=== PATIENT | male | born 1965 | race Caucasian/White ===

== ENCOUNTER 2016-07-18 05:21 | Emergency (ER) | payer SELFPAY ==
[~2016-07-18] VITALS: Ht 182.9 cm; Wt 137.9 kg
[~2016-07-18 05:21] MED LIST: ACET-789 PO; ACET1TAB12 PO; ALLP300T; ALLP300T PO; ALPR0.254 PO; AMOX500C2 PO; AMOX500T2 PO; CODE-54 PO; COLC0.6C3 PO; COLC0.6T53; COLC0.6T53 PO; COLC0.6T7 PO; CYCL10TA9 PO; ESCI10TA PO; FURO20TA4; FURO20TA4 PO; GFCD10B GT; IBP800T PO; IBUP800T26 PO; INDO50CA; INDO50CA PO; LIDO20SO20 PO; LISI10TA PO; METH4TAB PO; NAPR-243 PO; NEXIUM; OMEP20CA12 PO; PENI500T PO; PRD20T PO; SIMV20TA3 PO; SKELAXIN; SMV20T PO; TRM50T PO; TYLENOL #3 PO
[2016-07-18] MEDS ORDERED: PRD20T PO (05:43)
[2016-07-18] MEDS ORDERED: COLC0.6T53 PO (05:43)
[2016-07-18] MEDS ORDERED: HYDR-3729 PO (05:43)
--- NOTE | 2016-07-18 05:43 | ED General ---
General Chief Complaint: General Problems/Pain Stated Complaint: GOUT Source of Information: Patient Exam Limitations: No Limitations History of Present Illness Time Seen by Provider: 05:38 Initial Comments Patient woke up around an hour ago with severe right-sided ankle pain. He denies trauma. He has had gout many times in his ankle and he feels like this is it. He normally takes colchicine. He had none at home. Allergies and Home Medications Allergies Coded Allergies: No Known Drug Allergies (Unverified , 05/26/15) Home Medications Alprazolam 0.25 Mg Tablet, 0.25 MG PO QID, #60 (Reported) Escitalopram Oxalate 10 Mg Tablet, 10 MG PO DAILY, (Reported) Lisinopril 10 Mg Tablet, 10 MG PO DAILY, Ref 0 (Reported) Omeprazole 20 Mg Capsule.dr, 1 CAP PO DAILY, #30 (Reported) Simvastatin 20 Mg Tablet, 20 MG PO DAILY, (Reported) Constitutional: no symptoms reported Respiratory: no symptoms reported Cardiovascular: no symptoms reported Musculoskeletal: joint pain Past Tjngbtj-Fcrops-Bkjsjs Hx Patient Social History Alcohol Use: Denies Use Recreational Drug Use: No Smoking Status: Former Smoker Type Used: Cigarettes Former Smoker/When Quit: Feb 20, 1987 Recent Foreign Travel: No Contact w/Someone Who Travel: No Recent Hopitalizations: No Immunizations Up To Date Tetanus Booster (TDap): Less than 5yrs Seasonal Allergies Seasonal Allergies: No Surgeries HX Surgeries: No Respiratory Hx Respiratory Disorders: No Cardiovascular Hx Cardiac Disorders: Yes ("cardiac event") Cardiac Disorders: High Cholesterol, Hypertension Neurological Hx Neurological Disorders: No Reproductive System Hx Reproductive Disorders: No Sexually Transmitted Disease: No HIV/AIDS: No Genitourinary Hx Genitourinary Disorders: No Gastrointestinal Hx Gastrointestinal Disorders: Yes Gastrointestinal Disorders: Gastroesophageal Reflux Musculoskeletal Hx Musculoskeletal Disorders: Yes Musculoskeletal Disorders: Chronic Back Pain, Fractures, Gout Endocrine Hx Endocrine Disorders: No HEENT HX ENT Disorders: Yes HEENT Disorders: Cataract Cancer Hx Cancer: No Psychosocial Hx Psychiatric Problems: Yes Behavioral Health Disorders: Anxiety Integumentary HX Skin/Integumentary Disorder: No Blood Transfusions Hx Blood Disorders: No Adverse Reaction to a Blood Tr: No Reviewed Nursing Assessment Reviewed/Agree w Nursing PMH: Yes Family Medical History Significant Family History: Hypertension Family Medial History: Patient reports no known family medical history. Physical Exam Vital Signs Capillary Refill : General Appearance: WD/WN, Moderate Distress Neck: Supple Respiratory: Lungs Clear Cardiovascular: Regular Rate, Rhythm Extremity: Other (tender red swollen right ankle) Neurologic/Psychiatric: Alert, No Motor/Sensory Deficits Skin: Normal Color, Warm/Dry Departure Impression Impression: Primary Impression: acute gouty arthritis right ankle Disposition: 01 HOME, SELF-CARE Condition: Stable Departure-Patient Inst. Decision time for Depature: 05:40 Referrals: [facility] (PCP/Family) Primary Care Physician Patient Instructions: Gout Scripts Hydrocodone/Acetaminophen (Lortab 5-325 mg Tablet) 1 Each Tablet 1-2 EACH PO Q4H Y for PAIN-MODERATE, #10 TAB Prov: MICHEL CANO MD 07/18/16 Prednisone (Prednisone) 20 Mg Tab 20 MG PO BID, #8 TAB Prov: MICHEL CANO MD 07/18/16 Colchicine (Colcrys) 0.6 Mg Tablet 0.6 MG PO Q3HR Y for PAIN-SEVERE, #10 TAB Prov: MICHEL CANO MD 07/18/16 MICHEL CANO MD July 18, 2016 05:43
[2016-07-18] MEDS ORDERED: COLCHICINE 0.6 MG (COLCRYS) TABLET PO PRN (05:45)
[2016-07-18 05:58] VITALS: BP 0/0
[2016-07-18] MEDS ORDERED: ACET-789 PO (05:59)
[2016-07-18] MEDS ORDERED: COLCHICINE 0.6 MG (COLCRYS) TABLET PO ONE (06:00)
== END 2016-07-18 05:58 | disposition home or self-care (01) ==
LOC: EDUNIT# 05:21 → ER 05:24
DX: M10.071 Idiopathic gout, right ankle and foot (principal); I10 Essential (primary) hypertension; Z79.899 Other long term (current) drug therapy; Z87.891 Personal history of nicotine dependence
CPT/HCPCS: 99281

== ENCOUNTER 2017-03-11 17:47 | Emergency (ER) | payer SELFPAY ==
[~2017-03-11] VITALS: Ht 210.8 cm; Wt 137.9 kg
[~2017-03-11 17:47] MED LIST changes: +HYDR-3729 PO
--- OUTSIDE RECORDS SUMMARY | 2017-03-11 17:54 | XMS REPORT ---
Author Author GOLDY DUGGAN Organization [facility] Address [address] [place] [address] Care Team Providers Care Bellows Charger Assembler Name Role Phone GOLDY DUGGAN Unavailable PROBLEMS Type Condition ICD9-CM Code [id number] Code Onset Dates Condition Status SNOMED Code Problem Mixed hyperlipidemia E78.2 Active 919669055 Problem Anxiety state, unspecified F41.1 Active 029708392 Problem Essential hypertension I10 Active 75682933 Problem Gastroesophageal reflux disease without esophagitis K21.9 Active 883215019 Problem Bladder spasms N32.89 Active 860256776 Problem PTSD (post-traumatic stress disorder) F43.10 Active 79889584 Problem 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 Active 19854659 Problem Generalized anxiety disorder F41.1 Active 86644014 Problem Agoraphobia F40.00 Active 43653518 Problem Social anxiety disorder F40.10 Active 10685007 ALLERGIES No Known Allergies SOCIAL HISTORY Never Assessed PLAN OF CARE Activity Details Follow Up prn Reason: VITAL SIGNS Height 72 in 2016-07-09 Weight 303.2 lbs 2016-07-09 Temperature 98.1 degrees Fahrenheit 2016-07-09 Heart Rate 88 bpm 2016-07-09 Respiratory Rate 22 2016-07-09 BMI 41.12 kg/m2 2016-07-09 Blood pressure systolic 130 mmHg 2016-07-09 Blood pressure diastolic 80 mmHg 2016-07-09 MEDICATIONS Medication Instructions Dosage Frequency Start Date End Date Duration Status Alprazolam 0.25 MG TAKE ONE TABLET BY MOUTH TWICE DAILY 30 Active Pyridium 200 MG Orally Three times a day 1 tablet after meals 8h June, June, 2 day(s) Active Lisinopril 10 mg Orally Once a day 1 tablet 24h 30 Active Xanax 0.25 MG Orally four times a day 1 tablet 6h Dec, 30 days Active Simvastatin 10 MG Orally Once a day 1 24h Jul, 30 days Active Lexapro 10 MG Orally Once a day 1 tablet 24h 16 Dec, 2015 30 day(s) Active Flonase Allergy Relief 50 MCG/ACT Nasally twice a day 1 spray in each nostril 12h 14 Dec, 2015 30 day(s) Active RESULTS Name Result Date Reference Range UA LONG DIP (IN HOUSE) 2016-07-09 Lot # [id number] Exp date 2017-06-19 Clarity clear Color yellow Odor none GLU negative ULICES negative KET negative SG >=1.030 BLO negative pH 6.0 Protein negative URO 1.0 NIT negative ZENAIDA negative Lot # [id number] Exp date 2017-03 PROCEDURES Procedure Date Ordered Result Body Site URINALYSIS, AUTO, W/O SCOPE July 09, 2016 IMMUNIZATIONS No Known Immunizations MEDICAL (GENERAL) HISTORY Type Description Date Medical History chronic pain to back and right shoulder from work related injury 2009 Medical History coronary artery disease Medical History sleep apnea Medical History anxiety Medical History myocardial infarction 12/22/2011 (nuclear stress test done) Medical History hypertension Medical History gout Hospitalization History [place] 12/2011
--- OUTSIDE RECORDS SUMMARY | 2017-03-11 17:54 | XMS REPORT ---
Author Author ADIN CHANG [facility] Address [address] [place] [address] Care Team Providers Care Harness Repairer Name Role Phone ADIN CHANG Unavailable PROBLEMS Type Condition ICD9-CM Code [id number] Code Onset Dates Condition Status SNOMED Code Problem Mixed hyperlipidemia E78.2 Active 791807510 Problem Anxiety state, unspecified F41.1 Active 020432368 Problem Essential hypertension I10 Active 21643498 Problem Gastroesophageal reflux disease without esophagitis K21.9 Active 723134111 Problem Bladder spasms N32.89 Active 443783007 Problem PTSD (post-traumatic stress disorder) F43.10 Active 13991126 Problem 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 Active 78803948 Problem Generalized anxiety disorder F41.1 Active 23234266 Problem Agoraphobia F40.00 Active 12382584 Problem Social anxiety disorder F40.10 Active 55986160 ALLERGIES No Known Allergies SOCIAL HISTORY Never Assessed PLAN OF CARE Activity Details Follow Up 6 Months Reason: VITAL SIGNS Height 72 in 2016-04-22 Weight 293.0 lbs 2016-04-22 Temperature 98.0 degrees Fahrenheit 2016-04-22 Heart Rate 80 bpm 2016-04-22 Respiratory Rate 22 2016-04-22 BMI 39.73 kg/m2 2016-04-22 Blood pressure systolic 146 mmHg 2016-04-22 Blood pressure diastolic 82 mmHg 2016-04-22 MEDICATIONS Medication Instructions Dosage Frequency Start Date End Date Duration Status Simvastatin 10 MG Orally Once a day 1 24h 11 Jul, 2012 30 days Active Lexapro 10 MG Orally Once a day 1 tablet 24h 16 Dec, 2015 30 day(s) Active Lisinopril 10 mg Orally Once a day 1 tablet 24h 30 days Active Alprazolam 0.25 MG TAKE ONE TABLET BY MOUTH TWICE DAILY 30 Active Flonase Allergy Relief 50 MCG/ACT Nasally twice a day 1 spray in each nostril 12h 14 Dec, 2015 30 day(s) Active Xanax 0.25 MG Orally four times a day 1 tablet 6h Dec, 30 days Active RESULTS No Results PROCEDURES No Known procedures IMMUNIZATIONS No Known Immunizations MEDICAL (GENERAL) HISTORY Type Description Date Medical History chronic pain to back and right shoulder from work related injury 2009 Medical History coronary artery disease Medical History sleep apnea Medical History anxiety Medical History myocardial infarction 12/22/2011 (nuclear stress test done) Medical History hypertension Medical History gout Hospitalization History [place] 12/2011
--- OUTSIDE RECORDS SUMMARY | 2017-03-11 17:55 | XMS REPORT ---
Author Author ADIN CHANG [facility] Address [address] [place] [address] Care Team Providers Care Cattle Driver Name Role Phone ADIN CHANG Unavailable PROBLEMS Type Condition ICD9-CM Code WPF65-CD Code Onset Dates Condition Status SNOMED Code Problem Mixed hyperlipidemia E78.2 Active 750758064 Problem Anxiety state, unspecified F41.1 Active 663274778 Problem Essential hypertension I10 Active 57014997 Problem Gastroesophageal reflux disease without esophagitis K21.9 Active 870075741 Problem Bladder spasms N32.89 Active 468029279 Problem PTSD (post-traumatic stress disorder) F43.10 Active 23123800 Problem 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 Active 17353533 Problem Generalized anxiety disorder F41.1 Active 59098835 Problem Agoraphobia F40.00 Active 58554929 Problem Social anxiety disorder F40.10 Active 66851766 ALLERGIES No Information SOCIAL HISTORY Never Assessed PLAN OF CARE VITAL SIGNS MEDICATIONS Medication Instructions Dosage Frequency Start Date End Date Duration Status Lisinopril 10 mg Orally Once a day 1 tablet 24h 30 days Active RESULTS No Results PROCEDURES No Known procedures IMMUNIZATIONS No Known Immunizations MEDICAL (GENERAL) HISTORY Type Description Date Medical History chronic pain to back and right shoulder from work related injury 2009 Medical History coronary artery disease Medical History sleep apnea Medical History anxiety Medical History myocardial infarction 12/22/2011 (nuclear stress test done) Medical History hypertension Medical History gout Hospitalization History [place] 12/2011
--- OUTSIDE RECORDS SUMMARY | 2017-03-11 17:55 | XMS REPORT ---
Author Author ADIN CHANG [facility] Address [address] [place] [address] Care Team Providers Care Intraoperative Neuro Tech Name Role Phone ADIN CHANG Unavailable PROBLEMS Type Condition ICD9-CM Code WYP52-TL Code Onset Dates Condition Status SNOMED Code Problem Mixed hyperlipidemia E78.2 Active 498705806 Problem Anxiety state, unspecified F41.1 Active 720370675 Problem Essential hypertension I10 Active 36908498 Problem Gastroesophageal reflux disease without esophagitis K21.9 Active 538852384 Problem Bladder spasms N32.89 Active 225553961 Problem PTSD (post-traumatic stress disorder) F43.10 Active 96245646 Problem 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 Active 98895780 Problem Generalized anxiety disorder F41.1 Active 28612345 Problem Agoraphobia F40.00 Active 45053370 Problem Social anxiety disorder F40.10 Active 41458809 ALLERGIES No Information SOCIAL HISTORY Never Assessed PLAN OF CARE VITAL SIGNS MEDICATIONS Unknown Medications RESULTS Name Result Date Reference Range TSH 2016-04-21 TSH 1.520 0.450-4.500 LIPID PANEL 2016-04-21 Cholesterol, Total 185 100-199 Triglycerides 152 0-149 HDL Cholesterol 49 >39 VLDL Cholesterol Neri 30 5-40 LDL Cholesterol Calc 106 0-99 CMP 2016-04-21 Glucose, Serum 86 65-99 BUN 10 6-24 Creatinine, Serum 0.90 0.76-1.27 eGFR If NonAfricn Am 101 >59 eGFR If Africn Am 116 >59 BUN/Creatinine Ratio 11 9-20 Sodium, Serum 137 134-144 Potassium, Serum 4.9 3.5-5.2 Chloride, Serum 97 96-106 Carbon Dioxide, Total 26 18-29 Calcium, Serum 9.2 8.7-10.2 Protein, Total, Serum 7.0 6.0-8.5 Albumin, Serum 4.1 3.5-5.5 Globulin, Total 2.9 1.5-4.5 A/G Ratio 1.4 1.1-2.5 Bilirubin, Total 0.6 0.0-1.2 Alkaline Phosphatase, S 104 39-117 AST (SGOT) 14 0-40 ALT (SGPT) 15 0-44 PROCEDURES Procedure Date Ordered Result Body Site COMPREHEN METABOLIC PANEL April 21, 2016 LIPID PANEL April 21, 2016 VENIPUNCT, ROUTINE* April 21, 2016 ASSAY THYROID STIM HORMONE April 21, 2016 IMMUNIZATIONS No Known Immunizations MEDICAL (GENERAL) HISTORY Type Description Date Medical History chronic pain to back and right shoulder from work related injury 2009 Medical History coronary artery disease Medical History sleep apnea Medical History anxiety Medical History myocardial infarction 12/22/2011 (nuclear stress test done) Medical History hypertension Medical History gout Hospitalization History [place] 12/2011
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
[2017-03-11] MEDS ORDERED: AZIT250T12 PO (17:58)
[2017-03-11] MEDS ORDERED: ACET-789 PO (17:58)
--- NOTE | 2017-03-11 17:58 | ED Cough/URI ---
General Stated Complaint: COUGH,LIGHT HEADED WHEN COUGHING,FEVER Source: patient Exam Limitations: no limitations History of Present Illness Date Seen by Provider: Mar 11, 2017 Time Seen by Provider: 17:56 Initial Comments To ER with 4-5 days of nasal congestion and cough. No fevers. Cough was initially productive but is no longer productive and his chest feels tighter when he coughs now. Timing/Duration: just prior to arrival Severity/Quality: dry cough Associated Symptoms: cough Allergies and Home Medications Allergies Coded Allergies: No Known Drug Allergies (Unverified , 05/26/15) Home Medications Acetaminophen with Codeine 1 Each Tablet, 1 EACH PO Q4H PRN for PAIN-MILD TO MODERATE for 14 Days Prescribed by: MICHEL CANO on 07/18/16 0559 Alprazolam 0.25 Mg Tablet, 0.25 MG PO QID, #60 (Reported) Colchicine 0.6 Mg Tablet, 0.6 MG PO Q3HR PRN for PAIN-SEVERE, #10 Prescribed by: MICHEL CANO on 07/18/16 0543 Escitalopram Oxalate 10 Mg Tablet, 10 MG PO DAILY, (Reported) Lisinopril 10 Mg Tablet, 10 MG PO DAILY, Ref 0 (Reported) Omeprazole 20 Mg Capsule.dr, 1 CAP PO DAILY, #30 (Reported) Prednisone 20 Mg Tab, 20 MG PO BID, #8 Prescribed by: MICHEL CANO on 07/18/16 0543 Simvastatin 20 Mg Tablet, 20 MG PO DAILY, (Reported) Constitutional: see HPI, No chills EENTM: nose congestion Respiratory: see HPI, cough Cardiovascular: see HPI, chest pain Genitourinary: no symptoms reported Skin: no symptoms reported Past Dfoednt-Pmmhqh-Hvnldr Hx Patient Social History Type Used: Cigarettes Former Smoker, Quit: Feb 20, 1986 Recent Foreign Travel: No Contact w/Someone Who Travel: No Recent Hopitalizations: No Immunizations Up To Date Tetanus Booster (TDap): Less than 5yrs Seasonal Allergies Seasonal Allergies: No Surgeries History of Surgeries: No Respiratory History of Respiratory Disorde: No Cardiovascular History of Cardiac Disorders: Yes ("cardiac event") Cardiac Disorders: High Cholesterol, Hypertension Neurological History of Neurological Disord: No Reproductive System Hx Reproductive Disorders: No Sexually Transmitted Disease: No HIV/AIDS: No Gastrointestinal History of Gastrointestinal Di: Yes Gastrointestinal Disorders: Gastroesophageal Reflux Musculoskeletal History of Musculoskeletal Dis: Yes Musculoskeletal Disorders: Chronic Back Pain, Fractures, Gout Endocrine History of Endocrine Disorders: No HEENT HEENT Disorders: Cataract Cancer History of Cancer: No Psychosocial History of Psychiatric Problem: Yes Behavioral Health Disorders: Anxiety Integumentary History of Skin or Integumenta: No Blood Transfusions History of Blood Disorders: No Adverse Reaction to a Blood Tr: No Family Medical History Significant Family History: Hypertension Family Medial History: Patient reports no known family medical history. Physical Exam Vital Signs Capillary Refill : General Appearance: WD/WN, no apparent distress Eyes: Bilateral Eye Normal Inspection, Bilateral Eye PERRL, Bilateral Eye EOMI HEENT: PERRL/EOMI, normal ENT inspection Respiratory: normal breath sounds, no respiratory distress, no accessory muscle use Cardiovascular: regular rate, rhythm, no murmur Gastrointestinal: normal bowel sounds, non tender, soft Neurologic/Psychiatric: alert, normal mood/affect, oriented x 3 Skin: normal color, warm/dry Progress/Results/Core Measures Suspected Sepsis SIRS Temperature: Pulse: Respiratory Rate: Blood Pressure / Mean: Results/Orders My Orders Orders - DACIA CAMPOS APRN Chest Pa/Lat (2 View) (03/11/17 17:51) Influenza A And B Antigens (03/11/17 17:51) Vital Signs/I&O Capillary Refill : Departure Impression Impression: Primary Impression: Bronchitis Disposition: 01 HOME, SELF-CARE Condition: Stable Departure-Patient Inst. Decision time for Depature: 17:57 Referrals: [facility] (PCP/Family) Primary Care Physician Patient Instructions: Acute Bronchitis in Adults Add. Discharge Instructions: 1. Inhaler 2 puffs every 4 hours as needed for shortness of breath and chest tightness 2. Tylenol with codeine to help control the cough every 4 hours as needed for excessive coughing 3. Antibiotics as directed Scripts Acetaminophen with Codeine (Tylenol with Codeine #3 Tablet) 1 Each Tablet 1 EACH PO Q4H Y for COUGH, #10 TAB Prov: DACIA CAMPOS APRN 03/11/17 Azithromycin (Azithromycin) 250 Mg Tablet 250 MG PO DAILY, #4 TAB Prov: DACIA CAMPOS APRN 03/11/17 DACIA CAMPOS APRN Mar 11, 2017 17:58
[2017-03-11] MEDS ORDERED: RX-ALBUTEROL INHALER (PROAIR) 8 GM IH STA (18:00)
[2017-03-11] MEDS ORDERED: RX-ACETAMINOPHEN/CODEINE TAB PPK #4 PO SCH (18:00)
--- NOTE | 2017-03-11 18:05 | Diagnostic Imaging Report ---
INDICATION: Lower respiratory infection PA and lateral chest Heart size and pulmonary vascularity are normal. Lungs are clear. There are no effusions or pneumothoraces. IMPRESSION: Negative chest Dictated by: Dictated on workstation # [id number]
[2017-03-11] MEDS ORDERED: AZITHROMYCIN 250 MG TAB (ZITHROMAX) PO ONE (18:13)
[2017-03-11 18:22] VITALS: BP 121/102
[2017-03-12] MEDS ORDERED: AZITHROMYCIN 250 MG TAB (ZITHROMAX) PO SCH (09:00)
== END 2017-03-11 18:16 | disposition home or self-care (01) ==
LOC: EDUNIT# 17:47 → ER 17:50
DX: J40 Bronchitis, not specified as acute or chronic (principal); F41.9 Anxiety disorder, unspecified; K21.9 Gastro-esophageal reflux disease without esophagitis; I10 Essential (primary) hypertension; E78.00 Pure hypercholesterolemia, unspecified; Z87.891 Personal history of nicotine dependence; Z87.81 Personal history of (healed) traumatic fracture
CPT/HCPCS: 71046; 99283

== ENCOUNTER 2017-09-17 15:31 | Emergency (ER) | payer SELFPAY ==
[~2017-09-17] VITALS: Ht 182.9 cm; Wt 134.3 kg
[~2017-09-17 15:31] MED LIST changes: +AZIT250T12 PO
--- OUTSIDE RECORDS SUMMARY | 2017-09-17 15:38 | XMS REPORT ---
Author Author ADIN CHANG Organization 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 [address] [address] Dec, [facility] [address] [address] Dec, Essential hypertension I10 and High risk sexual behavior Z72.51 [facility] [address] [address] Nov, [facility] [address] [address] Oct, [facility] [address] [phone] June, Lower abdominal pain R10.30 and Bladder spasms N32.89 [facility] [address] [address] May, [facility] [address] [address] May, [facility] [address] [address] Apr, Essential hypertension I10 and Mixed hyperlipidemia E78.2 [place] [id number] [place] [address] Apr, Mixed hyperlipidemia E78.2 [place] [id number] [place] [address] Mar, Essential hypertension I10 [place] [address] [address] Dec, [place] [address] [address] Dec, 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 ; PTSD (post- traumatic stress disorder) F43.10 and OCD (obsessive compulsive disorder) F42.9 [place] [id number] [place] [address] Dec, [facility] [id number] [place] [phone] Dec, Fluid level behind tympanic membrane of right ear H65.91 [place] [id number] [place] [address] Nov, Generalized anxiety disorder F41.1 ; OCD (obsessive compulsive disorder) F42.9 ; PTSD (post-traumatic stress disorder) F43.10 ; Agoraphobia F40.00 ; Social anxiety disorder F40.10 ; Anxiety state, unspecified F41.1 and 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 [place] [id number] [place] [address] Nov, Generalized anxiety disorder F41.1 and 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 [place] [id number] [place] [address] Oct, [place] [id number] [place] [address] Sep, Essential hypertension I10 [place] [id number] [place] [address] Sep, [facility] [id number] [address] Sep, 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 [facility] [id number] [place] [address] Jul, Anxiety state, unspecified F41.1 [facility] [id number] [place] [address] June, Essential hypertension I10 ; Anxiety F41.9 and Mixed hyperlipidemia E78.2 [place] [id number] [place] [address] June, Generalized anxiety disorder F41.1 [place] [id number] [place] [address] May, [place] [id number] [place] [address] May, [facility] [id number] [place] [address] Jul, [facility] [id number] [place] [address] Dec, [facility] [id number] [place] [address] May, [facility] [id number] [place] [address] May, IMMUNIZATIONS No Known Immunizations SOCIAL HISTORY Never Assessed REASON FOR VISIT LVM PLAN OF CARE VITAL SIGNS MEDICATIONS Unknown Medications RESULTS No Results PROCEDURES No Known procedures INSTRUCTIONS MEDICATIONS ADMINISTERED No Known Medications MEDICAL (GENERAL) HISTORY Type Description Date Medical History chronic pain to back and right shoulder from work related injury 2009 Medical History coronary artery disease Medical History sleep apnea Medical History anxiety Medical History myocardial infarction 12/22/2011 (nuclear stress test done) Medical History hypertension Medical History gout Hospitalization History [place] 12/2011
--- NOTE | 2017-09-17 15:50 | ED Lower Extremity ---
General Chief Complaint: Lower Extremity Stated Complaint: GOUT FLARE UP Source: patient Exam Limitations: no limitations History of Present Illness Date Seen by Provider: Sep 17, 2017 Time Seen by Provider: 15:48 Initial Comments to ER with reports of a gout flareup. This began about 3:30 AM this morning and affects the right medial malleolus. This was his typical presentation for gout. He denies fevers chills or injury. He sstates this is not as bad as typical but he has to work tomorrow so he wanted to get this treated early. Onset: just prior to arrival Severity: moderate Pain/Injury Location: right ankle Method of Injury: other (gout) Modifying Factors: Worse With Movement Allergies and Home Medications Allergies Coded Allergies: No Known Drug Allergies (Unverified , 05/26/15) Home Medications Alprazolam 0.25 Mg Tablet, 0.25 MG PO QID, (Reported) Lisinopril 10 Mg Tablet, 10 MG PO DAILY, (Reported) Prednisone 20 Mg Tab, 40 MG PO DAILY Prescribed by: NAHOMY ROBERTS on 07/01/17 0029 Patient Home Medication List Home Medication List Reviewed: Yes Constitutional: see HPI; No chills, No fever EENTM: see HPI Respiratory: no symptoms reported Cardiovascular: no symptoms reported Genitourinary: no symptoms reported Musculoskeletal: see HPI Skin: see HPI Psychiatric/Neurological: No Symptoms Reported Past Uxdcupd-Fkxnta-Fielfd Hx Patient Social History Alcohol Use: Denies Use Recreational Drug Use: No Smoking Status: Current Someday Smoker Type Used: Cigarettes Former Smoker, Quit: Feb 20, 1986 Recent Foreign Travel: No Contact w/Someone Who Travel: No Recent Hopitalizations: No Physical Abuse: No Sexual Abuse: No Mistreated: No Fear: No Immunizations Up To Date Tetanus Booster (TDap): Less than 5yrs PED Vaccines UTD: Yes Seasonal Allergies Seasonal Allergies: No Past Medical History Surgeries: No Respiratory: No Cardiac: Yes ("cardiac event") High Cholesterol, Hypertension Neurological: No Reproductive Disorders: No Sexually Transmitted Disease: No HIV/AIDS: No Genitourinary: No Gastrointestinal: Yes Gastroesophageal Reflux Musculoskeletal: Yes Chronic Back Pain, Fractures, Gout Endocrine: No Cataract Cancer: No Psychosocial: Yes Anxiety Nursing Suicide Risk Score: 2 Integumentary: No Blood Disorders: No Adverse Reaction/Blood Tranf: No Family Medical History Patient reports no known family medical history. Hypertension Physical Exam Vital Signs Vital Signs - First Documented 09/17/17 15:42 Temp 98.2 Pulse 87 Resp 16 B/P (MAP) 149/83 (105) Pulse Ox 95 Capillary Refill : Height, Weight, BMI Height: 6'0" Weight: 280lbs. oz. 127.895646pq; 0.00 BMI Method:Stated General Appearance: WD/WN, no apparent distress HEENT: PERRL/EOMI, normal ENT inspection Respiratory: no respiratory distress, no accessory muscle use Hips: bilateral hip non-tender, bilateral hip normal inspection, bilateral hip normal range of motion Legs: bilateral leg non-tender, bilateral leg normal inspection, bilateral leg normal range of motion Knees: bilateral knee non-tender, bilateral knee normal inspection, bilateral knee normal range of motion ( G yesterday) Ankles: right ankle pain, right ankle soft tissue tenderness, right ankle other (faint erythema over the medial malleolus) Feet: bilateral foot non-tender, bilateral foot normal inspection, bilateral foot normal range of motion Skin: normal color, warm/dry Progress/Results/Core Measures Results/Orders My Orders Orders - DACIA CAMPOS APRN Colchicine Tablet (Colcrys Tablet) (09/17/17 16:00) Prednisone Tablet (Deltasone Tablet) (09/17/17 16:00) Vital Signs/I&O 09/17/17 15:42 Temp 98.2 Pulse 87 Resp 16 B/P (MAP) 149/83 (105) Pulse Ox 95 Departure Impression Primary Impression: Gouty arthropathy Disposition: 01 HOME, SELF-CARE Condition: Stable Departure-Patient Inst. Decision time for Depature: 15:50 Referrals: [facility] (PCP/Family) Primary Care Physician Patient Instructions: Gout, Lifestyle Changes to Manage Gout Add. Discharge Instructions: 1. Follow-up with your doctor later this week 2. Return to ER for any concerns 3.All discharge instructions reviewed with patient and/or family. Voiced understanding. Scripts Acetaminophen with Codeine (Tylenol with Codeine #3 Tablet) 1 Each Tablet 1 EACH PO Q6H PRN for PAIN-MODERATE, #10 TAB Prov: DACIA CAMPOS APRN 09/17/17 Prednisone (Prednisone) 20 Mg Tab 40 MG PO DAILY, #6 TAB Prov: DACIA CAMPOS APRN 09/17/17 Work/School Note: Work Release Form Date Seen in the Emergency Department: Sep 17, 2017 Return to Work: Sep 19, 2017 DACIA CAMPOS APRN Sep 17, 2017 15:50
[2017-09-17] MEDS ORDERED: PRD20T PO (15:52)
[2017-09-17] MEDS ORDERED: ACET-789 PO (15:52)
[2017-09-17] MEDS ORDERED: COLCHICINE 0.6 MG (COLCRYS) TABLET PO ONE (16:00)
[2017-09-17] MEDS ORDERED: predniSONE 20 MG TAB PO ONE (16:00)
[2017-09-17 16:08] VITALS: BP 142/87
[2017-09-17] MEDS ORDERED: COLC0.6C3 PO (16:10)
== END 2017-09-17 16:08 | disposition home or self-care (01) ==
LOC: EDUNIT# 15:31 → ER 15:33
DX: M10.9 Gout, unspecified (principal); E78.00 Pure hypercholesterolemia, unspecified; I10 Essential (primary) hypertension; K21.9 Gastro-esophageal reflux disease without esophagitis; F41.9 Anxiety disorder, unspecified; Z87.891 Personal history of nicotine dependence; Z79.52 Long term (current) use of systemic steroids
CPT/HCPCS: 99283

== ENCOUNTER 2017-11-05 00:09 | Emergency (ER) | payer SELFPAY ==
[~2017-11-05] VITALS: Ht 182.9 cm; Wt 129.3 kg
--- NOTE | 2017-11-05 00:34 | ED Lower Extremity ---
General Chief Complaint: General Problems/Pain Stated Complaint: GOUT R FOOT Nursing Triage Note: RIGHT FOOT PAIN, PT STATES HE IS HAVING A GOUT FLARE UP. PAIN STARTED THIS MORNING AND PT HAD TO GO TO WORK AND BE ON HIS FEET FOR 10 HOURS. Nursing Sepsis Screen: No Definite Risk Source: patient Exam Limitations: no limitations History of Present Illness Date Seen by Provider: Nov 05, 2017 Time Seen by Provider: 00:23 Initial Comments The patient presents to the ER by private conveyance with chief complaint he is having a gout flare in his right foot. It is red and swollen. Started yesterday. He has not taken anything for it. He says usually he comes to the ER and they give him Tylenol 3, prednisone and some other medication he thinks it a generic brand for colchicine. He does not use Naprosyn because he says it makes him loopy. He says he's had a heart attack before but it was not from the blood vessels of his heart it was just stress related. He does not take any blood thinners, aspirin or Plavix. He does follow with Dr. Voss although is not seen him in several years. Allergies and Home Medications Allergies Coded Allergies: No Known Drug Allergies (Unverified , 05/26/15) Home Medications Acetaminophen with Codeine 1 Each Tablet, 1 EACH PO Q6H PRN for PAIN-MODERATE Prescribed by: DACIA CAMPOS on 09/17/17 1552 Alprazolam 0.25 Mg Tablet, 0.25 MG PO QID, (Reported) Colchicine 0.6 Mg Capsule, 0.6 MG PO ONCE Prescribed by: DACIA CAMPOS on 09/17/17 1610 Lisinopril 10 Mg Tablet, 10 MG PO DAILY, (Reported) Prednisone 20 Mg Tab, 40 MG PO DAILY Prescribed by: NAHOMY ROBERTS on 07/01/17 0029 Prednisone 20 Mg Tab, 40 MG PO DAILY Prescribed by: DACIA CAMPOS on 09/17/17 1552 Patient Home Medication List Home Medication List Reviewed: Yes Review of Systems Constitutional: No chills, No diaphoresis EENTM: No ear discharge, No ear pain Respiratory: No cough, No short of breath Gastrointestinal: No abdominal pain, No nausea, No vomiting Genitourinary: No discharge, No dysuria Past Hircdes-Guciqq-Gvjywx Hx Patient Social History Alcohol Use: Denies Use Recreational Drug Use: No Smoking Status: Never a Smoker Type Used: Cigarettes Former Smoker, Quit: Feb 20, 1986 Recent Foreign Travel: No Contact w/Someone Who Travel: No Recent Infectious Disease Expo: No Recent Hopitalizations: No Physical Abuse: No Sexual Abuse: No Immunizations Up To Date Tetanus Booster (TDap): Less than 5yrs PED Vaccines UTD: Yes Seasonal Allergies Seasonal Allergies: No Past Medical History Surgeries: No Respiratory: No Cardiac: Yes ("cardiac event") Heart Attack, High Cholesterol, Hypertension Neurological: No Reproductive Disorders: No Sexually Transmitted Disease: No HIV/AIDS: No Genitourinary: No Gastrointestinal: Yes Gastroesophageal Reflux Musculoskeletal: Yes Chronic Back Pain, Fractures, Gout Endocrine: No HEENT: Yes Cataract Cancer: No Psychosocial: Yes Anxiety Integumentary: No Blood Disorders: No Adverse Reaction/Blood Tranf: No Family Medical History Patient reports no known family medical history. Hypertension Physical Exam Vital Signs Vital Signs - First Documented 11/05/17 00:16 Temp 98.6 Pulse 85 Resp 14 B/P (MAP) 152/92 (112) Pulse Ox 96 Capillary Refill : Less Than 3 Seconds Height, Weight, BMI Height: 6'0" Weight: 285lbs. 0oz. 129.737180nc; 0.00 BMI Method:Stated General Appearance: WD/WN, no apparent distress HEENT: PERRL/EOMI, pharynx normal Cardiovascular: normal peripheral pulses, regular rate, rhythm Respiratory: no respiratory distress, no accessory muscle use Ankles: bilateral ankle non-tender, bilateral ankle normal inspection, bilateral ankle normal range of motion, bilateral ankle no evidence of injury Feet: left foot non-tender, left foot normal inspection, left foot normal range of motion, left foot no evidence of injury; right foot bone tenderness, right foot pain, right foot soft tissue tenderness, right foot swelling (mild) Neurologic/Psychiatric: alert, oriented x 3 Progress/Results/Core Measures Results/Orders Vital Signs/I&O 11/05/17 00:16 Temp 98.6 Pulse 85 Resp 14 B/P (MAP) 152/92 (112) Pulse Ox 96 Blood Pressure Mean: 112 Progress Progress Note : Time: 00:33 Progress Note I cannot find any indication why the patient would not benefit from NSAIDs. He does not want Naprosyn however he thinks and says make him feel loopy. We'll give him some cold symptoms since this is worked in the past as well as Tylenol 3 and put him on a 5 day Dosepak of prednisone. In 2011 he had a stress test and echocardiogram showing some mild diastolic dysfunction. No cardiac catheterization report found. Departure Impression Primary Impression: Gouty arthropathy Disposition: 01 HOME, SELF-CARE Condition: Stable Departure-Patient Inst. Decision time for Depature: 00:35 Referrals: [facility] (PCP/Family) Primary Care Physician Patient Instructions: Gout (DC) Add. Discharge Instructions: Use the colchicine 1 tablet every 3 hours as needed for breakthrough pain. I recommend that you use ibuprofen 2-4 tablets every 8 hours as needed for pain in addition to Tylenol 1000 mg every 8 hours. Start taking the prednisone 2 tablets daily for the next 5 days. Drink lots of fluids and follow-up with your primary care doctor as needed. If you have breakthrough pain you can use the Tylenol 3 one tablet every 6 hours. All discharge instructions reviewed with patient and/or family. Voiced understanding. Scripts Prednisone (Prednisone) 20 Mg Tab 40 MG PO DAILY for 5 Days, #10 TAB 0 Refills Prov: CHERELLE PADILLA 11/05/17 Colchicine (Colchicine) 0.6 Mg Capsule 0.6 MG PO Q3HR PRN for GOUT PAIN for 7 Days, #10 CAP 0 Refills Prov: CHERELLE PADILLA 11/05/17 Acetaminophen with Codeine (Acetaminophen-Cod #3 Tablet) 1 Each Tablet 1 EACH PO Q6H PRN for BREAKTHROUGH PAIN for 7 Days, #10 TAB 0 Refills Prov: CHERELLE PADILLA 11/05/17 CHERELLE PADILLA Nov 05, 2017 00:34
[2017-11-05] MEDS ORDERED: PRD20T PO (00:39)
[2017-11-05] MEDS ORDERED: COLC0.6C3 PO (00:39)
[2017-11-05] MEDS ORDERED: ACET1TAB43 PO (00:39)
[2017-11-05 00:45] VITALS: BP 145/89
== END 2017-11-05 00:45 | disposition home or self-care (01) ==
LOC: EDUNIT# 00:09 → ER 00:10
DX: M10.071 Idiopathic gout, right ankle and foot (principal); I25.2 Old myocardial infarction; I10 Essential (primary) hypertension; E78.00 Pure hypercholesterolemia, unspecified; K21.9 Gastro-esophageal reflux disease without esophagitis; F41.9 Anxiety disorder, unspecified; Z95.5 Presence of coronary angioplasty implant and graft; Z79.52 Long term (current) use of systemic steroids; Z87.891 Personal history of nicotine dependence
CPT/HCPCS: 99281

== ENCOUNTER 2018-02-02 21:34 | Emergency (ER) | payer BC, OTHER ==
[~2018-02-02] VITALS: Ht 182.9 cm; Wt 131.5 kg
[~2018-02-02 21:34] MED LIST changes: +ACET1TAB43 PO
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
[2018-02-02] MEDS ORDERED: PRD20T PO (21:53)
[2018-02-02] MEDS ORDERED: COLC0.6C3 PO (21:53)
[2018-02-02] MEDS ORDERED: COLCHICINE 0.6 MG (COLCRYS) TABLET PO ONE (22:00)
[2018-02-02] MEDS ORDERED: RX-ACETAMINOPHEN/CODEINE TAB PPK #4 PO SCH (22:00)
[2018-02-02 22:15] VITALS: BP 172/76
--- NOTE | 2018-02-10 18:28 | ED General ---
General Chief Complaint: General Problems/Pain Stated Complaint: R FOOT PAIN Nursing Triage Note: right foot pain, no injury Nursing Sepsis Screen: No Definite Risk Source of Information: Patient Exam Limitations: No Limitations History of Present Illness Date Seen by Provider: Feb 02, 2018 Time Seen by Provider: 21:45 Initial Comments 52-year-old male patient presents to the emergency department with complaints of gout to the right side. Patient denies any known injury. Patient states his had several episodes of gout to the fact and this feels similar to those times. Denies numbness or tingling. Denies taking any medications at home. Location Injury Occurred: denies known injury Timing/Duration: 1-3 Hours Modifying Factors: worse with Movement Allergies and Home Medications Allergies Coded Allergies: No Known Drug Allergies (Unverified , 05/26/15) Home Medications Acetaminophen with Codeine 1 Each Tablet, 1 EACH PO Q6H PRN for PAIN-MODERATE Prescribed by: DACIA CAMPOS on 09/17/17 155 Acetaminophen with Codeine 1 Each Tablet, 1 EACH PO Q6H PRN for BREAKTHROUGH PAIN Prescribed by: CHERELLE PADILLA on 11/05/1738 Alprazolam 0.25 Mg Tablet, 0.25 MG PO QID, (Reported) Colchicine 0.6 Mg Capsule, 0.6 MG PO ONCE Prescribed by: DACIA CAMPOS on 09/17/17 1610 Colchicine 0.6 Mg Capsule, 0.6 MG PO Q3HR PRN for GOUT PAIN Prescribed by: CHERELLE PADILLA on 11/05/17 003 Colchicine 0.6 Mg Capsule, 0.6 MG PO Q3HR PRN for pain Prescribed by: NEIL JAMES on 02/02/182152 Lisinopril 10 Mg Tablet, 10 MG PO DAILY, (Reported) Prednisone 20 Mg Tab, 40 MG PO DAILY Prescribed by: NAHOMY ROBERTS on 07/01/1728 Prednisone 20 Mg Tab, 40 MG PO DAILY Prescribed by: DACIA CAMPOS on 09/17/171551 Prednisone 20 Mg Tab, 40 MG PO DAILY Prescribed by: CHERELLE PADILLA on 11/05/1738 Prednisone 20 Mg Tab, 40 MG PO DAILY Take 3 tabs(60mg)daily, decrease by 1/2 tab(10mg)daily. Prescribed by: NEIL JAMES on 02/02/182152 Patient Home Medication List Home Medication List Reviewed: Yes Review of Systems Review of Systems Constitutional: No chills, No fever, No malaise Respiratory: no symptoms reported Cardiovascular: no symptoms reported Musculoskeletal: see HPI; No back pain; joint pain (right foot pain), joint swelling (right foot swelling) Skin: No change in color, No lumps Psychiatric/Neurological: Denies Numbness, Denies Paresthesia, Denies Tingling , Denies Weakness All Other Systems Reviewed Negative Unless Noted: Yes (Negative excepted noted.) Past Mingxmo-Cjbrkg-Kkunef Hx Past Med/Social Hx: Reviewed Nursing Past Med/Soc Hx Patient Social History Alcohol Use: Denies Use Recreational Drug Use: No Smoking Status: Never a Smoker Type Used: Smokeless Tobacco Former Smoker, Quit: Feb 20, 1986 Recent Foreign Travel: No Contact w/Someone Who Travel: No Recent Infectious Disease Expo: No Recent Hopitalizations: No Immunizations Up To Date Tetanus Booster (TDap): Less than 5yrs PED Vaccines UTD: Yes Seasonal Allergies Seasonal Allergies: No Past Medical History Surgeries: No Respiratory: No Cardiac: Yes ("cardiac event") Heart Attack, High Cholesterol, Hypertension Neurological: No Reproductive Disorders: No Sexually Transmitted Disease: No HIV/AIDS: No Genitourinary: No Gastrointestinal: Yes Gastroesophageal Reflux Musculoskeletal: Yes Chronic Back Pain, Fractures, Gout Endocrine: No HEENT: Yes Cataract Cancer: No Psychosocial: Yes Anxiety Integumentary: No Blood Disorders: No Adverse Reaction/Blood Tranf: No Family Medical History Reviewed Nursing Family Hx Patient reports no known family medical history. No Pertinent Family Hx, Hypertension Physical Exam Vital Signs Capillary Refill : Less Than 3 Seconds Height, Weight, BMI Height: 6'0" Weight: 290lbs. 0oz. 131.289990ki; 0.00 BMI Method:Stated General Appearance: No Apparent Distress, WD/WN Respiratory: Lungs Clear, Normal Breath Sounds, No Accessory Muscle Use, No Respiratory Distress Cardiovascular: Regular Rate, Rhythm, No Edema, No Murmur, Normal Peripheral Pulses Extremity: Normal Capillary Refill, Normal Inspection, Normal Range of Motion, No Pedal Edema, Other (and mild to moderate tenderness to the mid dorsal right foot without evidence of erythema or swelling. No evidence of trauma.) Neurologic/Psychiatric: Alert, Oriented x3, No Motor/Sensory Deficits, Normal Mood/Affect Skin: Normal Color, Warm/Dry; No Ecchymosis, No Erythema Progress/Results/Core Measures Suspected Sepsis Recent Fever Within 48 Hours: No Infection Criteria Present: None New/Unexplained Altered Menta: No Sepsis Screen: No Definite Risk SIRS Temperature:97.1 Pulse: 104 Respiratory Rate: 18 Blood Pressure 172 /76 Mean: 108 Results/Orders Vital Signs/I&O Capillary Refill : Less Than 3 Seconds Blood Pressure Mean: 108 Departure Communication (Admissions) Patient seen and evaluated. Plan for discharge to home. Impression Primary Impression: Gouty arthropathy Disposition: HOME, SELF-CARE Condition: Improved Departure-Patient Inst. Referrals: [facility] (PCP) Primary Care Physician Patient Instructions: Gout (DC) Add. Discharge Instructions: All discharge instructions reviewed with patient and/or family. Voiced understanding. Medications as instructed. Tylenol Extra Strength over-the- counter as directed for pain. Ice pack or heating pads as needed for pain and swelling. Elevate the right foot on pillows. Follow-up with your primary care provider for recheck as an outpatient. Call for appointment time. Return in the emergency department for worsened symptoms or any other concerns. Scripts Prednisone (Prednisone) 20 Mg Tab 40 MG PO DAILY, #8 TAB 0 Refills Take 3 tabs(60mg)daily, decrease by 1/2 tab(10mg)daily. Prov: NEIL JAMES 02/02/18 Colchicine (Colchicine) 0.6 Mg Capsule 0.6 MG PO Q3HR PRN for pain, #10 CAP 0 Refills Prov: NEIL JAMES 02/02/18 NEIL JAMES Feb 10, 2018 18:28
== END 2018-02-02 22:15 | disposition home or self-care (01) ==
LOC: EDUNIT# 21:34 → ER 21:35
DX: M10.9 Gout, unspecified (principal); F41.9 Anxiety disorder, unspecified; I25.2 Old myocardial infarction; E78.00 Pure hypercholesterolemia, unspecified; I10 Essential (primary) hypertension; K21.9 Gastro-esophageal reflux disease without esophagitis; Z79.52 Long term (current) use of systemic steroids; Z87.891 Personal history of nicotine dependence
CPT/HCPCS: 99283

== ENCOUNTER 2018-05-16 20:33 | Emergency (ER) | payer BC ==
[~2018-05-16] VITALS: Ht 182.9 cm; Wt 139.7 kg
--- OUTSIDE RECORDS SUMMARY | 2018-05-16 20:40 | XMS REPORT | Continuity of Care Document ---
Demographics Preferred Language Unknown Marital Status Unknown Lutheran Affiliation Unknown Race Unknown Ethnic Group Unknown Author Author [facility] Address Unknown Phone Unavailable Allergies Active Description Code Type Severity Reaction Onset Reported/Identified Relationship to Patient Clinical Status Yes PAIN MEDS PAIN MEDS Unknown N/A 01/28/2014 Yes No Known Drug Allergies [id number] Drug Allergy Unknown N/A 05/26/2015 Medications There [...] DRISCOLL DO Ot 401.9 08/23/2014 DACIA CAMPOS APPARATUS ENGINEERING TECHNOLOGIST Ot 959.5 FINGER INJURY NOS 08/23/2014 DACIA CAMPOS APPARATUS ENGINEERING TECHNOLOGIST Ot E000.8 OTHER EXTERNAL CAUSE STATUS 08/23/2014 DACIA CAMPOS APPARATUS ENGINEERING TECHNOLOGIST Ot E849.0 ACCIDENT IN HOME 08/23/2014 DACIA CAMPOS APPARATUS ENGINEERING TECHNOLOGIST Ot E918 CAUGHT BETWEEN OBJECTS 10/18/2014 NAHOMY [...] ROBERTS MD Ot M10.071 07/26/2015 DACIA CAMPOS APPARATUS ENGINEERING TECHNOLOGIST Ot M54.5 LOW BACK PAIN 07/26/2015 DACIA CAMPOS APPARATUS ENGINEERING TECHNOLOGIST Ot Z53.29 PROC/TRTMT NOT CRD OUT BEC [...] 01/09/2016 Ot 786.50 CHEST PAIN NOS 01/09/2016 THIGAO DRISCOLL DO A Ot 401.9 HYPERTENSION NOS [...] 401.9 HYPERTENSION NOS 03/22/2017 CAMPOS, PETER J APPARATUS ENGINEERING TECHNOLOGIST Ot E78.00 PURE HYPERCHOLESTEROLEMIA, UNSPECIFIED 03/22/2017 DACIA CAMPOS APPARATUS ENGINEERING TECHNOLOGIST Ot F41.9 ANXIETY DISORDER, UNSPECIFIED 03/22/2017 DACIA CAMPOS APPARATUS ENGINEERING TECHNOLOGIST Ot I10 ESSENTIAL (PRIMARY) HYPERTENSION 03/22/2017 DACIA CAMPOS APPARATUS ENGINEERING TECHNOLOGIST Ot J40 BRONCHITIS, NOT SPECIFIED ACUTE OR CH 03/22/2017 DACIA CAMPOS APPARATUS ENGINEERING TECHNOLOGIST Ot K21.9 GASTRO-ESOPHAGEAL REFLUX DISEASE WITHOUT 03/22/2017 DACIA CAMPOS APPARATUS ENGINEERING TECHNOLOGIST Ot R09.81 NASAL CONGESTION 03/22/2017 DACIA CAMPOS APPARATUS ENGINEERING TECHNOLOGIST Ot Z87.81 PERSONAL HISTORY OF (HEALED) TRAUMATIC F 03/22/2017 DACIA CAMPOS APPARATUS ENGINEERING TECHNOLOGIST Ot Z87.891 PERSONAL HISTORY OF NICOTINE DEPENDENCE [...] ANKLE AND JOINTS OF RIGHT 07/03/2017 NAHOMY ROBERST MD Ot Z87.891 PERSONAL HISTORY OF NICOTINE [...] HISTORY OF NICOTINE DEPENDENCE 09/17/2017 DACIA CAMPOS APRN Ot E78.00 PURE HYPERCHOLESTEROLEMIA, UNSPECIFIED 09/17/2017 DACIA CAMPOS APPARATUS ENGINEERING TECHNOLOGIST Ot F41.9 ANXIETY DISORDER, UNSPECIFIED 09/17/2017 DACIA CAMPOS APPARATUS ENGINEERING TECHNOLOGIST Ot I10 ESSENTIAL (PRIMARY) HYPERTENSION 09/17/2017 DACIA [...] UNSPECIFIED 09/19/2017 DACIA CAMPOS APRN Ot 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 09/19/2017 DACIA CAMPOS APRN Ot Z87.891 PERSONAL HISTORY OF NICOTINE DEPENDENCE 11/05/2017 CHERELLE PADILLA MD Ot E78.00 PURE HYPERCHOLESTEROLEMIA, UNSPECIFIED 11/05/2017 CHERELLE PADILLA MD Ot F41.9 ANXIETY DISORDER, UNSPECIFIED 11/05/2017 CHERELLE PADILLA MD Ot I10 ESSENTIAL (PRIMARY) HYPERTENSION 11/05/2017 CHERELLE PADILLA MD Ot I25.2 OLD MYOCARDIAL INFARCTION 11/05/2017 CHERELLE PADILLA MD Ot K21.9 GASTRO-ESOPHAGEAL REFLUX DISEASE WITHOUT 11/05/2017 CHERELLE PADILLA MD Ot M10.071 IDIOPATHIC GOUT, RIGHT ANKLE AND FOOT 11/05/2017 CHERELLE PADILLA MD Ot M10.9 GOUT, UNSPECIFIED 11/05/2017 CHERELLE PADILLA MD Ot 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 11/05/2017 CHERELLE PADILLA MD J Ot Z87.891 PERSONAL HISTORY OF NICOTINE DEPENDENCE 11/05/2017 CEHRELLE PADILLA MD Ot Z95.5 PRESENCE OF CORONARY ANGIOPLASTY IMPLANT 11/07/2017 CHERELLE PADILLA MD Ot E78.00 PURE HYPERCHOLESTEROLEMIA, UNSPECIFIED 11/07/2017 CHERELLE PADILLA MD Ot F41.9 ANXIETY DISORDER, UNSPECIFIED 11/07/2017 CHERELLE PADILLA MD J Ot I10 ESSENTIAL (PRIMARY) HYPERTENSION 11/07/2017 TAYA PADILLA MDUS J Ot I25.2 OLD MYOCARDIAL INFARCTION 11/07/2017 CHERELLE PADILLA MD J Ot K21.9 GASTRO-ESOPHAGEAL REFLUX DISEASE WITHOUT 11/07/2017 CHERELLE PADILLA MD Ot M10.071 IDIOPATHIC GOUT, RIGHT ANKLE AND FOOT 11/07/2017 CHERELLE PADILLA MD Ot M10.9 GOUT, UNSPECIFIED 11/07/2017 CHERELLE PADILLA MD Ot 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 11/07/2017 CHERELLE PADILLA MD Ot Z87.891 PERSONAL HISTORY OF NICOTINE DEPENDENCE 11/07/2017 CHERELLE PADILLA MD Ot Z95.5 PRESENCE OF CORONARY ANGIOPLASTY IMPLANT 02/02/2018 NEIL WHITE Ot E78.00 PURE HYPERCHOLESTEROLEMIA, UNSPECIFIED 02/02/2018 NEIL WHITE Ot F41.9 ANXIETY DISORDER, UNSPECIFIED 02/02/2018 NEIL WHITE Ot I10 ESSENTIAL (PRIMARY) HYPERTENSION 02/02/2018 NEIL WHITE Ot I25.2 OLD MYOCARDIAL INFARCTION 02/02/2018 NEIL WHITE Ot K21.9 GASTRO-ESOPHAGEAL REFLUX DISEASE WITHOUT 02/02/2018 NEIL WHITE Ot M10.9 GOUT, UNSPECIFIED 02/02/2018 NEIL WHITE Ot M79.671 PAIN IN RIGHT FOOT 02/02/2018 NEIL WHITE Ot 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 Results Test Result Range Comp. Metabolic Panel (14) - 03/02/17 12:22 Glucose, Serum 86 mg/dL 65-99 BUN [...] Status Pt. Type Provider Facility Loc./Unit Complaint [id number] 07/31/2012 08:06:00 Document Registration [id number] 05/14/2018 11:20:00 ACT Outpatient [facility] [id number] 04/22/2016 09:14:00 Document Registration [id number] 02/02/2018 21:35:00 02/02/2018 22:15:00 DIS Emergency NEIL WHITE Via [facility] ER R FOOT PAIN [id number] 11/05/2017 00:10:00 11/05/2017 00:45:00 DIS Emergency CHERELLE PADILLA MD [facility] ER GOUT R FOOT [id number] 09/17/2017 15:33:00 09/17/2017 16:08:00 DIS Emergency DACIA CAMPOS APRN [facility] ER GOUT FLARE UP [id number] 06/30/2017 23:12:00 07/01/2017 00:45:00 DIS Outpatient NAHOMY ROBERTS MD [facility] ER GOUT, RT FOOT [id number] 03/11/2017 17:50:00 03/11/2017 18:16:00 DIS Emergency DACIA CAMPOS APRN [facility] ER COUGH,LIGHT HEADED WHEN COUGHING,FEVER [id number] 07/18/2016 05:24:00 07/18/2016 05:58:00 DIS Emergency MICHEL CANO MD [facility] ER GOUT [id number] 01/09/2016 21:53:00 01/09/2016 23:08:00 DIS Emergency NAHOMY ROBERTS MD [facility] ER L FOOT INJ [id number] 07/26/2015 17:31:00 07/26/2015 18:04:00 DIS Emergency DACIA CAMPOS APRN [facility] ER RT LOWER BACK PAIN [id number] 05/26/2015 22:47:00 05/27/2015 00:38:00 DIS Emergency NAHOMY ROBERTS MD [facility] ER PAIN FROM GOUT [id number] 03/03/2015 17:02:00 03/03/2015 17:34:00 DIS Emergency KIRSTIN CESPEDES DO [facility] ER [id number] 11/27/2014 07:57:00 11/27/2014 09:20:00 DIS Emergency NAHOMY ROBERTS MD [facility] ER GOUT ATTACK R KNEE [id number] 10/30/2014 14:07:00 10/30/2014 14:13:00 DIS Outpatient VENUS BELLO DO [facility] SLEEP OBS APNEAS, SNORING, ARRHYTHMIAS, HTN, EDS, CHOKIN [id number] 10/18/2014 00:37:00 10/18/2014 01:01:00 DIS Emergency NAHOMY ROBERTS MD [facility] ER GOUT-LEFT FOOT [id number] 08/23/2014 17:14:00 08/23/2014 17:59:00 DIS Emergency DACIA CAMPOS APRN [facility] ER LEFT RING FINGER INJURY [id number] 01/30/2014 07:41:00 01/30/2014 23:59:59 CLS Outpatient YAMILA DO THIAGO Kannan [facility] LAB HTN [id number] 01/28/2014 05:44:00 01/28/2014 06:28:00 DIS Emergency KIRSTIN CESPEDES DO [facility] ER SOB [id number] 03/04/2013 23:03:00 03/04/2013 23:57:00 DIS Emergency KEHINDE LEVI, DEMETRIA Bradford [facility] ER RT ANKLE GOUT [id number] 02/09/2013 08:18:00 02/09/2013 09:56:00 DIS Emergency LORIE FLOWERS DO [facility] ER FALL, KNEE PAIN [id number] 01/12/2013 20:17:00 01/12/2013 21:02:00 DIS Emergency DACIA CAMPOS APRN [facility] ER CALF PAIN [id number] 11/10/2012 13:40:00 11/10/2012 14:27:00 DIS Emergency NEIL WHITE [facility] ER GOUT [id number] 10/31/2012 16:12:00 10/31/2012 17:36:00 DIS Emergency JEANCARLOS TAFOYA DO [facility] ER BACK PAIN [id number] 07/20/2012 11:04:00 07/20/2012 23:59:59 CLS Outpatient [id number] 07/07/2012 09:13:00 07/07/2012 11:05:00 DIS Emergency LORIE FLOWERS DO [facility] ER CHEST PAIN [id number] 06/30/2012 08:59:00 06/30/2012 09:58:00 DIS Emergency NAHOMY ROBERTS MD [facility] ER GOUT FLARE UP IN RIGHT ANKLE [id number] 05/10/2012 21:29:00 Document Registration [id number] 04/14/2012 20:06:00 Document Registration [id number] 01/06/2012 07:03:00 Document Registration [id number] 01/05/2012 13:01:00 Document Registration [id number] 12/26/2011 05:04:00 Document Registration [id number] 10/15/2011 09:48:00 Document Registration [id number] 08/06/2011 18:04:00 Document Registration [id number] 06/19/2011 13:28:00 Document Registration [id number] 03/08/2011 12:50:00 Document Registration [id number] 02/09/2011 22:40:00 Document Registration [id number] 10/23/2010 07:08:00 Document Registration [id number] 09/26/2010 14:08:00 Document Registration [id number] 08/03/2010 22:10:00 Document Registration [id number] 07/03/2010 20:53:00 Document Registration [id number] 09/27/2009 03:22:00 Document Registration
[2018-05-16] MEDS ORDERED: COLCHICINE 0.6 MG (COLCRYS) TABLET PO ONE (22:00)
[2018-05-16] MEDS ORDERED: APAP 300 MG/CODEINE 30 MG (TYLENOL #3) TAB PO ONE (22:00)
--- NOTE | 2018-05-16 22:01 | ED Lower Extremity ---
General Chief Complaint: Lower Extremity Stated Complaint: PAIN IN LEFT FOOT Nursing Triage Note: PT AMB TO TRIAGE WITH COMPLAINT OF LEFT FOOT PAIN. STATES HE HAS GOUT. SYMPTOMS STARTED THREE HOURS AGO. Nursing Sepsis Screen: No Definite Risk Source: patient Exam Limitations: no limitations History of Present Illness Date Seen by Provider: May 16, 2018 Time Seen by Provider: 21:59 Initial Comments 52-year-old male who presents to the emergency room with complaints of left foot pain. He reports that he gets gout from time to time and the arch of his foot. He reports that the pain started 3 hours ago and they normally treat this pain with colchicine and Tylenol No. 3. Allergies and Home Medications Allergies Coded Allergies: No Known Drug Allergies (Unverified , 05/26/15) Home Medications Acetaminophen with Codeine 1 Each Tablet, 1 EACH PO Q6H PRN for PAIN-MODERATE Prescribed by: DACIA CAMPOS on 09/17/17 155 Acetaminophen with Codeine 1 Each Tablet, 1 EACH PO Q6H PRN for BREAKTHROUGH PAIN Prescribed by: CHERELLE PADILLA on 11/05/17 003 Alprazolam 0.25 Mg Tablet, 0.25 MG PO QID, (Reported) Colchicine 0.6 Mg Capsule, 0.6 MG PO ONCE Prescribed by: DACIA CAMPOS on 09/17/17 1610 Colchicine 0.6 Mg Capsule, 0.6 MG PO Q3HR PRN for GOUT PAIN Prescribed by: CHERELLE PADILLA on 11/05/17 003 Colchicine 0.6 Mg Capsule, 0.6 MG PO Q3HR PRN for pain Prescribed by: NEIL JAMES on 02/02/182152 Lisinopril 10 Mg Tablet, 10 MG PO DAILY, (Reported) Prednisone 20 Mg Tab, 40 MG PO DAILY Prescribed by: NAHOMY ROBERTS on 07/01/17 002 Prednisone 20 Mg Tab, 40 MG PO DAILY Prescribed by: DACAI CAMPOS on 09/17/17 155 Prednisone 20 Mg Tab, 40 MG PO DAILY Prescribed by: CHERELLE PADILLA on 11/05/1738 Prednisone 20 Mg Tab, 40 MG PO DAILY Take 3 tabs(60mg)daily, decrease by 1/2 tab(10mg)daily. Prescribed by: NEIL JMAES on 02/02/182152 Past Khtasus-Rdbrud-Rwpuvt Hx Patient Social History Alcohol Use: Denies Use Recreational Drug Use: No Smoking Status: Former Smoker Type Used: Smokeless Tobacco Former Smoker, Quit: Feb 20, 1986 Recent Foreign Travel: No Contact w/Someone Who Travel: No Recent Infectious Disease Expo: No Recent Hopitalizations: No Immunizations Up To Date Tetanus Booster (TDap): Less than 5yrs PED Vaccines UTD: Yes Seasonal Allergies Seasonal Allergies: No Past Medical History Surgeries: No Respiratory: No Cardiac: Yes ("cardiac event") Heart Attack, High Cholesterol, Hypertension Neurological: No Reproductive Disorders: No Sexually Transmitted Disease: No HIV/AIDS: No Genitourinary: No Gastrointestinal: Yes Gastroesophageal Reflux Musculoskeletal: Yes Chronic Back Pain, Fractures, Gout Endocrine: No HEENT: Yes Cataract Cancer: No Psychosocial: Yes Anxiety Integumentary: No Blood Disorders: No Adverse Reaction/Blood Tranf: No Family Medical History Patient reports no known family medical history. No Pertinent Family Hx, Hypertension Physical Exam Vital Signs Vital Signs - First Documented 05/16/18 21:46 Temp 97.0 Pulse 99 Resp 20 B/P (MAP) 169/88 (115) Pulse Ox 97 O2 Delivery Room Air Capillary Refill : Less Than 3 Seconds Height, Weight, BMI Height: 6'0" Weight: 308lbs. 0oz. 139.284123ua; 0.00 BMI Method:Stated Progress/Results/Core Measures Results/Orders My Orders Orders - JORGE L MASON Colchicine Tablet (Colcrys Tablet) (05/16/18 22:00) Acetaminophen/Codeine Tablet (Tylenol W/ (05/16/18 22:00) Vital Signs/I&O 05/16/18 21:46 Temp 97.0 Pulse 99 Resp 20 B/P (MAP) 169/88 (115) Pulse Ox 97 O2 Delivery Room Air Blood Pressure Mean: 115 Departure Impression Primary Impression: Gout of left foot Disposition: HOME, SELF-CARE Condition: Stable/Unchanged Departure-Patient Inst. Decision time for Depature: 22:00 Referrals: [facility] (PCP/Family) Primary Care Physician Patient Instructions: Gout (DC) Add. Discharge Instructions: Take medications as directed. Take the colchicine 1 hour after the initial dose of colchicine. Return back to the emergency room for worsening symptoms or concerns as needed. Follow-up with her primary care provider within 1 week for recheck. All discharge instructions reviewed with patient and/or family. Voiced understanding. JORGE L MASON May 16, 2018 22:01
[2018-05-16 22:19] VITALS: BP 169/88
== END 2018-05-16 22:19 | disposition home or self-care (01) ==
LOC: EDUNIT# 20:33 → ER 20:34
DX: M10.9 Gout, unspecified (principal); I10 Essential (primary) hypertension; E78.00 Pure hypercholesterolemia, unspecified; I25.2 Old myocardial infarction; K21.9 Gastro-esophageal reflux disease without esophagitis; F41.9 Anxiety disorder, unspecified; Z87.891 Personal history of nicotine dependence
CPT/HCPCS: 99283

== ENCOUNTER 2018-06-11 00:58 | Emergency (ER) | payer BC ==
[~2018-06-11] VITALS: Ht 182.9 cm; Wt 138.8 kg
--- OUTSIDE RECORDS SUMMARY | 2018-06-11 01:04 | XMS REPORT ---
Author Author Migration, Doctor Organization [facility] Address Unknown Phone Unavailable Care Team Providers Care Food Safety Scientist Name Role Phone Migration, Doctor Unavailable Unavailable PROBLEMS Type Condition ICD9-CM Code GVL04-VC Code Onset Dates Condition Status SNOMED Code Problem Idiopathic gout of left foot, 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 Active 48758728 Problem Chronic fatigue R53.82 Active 50628961 Problem Mixed hyperlipidemia E78.2 Active 074375085 Problem Essential hypertension I10 Active 57844839 Problem PTSD (post-traumatic stress disorder) F43.10 Active 43579237 ALLERGIES No Information ENCOUNTERS Encounter Location Date Diagnosis [place] [address] [address] May, [facility] [address] [address] Apr, Chronic fatigue R53.82 and Morbid obesity E66.01 [facility] [address] [address] Apr, [facility] [address] [address] Apr, Mixed hyperlipidemia E78.2 and Essential hypertension I10 [facility] [address] [address] Apr, Morbid obesity E66.01 and Foreign body of left ear, initial encounter T16.2XXA [facility] [address] [address] Mar, Idiopathic gout of left foot, 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 [facility] [address] [address] Oct, Hematoma T14.8XXA ; Essential hypertension I10 ; Mixed hyperlipidemia E78.2 and BMI 40.0-44.9, adult Z68.41 [facility] [id number] [place] [address] Oct, BMI 40.0-44.9, adult Z68.41 [facility] [address] [place] [id number] [place] [address] 29 Dec, 2016 [facility] [address] [address] Dec, Essential hypertension I10 and High risk sexual behavior Z72.51 [facility] [address] [place] [id number] [place] [address] Nov, [facility] [address] [address] 28 Oct, 2016 [facility] [address] [place] [id number] [place] [address] June, Lower abdominal pain R10.30 and Bladder spasms N32.89 [facility] [address] [place] [id number] [place] [address] May, [facility] [address] [place] [id number] [place] [address] May, [facility] [address] [place] [id number] [place] [address] Apr, Essential hypertension I10 and Mixed hyperlipidemia E78.2 [facility] [address] [place] [id number] [place] [address] Apr, Mixed hyperlipidemia E78.2 [facility] [address] [place] [id number] [place] [address] Mar, Essential hypertension I10 [facility] [address] [place] [id number] [place] [address] Dec, [facility] [address] [place] [id number] [place] [address] Dec, 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 ; PTSD (post- traumatic stress disorder) F43.10 and OCD (obsessive compulsive disorder) F42.9 [facility] [address] [address] 14 Dec, 2015 [facility] [address] [place] [id number] [place] [address] 14 Dec, 2015 Fluid level behind tympanic membrane of right ear H65.91 [facility] [address] [address] 05 Nov, 2015 Generalized anxiety disorder F41.1 ; OCD (obsessive compulsive disorder) F42.9 ; PTSD (post-traumatic stress disorder) F43.10 ; Agoraphobia F40.00 ; Social anxiety disorder F40.10 ; Anxiety state, unspecified F41.1 and 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 [place] [address] [address] Nov, Generalized anxiety disorder F41.1 and 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 [facility] [address] [address] Oct, [place] [address] [address] Sep, Essential hypertension I10 [place] [address] [place] [id number] [place] [address] Sep, [facility] [address] [address] Sep, 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 [place] [address] [address] Jul, Anxiety state, unspecified F41.1 [place] [address] [address] June, Essential hypertension I10 ; Anxiety F41.9 and Mixed hyperlipidemia E78.2 [place] [address] [address] [place] [id number] [address] June, Generalized anxiety disorder F41.1 [facility] [id number] [address] 14 May, 2014 [facility] [id number] [address] May, [facility] [id number] [address] Jul, [facility] [id number] [address] Dec, [facility] [id number] [address] May, [facility] [id number] [address] May, IMMUNIZATIONS No Known Immunizations SOCIAL HISTORY Never Assessed REASON FOR VISIT EMR-[facility] PLAN OF CARE VITAL SIGNS MEDICATIONS Unknown [...] done) Medical History hypertension Medical History gout Surgical History No know Surgical history Hospitalization History OR 12/2011
--- OUTSIDE RECORDS SUMMARY | 2018-06-11 01:05 | XMS REPORT ---
Author Author Migration, Doctor Organization [facility] Address Unknown Phone Unavailable Care Team Providers Care Lead Teacher Name Role Phone Migration, Doctor Unavailable Unavailable PROBLEMS Type Condition ICD9-CM Code XUW69-IS Code Onset Dates Condition Status SNOMED Code Problem Idiopathic gout of left foot, 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 Active 15895736 Problem Chronic fatigue R53.82 Active 41002067 Problem Mixed hyperlipidemia E78.2 Active 400333656 Problem Essential hypertension I10 Active 55098653 Problem PTSD (post-traumatic stress disorder) F43.10 Active 28036779 ALLERGIES No Information ENCOUNTERS Encounter Location Date Diagnosis [place] [address] [address] May, [facility] [address] [address] Apr, Chronic fatigue R53.82 and Morbid obesity E66.01 [facility] [address] [address] Apr, [facility] [address] [address] Apr, Mixed hyperlipidemia E78.2 and Essential hypertension I10 [facility] [address] [address] Apr, Morbid obesity E66.01 and Foreign body of left ear, initial encounter T16.2XXA [facility] [address] [address] Mar, Idiopathic gout of left foot, 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 [facility] [address] [address] Oct, Hematoma T14.8XXA ; Essential hypertension I10 ; Mixed hyperlipidemia E78.2 and BMI 40.0-44.9, adult Z68.41 [facility] [id number] [place] [address] Oct, BMI 40.0-44.9, adult Z68.41 [facility] [address] [place] [id number] [place] [address] 29 Dec, 2016 [facility] [address] [address] Dec, Essential hypertension I10 and High risk sexual behavior Z72.51 [facility] [address] [place] [id number] [place] [address] Nov, [facility] [address] [address] 28 Oct, 2016 [facility] [address] [place] [id number] [place] [phone] June, Lower abdominal pain R10.30 and Bladder spasms N32.89 [facility] [address] [place] [id number] [place] [address] May, [facility] [address] [place] [id number] [place] [address] May, [facility] [address] [place] [id number] [place] [address] Apr, Essential hypertension I10 and Mixed hyperlipidemia E78.2 [facility] [address] [place] [id number] [place] [address] Apr, Mixed hyperlipidemia E78.2 [facility] [address] [place] [id number] [place] [address] Mar, Essential hypertension I10 [facility] [address] [place] [id number] [place] [address] Dec, [facility] [address] [place] [id number] [place] [address] Dec, 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 ; PTSD (post- traumatic stress disorder) F43.10 and OCD (obsessive compulsive disorder) F42.9 [facility] [address] [address] 14 Dec, 2015 [facility] [address] [place] [id number] [place] [phone] 14 Dec, 2015 Fluid level behind tympanic membrane of right ear H65.91 [facility] [address] [address] 05 Nov, 2015 Generalized anxiety disorder F41.1 ; OCD (obsessive compulsive disorder) F42.9 ; PTSD (post-traumatic stress disorder) F43.10 ; Agoraphobia F40.00 ; Social anxiety disorder F40.10 ; Anxiety state, unspecified F41.1 and 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 [place] [address] [address] Nov, Generalized anxiety disorder F41.1 and 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 [facility] [address] [address] Oct, [place] [address] [address] Sep, Essential hypertension I10 [place] [address] [place] [id number] [place] [address] Sep, [facility] [address] [address] Sep, 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 [place] [address] [address] Jul, Anxiety state, unspecified F41.1 [place] [address] [address] June, Essential hypertension I10 ; Anxiety F41.9 and Mixed hyperlipidemia E78.2 [place] [address] [place] [id number] [address] June, Generalized anxiety disorder F41.1 [facility] [address] [place] [id number] [address] 14 May, 2014 [facility] [address] [place] [id number] [address] May, [facility] [address] [place] [address] Jul, [facility] [address] [place] [id number] [address] Dec, [facility] [address] [place] [address] May, [facility] [address] [place] [id number] [address] May, IMMUNIZATIONS No Known Immunizations SOCIAL HISTORY Never Assessed REASON FOR VISIT [facility] [place] PLAN OF CARE VITAL SIGNS MEDICATIONS Medication Instructions Dosage Frequency Start Date End Date Duration Status Simvastatin 20 mg take 1 tablet (20 mg) by oral route once daily in the evening unsure of dose Jul, Active Lisinopril 10 mg take 1 tablet (10 mg) by oral route once daily May Active Hydrochlorothiazide 12.5 mg take 1 tablet (12.5 mg) by oral route once daily PRN Jul, Active Nexium 20 mg take 1 capsule by Oral route 1 time per day unsure of dose Jul, Active RESULTS No Results PROCEDURES No Known [...] History No know Surgical history Hospitalization History [place] 12/2011
--- OUTSIDE RECORDS SUMMARY | 2018-06-11 01:07 | XMS REPORT | Continuity of Care Document ---
Demographics Preferred Language Unknown Marital Status Unknown Confucianism Affiliation Unknown Race Unknown Ethnic Group Unknown Author Organization Unknown Address Unknown Allergies Active Description Code Type Severity Reaction Onset Reported/Identified Relationship to Patient Clinical Status Yes PAIN MEDS PAIN MEDS Unknown N/A 01/28/2014 Yes No Known Drug Allergies [id number] Drug Allergy Unknown N/A 05/26/2015 Medications There [...] 847.9 SPRAIN OF BACK NOS 10/31/2012 MICHELET PHILIPJEANCARLOS Ot E000.8 OTHER EXTERNAL CAUSE STATUS 10/31/2012 JEANCARLOS TAFOYA DO Teddy Ot E927.0 OVEREXERTION FROM SUDDEN STRENUOUS MOVEM 11/10/2012 NEIL WHITE Ot 274.9 GOUT NOS 11/10/2012 NEIL WHITE Ot 719.47 JOINT PAIN-ANKLE 01/12/2013 DACIA CAMPOS APRN Ot 274.00 GOUTY ARTHROPATHY, UNSPECIFIED 01/12/2013 DACIA CAMPOS APRN Ot 729.5 PAIN IN LIMB 02/09/2013 LIONEL LORIE Yvonne Ot 924.11 CONTUSION OF KNEE 02/09/2013 LIONEL LORIE Yvonne Ot 959.7 LOWER LEG INJURY NOS 02/09/2013 LIONEL DO LORIE Yvonne Ot E000.8 OTHER EXTERNAL CAUSE STATUS 02/09/2013 LIONEL PHILIP LORIE Russell Ot E001.0 ACTIVITIES INVOLVING WALKING, MARCHING A 02/09/2013 LIONEL DO LORIE Yvonne Ot E849.6 ACCIDENT IN PUBLIC [...] DRISCOLL DO Ot 401.9 08/23/2014 DACIA CAMPOS FAMILY DEVELOPMENT SPECIALIST Ot 959.5 FINGER INJURY NOS 08/23/2014 DACIA CAMPOS FAMILY DEVELOPMENT SPECIALIST Ot E000.8 OTHER EXTERNAL CAUSE STATUS 08/23/2014 DACIA CAMPOS FAMILY DEVELOPMENT SPECIALIST Ot E849.0 ACCIDENT IN HOME 08/23/2014 DACIA CAMPOS FAMILY DEVELOPMENT SPECIALIST Ot E918 CAUGHT BETWEEN OBJECTS 10/18/2014 NAHOMY [...] ROBERTS MD Ot M10.071 07/26/2015 DACIA CAMPOS APRN Ot M54.5 LOW BACK PAIN 07/26/2015 DACIA CAMPOS FAMILY DEVELOPMENT SPECIALIST Ot Z53.29 PROC/TRTMT NOT CRD OUT BEC PT DECISION F 07/26/2015 Ot 424.0 MITRAL VALVE DISORDER 07/26/2015 Ot 429.3 CARDIOMEGALY 07/26/2015 Ot 786.09 RESPIRATORY ABNORM NEC 07/26/2015 Ot 786.50 CHEST PAIN NOS 07/26/2015 Ot 786.09 RESPIRATORY ABNORM NEC 07/26/2015 Ot 786.50 CHEST PAIN NOS 07/26/2015 THIAGO DRISCOLL DO Ot 401.9 HYPERTENSION NOS 07/29/2015 DACIA CAMPOS APRN Ot M54.5 LOW BACK PAIN 07/29/2015 DACIA CAMPOS FAMILY DEVELOPMENT SPECIALIST Ot Z53.29 PROC/TRTMT NOT CRD OUT BEC PT DECISION F 07/29/2015 DACIA CAMPOS FAMILY DEVELOPMENT SPECIALIST Ot M54.5 LOW BACK PAIN 07/29/2015 DACIA CAMPOS FAMILY DEVELOPMENT SPECIALIST Ot Z53.29 PROC/TRTMT NOT CRD OUT BEC PT DECISION F 01/09/2016 Ot 424.0 MITRAL VALVE DISORDER 01/09/2016 Ot 429.3 CARDIOMEGALY 01/09/2016 Ot 786.09 RESPIRATORY ABNORM NEC 01/09/2016 Ot 786.50 CHEST PAIN NOS 01/09/2016 Ot 786.09 RESPIRATORY ABNORM NEC 01/09/2016 Ot 786.50 CHEST PAIN NOS 01/09/2016 THIAGO DRISCOLL DO Ot 401.9 HYPERTENSION NOS 01/09/2016 NAHOMY ROBERTS [...] 07/18/2016 MICHEL CANO MD Ot Z79.899 OTHER CORRECTION (CURRENT) DRUG THERAPY 07/18/2016 MICHEL CANO MD Ot Z87.891 PERSONAL HISTORY OF NICOTINE DEPENDENCE 03/11/2017 DACIA CAMPOS APRN Ot E78.00 PURE HYPERCHOLESTEROLEMIA, UNSPECIFIED 03/11/2017 DACIA CAMPOS APRN Ot F41.9 ANXIETY DISORDER, UNSPECIFIED 03/11/2017 DACIA CAMPSO APRN Ot I10 ESSENTIAL (PRIMARY) HYPERTENSION 03/11/2017 [...] 03/21/2017 Ot 786.50 CHEST PAIN NOS 03/21/2017 GELTHIAGO MAHONEY DO Ot 401.9 HYPERTENSION NOS 03/22/2017 CAMPOS, PETER J FAMILY DEVELOPMENT SPECIALIST Ot E78.00 PURE HYPERCHOLESTEROLEMIA, UNSPECIFIED 03/22/2017 DACIA CAMPOS FAMILY DEVELOPMENT SPECIALIST Ot F41.9 ANXIETY DISORDER, UNSPECIFIED 03/22/2017 DACIA CAMPOS FAMILY DEVELOPMENT SPECIALIST Ot I10 ESSENTIAL (PRIMARY) HYPERTENSION 03/22/2017 DACIA CAMPOS FAMILY DEVELOPMENT SPECIALIST Ot J40 BRONCHITIS, NOT SPECIFIED ACUTE OR CH 03/22/2017 DACIA CAMPOS FAMILY DEVELOPMENT SPECIALIST Ot K21.9 GASTRO-ESOPHAGEAL REFLUX DISEASE WITHOUT 03/22/2017 DACIA CAMPOS FAMILY DEVELOPMENT SPECIALIST Ot R09.81 NASAL CONGESTION 03/22/2017 DACIA CAMPOS FAMILY DEVELOPMENT SPECIALIST Ot Z87.81 PERSONAL HISTORY OF (HEALED) TRAUMATIC F 03/22/2017 DACIA CAMPOS FAMILY DEVELOPMENT SPECIALIST Ot Z87.891 PERSONAL HISTORY OF NICOTINE DEPENDENCE [...] E78.00 PURE HYPERCHOLESTEROLEMIA, UNSPECIFIED 09/17/2017 DACIA CAMPOS APRN Ot F41.9 ANXIETY DISORDER, UNSPECIFIED 09/17/2017 DACIA CAMPOS FAMILY DEVELOPMENT SPECIALIST Ot I10 ESSENTIAL (PRIMARY) HYPERTENSION 09/17/2017 DACIA CAMPOS APRN Ot K21.9 GASTRO-ESOPHAGEAL REFLUX DISEASE WITHOUT 09/17/2017 DACIA CAPMOS APRN Ot M10.9 GOUT, UNSPECIFIED 09/17/2017 DACIA CAMPOS APRN Ot 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 09/17/2017 DACIA [...] UNSPECIFIED 09/19/2017 DACIA CAMPOS APRN Ot Z79.52 CORRECTION (CURRENT) USE OF SYSTEMIC STER 09/19/2017 DACIA [...] UNSPECIFIED 11/05/2017 CHERELLE PADILLA MD Ot Z79.52 CORRECTION (CURRENT) USE OF SYSTEMIC STER 11/05/2017 CHERELLE PADILLA MD Ot Z87.891 PERSONAL HISTORY OF NICOTINE DEPENDENCE 11/05/2017 CHERELLE PADILLA MD Ot Z95.5 PRESENCE OF CORONARY ANGIOPLASTY IMPLANT 11/07/2017 CHERELLE PADILLA MD Ot E78.00 PURE HYPERCHOLESTEROLEMIA, UNSPECIFIED 11/07/2017 CHERELLE PADILLA MD Ot F41.9 ANXIETY DISORDER, UNSPECIFIED 11/07/2017 CHERELLE PADILLA MD Ot I10 ESSENTIAL (PRIMARY) HYPERTENSION 11/07/2017 CHERELLE PADILLA MD J Ot I25.2 OLD MYOCARDIAL INFARCTION 11/07/2017 CHERELLE PADILLA MD Ot K21.9 GASTRO-ESOPHAGEAL REFLUX DISEASE WITHOUT 11/07/2017 CHERELLE PADILLA MD Ot M10.071 IDIOPATHIC GOUT, RIGHT ANKLE AND FOOT 11/07/2017 CHERELLE PADILLA MD Ot M10.9 GOUT, UNSPECIFIED 11/07/2017 CHERELLE PADILLA MD Ot Z79.52 CORRECTION (CURRENT) USE OF SYSTEMIC STER 11/07/2017 CHERELLE [...] RIGHT FOOT 02/02/2018 NEIL WHITE Ot Z79.52 CORRECTION (CURRENT) USE OF SYSTEMIC STER 02/02/2018 NEIL WHITE Ot Z87.891 PERSONAL HISTORY OF NICOTINE DEPENDENCE 05/16/2018 BERNAB JORGE L Ot E78.00 PURE HYPERCHOLESTEROLEMIA, UNSPECIFIED 05/16/2018 BERNOT, JORGE L Ot F41.9 ANXIETY DISORDER, UNSPECIFIED 05/16/2018 KEILA MASONIS Ot I10 ESSENTIAL (PRIMARY) HYPERTENSION 05/16/2018 KEILA MASONIS Ot I25.2 OLD MYOCARDIAL INFARCTION 05/16/2018 KEILA MASONIS Ot K21.9 GASTRO-ESOPHAGEAL REFLUX DISEASE WITHOUT 05/16/2018 KEILA MASONIS Ot M10.9 GOUT, UNSPECIFIED 05/16/2018 KEILA MASONIS Ot M79.672 PAIN IN LEFT FOOT 05/16/2018 KEILA MASONIS Ot Z87.891 PERSONAL HISTORY OF NICOTINE DEPENDENCE 05/18/2018 KEILA MASONIS Ot E78.00 PURE HYPERCHOLESTEROLEMIA, UNSPECIFIED 05/18/2018 KEILA MASONIS Ot F41.9 ANXIETY DISORDER, UNSPECIFIED 05/18/2018 KEILA MASONIS Ot I10 ESSENTIAL (PRIMARY) HYPERTENSION 05/18/2018 KEILA MASONIS Ot I25.2 OLD MYOCARDIAL INFARCTION 05/18/2018 KEILA MASONIS Ot K21.9 GASTRO-ESOPHAGEAL REFLUX DISEASE WITHOUT 05/18/2018 KEILA MASONIS Ot M10.9 GOUT, UNSPECIFIED 05/18/2018 KEILA MASONIS Ot M79.672 PAIN IN LEFT FOOT 05/18/2018 KEILA MASONIS Ot Z87.891 PERSONAL HISTORY OF NICOTINE DEPENDENCE [...] - 04/21/16 12:22 TSH 1.520 uIU/mL 0.450-4.500 LIPID PANEL - 05/14/18 11:52 CHOLESTEROL, TOTAL 183 mg/dL <200 HDL CHOLESTEROL 47 mg/dL >40 TRIGLYCERIDES 174 mg/dL <150 LDL-CHOLESTEROL 107 mg/dL (calc) NRG CHOL/HDLC RATIO 3.9 (calc) <5.0 NON HDL CHOLESTEROL 136 mg/dL (calc) <130 CBC - 05/18/18 10:15 WHITE BLOOD CELL COUNT 8.1 Thousand/uL 3.8-10.8 RED BLOOD CELL COUNT 5.65 Million/uL 4.20-5.80 HEMOGLOBIN 16.0 g/dL 13.2-17.1 HEMATOCRIT 48.6 % 38.5-50.0 MCV 86.0 fL 80.0-100.0 MCH 28.3 pg 27.0-33.0 MCHC 32.9 g/dL 32.0-36.0 RDW 13.8 % 11.0-15.0 PLATELET COUNT 385 Thousand/uL 140-400 MPV 9.9 fL 7.5-12.5 ABSOLUTE NEUTROPHILS 3961 cells/uL 4880-6360 ABSOLUTE LYMPHOCYTES 2973 cells/uL 850-3900 ABSOLUTE MONOCYTES 948 cells/uL 200-950 ABSOLUTE EOSINOPHILS 162 cells/uL 15-500 ABSOLUTE BASOPHILS 57 cells/uL 0-200 NEUTROPHILS 48.9 % NRG LYMPHOCYTES 36.7 % NRG MONOCYTES 11.7 % NRG EOSINOPHILS 2.0 % NRG BASOPHILS 0.7 % NRG MONO TEST - 05/18/18 10:15 HETEROPHILE, MONO SCREEN NEGATIVE NEGATIVE Encounters ACCT No. Visit Date/Time Discharge Status Pt. Type Provider Facility Loc./Unit Complaint [id number] 07/31/2012 08:06:00 Document Registration [id number] 06/08/2018 15:00:00 ACT Outpatient CHARLENE LEVI, [facility] [id number] 05/18/2018 09:00:00 Document Registration [id number] 05/14/2018 11:20:00 Document Registration [id number] 04/22/2016 09:14:00 Document Registration [id number] 05/16/2018 20:34:00 05/16/2018 22:19:00 DIS Emergency JORGE L MASON [facility] ER PAIN IN LEFT FOOT [id number] 02/02/2018 21:35:00 02/02/2018 22:15:00 DIS Emergency NEIL WHITE [facility] ER R FOOT PAIN [id number] 11/05/2017 00:10:00 11/05/2017 00:45:00 DIS Emergency CHERELLE PADILLA MD [facility] ER GOUT R FOOT [id number] 09/17/2017 15:33:00 09/17/2017 16:08:00 DIS Emergency DACIA CAMPOS APRN [facility] ER GOUT FLARE UP [id number] 06/30/2017 23:12:00 07/01/2017 00:45:00 DIS Outpatient NAHOMY ROBERTS MD [facility] ER GOUT, RT FOOT [id number] 03/11/2017 17:50:00 03/11/2017 18:16:00 DIS Emergency DACIA CAMPOS APRN [facility] ER COUGH,LIGHT HEADED WHEN COUGHING,FEVER [id number] 07/18/2016 05:24:00 07/18/2016 05:58:00 DIS Emergency MICHEL CANO MD [facility] ER GOUT [id number] 01/09/2016 21:53:00 01/09/2016 23:08:00 DIS Emergency NAHOMY ROBERTS MD [facility] ER L FOOT INJ [id number] 07/26/2015 17:31:00 07/26/2015 18:04:00 DIS Emergency DACIA CAMPOS APRN [facility] ER RT LOWER BACK PAIN [id number] 05/26/2015 22:47:00 05/27/2015 00:38:00 DIS Emergency NAHOMY ROBERTS MD [facility] ER PAIN FROM GOUT [id number] 03/03/2015 17:02:00 03/03/2015 17:34:00 DIS Emergency KIRSTIN CESPEDES DO [facility] ER [id number] 11/27/2014 07:57:00 11/27/2014 09:20:00 DIS Emergency NAHOMY ROBERTS MD [facility] ER GOUT ATTACK R KNEE [id number] 10/30/2014 14:07:00 10/30/2014 14:13:00 DIS Outpatient VENUS BELLO DO [facility] SLEEP OBS APNEAS, SNORING, ARRHYTHMIAS, HTN, EDS, CHOKIN [id number] 10/18/2014 00:37:00 10/18/2014 01:01:00 DIS Emergency NAHOMY ROBERTS MD [facility] ER GOUT-LEFT FOOT [id number] 08/23/2014 17:14:00 08/23/2014 17:59:00 DIS Emergency DACIA CAMPOS APRN [facility] ER LEFT RING FINGER INJURY [id number] 01/30/2014 07:41:00 01/30/2014 23:59:59 CLS Outpatient THIAGO DRISCOLL DO [facility] LAB HTN [id number] 01/28/2014 05:44:00 01/28/2014 06:28:00 DIS Emergency KIRSTIN CESPEDES DO [facility] ER SOB [id number] 03/04/2013 23:03:00 03/04/2013 23:57:00 DIS Emergency DEMETRIA BUSBY MD [facility] ER RT ANKLE GOUT [id number] 02/09/2013 08:18:00 02/09/2013 09:56:00 DIS Emergency LORIE FLOWERS DO [facility] ER FALL, KNEE PAIN [id number] 01/12/2013 20:17:00 01/12/2013 21:02:00 DIS Emergency DACIA CAMPOS APRN [facility] ER CALF PAIN [id number] 11/10/2012 13:40:00 11/10/2012 14:27:00 DIS Emergency NEIL WHITE [facility] ER GOUT [id number] 10/31/2012 16:12:00 10/31/2012 17:36:00 DIS Emergency JEANCARLOS TAFOYA DO [facility] ER BACK PAIN [id number] 07/20/2012 11:04:00 07/20/2012 23:59:59 CLS Outpatient [id number] 07/07/2012 09:13:00 07/07/2012 11:05:00 DIS Emergency LORIE FLOWERS DO K [facility] ER CHEST PAIN [id number] 06/30/2012 08:59:00 06/30/2012 09:58:00 DIS Emergency NAHOMY ROBERTS MD [facility] ER GOUT FLARE UP IN RIGHT ANKLE [id number] 06/11/2018 01:00:00 ACT Emergency NAHOMY ROBERTS MD [facility] ER GOUT FLARE UP [id number] 05/10/2012 21:29:00 Document Registration [id number] 04/14/2012 20:06:00 Document Registration [id number] 01/06/2012 07:03:00 Document Registration [id number] 01/05/2012 13:01:00 Document Registration [id number] 12/26/2011 05:04:00 Document Registration [id number] 10/15/2011 09:48:00 Document Registration [id number] 08/06/2011 18:04:00 Document Registration [id number] 06/19/2011 13:28:00 Document Registration [id number] 03/08/2011 12:50:00 Document Registration [id number] 02/09/2011 22:40:00 Document Registration [id number] 10/23/2010 07:08:00 Document Registration [id number] 09/26/2010 14:08:00 Document Registration [id number] 08/03/2010 22:10:00 Document Registration [id number] 07/03/2010 20:53:00 Document Registration [id number] 09/27/2009 03:22:00 Document Registration
--- NOTE | 2018-06-11 02:13 | ED Lower Extremity ---
General Stated Complaint: GOUT FLARE UP Source: patient Exam Limitations: no limitations History of Present Illness Date Seen by Provider: Jun 11, 2018 Time Seen by Provider: 01:59 Initial Comments Here with report of gout flare to the right ankle. States that he inadvertently ate fish tonight and started having pain about 11:30 PM. He knows a gout flare. He is due to start allopurinol. Does have history of multiple gout flares in the past and we've seen him for this before. He has ibuprofen at home and will continue that as needed but needed the colchicine. Denies other concerns. Onset: this evening Severity: moderate Pain/Injury Location: right ankle Method of Injury: other (gout flare) Modifying Factors: Improves With Immobilization; Worse With Movement Allergies and Home Medications Allergies Coded Allergies: No Known Drug Allergies (Unverified , 05/26/15) Home Medications Acetaminophen with Codeine 1 Each Tablet, 1 EACH PO Q6H PRN for PAIN-MODERATE Prescribed by: DACIA CAMPOS on 09/17/17 155 Acetaminophen with Codeine 1 Each Tablet, 1 EACH PO Q6H PRN for BREAKTHROUGH PAIN Prescribed by: CHERELLE PADILLA on 11/05/17 003 Alprazolam 0.25 Mg Tablet, 0.25 MG PO QID, (Reported) Colchicine 0.6 Mg Capsule, 0.6 MG PO ONCE Prescribed by: DACIA CAMPOS on 09/17/17 1610 Colchicine 0.6 Mg Capsule, 0.6 MG PO Q3HR PRN for GOUT PAIN Prescribed by: CHERELLE PADILLA on 11/05/17 0039 Colchicine 0.6 Mg Capsule, 0.6 MG PO Q3HR PRN for pain Prescribed by: NEIL JAMES on 02/02/182152 Lisinopril 10 Mg Tablet, 10 MG PO DAILY, (Reported) Prednisone 20 Mg Tab, 40 MG PO DAILY Prescribed by: NAHOMY ROBERTS on 07/01/17 002 Prednisone 20 Mg Tab, 40 MG PO DAILY Prescribed by: DACIA CAMPOS on 09/17/17 155 Prednisone 20 Mg Tab, 40 MG PO DAILY Prescribed by: CHERELLE PADILLA on 11/05/1738 Prednisone 20 Mg Tab, 40 MG PO DAILY Take 3 tabs(60mg)daily, decrease by 1/2 tab(10mg)daily. Prescribed by: NEIL JAMES on 02/02/182152 Patient Home Medication List Home Medication List Reviewed: Yes Review of Systems Constitutional: see HPI; No chills, No fever Respiratory: no symptoms reported Cardiovascular: no symptoms reported Musculoskeletal: see HPI, joint pain, joint swelling Skin: change in color; No lesions Past Aibjkbq-Huedhl-Gcnnlr Hx Past Med/Social Hx: Reviewed Nursing Past Med/Soc Hx Patient Social History Alcohol Use: Denies Use Recreational Drug Use: No Type Used: Smokeless Tobacco Former Smoker, Quit: Feb 20, 1986 Recent Foreign Travel: No Contact w/Someone Who Travel: No Recent Hopitalizations: No Immunizations Up To Date Tetanus Booster (TDap): Less than 5yrs PED Vaccines UTD: Yes Seasonal Allergies Seasonal Allergies: No Past Medical History Surgeries: No Respiratory: No Cardiac: Yes ("cardiac event") Heart Attack, High Cholesterol, Hypertension Neurological: No Reproductive Disorders: No Sexually Transmitted Disease: No HIV/AIDS: No Genitourinary: No Gastrointestinal: Yes Gastroesophageal Reflux Musculoskeletal: Yes Chronic Back Pain, Fractures, Gout Endocrine: No HEENT: Yes Cataract Cancer: No Psychosocial: Yes Anxiety Integumentary: No Blood Disorders: No Adverse Reaction/Blood Tranf: No Family Medical History Reviewed Nursing Family Hx Patient reports no known family medical history. No Pertinent Family Hx, Hypertension Physical Exam Vital Signs Capillary Refill : Height, Weight, BMI Height: 6'0" Weight: 308lbs. 0oz. 139.467986da; 0.00 BMI Method:Stated General Appearance: WD/WN, no apparent distress Cardiovascular: regular rate, rhythm, no murmur Respiratory: lungs clear, normal breath sounds Ankles: right ankle joint effusion, right ankle pain, right ankle soft tissue tenderness, right ankle swelling, right ankle other (lateral aspect right ankle with redness and swelling and tenderness to touch) Neurologic/Psychiatric: alert, oriented x 3 Skin: warm/dry, other (erythema as described above) Progress/Results/Core Measures Results/Orders My Orders Orders - NAHOMY ROBERTS MD Colchicine Tablet (Colcrys Tablet) (06/11/18 02:15) Colchicine Tablet (Colcrys Tablet) (06/11/18 02:15) Medications Given in ED Current Medications Medications Dose Ordered Sig/Monalisa Route Start Time Stop Time Status Last Admin Dose Admin Colchicine 1.2 mg ONCE ONCE PO 06/11/18 02:15 06/11/18 02:16 DC 06/11/18 02:30 1.2 MG Progress Progress Note : Progress Note Seen and evaluated. Colchicine 1.2 mg by mouth. 0.6 mg dosing for one hour later given. Discharged home with return precautions. Patient verbalize understanding instructions and agreement with plan. Departure Impression Primary Impression: Gouty arthropathy Disposition: HOME, SELF-CARE Condition: Stable Departure-Patient Inst. Decision time for Depature: 02:12 Referrals: [facility] [place] (PCP/Family) Primary Care Physician Patient Instructions: Gout (DC) Add. Discharge Instructions: You may take ibuprofen 800 mg every 8 hours as needed for pain. You may also take Tylenol/acetaminophen 1000 mg every 8 hours as needed for pain. Take a second dose of colchicine one hour from first dose. Follow-up with your doctor for recheck and further evaluation today. Drink plenty of fluids. Return for worse pain, fever, vomiting, weakness, breathing problems or other concerns as needed. Copy Copies To 1: ADIN CHANG MD, TIMOTHY D MD Jun 11, 2018 02:13
[2018-06-11] MEDS ORDERED: COLCHICINE 0.6 MG (COLCRYS) TABLET PO ONE ×2 (02:15)
[2018-06-11 02:34] VITALS: BP 154/85
== END 2018-06-11 02:35 | disposition home or self-care (01) ==
LOC: EDUNIT# 00:58 → ER 01:00
DX: I25.2 Old myocardial infarction (principal); E78.00 Pure hypercholesterolemia, unspecified; I10 Essential (primary) hypertension; K21.9 Gastro-esophageal reflux disease without esophagitis; F41.9 Anxiety disorder, unspecified; Z79.52 Long term (current) use of systemic steroids; Z87.891 Personal history of nicotine dependence
CPT/HCPCS: 99283

== ENCOUNTER 2018-07-04 20:53 | Emergency (ER) | payer BC ==
[~2018-07-04] VITALS: Ht 182.9 cm; Wt 139.7 kg
[2018-07-04] MEDS ORDERED: APAP 300 MG/CODEINE 30 MG (TYLENOL #3) TAB PO ONE (21:45)
--- NOTE | 2018-07-04 22:12 | Diagnostic Imaging Report ---
INDICATION: Right shoulder pain. EXAMINATION: AP, oblique and transscapular views of the right shoulder were obtained. FINDINGS: No fracture or dislocation is seen. There is mild degenerative change of the AC joint. IMPRESSION: Mild degenerative change of the AC joint. No acute fracture or dislocation. Dictated by: Dictated on workstation # [id number]
--- NOTE | 2018-07-04 22:16 | ED Upper Extremity ---
General Chief Complaint: Upper Extremity Stated Complaint: RT SHOULDER PAIN Nursing Triage Note: PT COMPLAINING OF RIGHT SHOULDER PAIN X2 WEEKS. PAIN SIGNIFICANTLY WORSE TODAY Nursing Sepsis Screen: No Definite Risk Source: patient Exam Limitations: no limitations History of Present Illness Date Seen by Provider: July 04, 2018 Time Seen by Provider: 21:30 Allergies and Home Medications Allergies Coded Allergies: No Known Drug Allergies (Unverified , 05/26/15) Home Medications Acetaminophen with Codeine 1 Each Tablet, 1 EACH PO Q6H PRN for PAIN-MODERATE Prescribed by: DACIA CAMPOS on 09/17/17 155 Acetaminophen with Codeine 1 Each Tablet, 1 EACH PO Q6H PRN for BREAKTHROUGH PAIN Prescribed by: CHERELLE PADILLA on 11/05/17 0039 Alprazolam 0.25 Mg Tablet, 0.25 MG PO QID, (Reported) Colchicine 0.6 Mg Capsule, 0.6 MG PO ONCE Prescribed by: DACIA CAMPOS on 09/17/17 1610 Colchicine 0.6 Mg Capsule, 0.6 MG PO Q3HR PRN for GOUT PAIN Prescribed by: CHERELLE PADILLA on 11/05/17 0039 Colchicine 0.6 Mg Capsule, 0.6 MG PO Q3HR PRN for pain Prescribed by: NEIL JAMES on 02/02/182152 Lisinopril 10 Mg Tablet, 10 MG PO DAILY, (Reported) Prednisone 20 Mg Tab, 40 MG PO DAILY Prescribed by: NAHOMY ROBERTS on 07/01/17 002 Prednisone 20 Mg Tab, 40 MG PO DAILY Prescribed by: DACIA CAMPOS on 09/17/17 155 Prednisone 20 Mg Tab, 40 MG PO DAILY Prescribed by: CHERELLE PADILLA on 11/05/17 0039 Prednisone 20 Mg Tab, 40 MG PO DAILY Take 3 tabs(60mg)daily, decrease by 1/2 tab(10mg)daily. Prescribed by: NEIL JAMES on 02/02/182152 Past Zwqmxof-Hhqmro-Yjsebz Hx Patient Social History Alcohol Use: Denies Use Recreational Drug Use: No Smoking Status: Never a Smoker Type Used: Smokeless Tobacco Former Smoker, Quit: Feb 20, 1986 2nd Hand Smoke Exposure: No Recent Foreign Travel: No Contact w/Someone Who Travel: No Recent Infectious Disease Expo: No Recent Hopitalizations: No Immunizations Up To Date Tetanus Booster (TDap): Less than 5yrs PED Vaccines UTD: Yes Seasonal Allergies Seasonal Allergies: No Past Medical History Surgeries: No Respiratory: No Cardiac: Yes ("cardiac event") Heart Attack, High Cholesterol, Hypertension Neurological: No Reproductive Disorders: No Sexually Transmitted Disease: No HIV/AIDS: No Genitourinary: No Gastrointestinal: Yes Gastroesophageal Reflux Musculoskeletal: Yes Chronic Back Pain, Fractures, Gout Endocrine: No HEENT: Yes Cataract Cancer: No Psychosocial: Yes Anxiety Integumentary: No Blood Disorders: No Adverse Reaction/Blood Tranf: No Family Medical History Patient reports no known family medical history. No Pertinent Family Hx, Hypertension Physical Exam Vital Signs Vital Signs - First Documented 07/04/18 21:15 Temp 97.7 Pulse 95 Resp 18 B/P (MAP) 158/87 (110) Pulse Ox 96 O2 Delivery Room Air Capillary Refill : Less Than 3 Seconds Height, Weight, BMI Height: 6'0" Weight: 308lbs. 0oz. 139.819223lr; 0.00 BMI Method:Stated Progress/Results/Core Measures Results/Orders My Orders Orders - JORGE L MASON Shoulder, Right, 3 Views (07/04/18 21:34) Acetaminophen/Codeine Tablet (Tylenol W/ (07/04/18 21:45) Medications Given in ED Current Medications Medications Dose Ordered Sig/Monalisa Route Start Time Stop Time Status Last Admin Dose Admin Acetaminophen/ Codeine Phosphate 1 tab ONCE ONCE PO 07/04/18 21:45 07/04/18 21:46 DC 07/04/18 21:58 1 TAB Vital Signs/I&O 07/04/18 21:15 Temp 97.7 Pulse 95 Resp 18 B/P (MAP) 158/87 (110) Pulse Ox 96 O2 Delivery Room Air Blood Pressure Mean: 110 Departure Impression Primary Impression: Right shoulder pain Disposition: 01 HOME, SELF-CARE Condition: Stable/Unchanged Departure-Patient Inst. Decision time for Depature: 22:15 Referrals: [facility] (PCP/Family) Primary Care Physician Patient Instructions: Shoulder Pain (DC) Add. Discharge Instructions: You may use ibuprofen and Tylenol as directed by the bottle for pain relief. Call [facility] tomorrow morning to schedule an appointment for further evaluation of your shoulder. Return back to the emergency room for worsening symptoms or concerns as needed. All discharge instructions reviewed with patient and/or family. Voiced understanding. JORGE L MASON 15, 2019 22:16
[2018-07-04 22:22] VITALS: BP 158/87
== END 2018-07-04 22:22 | disposition home or self-care (01) ==
LOC: EDUNIT# 20:53 → ER 20:55
DX: M25.511 Pain in right shoulder (principal); I25.2 Old myocardial infarction; E78.00 Pure hypercholesterolemia, unspecified; I10 Essential (primary) hypertension; K21.9 Gastro-esophageal reflux disease without esophagitis; M10.9 Gout, unspecified; F41.9 Anxiety disorder, unspecified; Z79.52 Long term (current) use of systemic steroids; Z87.891 Personal history of nicotine dependence
CPT/HCPCS: 73030

== ENCOUNTER 2018-07-16 01:32 | Emergency (ER) | payer BC ==
[~2018-07-16] VITALS: Ht 182.9 cm; Wt 139.7 kg
--- OUTSIDE RECORDS SUMMARY | 2018-07-16 01:38 | XMS REPORT ---
Author Author Migration, Doctor Organization [facility] Address Unknown Phone Unavailable Care Team Providers Care [employer] Supervisor Name Role Phone Migration, Doctor Unavailable Unavailable PROBLEMS Type Condition ICD9-CM Code NIP05-PN Code Onset Dates Condition Status SNOMED Code Problem Mixed hyperlipidemia E78.2 Active 959020796 Problem Other chronic pain G89.29 Active 13466221 Problem Chronic fatigue R53.82 Active 92907397 Problem Essential hypertension I10 Active 35209145 Problem PTSD (post-traumatic stress disorder) F43.10 Active 11740030 Problem Idiopathic gout of left foot, 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 Active 23401378 Problem Obstructive sleep apnea G47.33 Active 83421009 ALLERGIES No Information ENCOUNTERS Encounter Location Date Diagnosis [facility] [address] [address] May, [facility] [address] [address] May, Essential hypertension I10 ; Idiopathic gout of left foot, 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 ; Obstructive sleep apnea G47.33 ; Pain in right shoulder M25.511 ; Other chronic pain G89.29 and Morbid obesity E66.01 [facility] [address] [address] Apr, Chronic fatigue R53.82 and Morbid obesity E66.01 [facility] [id number] [place] [phone] Apr, [facility] [address] [address] Apr, Mixed hyperlipidemia E78.2 and Essential hypertension I10 [facility] [address] [address] Apr, Morbid obesity E66.01 and Foreign body of left ear, initial encounter T16.2XXA [facility] [id number] [place] [phone] Mar, Idiopathic gout of left foot, 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 [facility] [id number] [place] [phone] Oct, Hematoma T14.8XXA ; Essential hypertension I10 ; Mixed hyperlipidemia E78.2 and BMI 40.0-44.9, adult Z68.41 [facility] [id number] [place] [phone] 21 Oct, 2017 BMI 40.0-44.9, adult Z68.41 [place] [address] [address] Dec, [place] [address] [address] Dec, Essential hypertension I10 and High risk sexual behavior Z72.51 [place] [id number] [place] [phone] Nov, [place] [address] [address] 28 Oct, 2016 [facility] [id number] [place] [phone] June, Lower abdominal pain R10.30 and Bladder spasms N32.89 [place] [id number] [place] [phone] May, [place] [id number] [place] [phone] May, [place] [address] [address] Apr, Essential hypertension I10 and Mixed hyperlipidemia E78.2 [place] [address] [address] Apr, Mixed hyperlipidemia E78.2 [facility] [address] [place] [address] Mar, Essential hypertension I10 [facility] [id number] [place] [phone] Dec, [facility] [id number] [place] [phone] Dec, 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 ; PTSD (post-traumatic stress disorder) F43.10 and OCD (obsessive compulsive disorder) F42.9 [facility] [id number] [place] [phone] Dec, [facility] [id number] [place] [phone] Dec, Fluid level behind tympanic membrane of right ear H65.91 [facility] [id number] [place] [phone] Nov, Generalized anxiety disorder F41.1 ; OCD (obsessive compulsive disorder) F42.9 ; PTSD (post-traumatic stress disorder) F43.10 ; Agoraphobia F40.00 ; Social anxiety disorder F40.10 ; Anxiety state, unspecified F41.1 and 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 [facility] [address] [place] [address] Nov, Generalized anxiety disorder F41.1 and 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 [facility] [address] [place] [phone] Oct, [facility] [id number] [place] [address] Sep, Essential hypertension I10 [facility] [address] [place] [address] Sep, [facility] [id number] [place] [address] Sep, 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 [facility] [address] [address] 30 Jul, 2015 Anxiety state, unspecified F41.1 [facility] [id number] [place] [phone] 16 Jun, 2015 Essential hypertension I10 ; Anxiety F41.9 and Mixed hyperlipidemia E78.2 [facility] [id number] [place] [phone] June, Generalized anxiety disorder F41.1 [place] [id number] [place] [phone] 14 May, 2014 [facility] [id number] [place] [phone] May, [facility] [id number] [place] [address] Jul, [facility] [id number] [place] [phone] Dec, [facility] [id number] [place] [phone] May, [facility] [id number] [place] [phone] May, IMMUNIZATIONS No Known Immunizations SOCIAL HISTORY Never Assessed REASON FOR VISIT [facility]MR[facility] CARE VITAL SIGNS MEDICATIONS Unknown [...] hypertension Medical History gout Surgical History No Surgical history information Hospitalization History [place] 12/2011
--- OUTSIDE RECORDS SUMMARY | 2018-07-16 01:41 | XMS REPORT | Continuity of Care Document ---
Demographics Preferred Language Unknown Marital Status Unknown Congregation Affiliation Unknown Race Unknown Ethnic Group Unknown Author Organization Unknown Address Unknown Allergies Active Description Code Type Severity Reaction Onset Reported/Identified Relationship to Patient Clinical Status Yes PAIN MEDS PAIN MEDS Unknown N/A 01/28/2014 Yes No Known Drug Allergies [id number] Drug Allergy Unknown N/A 05/26/2015 Medications There is no data. Problems Date Dx Coded Attending Type Code Diagnosis Diagnosed By 09/27/2009 Ot 521.00 09/27/2009 Ot 525.9 07/03/2010 Ot 274.01 ACUTE GOUTY ARTHROPATHY 07/03/2010 Ot 719.47 JOINT PAIN-ANKLE 08/03/2010 Ot 274.01 ACUTE GOUTY ARTHROPATHY 08/03/2010 Ot 729.5 PAIN IN LIMB 09/26/2010 Ot 523.10 CHRONIC GINGIVITIS, PLAQUE INDUCED 09/26/2010 Ot 723.1 CERVICALGIA 10/23/2010 Ot 274.01 ACUTE GOUTY ARTHROPATHY 10/23/2010 Ot 719.47 JOINT PAIN-ANKLE 02/09/2011 Ot 780.60 FEVER, UNSPECIFIED 02/09/2011 Ot 786.2 COUGH 03/08/2011 Ot 274.9 GOUT NOS 03/08/2011 Ot 729.5 PAIN IN LIMB 06/16/2011 278.00 OBESITY UNSPECIFIED 06/19/2011 Ot 274.9 GOUT NOS 08/06/2011 Ot 274.9 GOUT NOS 08/06/2011 Ot 719.47 JOINT PAIN-ANKLE 10/15/2011 Ot 300.00 ANXIETY STATE NOS 12/26/2011 [...] DRISCOLL DO Ot 401.9 08/23/2014 DACIA CAMPOS CLEANER OPERATOR Ot 959.5 FINGER INJURY NOS 08/23/2014 DACIA CAMPOS CLEANER OPERATOR Ot E000.8 OTHER EXTERNAL CAUSE STATUS 08/23/2014 DACIA CAMPOS CLEANER OPERATOR Ot E849.0 ACCIDENT IN HOME 08/23/2014 DACIA CAMPOS CLEANER OPERATOR Ot E918 CAUGHT BETWEEN OBJECTS 10/18/2014 NAHOMY [...] M54.5 LOW BACK PAIN 07/26/2015 DACIA CAMPOS CLEANER OPERATOR Ot Z53.29 PROC/TRTMT NOT CRD OUT BEC [...] M54.5 LOW BACK PAIN 07/29/2015 DACIA CAMPOS CLEANER OPERATOR Ot Z53.29 PROC/TRTMT NOT CRD OUT BEC PT DECISION F 07/29/2015 DACIA CAMPOS CLEANER OPERATOR Ot M54.5 LOW BACK PAIN 07/29/2015 DACIA CAMPOS CLEANER OPERATOR Ot Z53.29 PROC/TRTMT NOT CRD OUT BEC [...] 07/18/2016 MICHEL CANO MD Ot 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 07/18/2016 MICHEL CANO MD [...] 401.9 HYPERTENSION NOS 03/22/2017 CAMPOS, PETER J CLEANER OPERATOR Ot E78.00 PURE HYPERCHOLESTEROLEMIA, UNSPECIFIED 03/22/2017 DACIA CAMPOS CLEANER OPERATOR Ot F41.9 ANXIETY DISORDER, UNSPECIFIED 03/22/2017 DACIA CAMPOS CLEANER OPERATOR Ot I10 ESSENTIAL (PRIMARY) HYPERTENSION 03/22/2017 DACIA CAMPOS CLEANER OPERATOR Ot J40 BRONCHITIS, NOT SPECIFIED ACUTE OR CH 03/22/2017 DACIA CAMPOS CLEANER OPERATOR Ot K21.9 GASTRO-ESOPHAGEAL REFLUX DISEASE WITHOUT 03/22/2017 DACIA CAMPOS CLEANER OPERATOR Ot R09.81 NASAL CONGESTION 03/22/2017 DACIA CAMPOS CLEANER OPERATOR Ot Z87.81 PERSONAL HISTORY OF (HEALED) TRAUMATIC F 03/22/2017 DACIA CAMPOS CLEANER OPERATOR Ot Z87.891 PERSONAL HISTORY OF NICOTINE DEPENDENCE [...] MD Ot M10.9 GOUT, UNSPECIFIED 07/06/2017 NAHOMY ROBERST MD Ot M25.571 PAIN IN RIGHT ANKLE AND JOINTS OF RIGHT 07/06/2017 NAHOMY ROBERTS MD Ot Z87.891 PERSONAL HISTORY OF NICOTINE DEPENDENCE 09/17/2017 DACIA CAMPOS APRN Ot E78.00 PURE HYPERCHOLESTEROLEMIA, UNSPECIFIED 09/17/2017 DACIA CAMPOS APRN Ot F41.9 ANXIETY DISORDER, UNSPECIFIED 09/17/2017 DACIA CAMPOS CLEANER OPERATOR Ot I10 ESSENTIAL (PRIMARY) HYPERTENSION 09/17/2017 DACIA CAMPOS APRN Ot K21.9 GASTRO-ESOPHAGEAL REFLUX DISEASE WITHOUT 09/17/2017 DACIA CAMPOS APRN Ot M10.9 GOUT, UNSPECIFIED 09/17/2017 DACIA CAMPOS APRN Ot Z79.52 PRISON (CURRENT) USE OF SYSTEMIC STER 09/17/2017 DACIA [...] UNSPECIFIED 09/19/2017 DACIA CAMPOS APRN Ot 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 09/19/2017 DACIA [...] UNSPECIFIED 11/05/2017 CHERELLE PADILLA MD Ot Z79.52 PRISON (CURRENT) USE OF SYSTEMIC STER 11/05/2017 CHERELLE [...] UNSPECIFIED 11/07/2017 CHERELLE PADILLA MD Ot 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 11/07/2017 CHERELLE [...] RIGHT FOOT 02/02/2018 NEIL WHITE Ot Z79.52 PRISON (CURRENT) USE OF SYSTEMIC STER 02/02/2018 NEIL WHITE Ot Z87.891 PERSONAL HISTORY OF NICOTINE DEPENDENCE 05/16/2018 BERNAB JORGE L Ot E78.00 PURE HYPERCHOLESTEROLEMIA, UNSPECIFIED 05/16/2018 BERNOT, JORGE L Ot F41.9 ANXIETY DISORDER, UNSPECIFIED 05/16/2018 BERNOT, JORGE L Ot I10 ESSENTIAL (PRIMARY) HYPERTENSION 05/16/2018 BERNOT, JORGE L Ot I25.2 OLD MYOCARDIAL INFARCTION 05/16/2018 BERNOT, JORGE L Ot K21.9 GASTRO- ESOPHAGEAL REFLUX DISEASE WITHOUT 05/16/2018 BERNOT, JORGE L Ot M10.9 GOUT, UNSPECIFIED 05/16/2018 BERNOT, JORGE L Ot M79.672 PAIN IN LEFT FOOT 05/16/2018 BERNOT, JORGE L Ot Z87.891 PERSONAL HISTORY OF NICOTINE DEPENDENCE 05/18/2018 BERNOT, JORGE L Ot E78.00 PURE HYPERCHOLESTEROLEMIA, UNSPECIFIED 05/18/2018 BERNOT, JORGE L Ot F41.9 ANXIETY DISORDER, UNSPECIFIED 05/18/2018 BERNOT, JORGE L Ot I10 ESSENTIAL (PRIMARY) HYPERTENSION 05/18/2018 BERNOT, JORGE L Ot I25.2 OLD MYOCARDIAL INFARCTION 05/18/2018 BERNOT, JORGE L Ot K21.9 GASTRO- ESOPHAGEAL REFLUX DISEASE WITHOUT 05/18/2018 BERNOT, JORGE L Ot M10.9 GOUT, UNSPECIFIED 05/18/2018 BERNOT JORGE L Ot M79.672 PAIN IN LEFT FOOT 05/18/2018 BERNOT, JORGE L Ot Z87.891 PERSONAL HISTORY OF NICOTINE DEPENDENCE 06/11/2018 NAHOMY ROBERTS MD Ot E78.00 PURE HYPERCHOLESTEROLEMIA, UNSPECIFIED 06/11/2018 NAHOMY ROBERTS MD Ot F41.9 ANXIETY DISORDER, UNSPECIFIED 06/11/2018 NAHOMY ROBERTS MD Ot I10 ESSENTIAL (PRIMARY) HYPERTENSION 06/11/2018 NAHOMY ROBERTS MD Ot I25.2 OLD MYOCARDIAL INFARCTION 06/11/2018 NAHOMY ROBERTS MD Ot K21.9 GASTRO-ESOPHAGEAL REFLUX DISEASE WITHOUT 06/11/2018 NAHOMY ROBERTS MD Ot M10.071 IDIOPATHIC GOUT, RIGHT ANKLE AND FOOT 06/11/2018 NAHOMY ROBERTS MD Ot 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 06/11/2018 NAHOMY ROBERTS MD Ot Z87.891 PERSONAL HISTORY OF NICOTINE DEPENDENCE 06/14/2018 NAHOMY ROBERTS MD Ot E78.00 PURE HYPERCHOLESTEROLEMIA, UNSPECIFIED 06/14/2018 NAHOMY ROBERTS MD, Ot F41.9 ANXIETY DISORDER, UNSPECIFIED 06/14/2018 NAHOMY ROBERTS MD Ot I10 ESSENTIAL (PRIMARY) HYPERTENSION 06/14/2018 NAHOMY ROBERTS MD Ot I25.2 OLD MYOCARDIAL INFARCTION 06/14/2018 NAHOMY ROBERTS MD Ot K21.9 GASTRO-ESOPHAGEAL REFLUX DISEASE WITHOUT 06/14/2018 NAHOMY ROBERTS MD Ot M10.071 IDIOPATHIC GOUT, RIGHT ANKLE AND FOOT 06/14/2018 NAHOMY ROBERTS MD Ot Z79.52 PRISON (CURRENT) USE OF SYSTEMIC STER 06/14/2018 NAHOMY ROBERTS MD, Ot Z87.891 PERSONAL HISTORY OF NICOTINE DEPENDENCE 07/06/2018 BERNOT, JORGE L Ot E78.00 PURE HYPERCHOLESTEROLEMIA, UNSPECIFIED 07/06/2018 BERNOT, JORGE L Ot F41.9 ANXIETY DISORDER, UNSPECIFIED 07/06/2018 BERNOT, JORGE L Ot I10 ESSENTIAL (PRIMARY) HYPERTENSION 07/06/2018 BERNOT JORGE L Ot I25.2 OLD MYOCARDIAL INFARCTION 07/06/2018 BERNOT JORGE L Ot K21.9 GASTRO- ESOPHAGEAL REFLUX DISEASE WITHOUT 07/06/2018 BERNOT, JORGE L Ot M10.9 GOUT, UNSPECIFIED 07/06/2018 BERNOT, JORGE L Ot M25.511 PAIN IN RIGHT SHOULDER 07/06/2018 BERNOT, JORGE L Ot Z79.52 PRISON (CURRENT) USE OF SYSTEMIC STER 07/06/2018 BERNOT, JORGE L Ot Z87.891 PERSONAL HISTORY OF NICOTINE DEPENDENCE [...] 9.9 fL 7.5-12.5 ABSOLUTE NEUTROPHILS 3961 cells/uL 1125-0042 ABSOLUTE LYMPHOCYTES 2973 cells/uL 850-3900 ABSOLUTE MONOCYTES 948 cells/uL 200-950 ABSOLUTE EOSINOPHILS 162 cells/uL 15-500 ABSOLUTE BASOPHILS 57 cells/uL 0-200 NEUTROPHILS 48.9 % NRG LYMPHOCYTES 36.7 % NRG MONOCYTES 11.7 % NRG EOSINOPHILS 2.0 % NRG BASOPHILS 0.7 % NRG MONO TEST - 05/18/18 10:15 HETEROPHILE, MONO SCREEN NEGATIVE NEGATIVE Encounters ACCT No. Visit Date/Time Discharge Status Pt. Type Provider Facility Loc./Unit Complaint [id number] 07/31/2012 08:06:00 Document Registration [id number] 06/08/2018 15:00:00 06/08/2018 23:59:59 [facility] Outpatient ADIN CHANG MD [facility] [place] [id number] 05/18/2018 09:00:00 Document Registration [id number] 05/14/2018 11:20:00 Document Registration [id number] 04/22/2016 09:14:00 Document Registration [id number] 07/04/2018 20:55:00 07/04/2018 22:22:00 DIS Outpatient JORGE L MASON [facility] ER RT SHOULDER PAIN [id number] 06/11/2018 01:00:00 06/11/2018 02:35:00 DIS Emergency NAHOMY ROBERTS MD [facility] ER GOUT FLARE UP [id number] 05/16/2018 20:34:00 05/16/2018 22:19:00 DIS Emergency JORGE L MASON [facility] ER PAIN IN LEFT FOOT [id number] 02/02/2018 21:35:00 02/02/2018 22:15:00 DIS Emergency NEIL WHITE [facility] ER R FOOT PAIN [id number] 11/05/2017 00:10:00 11/05/2017 00:45:00 DIS Emergency CHERELLE PADILLA MD [facility] ER GOUT R FOOT [id number] 09/17/2017 15:33:00 09/17/2017 16:08:00 DIS Emergency DACIA CAMPOS APRN [facility] ER GOUT FLARE UP [id number] 06/30/2017 23:12:00 07/01/2017 00:45:00 DIS Outpatient NAHOMY ROBERTS MD [facility] ER GOUT, RT FOOT [id number] 03/11/2017 17:50:00 03/11/2017 18:16:00 DIS Emergency DACIA CAMPOS APRN [facility] ER COUGH,LIGHT HEADED WHEN COUGHING,FEVER [id number] 07/18/2016 05:24:00 07/18/2016 05:58:00 DIS Emergency MICHEL CANO MD [facility] ER GOUT [id number] 01/09/2016 21:53:00 01/09/2016 23:08:00 DIS Emergency NAHOMY ROBERTS MD [facility] ER L FOOT INJ [id number] 07/26/2015 17:31:00 07/26/2015 18:04:00 DIS Emergency DACIA CAMPOS APRN [facility] ER RT LOWER BACK PAIN [id number] 05/26/2015 22:47:00 05/27/2015 00:38:00 DIS Emergency NAHOMY ROBERTS MD [facility] ER PAIN FROM GOUT [id number] 03/03/2015 17:02:00 03/03/2015 17:34:00 DIS Emergency KIRSTIN CESPEDES DO [facility] ER [id number] 11/27/2014 07:57:00 11/27/2014 09:20:00 DIS Emergency NAHOMY ROBERTS MD [facility] ER GOUT ATTACK R KNEE [id number] 10/30/2014 14:07:00 10/30/2014 14:13:00 DIS Outpatient VENUS BELLO DO [facility] SLEEP OBS APNEAS, SNORING, ARRHYTHMIAS, HTN, EDS, CHOKIN [id number] 10/18/2014 00:37:00 10/18/2014 01:01:00 DIS Emergency NAHOMY ROBERTS MD [facility] ER GOUT-LEFT FOOT [id number] 08/23/2014 17:14:00 08/23/2014 17:59:00 DIS Emergency DACIA CAMPOS APRN [facility] ER LEFT RING FINGER INJURY [id number] 01/30/2014 07:41:00 01/30/2014 23:59:59 CLS Outpatient THIAGO DRISCOLL DO [facility] LAB HTN [id number] 01/28/2014 05:44:00 01/28/2014 06:28:00 DIS Emergency KIRSTIN CESPEDES DO [facility] ER SOB [id number] 03/04/2013 23:03:00 03/04/2013 23:57:00 DIS Emergency DEMETRIA BUSBY MD [facility] ER RT ANKLE GOUT [id number] 02/09/2013 08:18:00 02/09/2013 09:56:00 DIS Emergency LORIE FLOWERS DO [facility] ER FALL, KNEE PAIN [id number] 01/12/2013 20:17:00 01/12/2013 21:02:00 DIS Emergency DACIA CAMPOS APRN [facility] ER CALF PAIN [id number] 11/10/2012 13:40:00 11/10/2012 14:27:00 DIS Emergency NEIL WHITE [facility] ER GOUT [id number] 10/31/2012 16:12:00 10/31/2012 17:36:00 DIS Emergency JEANCARLOS TAFOYA DO [facility] ER BACK PAIN [id number] 07/20/2012 11:04:00 07/20/2012 23:59:59 CLS Outpatient [id number] 07/07/2012 09:13:00 07/07/2012 11:05:00 DIS Emergency LORIE FLOWERS DO [facility] ER CHEST PAIN [id number] 06/30/2012 08:59:00 06/30/2012 09:58:00 DIS Emergency NAHOMY ROBERTS MD [facility] ER GOUT FLARE UP IN RIGHT ANKLE [id number] 05/10/2012 21:29:00 Document Registration [id number] 04/14/2012 20:06:00 Document Registration [id number] 01/06/2012 07:03:00 Document Registration [id number] 01/05/2012 13:01:00 Document Registration [id number] 12/26/2011 05:04:00 Document Registration [id number] 10/15/2011 09:48:00 Document Registration [id number] 08/06/2011 18:04:00 Document Registration [id number] 06/19/2011 13:28:00 Document Registration [id number] 03/08/2011 12:50:00 Document Registration [id number] 02/09/2011 22:40:00 Document Registration [id number] 10/23/2010 07:08:00 Document Registration [id number] 09/26/2010 14:08:00 Document Registration [id number] 08/03/2010 22:10:00 Document Registration [id number] 07/03/2010 20:53:00 Document Registration [id number] 09/27/2009 03:22:00 Document Registration
[2018-07-16] MEDS ORDERED: PRD10T PO (01:54)
[2018-07-16] MEDS ORDERED: COLC0.6C3 PO (01:54)
--- NOTE | 2018-07-16 01:54 | ED Lower Extremity ---
General Chief Complaint: General Problems/Pain Stated Complaint: PROBLEMS WITH GOUT Source: patient, old records History of Present Illness Date Seen by Provider: July 16, 2018 Time Seen by Provider: 01:40 Initial Comments PT ARRIVES VIA POV C/O "GOUT" IN RIGHT ANKLE STATES HE BEGAN HAVING PAIN THIS AM ON WAKING--NO INJURY RATES PAIN 8/10 HAS NOT TAKEN ANYTHING FOR PAIN AT ANY TIME PT STATES HE HAS DRIVEN ALL DAY TODAY FROM [place] THIS IS A CHRONIC PROBLEM FOR YEARS AND HAS HAD A MULTITUDE OF ER VISITS HERE FOR THIS SAME PROBLEM, WELL OTHER VARIOUS PAIN COMPLAINTS. LAST VISIT HERE 07/04/18 WAS FOR C/O RIGHT SHOULDER PAIN ONGOING FOR 2 WEEKS. NO RX. WAS SEEN HERE 06/11/18 FOR C/O GOUT FLARE TO RIGHT ANKLE, GIVEN COLCHICINE WAS ADVISED TO FOLLOW UP WITH IS PCP FOR FURTHER CARE PT HAS NOT ATTEMPTED TO SEE HIS PCP AT ANY TIME IN THE LAST COUPLE OF MONTHS. HAD ROUTINE APPOINTMENT A FEW MONTHS AGO PT STATES "WAS SUPPOSED TO BE STARTED ON ALLOPURINOL BUT DR. CHANG NEVER PRESCRIBED IT" BUT HAS NOT ATTEMPTED TO CONTACT HIM AT ANY TIME TO GET RX. PT STATES "I CAN'T TAKE ANYTHING FOR PAIN EXCEPT TYLENOL #3-IT WILL CAUSE ME TO HAVE A BAD, BAD PANIC ATTACK AND I HAVE SEVERE ANXIETY" PCP: DR. CHANG, [facility] [place] Allergies and Home Medications Allergies Coded Allergies: No Known Drug Allergies (Unverified , 05/26/15) Home Medications Acetaminophen with Codeine 1 Each Tablet, 1 EACH PO Q6H PRN for PAIN-MODERATE Prescribed by: DACIA CAMPOS on 09/17/17 1552 Acetaminophen with Codeine 1 Each Tablet, 1 EACH PO Q6H PRN for BREAKTHROUGH PAIN Prescribed by: CHERELLE PADILLA on 11/05/17 0039 Alprazolam 0.25 Mg Tablet, 0.25 MG PO QID, (Reported) Colchicine 0.6 Mg Capsule, 0.6 MG PO ONCE Prescribed by: DACIA CAMPOS on 09/17/17 1610 Colchicine 0.6 Mg Capsule, 0.6 MG PO Q3HR PRN for GOUT PAIN Prescribed by: CHERELLE PADILLA on 11/05/17 0039 Colchicine 0.6 Mg Capsule, 0.6 MG PO Q3HR PRN for pain Prescribed by: NEIL JAMES on 02/02/18 2153 Colchicine 0.6 Mg Capsule, 0.6 MG PO UD Prescribed by: LORIE FLOWERS on 07/16/18 015 Lisinopril 10 Mg Tablet, 10 MG PO DAILY, (Reported) Prednisone 20 Mg Tab, 40 MG PO DAILY Prescribed by: NAHOMY ROBERTS on 07/01/17 0029 Prednisone 20 Mg Tab, 40 MG PO DAILY Prescribed by: DACIA CAMPOS on 09/17/17 1552 Prednisone 20 Mg Tab, 40 MG PO DAILY Prescribed by: CHERELLE PADILLA on 11/05/17 0039 Prednisone 20 Mg Tab, 40 MG PO DAILY Take 3 tabs(60mg)daily, decrease by 1/2 tab(10mg)daily. Prescribed by: NEIL JAMES on 02/02/182152 Prednisone 10 Mg Tab, 40 MG PO DAILY Prescribed by: LORIE FLOWERS on 07/16/18153 Patient Home Medication List Home Medication List Reviewed: Yes Review of Systems Constitutional: no symptoms reported; No fever Musculoskeletal: see HPI Skin: no symptoms reported Psychiatric/Neurological: No Symptoms Reported Past Ucjjhhy-Rgswvf-Ctaadq Hx Patient Social History Alcohol Use: Denies Use Recreational Drug Use: No Smoking Status: Former Smoker (QUIT 20 YEARS AGO) Type Used: Cigarettes, Smokeless Tobacco Former Smoker, Quit: Feb 20, 1986 2nd Hand Smoke Exposure: No Recent Foreign Travel: No Contact w/Someone Who Travel: No Recent Hopitalizations: No Immunizations Up To Date Tetanus Booster (TDap): Less than 5yrs PED Vaccines UTD: Yes Seasonal Allergies Seasonal Allergies: No Past Medical History Surgeries: Yes (CARDIAC CATH--NO INTERVENTION) Respiratory: No Cardiac: Yes ("cardiac event" PER PT, CARDIAC CATH--NO INTERVENTION) Coronary Artery Disease, Heart Attack, High Cholesterol, Hypertension Neurological: No Reproductive Disorders: No Sexually Transmitted Disease: No HIV/AIDS: No Genitourinary: No Gastrointestinal: Yes Gastroesophageal Reflux Musculoskeletal: Yes (MULTIPLE ER VISITS FOR "GOUT" AND VARIOUS PAIN COMPLAINTS; RIGHT DISTAL FEMUR FRACTURE--STATES HE REFUSED SURGERY) Chronic Back Pain, Fractures, Gout Endocrine: No (OBESITY) HEENT: Yes Cataract Cancer: No Psychosocial: Yes Anxiety Integumentary: No Blood Disorders: No Adverse Reaction/Blood Tranf: No Family Medical History Patient reports no known family medical history. No Pertinent Family Hx, Hypertension Physical Exam Vital Signs Capillary Refill : Height, Weight, BMI Height: 6'0" Weight: 308lbs. 0oz. 139.262874kz; 0.00 BMI Method:Stated General Appearance: obese, other (VERY DRAMATIC, WALKS IN WITH A LIMP ON RIGHT) Ankles: right ankle bone tenderness, right ankle limited range of motion, right ankle pain, right ankle soft tissue tenderness, right ankle swelling, right ankle other (PAIN, TENDERENSS, SWELLING TO RIGHT ANKLE--MOSTLY AROUND LATERAL MALLEOLUS. MOTOR/SENSORY/VASCULAR INTACT. ) Feet: right foot other ( ABOVE) Neurologic/Tendon: normal sensation, normal motor functions, normal tendon functions Neurologic/Psychiatric: pension administrator II-XII nml as tested, no motor/sensory deficits, alert, oriented x 3 Skin: normal color, warm/dry Progress/Results/Core Measures Results/Orders My Orders Orders - LORIE FLOWERS DO Colchicine Tablet (Colcrys Tablet) (07/16/18 02:00) Prednisone Tablet (Deltasone Tablet) (07/16/18 02:00) Departure Impression Primary Impression: GOUT FLARE RIGHT ANKLE Disposition: HOME, SELF-CARE Condition: Stable Departure-Patient Inst. Referrals: [facility] (PCP/Family) Primary Care Physician Patient Instructions: Gout (DC), Lifestyle Changes to Manage Gout, Low Purine Diet Add. Discharge Instructions: WARM EPSOM SALTS SOAKS AND THEN ICE AT 20 MINUTE INTERVALS ELEVATE RIGHT FOOT MUCH POSSIBLE INCREASE YOUR WATER INTAKE FOLLOW UP WITH YOUR DR THIS WEEK FOR FURTHER CARE All discharge instructions reviewed with patient and/or family. Voiced understanding. Scripts Prednisone (Prednisone) 10 Mg Tab 40 MG PO DAILY, #12 TAB Prov: LORIE FLOWERS DO 07/16/18 Colchicine (Colchicine) 0.6 Mg Capsule 0.6 MG PO UD, #10 CAP Prov: LORIE FLOWERS DO 07/16/18 LORIE FLOWERS DO July 16, 2018 01:54
[2018-07-16] MEDS ORDERED: predniSONE 20 MG TAB PO ONE (02:00)
[2018-07-16] MEDS ORDERED: COLCHICINE 0.6 MG (COLCRYS) TABLET PO ONE (02:00)
[2018-07-16 02:15] VITALS: BP 157/96
== END 2018-07-16 02:16 | disposition home or self-care (01) ==
LOC: EDUNIT# 01:32 → ER 01:34
DX: M10.071 Idiopathic gout, right ankle and foot (principal); F41.0 Panic disorder [episodic paroxysmal anxiety]; I25.10 Atherosclerotic heart disease of native coronary artery without angina pectoris; I25.2 Old myocardial infarction; E78.00 Pure hypercholesterolemia, unspecified; I10 Essential (primary) hypertension; K21.9 Gastro-esophageal reflux disease without esophagitis; E66.9 Obesity, unspecified; F41.9 Anxiety disorder, unspecified; Z79.52 Long term (current) use of systemic steroids; Z87.891 Personal history of nicotine dependence; Z95.9 Presence of cardiac and vascular implant and graft, unspecified; Z98.890 Other specified postprocedural states
CPT/HCPCS: 99283

== ENCOUNTER 2018-08-01 22:21 | Emergency (ER) | payer BC ==
[~2018-08-01] VITALS: Ht 182.9 cm; Wt 138.8 kg
[~2018-08-01 22:21] MED LIST changes: +PRD10T PO
--- OUTSIDE RECORDS SUMMARY | 2018-08-01 22:29 | XMS REPORT | Continuity of Care Document ---
Demographics Preferred Language Unknown Marital Status Unknown Amish Affiliation Unknown Race Unknown Ethnic Group Unknown Author Organization Unknown Address Unknown Allergies Active Description Code Type Severity Reaction Onset Reported/Identified Relationship to Patient Clinical Status Yes PAIN MEDS PAIN MEDS Unknown N/A 01/28/2014 Yes No Known Drug Allergies [id number] Drug Allergy Unknown N/A 05/26/2015 Medications There [...] LEG INJURY NOS 02/09/2013 LIONEL DO LORIE Yovnne Ot E000.8 OTHER EXTERNAL CAUSE STATUS 02/09/2013 [...] DRISCOLL DO Ot 401.9 08/23/2014 DACIA CAMPOS DIRECTOR OF QUALITY CONTROL Ot 959.5 FINGER INJURY NOS 08/23/2014 DACIA CAMPOS DIRECTOR OF QUALITY CONTROL Ot E000.8 OTHER EXTERNAL CAUSE STATUS 08/23/2014 DACIA CAMPOS DIRECTOR OF QUALITY CONTROL Ot E849.0 ACCIDENT IN HOME 08/23/2014 DACIA CAMPOS DIRECTOR OF QUALITY CONTROL Ot E918 CAUGHT BETWEEN OBJECTS 10/18/2014 NAHOMY [...] M54.5 LOW BACK PAIN 07/26/2015 DACIA CAMPOS DIRECTOR OF QUALITY CONTROL Ot Z53.29 PROC/TRTMT NOT CRD OUT BEC [...] M54.5 LOW BACK PAIN 07/29/2015 DACIA CAMPOS DIRECTOR OF QUALITY CONTROL Ot Z53.29 PROC/TRTMT NOT CRD OUT BEC PT DECISION F 07/29/2015 DACIA CAMPOS DIRECTOR OF QUALITY CONTROL Ot M54.5 LOW BACK PAIN 07/29/2015 DACIA CAMPOS DIRECTOR OF QUALITY CONTROL Ot Z53.29 PROC/TRTMT NOT CRD OUT BEC [...] 07/18/2016 MICHEL CANO MD Ot 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 07/18/2016 MICHEL CANO MD [...] 401.9 HYPERTENSION NOS 03/22/2017 CAMPOS, PETER J DIRECTOR OF QUALITY CONTROL Ot E78.00 PURE HYPERCHOLESTEROLEMIA, UNSPECIFIED 03/22/2017 DACIA CAMPOS DIRECTOR OF QUALITY CONTROL Ot F41.9 ANXIETY DISORDER, UNSPECIFIED 03/22/2017 DACIA CAMPOS DIRECTOR OF QUALITY CONTROL Ot I10 ESSENTIAL (PRIMARY) HYPERTENSION 03/22/2017 DACIA CAMPOS DIRECTOR OF QUALITY CONTROL Ot J40 BRONCHITIS, NOT SPECIFIED ACUTE OR CH 03/22/2017 DACIA CAMPOS DIRECTOR OF QUALITY CONTROL Ot K21.9 GASTRO-ESOPHAGEAL REFLUX DISEASE WITHOUT 03/22/2017 DACIA CAMPOS DIRECTOR OF QUALITY CONTROL Ot R09.81 NASAL CONGESTION 03/22/2017 DACIA CAMPOS DIRECTOR OF QUALITY CONTROL Ot Z87.81 PERSONAL HISTORY OF (HEALED) TRAUMATIC F 03/22/2017 DACIA CAMPOS DIRECTOR OF QUALITY CONTROL Ot Z87.891 PERSONAL HISTORY OF NICOTINE DEPENDENCE [...] F41.9 ANXIETY DISORDER, UNSPECIFIED 09/17/2017 DACIA CAMPOS DIRECTOR OF QUALITY CONTROL Ot I10 ESSENTIAL (PRIMARY) HYPERTENSION 09/17/2017 DACIA CAMPOS APRN Ot K21.9 GASTRO-ESOPHAGEAL REFLUX DISEASE WITHOUT 09/17/2017 DACIA CAMPOS APRN Ot M10.9 GOUT, UNSPECIFIED 09/17/2017 DACIA CAMPOS APRN Ot Z79.52 LONG-TERM (CURRENT) USE OF SYSTEMIC STER 09/17/2017 DACIA [...] UNSPECIFIED 09/19/2017 DACIA CAMPOS APRN Ot Z79.52 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 OPERATOR (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) USE OF SYSTEMIC STER 09/19/2017 DACIA [...] UNSPECIFIED 11/05/2017 CHERELLE PADILLA MD Ot Z79.52 LONG-TERM (CURRENT) USE OF SYSTEMIC STER 11/05/2017 CHERELLE [...] UNSPECIFIED 11/07/2017 CHERELLE PADILLA MD Ot Z79.52 DYE PADDER OPERATOR (CURRENT) USE OF SYSTEMIC STER 11/07/2017 CHERELLE [...] RIGHT FOOT 02/02/2018 NEIL WHITE Ot Z79.52 LONG-TERM (CURRENT) USE OF SYSTEMIC STER 02/02/2018 NEIL [...] FOOT 06/11/2018 NAHOMY ROBERTS MD Ot Z79.52 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52 LONG-TERM (CURRENT) USE OF SYSTEMIC STER 06/14/2018 NAHOMY ROBERTS MD Ot Z87.891 PERSONAL HISTORY OF NICOTINE DEPENDENCE 07/04/2018 BERNOT, JORGE L Ot E78.00 PURE HYPERCHOLESTEROLEMIA, UNSPECIFIED 07/04/2018 BERNOT, JORGE L Ot F41.9 ANXIETY DISORDER, UNSPECIFIED 07/04/2018 BERNOT, JORGE L Ot I10 ESSENTIAL (PRIMARY) HYPERTENSION 07/04/2018 BERNOT, JORGE L Ot I25.2 OLD MYOCARDIAL INFARCTION 07/04/2018 BERNOT, JORGE L Ot K21.9 GASTRO- ESOPHAGEAL REFLUX DISEASE WITHOUT 07/04/2018 BERNOT, JORGE L Ot M10.9 GOUT, UNSPECIFIED 07/04/2018 BERNOT, JORGE L Ot M25.511 PAIN IN RIGHT SHOULDER 07/04/2018 BERNOT, JORGE L Ot Z79.52 LONG-TERM (CURRENT) USE OF SYSTEMIC STER 07/04/2018 BERNOT, JORGE L Ot Z87.891 PERSONAL HISTORY OF NICOTINE DEPENDENCE 07/06/2018 BERNOT, JORGE L Ot E78.00 PURE HYPERCHOLESTEROLEMIA, UNSPECIFIED 07/06/2018 BERNOT, JORGE L Ot F41.9 ANXIETY DISORDER, UNSPECIFIED 07/06/2018 BERNOT, JORGE L Ot I10 ESSENTIAL (PRIMARY) HYPERTENSION 07/06/2018 BERNOT, JORGE L Ot I25.2 OLD MYOCARDIAL INFARCTION 07/06/2018 BERNOT, JORGE L Ot K21.9 GASTRO- ESOPHAGEAL REFLUX DISEASE WITHOUT 07/06/2018 BERNOT, JORGE L Ot M10.9 GOUT, UNSPECIFIED 07/06/2018 BERNOT, JORGE L Ot M25.511 PAIN IN RIGHT SHOULDER 07/06/2018 BERNOT, JORGE L Ot Z79.52 DYE PADDER OPERATOR (CURRENT) USE OF SYSTEMIC STER 07/06/2018 JORGE L MASON Ot Z87.891 PERSONAL HISTORY OF NICOTINE DEPENDENCE Procedures There is no data. Results There is no data. Encounters ACCT No. Visit Date/Time Discharge Status Pt. Type Provider Facility Loc./Unit Complaint [id number] 07/31/2012 08:06:00 Document Registration [id number] 07/16/2018 01:34:00 07/16/2018 02:16:00 DIS Emergency LIONEL PHILIP LORIE Russell [facility] ER PROBLEMS WITH GOUT [id number] 07/04/2018 20:55:00 07/04/2018 22:22:00 DIS Emergency JORGE L MASON [facility] ER RT SHOULDER PAIN [id number] 06/11/2018 01:00:00 06/11/2018 02:35:00 DIS Emergency NAHOMY ROBERTS MD [facility] ER GOUT FLARE UP [id number] 05/16/2018 20:34:00 05/16/2018 22:19:00 DIS Emergency ISABELLA JORGE L [facility] ER PAIN IN LEFT FOOT [id number] 02/02/2018 21:35:00 02/02/2018 22:15:00 DIS Emergency NEIL WHITE [facility] ER R FOOT PAIN [id number] 11/05/2017 00:10:00 11/05/2017 00:45:00 DIS Emergency CHERELLE PADILLA MD [facility] ER GOUT R FOOT [id number] 09/17/2017 15:33:00 09/17/2017 16:08:00 DIS Emergency DACIA CAMPOS APRN [facility] ER GOUT FLARE UP [id number] 06/30/2017 23:12:00 07/01/2017 00:45:00 DIS Outpatient NAHOMY ROBERTS MD [facility] ER GOUT, RT FOOT [id number] 03/11/2017 17:50:00 03/11/2017 18:16:00 DIS Emergency DACIA CAMPOS APRN [facility] ER COUGH,LIGHT HEADED WHEN COUGHING,FEVER [id number] 07/18/2016 05:24:00 07/18/2016 05:58:00 DIS Emergency MICHEL CANO MD [facility] ER GOUT [id number] 01/09/2016 21:53:00 01/09/2016 23:08:00 DIS Emergency NAHOMY ROBERTS MD [facility] ER L FOOT INJ [id number] 07/26/2015 17:31:00 07/26/2015 18:04:00 DIS Emergency DACIA CAMPOS APRN [facility] ER RT LOWER BACK PAIN [id number] 05/26/2015 22:47:00 05/27/2015 00:38:00 DIS Emergency NAHOMY ROBERTS MD [facility] ER PAIN FROM GOUT [id number] 03/03/2015 17:02:00 03/03/2015 17:34:00 DIS Emergency KIRSTIN CESPEDES DO [facility] ER [id number] 11/27/2014 07:57:00 11/27/2014 09:20:00 DIS Emergency NAHOMY ROBERTS MD [facility] ER GOUT ATTACK R KNEE [id number] 10/30/2014 14:07:00 10/30/2014 14:13:00 DIS Outpatient VENUS BELLO DO [facility] SLEEP OBS APNEAS, SNORING, ARRHYTHMIAS, HTN, EDS, CHOKIN [id number] 10/18/2014 00:37:00 10/18/2014 01:01:00 DIS Emergency NAHOMY ROBERTS MD [facility] ER GOUT-LEFT FOOT [id number] 08/23/2014 17:14:00 08/23/2014 17:59:00 DIS Emergency DACIA CAMPOS APRN [facility] ER LEFT RING FINGER INJURY [id number] 01/30/2014 07:41:00 01/30/2014 23:59:59 CLS Outpatient THIAGO DRISCOLL DO [facility] LAB HTN [id number] 01/28/2014 05:44:00 01/28/2014 06:28:00 DIS Emergency KIRSTIN CESPEDES DO [facility] ER SOB [id number] 03/04/2013 23:03:00 03/04/2013 23:57:00 DIS Emergency KEHINDE LEVI, DEMETRIA Bradford [facility] ER RT ANKLE GOUT [id number] 02/09/2013 08:18:00 02/09/2013 09:56:00 DIS Emergency LORIE FLOWERS DO [facility] ER FALL, KNEE PAIN [id number] 01/12/2013 20:17:00 01/12/2013 21:02:00 DIS Emergency DACIA CAMPOS APRN [facility] ER CALF PAIN [id number] 11/10/2012 13:40:00 11/10/2012 14:27:00 DIS Emergency NEIL WHITE [facility] ER GOUT [id number] 10/31/2012 16:12:00 10/31/2012 17:36:00 DIS Emergency JEANCARLOS TAFOYA DO [facility] ER BACK PAIN [id number] 07/20/2012 11:04:00 07/20/2012 23:59:59 CLS Outpatient [id number] 07/07/2012 09:13:00 07/07/2012 11:05:00 DIS Emergency LORIE FLOWERS DO [facility] ER CHEST PAIN [id number] 06/30/2012 08:59:00 06/30/2012 09:58:00 DIS Emergency ALEJANDRA LEVI, NAHOMY Whitney [facility] ER GOUT FLARE UP IN RIGHT ANKLE [id number] 05/10/2012 21:29:00 Document Registration [id number] 04/14/2012 20:06:00 Document Registration [id number] 01/06/2012 07:03:00 Document Registration [id number] 01/05/2012 13:01:00 Document Registration [id number] 12/26/2011 05:04:00 Document Registration [id number] 10/15/2011 09:48:00 Document Registration [id number] 08/06/2011 18:04:00 Document Registration [id number] 06/19/2011 13:28:00 Document Registration [id number] 03/08/2011 12:50:00 Document Registration [id number] 02/09/2011 22:40:00 Document Registration [id number] 10/23/2010 07:08:00 Document Registration [id number] 09/26/2010 14:08:00 Document Registration [id number] 08/03/2010 22:10:00 Document Registration [id number] 07/03/2010 20:53:00 Document Registration [id number] 09/27/2009 03:22:00 Document Registration
--- NOTE | 2018-08-01 22:59 | ED Lower Extremity ---
General Chief Complaint: Lower Extremity Stated Complaint: LEG SWELLING Nursing Triage Note: BILATERAL FOOT SWELLING TODAY. Nursing Sepsis Screen: No Definite Risk Source: patient, old records Exam Limitations: no limitations History of Present Illness Date Seen by Provider: Aug 01, 2018 Time Seen by Provider: 22:53 Initial Comments This 53-year-old gentleman presents to the emergency room with complaints of bilateral lower extremity edema. He has just finished a 5 day trip through the [facility]. He spent much time seated in the car and did not eat a very healthy diet. His legs are swollen bilaterally. Swelling is equal and nontender. There is no heat or erythema. He is concerned because heart failure runs in his family. He denies any chest pain or shortness of breath. He believes his swelling is dependent edema from sitting in the car but he comes to the emergency room "just to be sure". Allergies and Home Medications Allergies Coded Allergies: No Known Drug Allergies (Unverified , 05/26/15) Home Medications Alprazolam 0.25 Mg Tablet, 0.25 MG PO QID, (Reported) Colchicine 0.6 Mg Capsule, 0.6 MG PO ONCE Prescribed by: DACIA CAMPOS on 09/17/17 1610 Lisinopril 10 Mg Tablet, 10 MG PO DAILY, (Reported) Patient Home Medication List Home Medication List Reviewed: Yes Review of Systems Constitutional: no symptoms reported EENTM: no symptoms reported Respiratory: no symptoms reported Cardiovascular: see HPI Gastrointestinal: no symptoms reported Genitourinary: no symptoms reported Musculoskeletal: no symptoms reported Skin: no symptoms reported Psychiatric/Neurological: No Symptoms Reported Past Qvtqlen-Ddjvqd-Twgosw Hx Past Med/Social Hx: Reviewed and Corrections made Patient Social History Alcohol Use: Denies Use Recreational Drug Use: No Smoking Status: Former Smoker Type Used: Smokeless Tobacco Former Smoker, Quit: Feb 20, 1986 2nd Hand Smoke Exposure: No Recent Foreign Travel: No Contact w/Someone Who Travel: No Recent Infectious Disease Expo: No Recent Hopitalizations: No Immunizations Up To Date Tetanus Booster (TDap): Less than 5yrs PED Vaccines UTD: Yes Seasonal Allergies Seasonal Allergies: No Past Medical History Surgeries: Yes (CARDIAC CATH--NO INTERVENTION) Respiratory: No Cardiac: Yes ( CARDIAC CATH--NO INTERVENTION) Coronary Artery Disease, Heart Attack, High Cholesterol, Hypertension Neurological: No Reproductive Disorders: No Sexually Transmitted Disease: No HIV/AIDS: No Genitourinary: No Gastrointestinal: Yes Gastroesophageal Reflux Musculoskeletal: Yes Chronic Back Pain, Fractures, Gout Endocrine: No HEENT: Yes Cataract Cancer: No Psychosocial: Yes Anxiety Integumentary: No Blood Disorders: No Adverse Reaction/Blood Tranf: No Family Medical History Patient reports no known family medical history. No Pertinent Family Hx, Hypertension Physical Exam Vital Signs Vital Signs - First Documented 08/01/18 22:32 Temp 97.2 Pulse 88 Resp 18 B/P (MAP) 149/82 (104) Pulse Ox 98 O2 Delivery Room Air Capillary Refill : Less Than 3 Seconds Height, Weight, BMI Height: 6'0" Weight: 306lbs. 0oz. 138.467699uw; 0.00 BMI Method:Stated General Appearance: WD/WN, no apparent distress HEENT: normal ENT inspection Neck: normal inspection Cardiovascular: regular rate, rhythm, no murmur Respiratory: lungs clear, normal breath sounds, no respiratory distress, no accessory muscle use; No crackles Legs: bilateral leg non-tender, bilateral leg no evidence of injury, bilateral leg swelling Ankles: bilateral ankle non-tender, bilateral ankle no evidence of injury, bilateral ankle swelling Neurologic/Psychiatric: car designer II-XII nml as tested, no motor/sensory deficits, alert, normal mood/affect, oriented x 3 Skin: normal color, warm/dry Progress/Results/Core Measures Results/Orders Vital Signs/I&O 08/01/18 08/01/18 22:32 23:01 Temp 97.2 97.2 Pulse 88 88 Resp 18 18 B/P (MAP) 149/82 (104) 149/82 (104) Pulse Ox 98 98 O2 Delivery Room Air Blood Pressure Mean: 104 Progress Progress Note : Progress Note Vital signs were normal. Lung auscultation was normal. Swelling was equal bilaterally without tenderness, heat, or erythema. Swelling is likely dependent edema from traveling in a car and high sodium diet. Departure Impression Primary Impression: Dependent edema Disposition: 01 HOME, SELF-CARE Condition: Stable Departure-Patient Inst. Decision time for Depature: 22:58 Referrals: [facility] (PCP/Family) Primary Care Physician Patient Instructions: Dependent Edema (DC) Add. Discharge Instructions: Drink plenty of water. Eat a low salt diet. Elevate your feet and lower legs as much as possible toward the level of your heart. Avoid extended periods of time in a sitting position with legs below the level of your body or extended periods of time standing. Follow-up with your primary care provider within the next week. Return to care if you have worsening symptoms or develop new symptoms such as shortness of breath, chest pain, etc. All discharge instructions reviewed with patient and/or family. Voiced understan ding. DEMETRIA BUSBY MD Aug 01, 2018 22:59
[2018-08-01 23:01] VITALS: BP 149/82
== END 2018-08-01 23:02 | disposition home or self-care (01) ==
LOC: EDUNIT# 22:21 → ER 22:22
DX: R60.0 Localized edema (principal); I25.10 Atherosclerotic heart disease of native coronary artery without angina pectoris; I25.2 Old myocardial infarction; E78.00 Pure hypercholesterolemia, unspecified; I10 Essential (primary) hypertension; K21.9 Gastro-esophageal reflux disease without esophagitis; M10.9 Gout, unspecified; F41.9 Anxiety disorder, unspecified; Z82.49 Family history of ischemic heart disease and other diseases of the circulatory system; Z87.891 Personal history of nicotine dependence; Z95.9 Presence of cardiac and vascular implant and graft, unspecified
CPT/HCPCS: 99283

== ENCOUNTER 2019-08-16 18:08 | Emergency (ER) | payer BC ==
[~2019-08-16] VITALS: Ht 180.3 cm; Wt 146.0 kg
[~2019-08-16 18:08] MED LIST changes: +SIMV20TA26 PO; -SIMV20TA3 PO
--- NOTE | 2019-08-16 18:10 | ED General ---
General Stated Complaint: SOB History of Present Illness Date Seen by Provider: Aug 16, 2019 Time Seen by Provider: 18:09 Initial Comments 54-year-old male presents because he is worried about his oxygen and his blood pressure. Patient reports that he came to [place] to take a but no CPAP machine. That he went to [facility] to take a nap. That he awoke and checked his oxygen that was in the low 80s. He does her admit the has a keep home finger oximeter. Patient also reports his blood pressure went up very high after he checked it. Upon arrival to the ER patient's oxygen is in the mid to upper 90s, his blood pressure is normal. Patient reports that she lays down his oxygen will go down. I did lay him down his oxygen remained in the mid upper 90s while I obtain a resume scan physical exam. Patient does not complain of any shortness of breath. He does report he's been sick however for the last couple months. But there is no acute changes at this time. He denies any chest pain. Allergies and Home Medications Allergies Coded Allergies: No Known Drug Allergies (Unverified , 05/26/15) Home Medications Alprazolam 0.25 Mg Tablet, 0.25 MG PO QID, (Reported) Colchicine 0.6 Mg Capsule, 0.6 MG PO ONCE Prescribed by: DACIA CAMPOS on 09/17/17 1610 Doxycycline Hyclate 100 Mg Tablet, 100 MG PO BID Prescribed by: DANY AN on 08/16/191900 Lisinopril 10 Mg Tablet, 10 MG PO DAILY, (Reported) Prednisone 20 Mg Tab, 40 MG PO DAILY Prescribed by: DANY AN on 08/16/191900 Patient Home Medication List Home Medication List Reviewed: Yes Review of Systems Review of Systems Constitutional: No chills, No dizziness, No fever Respiratory: see HPI Cardiovascular: No chest pain Gastrointestinal: no symptoms reported Genitourinary: no symptoms reported Musculoskeletal: no symptoms reported Skin: no symptoms reported Psychiatric/Neurological: No Symptoms Reported Hematologic/Lymphatic: No Symptoms Reported Past Sjihbpb-Lkiqvq-Qrynim Hx Past Med/Social Hx: Reviewed Nursing Past Med/Soc Hx Physical Exam Vital Signs Vital Signs - First Documented 08/16/19 18:08 Temp 36.7 Pulse 116 Resp 11 B/P (MAP) 107/75 (86) Pulse Ox 97 O2 Delivery Room Air Capillary Refill : Height, Weight, BMI Height: '" Weight: lbs. oz. kg; BMI Method: General Appearance: No Apparent Distress, WD/WN, Obese Neck: Non Tender, Supple Respiratory: Lungs Clear, Normal Breath Sounds Cardiovascular: Regular Rate, Rhythm Neurologic/Psychiatric: Alert, Oriented x3, Normal Mood/Affect, cook station II-XII Norm as Tested Skin: Normal Color, Warm/Dry Progress/Results/Core Measures Suspected Sepsis SIRS Temperature: Pulse: Respiratory Rate: Laboratory Tests 08/16/19 18:10: White Blood Count 15.1H Blood Pressure / Mean: Laboratory Tests 08/16/19 18:10: Creatinine 0.94, Platelet Count 424H, Total Bilirubin 0.5 Results/Orders Lab Results Laboratory Tests Test 08/16/19 18:10 Range/Units White Blood Count 15.1 H 4.3-11.0 10^3/uL Red Blood Count 5.38 4.35-5.85 10^6/uL Hemoglobin 15.7 13.3-17.7 G/DL Hematocrit 46 40-54 % Mean Corpuscular Volume 85 80-99 FL Mean Corpuscular Hemoglobin 29 25-34 PG Mean Corpuscular Hemoglobin Concent 34 32-36 G/DL Red Cell Distribution Width 14.8 H 10.0-14.5 % Platelet Count 424 H 130-400 10^3/uL Mean Platelet Volume 9.8 7.4-10.4 FL Neutrophils (%) (Auto) 69 42-75 % Lymphocytes (%) (Auto) 21 12-44 % Monocytes (%) (Auto) 9 0-12 % Eosinophils (%) (Auto) 1 0-10 % Basophils (%) (Auto) 0 0-10 % Neutrophils # (Auto) 10.4 H 1.8-7.8 X 10^3 Lymphocytes # (Auto) 3.2 1.0-4.0 X 10^3 Monocytes # (Auto) 1.3 H 0.0-1.0 X 10^3 Eosinophils # (Auto) 0.1 0.0-0.3 10^3/uL Basophils # (Auto) 0.0 0.0-0.1 10^3/uL Neutrophils % (Manual) 68 % Lymphocytes % (Manual) 23 % Monocytes % (Manual) 4 % Eosinophils % (Manual) 0 % Basophils % (Manual) 0 % Band Neutrophils 1 % Reactive Lymphocytes 4 % Anisocytosis SLIGHT Sodium Level 137 135-145 MMOL/L Potassium Level 3.7 3.6-5.0 MMOL/L Chloride Level 104 98-107 MMOL/L Carbon Dioxide Level 21 21-32 MMOL/L Anion Gap 12 5-14 MMOL/L Blood Urea Nitrogen 14 7-18 MG/DL Creatinine 0.94 0.60-1.30 MG/DL Estimat Glomerular Filtration Rate > 60 BUN/Creatinine Ratio 15 Glucose Level 128 H 70-105 MG/DL Calcium Level 9.5 8.5-10.1 MG/DL Corrected Calcium 9.2 8.5-10.1 MG/DL Total Bilirubin 0.5 0.1-1.0 MG/DL Aspartate Amino Transf (AST/SGOT) 16 5-34 U/L Alanine Aminotransferase (ALT/SGPT) 23 0-55 U/L Alkaline Phosphatase 117 40-136 U/L Troponin I < 0.028 <0.028 NG/ML B-Type Natriuretic Peptide < 10.0 <100.0 PG/ML Total Protein 7.6 6.4-8.2 GM/DL Albumin 4.4 3.2-4.5 GM/DL My Orders Orders - AN,DANY L DO Chest 1 View, Ap/Pa Only (08/16/19 18:24) BNP (08/16/19 18:24) Cbc With Automated Diff (08/16/19 18:24) Comprehensive Metabolic Panel (08/16/19 18:24) Troponin I (08/16/19 18:24) Manual Differential (08/16/19 18:10) Vital Signs/I&O 08/16/19 18:08 Temp 36.7 Pulse 116 Resp 11 B/P (MAP) 107/75 (86) Pulse Ox 97 O2 Delivery Room Air Capillary Refill : ECG Initial ECG Impression Date: Aug 16, 2019 Initial ECG Impression Time: 18:18 Initial ECG Rate: 94 Initial ECG Rhythm: Normal Sinus Initial ECG Impression: Nonspecific Changes Initial ECG Comparisson: Unchanged Comment similar to multiple previous ekgs Diagnostic Imaging Diagonstic Imaging: Xray Plain Films/CT/US/NM/MRI: chest Comments [facility] [place] [place] NAME: JESSICA BARKER [facility] REC#: [id number] PT STATUS: REG ER : 1965 PHYSICIAN: DANY AN DO ADMIT DATE: 08/16/19/ER Draft Date of Exam:08/16/19 CHEST 1 VIEW, AP/PA ONLY INDICATION: Shortness of breath. TECHNIQUE: Single view chest 06:35 p.m. CORRELATION STUDY: 03/11/2017. FINDINGS: Given technique differences, heart size, mediastinum, vasculature overall generally stable and within normal limits. Slightly elevated right diaphragm. No infiltrate. IMPRESSION: 1. Negative for acute abnormality of the chest. Departure Impression Primary Impression: Upper respiratory infection Qualified Codes: J06.9 - Acute upper respiratory infection, unspecified Disposition: HOME, SELF-CARE Condition: Stable Departure-Patient Inst. Patient Instructions: Viral Upper Respiratory Infection, Adult (DC) Scripts Prednisone (Prednisone) 20 Mg Tab 40 MG PO DAILY, #6 TAB 0 Refills Prov: DANY AN DO 08/16/19 Doxycycline Hyclate (Doxycycline Hyclate) 100 Mg Tablet 100 MG PO BID, #20 TAB 0 Refills Prov: DANY AN DO 08/16/19 DANY AN DO Aug 16, 2019 18:09
[2019-08-16 18:36] LABS: BASOPHILS % (AUTO) 0 % (0-10); EOSINOPHILS # (AUTO) 0.1 10^3/uL (0.0-0.3); EOSINOPHILS % (AUTO) 1 % (0-10); HEMATOCRIT 46 % (40-54); HEMOGLOBIN 15.7 G/DL (13.3-17.7); LYMPHOCYTES # (AUTO) 3.2 X 10^3 (1.0-4.0); LYMPHOCYTES % (AUTO) 21 % (12-44); MEAN CORPUSCULAR HEMOGLOBIN 29 PG (25-34); MEAN CORPUSCULAR HGB CONC 34 G/DL (32-36); MEAN CORPUSCULAR VOLUME 85 FL (80-99); MEAN PLATELET VOLUME 9.8 FL (7.4-10.4); MONOCYTES # (AUTO) 1.3 X 10^3 (0.0-1.0); MONOCYTES % (AUTO) 9 % (0-12); NEUTROPHILS # (AUTO) 10.4 X 10^3 (1.8-7.8); NEUTROPHILS % (AUTO) 69 % (42-75); PLATELET COUNT 424 10^3/uL (130-400); RED CELL DISTRIBUTION WIDTH 14.8 % (10.0-14.5); WHITE BLOOD COUNT 15.1 10^3/uL (4.3-11.0)
[2019-08-16 18:40] LABS: ALBUMIN 4.4 GM/DL (3.2-4.5); CHLORIDE 104 MMOL/L (98-107); POTASSIUM 3.7 MMOL/L (3.6-5.0); SODIUM 137 MMOL/L (135-145)
[2019-08-16 18:42] LABS: CALCIUM 9.5 MG/DL (8.5-10.1)
[2019-08-16 18:43] LABS: GLUCOSE 128 MG/DL (70-105); TOTAL PROTEIN 7.6 GM/DL (6.4-8.2)
[2019-08-16 18:44] LABS: CARBON DIOXIDE 21 MMOL/L (21-32)
[2019-08-16 18:45] LABS: BILIRUBIN,TOTAL 0.5 MG/DL (0.1-1.0)
[2019-08-16 18:46] LABS: ALKALINE PHOSPHATASE 117 U/L (40-136)
[2019-08-16 18:47] LABS: CREATININE SERUM 0.94 MG/DL (0.60-1.30); GFR ESTIMATED > 60
[2019-08-16 18:48] LABS: BUN/CREATININE RATIO 15
[2019-08-16 18:49] LABS: ALANINE AMINOTRANSFERASE 23 U/L (0-55)
--- NOTE | 2019-08-16 18:49 | Diagnostic Imaging Report ---
INDICATION: Shortness of breath. TECHNIQUE: Single view chest 06:35 p.m. CORRELATION STUDY: 03/11/2017. FINDINGS: Given technique differences, heart size, mediastinum, vasculature overall generally stable and within normal limits. Slightly elevated right diaphragm. No infiltrate. IMPRESSION: 1. Negative for acute abnormality of the chest. Dictated by: Dictated on workstation # [id number]
[2019-08-16 18:57] LABS: ANISOCYTOSIS SLIGHT; BAND NEUTROPHILS 1 %; BASOPHILS % (MANUAL) 0 %; EOSINOPHILS % (MANUAL) 0 %; LYMPHOCYTES % (MANUAL) 23 %; MONOCYTES % (MANUAL) 4 %; NEUTROPHILS % (MANUAL) 68 %; REACTIVE LYMPHOCYTES 4 %
[2019-08-16] MEDS ORDERED: DOXY100T2 PO (19:01)
[2019-08-16] MEDS ORDERED: PRD20T PO (19:01)
[2019-08-16 19:15] VITALS: BP 138/79
== END 2019-08-16 19:01 | disposition home or self-care (01) ==
LOC: EDUNIT# 18:08 → ER 18:10
DX: J06.9 Acute upper respiratory infection, unspecified (principal)
CPT/HCPCS: 36415; 71045; 80053; 83880; 84484; 85007; 85027

== ENCOUNTER 2019-08-17 10:56 | Emergency (ER) | payer SELFPAY ==
[~2019-08-17] VITALS: Ht 180.3 cm; Wt 146.1 kg
[~2019-08-17 10:56] MED LIST changes: +DOXY100T2 PO
--- OUTSIDE RECORDS SUMMARY | 2019-08-17 11:04 | XMS REPORT ---
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 80063747 Problem Obstructive sleep apnea G47.33 Active [id number] ALLERGIES No Information ENCOUNTERS Encounter Location Date Diagnosis [facility] [address] [address] May, [facility] [address] [address] May, Essential hypertension I10 ; Idiopathic gout of left foot, 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 ; Obstructive sleep apnea G47.33 ; Pain in right shoulder M25.511 ; Other chronic pain G89.29 and Morbid obesity E66.01 [facility] [address] [facility] [id number] [address] [place] [address] Apr, Chronic fatigue R53.82 and M orbid obesity E66.01 [facility] [address] [place] [id number] [address] [place] [address] Apr, [facility] [address] [place] [id number] [place] [address] Apr, Mixed hyperlipidemia E78.2 a nd Essential hypertension I10 [facility] [address] [address] Apr, Morbid obesity E66.01 and Fo reign body of left ear, initial encounter T16.2XXA [facility] [address] [address] 11 Mar, 2018 Idiopathic gout of left foot , 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 [place] [address] [address] Oct, Hematoma T14.8XXA ; Essentia l hypertension I10 ; Mixed hyperlipidemia E78.2 and BMI 40.0-44.9, adult Z68.41 [facility] [address] [address] Oct, BMI 40.0-44.9, adult Z68.41 [place] [address] [address] Dec, [place] [address] [address] Dec, Essential hypertension I10 a nd High risk sexual behavior Z72.51 [place] [address] [address] Nov, [place] [address] [address] Oct, [facility] [address] [address] June, Lower abdominal pain R10.30 and Bladder spasms N32.89 [place] [address] [address] May, [place] [address] [address] May, [place] [address] [address] Apr, Essential hypertension I10 a nd Mixed hyperlipidemia E78.2 [facility] [address] [place] [id number] [place] [address] Apr, Mixed hyperlipidemia E78.2 [facility] [address] [facility] [id number] [address] [place] [address] 28 Mar, 2016 Essential hypertension I10 [facility] [address] [place] [id number] [place] [address] Dec, [facility] [address] [place] [id number] [place] [address] Dec, Panic disorder with agorapho keisha F40.01 ; PTSD (post-traumatic stress disorder) F43.10 and OCD (obsessive compulsive disorder) F42.9 [facility] [address] [place] [id number] [address] [place] [address] 14 Dec, 2015 [facility] [address] [place] [id number] [place] [address] Dec, Fluid level behind tympanic membrane of right ear H65.91 [facility] [address] [place] [id number] [place] [address] Nov, Generalized anxiety disorder F41.1 ; OCD (obsessive compulsive disorder) F42.9 ; PTSD (post-traumatic stress disorder) F43.10 ; Agoraphobia F40.00 ; Social anxiety disorder F40.10 ; Anxiety state, unspecified F41.1 and 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 [facility] [address] [place] [id number] [place] [address] Nov, Generalized anxiety disorder F41.1 and 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 [facility] [address] [place] [id number] [place] [address] Oct, [facility] [address] [place] [id number] [place] [address] Sep, Essential hypertension I10 [facility] [address] [place] [id number] [place] [address] [place] [address] Sep, [facility] [address] [place] [id number] [place] [address] Sep, Panic disorder with agorapho keisha F40.01 [facility] [address] [place] [id number] [place] [address] Jul, Anxiety state, unspecified F 41.1 [place] [address] [address] June, Essential hypertension I10 ; Anxiety F41.9 and Mixed hyperlipidemia E78.2 [place] [address] [address] June, Generalized anxiety disorder F41.1 [place] [address] [address] 14 May, 2014 [place] [address] [address] May, [place] [address] [address] Jul, [place] [address] [address] Dec, [place] [address] [place] [id number] [place] [address] May, [place] [address] [address] May, IMMUNIZATIONS No Known Immunizations SOCIAL HISTORY Never Assessed REASON FOR VISIT Lab (walk-in) PLAN OF CARE VITAL SIGNS MEDICATIONS Unknown Medications RESULTS No Results PROCEDURES Procedure Date Ordered Result Body Site COMPREHEN METABOLIC PANEL May 14, 2018 LIPID PANEL May 14, 2018 INSTRUCTIONS MEDICATIONS ADMINISTERED No Known Medications MEDICAL (GENERAL) HISTORY Type Description Date Medical History chronic pain to back and rig ht shoulder from work related injury 2009 Medical History coronary artery disease Medical History sleep apnea Medical History anxiety Medical History myocardial infarction 12/22/2011 (nuclear stress test done) Medical History hypertension Medical History gout Surgical History No Surgical history information Hospitalization History [place] 12/2011
--- OUTSIDE RECORDS SUMMARY | 2019-08-17 11:04 | XMS REPORT ---
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 85422839 Problem Obstructive sleep apnea G47.33 Active [id number] ALLERGIES No Information ENCOUNTERS Encounter Location Date Diagnosis [place] [address] [address] Jan, [facility] [address] [address] Nov, [facility] [address] [address] May, [facility] [address] [address] May, Essential hypertension I10 ; Idiopathic gout of left foot, 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 ; Obstructive sleep apnea G47.33 ; Pain in right shoulder M25.511 ; Other chronic pain G89.29 and Morbid obesity E66.01 [facility] [address] [facility] [id number] [address] [address] Apr, Chronic fatigue R53.82 and M orbid obesity E66.01 [facility] [address] [address] Apr, [place] [address] [address] Apr, Mixed hyperlipidemia E78.2 and Essential hypertension I10 [facility] [address] [address] Apr, Morbid obesity E66.01 and Fo reign body of left ear, initial encounter T16.2XXA [facility] [address] [address] Mar, Idiopathic gout of left foot , 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 [place] [address] [address] Oct, Hematoma T14.8XXA ; Essential hypertensi on I10 ; Mixed hyperlipidemia E78.2 and BMI 40.0-44.9, adult Z68.41 [facility] [address] [address] Oct, BMI 40.0-44.9, adult Z68.41 [place] [address] [address] Dec, [place] [address] [address] Dec, Essential hypertension I10 and High risk sexual behavior Z72.51 [place] [address] [address] Nov, [place] [address] [address] Oct, [facility] [address] [address] June, Lower abdominal pain R10.30 and Bladder spasms N32.89 [place] [address] [address] May, [place] [address] [address] May, [place] [address] [address] Apr, Essential hypertension I10 and Mixed hyp erlipidemia E78.2 [place] [address] [address] Apr, Mixed hyperlipidemia E78.2 [place] [address] [address] Mar, Essential hypertension I10 [place] [address] [address] Dec, [place] [address] [address] Dec, 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 ; PTSD (post-traumatic stress disorder) F43.10 and OCD (obsessive compulsive disorder) F42.9 [place] [address] [address] Dec, [facility] [address] [facility] [id number] [address] [place] [address] Dec, Fluid level behind tympanic membrane of right ear H65.91 [place] [address] [address] Nov, Generalized anxiety disorder F41.1 ; OCD (obsessive compulsive disorder) F42.9 ; PTSD (post-traumatic stress disorder) F43.10 ; Agoraphobia F40.00 ; Social anxiety disorder F40.10 ; Anxiety state, unspecified F41.1 and 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 [place] [address] [address] Nov, Generalized anxiety disorder F41.1 and P anic disorder with agoraphobia F40.01 [facility] [address] [address] Oct, [facility] [address] [address] Sep, Essential hypertension I10 [place] [address] [address] Sep, [facility] [address] [address] Sep, 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 [place] [address] [address] Jul, Anxiety state, unspecified F41.1 [place] [address] [address] June, Essential hypertension I10 ; Anxiety F41 .9 and Mixed hyperlipidemia E78.2 [place] [address] [address] June, Generalized anxiety disorder F41.1 [place] [address] [address] May, [place] [address] [address] May, [place] [address] [address] Jul, [place] [address] [address] Dec, [place] [address] [address] May, [place] [address] [address] May, IMMUNIZATIONS No Known Immunizations SOCIAL HISTORY Never Assessed REASON FOR VISIT lab results PLAN OF CARE VITAL SIGNS MEDICATIONS Unknown [...] History No Surgical history information Hospitalization History [place] 12/2011
--- OUTSIDE RECORDS SUMMARY | 2019-08-17 11:04 | XMS REPORT ---
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 [Moles/Vol] 09: [facility] (74802) Prostate 0.80 ng/mL (no code) 0 - 4 ng/mL 01-29-2019 Mata tellez specific Ag 09: [facility] [Mass/Vol] [facility] ([id number]) Protein 7.4 g/dL (no code) 6.4 - 8.3 g/dL 01-29-2019 Mata Rai [Mass/Vol] 09: [facility] ([id number]) RBC (Bld) 5.46 (H) 01-29-2019 Mata Rai [#/Vol] 08: [facility] (67390) RBC morphology NOT INDICATED (no code) 01-29-2019 Mata tellez finding Nom 08: [facility] (Bld) [facility] (31624) Sodium 140 mmol/L (no code) 135 - 145 mmol/L 01-29-2019 Will jan Rai [Moles/Vol] 09: [facility] (29265) Triglyceride 168 mg/dL (H) 0 - 150 mg/dL 01-29-2019 Lawrence ortiz Fredi [Mass/Vol] 09: [facility] (41230) Urate [Mass/Vol] 8.0 mg/dL (no code) 3.5 - 7.2 mg/dL 01-29-2019 Mata Fredi 09: [facility] ([id number]) Urea nitrogen 14 mg/dL (no code) 7 - 20 mg/dL 01-29-2019 Lawrence diana Rai [Mass/Vol] 09: [facility] (65834) WBC (Bld) 9.2 (no code) 01-29-2019 Mata Rai [#/Vol] 08: [facility] (88069) laboratory on 2018-06-08 Albumin 4.3 g/dL (N) 3.4 - 5.4 g/dL [facility] [Mass/Vol] [facility] (39414) Albumin/Globulin 1.4 {ratio} (N) 1 - 2.5 {ratio} Comm [facility] [Mass ratio] [facility] (41468) ALP [Catalytic 97 U/L (N) 44 - 147 U/L [facility] activity/Vol] [facility] (32127) ALT [Catalytic 14 U/L (N) 4 - 40 U/L Community ealt activity/Vol] [facility] (15862) AST [Catalytic 13 U/L (N) 10 - 34 U/L [facility] Health activity/Vol] [facility] (63354) Bilirubin 0.6 mg/dL (N) 0.1 - 1.2 mg/dL [facility] [Mass/Vol] [facility] (79943) Calcium 9.5 mg/dL (N) 8.5 - 10.2 mg/dL [facility] [Mass/Vol] [facility] (88824) Chloride 102 mmol/L (N) 95 - 106 mmol/L [facility] [Moles/Vol] [facility] (80652) CO2 [Moles/Vol] 25 mmol/L (N) 23 - 29 mmol/L [facility] (86925) Creatinine 0.81 mg/dL (N) [facility] h [Mass/Vol] [facility] (27824) GFR/1.73 sq M 119 (N) 90 - 120 [facility] predicted among mL/min/{1.73_m2} mL/min/{1.73_m2} [place] MDRD [facility] (S/P/Bld) [Vol (62212) rate/Area] GFR/1.73 sq 103 (N) 90 - 120 [facility] M.predicted MDRD mL/min/{1.73_m2} mL/min/{1.73_m2} [facility] (S/P/Bld) [Vol [facility] rate/Area] ([id number]) Globulin (S) 3.1 g/dL (N) 2 - 3.5 g/dL [facility] [Mass[facility]Vol] [facility] (09928) Glucose 83 mg/dL (N) 60 - 125 mg/dL [facility] [Mass/Vol] [facility] (99592) Potassium 4.4 mmol/L (N) 3.7 - 5.2 mmol/L [facility] [Moles/Vol] [facility] (32460) Protein 7.4 g/dL (N) 6.4 - 8.3 g/dL [facility] [Mass/Vol] [facility] (48544) Sodium 137 mmol/L (N) 135 - 145 mmol/L [facility] [Moles/Vol] [facility] (78332) Urea nitrogen 10 mg/dL (N) 7 - 20 mg/dL [facility] [Mass/Vol] [facility] (42285) Urea NOT APPLICABLE (no code) [facility] nitrogen/Creatin [facility] [Mass ratio] [facility] (34955) other on 2018-05-18 Erythrocyte 13.8 % (N) 11.6 - 14.6 % [facility] ealth distribution [facility] width (RBC) [facility] [Ratio] ([id number]) MCHC (RBC) 32.9 g/dL (N) 32 - 36 g/dL [facility] [Mass/Vol] [facility] (21006) Platelet mean 9.9 fL (N) 7.2 - 11.7 fL [facility] volume (Bld) [facility] [Entitic vol] [facility] (99679) imm/path on 2018-05-18 Heterophile Ab Negative (N) [facility] (70749) hematology on 2018-05-18 Basophils (Bld) 0.057 10*3/uL (N) 0 - 0.3 10*3/uL [facility] [#/Vol] [facility] (12240) Basophils/100 0.7 % (N) 0.5 - 1 % [facility] He alth WBC (Bld) [facility] (16371) Eosinophils 0.162 10*3/uL (N) 0.05 - 0.5 [facility] alth (Bld) [#/Vol] 10*3/uL [facility] (83680) Eosinophils/100 2.0 % (N) 1 - 4 % [facility] WBC (Bld) [facility] (50813) Hematocrit (Bld) 48.6 % (N) 36.1 - 50.3 % [facility] [Volume [facility] (00597) Hemoglobin (Bld) 16.0 g/dL (N) 12.1 - 17.2 g/dL [facility] [Mass/Vol] [facility] (91914) Lymphocytes 2.973 10*3/uL (N) 0.9 - 2.9 [facility]th (Bld) [#/Vol] 10*3/uL [facility] (73418) Lymphocytes/100 36.7 % (N) 20 - 40 % [facility] WBC (Bld) [facility] (70070) MCH (RBC) 28.3 pg (N) 27 - 31 pg [facility] Heal th [Entitic mass] [facility] (49889) MCV (RBC) 86.0 fL (N) 80 - 100 [facility] (79298) Monocytes (Bld) 0.948 10*3/uL (N) 0.3 - 0.[address] [facility] [#/Vol] 10*3/uL [facility] (02431) Monocytes/100 11.7 % (N) 2 - 8 % [facility] WBC (Bld) [facility] (62486) Neutrophils 3.961 10*3/uL (N) 1.7 - 7 10*3/uL [facility] (Bld) [#/Vol] [facility] (21829) Neutrophils/100 48.9 % (N) 40 - 60 % [facility] Health WBC (Bld) [facility] (55115) Platelets (Bld) 385 10*3/uL (N) 150 - 450 [facility] [#/Vol] 10*3/uL [facility] (08043) RBC (Bld) 5.65 10*6/uL (N) 4.2 - 6.1 [facility]th [#/Vol] 10*6/uL [facility] (67944) WBC (Bld) 8.1 10*3/uL (N) 3.5 - 10.5 [facility] th [#/Vol] 10*3/uL [facility] (56388) other on 2018-05-14 Cholesterol in 107 (H) [facility] Healt h LDL [Mass/Vol] [facility] (52269) Cholesterol non 136 (H) [facility] HDL [Mass/Vol] [facility] (14285) Cholesterol.tota 3.9 (N) [facility] HDL [Mass ratio] [facility] (49721) laboratory on 2018-05-14 Albumin 4.1 g/dL (N) 3.4 - 5.4 g/dL [facility] Health [Mass/Vol] [facility] (30415) Albumin/Globulin 1.5 {ratio} (N) 1 - 2.5 {ratio} [facility] [Mass ratio] [facility] (44372) ALP [Catalytic 93 U/L (N) 44 - 147 U/L [facility] activity/Vol] [facility] (97864) ALT [Catalytic 14 U/L (N) 4 - 40 U/L [facility] e[facility] activity/Vol] [facility] (29302) AST [Catalytic 12 U/L (N) 10 - 34 U/L [facility] Health activity/Vol] [facility] (58012) Bilirubin 0.5 mg/dL (N) 0.1 - 1.2 mg/dL [facility] [Mass/Vol] [facility] (03517) Calcium 9.7 mg/dL (N) 8.5 - 10.2 mg/dL [facility] [Mass/Vol] [facility] (81766) Chloride 102 mmol/L (N) 95 - 106 mmol/L [facility] [Moles/Vol] [facility] (16431) CO2 [Moles/Vol] 29 mmol/L (N) 23 - 29 mmol/L [facility] (59985) Creatinine 0.92 mg/dL (N) [facility] h [Mass/Vol] [facility] (89873) GFR/1.73 sq M 112 (N) 90 - 120 Community [facility] predicted among mL/min/{1.73_m2} mL/min/{1.73_m2} [place] [facility] blacks MDRD [facility] (S/P/Bld) [Vol (97951) rate/Area] GFR/1.73 sq 97 (N) 90 - 120 [facility] th M.predicted MDRD mL/min/{1.73_m2} mL/min/{1.73_m2} [facility] (S/P/Bld) [Vol [facility] rate/Area] (21402) Globulin (S) 2.8 g/dL (N) 2 - 3.5 g/dL [facility] ealt [Mass/Vol] [facility] (51390) Glucose 94 mg/dL (N) 60 - 125 mg/dL [facility] [Mass/Vol] [facility] (38711) Potassium 4.5 mmol/L (N) 3.7 - 5.2 mmol/L [facility] [Moles/Vol] [facility] (50388) Protein 6.9 g/dL (N) 6.4 - 8.3 g/dL [facility] [Mass/Vol] [facility] (06743) Sodium 137 mmol/L (N) 135 - 145 mmol/L [facility] [Moles/Vol] [facility] (02618) Urea nitrogen 14 mg/dL (N) 7 - 20 mg/dL [facility] [Mass/Vol] [facility] (80066) Urea NOT APPLICABLE (no code) [facility] nitrogen/Creatin [facility] [Mass ratio] [facility] (41723) cardiac on 2018-05-14 Cholesterol 183 mg/dL (N) 180 - 200 mg/dL [facility] [Mass/Vol] [facility] (03548) Cholesterol in 47 mg/dL (N) [facility] HDL [Mass/Vol] [facility] (89530) Triglyceride 174 mg/dL (H) 0 - 150 mg/dL [facility] [Mass/Vol] [facility] (59363) thyroid on 2016-04-22 TSH Qn 1.520 (no code) 04-22-2016 Not Available 09:370500 (47488) other on 2016-04-22 Albumin/Globulin 1.4 {ratio} (no code) 1 - 2.5 {ratio} 7 Not Available [Mass ratio] 09:0500 (65035) Cholesterol in 30 mg/dL (no code) 04-22-2016 Not Availab le VLDL [Mass/Vol] 09:0 (96093) Globulin (S) 2.9 g/dL (no code) 2 - 3.5 g/dL 04-22-2016 Not Av ailable [Mass/Vol] 09:0500 (68151) metabolic panel on 2016-04-22 Albumin 4.1 g/dL (no code) 3.4 - 5.4 g/dL 04-22-2016 Not Addie ilable [Mass/Vol] 09:0500 (05760) ALP [Catalytic 104 U/L (no code) 44 - 147 U/L 04-22-2016 Not Available activity/Vol] 09:090 (08467) ALT [Catalytic 15 U/L (no code) 4 - 40 U/L 04-22-2016 Not Av ailable activity/Vol] 09: (25232) AST [Catalytic 14 U/L (no code) 10 - 34 U/L 04-22-2016 Not A vailable activity/Vol] 09: (89198) Bilirubin 0.6 mg/dL (no code) 0.1 - 1.2 mg/dL 04-22-2016 Not Av ailable [Mass/Vol] 09: (15793) Calcium 9.2 mg/dL (no code) 8.5 - 10.2 mg/dL 04-22-2016 Not A vailable [Mass/Vol] 09: (63906) Chloride 97 mmol/L (no code) 95 - 106 mmol/L 04-22-2016 Not Av ailable [Moles/Vol] : (99743) CO2 [Moles/Vol] 26 mmol/L (no code) 23 - 29 mmol/L 04-22-2016 N ot Available : (54411) Creatinine 0.90 mg/dL (no code) 04-22-2016 Not Available [Mass/Vol] 09: (19837) GFR/1.73 sq M 116 (no code) 90 - 120 04-22-2016 Not Avai lable predicted among mL/min/{1.73_m2} mL/min/{1.73_m2} 09: (60074) blacks MDRD (S/P/Bld) [Vol rate/Area] GFR/1.73 sq M 101 (no code) 90 - 120 04-22-2016 Not Avai lable predicted among mL/min/{1.73_m2} mL/min/{1.73_m2} 09: (25026) non-blacks MDRD (S/P/Bld) [Vol rate/Area] Glucose 86 mg/dL (no code) 60 - 125 mg/dL 04-22-2016 Not Addie ilable [Mass/Vol] 09: (51345) Potassium 4.9 mmol/L (no code) 3.7 - 5.2 mmol/L 04-22-2016 Not Available [Moles/Vol] 09:09-0500 (66184) Protein 7.0 g/dL (no code) 6.4 - 8.3 g/dL 04-22-2016 Not Addie ilable [Mass/Vol] 09:0 (34497) Sodium 137 mmol/L (no code) 135 - 145 mmol/L 04-22-2016 Not Available [Moles/Vol] 09:0 (32106) Urea nitrogen 10 mg/dL (no code) 7 - 20 mg/dL 04-22-2016 Not A vailable [Mass/Vol] 09:050 (35917) Urea 11 mg/mg (no code) 6 - 22 mg/mg 04-22-2016 Not Avail able nitrogen/Creatin 09: (54172) ine [Mass ratio] cardiac on 2016-04-22 Cholesterol 185 mg/dL (no code) 180 - 200 mg/dL 04-22-2016 Not Available [Mass/Vol] 09:0 (05453) Cholesterol in 49 mg/dL (no code) 04-22-2016 Not Availab le HDL [Mass/Vol] 09:0500 (05206) Cholesterol in 106 mg/dL (H) 0 - 100 mg/dL 04-22-2016 Not Available LDL [Mass/Vol] 09:0500 (64280) Triglyceride 152 mg/dL (H) 0 - 150 mg/dL 04-22-2016 Not A vailable [Mass/Vol] 09:0500 ([id number]) Vital Signs The data below is from unstructured sources Vital Response Date/Time Temperature (Fahrenheit) 98.1 degree s F (97.6 - 99.5) 01/09/2016 10:07pm Temperature (Calculated Celsius) 36. 11543 degrees C (36.4 - 37.5) 01/09/2016 10:07pm Temperature Source Temporal 01/09/2016 10:07pm Pulse Rate (adult) 99 bpm (60 - 90) 01/09/2016 10:07pm Respiratory Rate 20 bpm (12 - 24) 01/09/2016 10:07pm O2 Sat by Pulse Oximetry 96 % (88 - 100) 01/09/2016 10:07pm Blood Pressure 180/88 mm Hg 01/09/2016 10:07pm Blood Pressure Mean 118 mm Hg 01/09/2016 10:07pm Pain Numeric Pain Scale 5-Moderate Pain 01/09/2016 10:07pm Height (Feet) 5 feet 10:07pm Height (Inches) 11 inches 01/09/2016 10:07pm Height (Calculated Centimeters) 180. 231415 cm 01/09/2016 10:07pm Weight (Pounds) 298 pounds 01/09/2016 10:07pm Weight (Calculated Kilograms) 135.17 0528 kilograms 01/09/2016 10:07pm Capillary Refill Capillary Refill Less Than 3 Seconds 01/09/2016 10:07pm Height 5 ft 11 in Weight 298 lb Body Mass Index 41.6 kg/m^2 Vital Response Date/Time Temperature (Fahrenheit) 97.9 degree s F (97.6 - 99.5) 05/26/2015 10:55pm Temperature (Calculated Celsius) 36. 13622 degrees C (36.4 - 37.5) 05/26/2015 10:55pm Temperature Source Temporal 05/26/2015 10:55pm Pulse Rate (adult) 87 bpm (60 - 90) 05/26/2015 10:55pm Respiratory Rate 12 bpm (12 - 24) 05/26/2015 10:55pm O2 Sat by Pulse Oximetry 98 % (88 - 100) 05/26/2015 10:55pm Blood Pressure 150/92 mm Hg 05/26/2015 10:55pm Blood Pressure Mean 111 mm Hg 05/26/2015 10:55pm Pain Pain Intensity 8 2015 10:55pm Height (Feet) 6 feet 06/2015 10:55pm Height (Inches) 0 inches 05/26/2015 10:55pm Height (Calculated Centimeters) 182. 493335 cm 05/26/2015 10:55pm Weight (Pounds) 310 pounds 05/26/2015 10:55pm Weight (Calculated Kilograms) 140.61 3636 kilograms 05/26/2015 10:55pm Height 6 ft 0 in Weight 310 lb Body Mass Index 42.0 kg/m^2 Vital Response Date/Time Pulse Rate (adult) 91 bpm (60 - 90) 03/03/2015 5:33pm Respiratory Rate 16 bpm (12 - 24) 03/03/2015 5:33pm O2 Sat by Pulse Oximetry 97 % (88 - 100) 03/03/2015 5:33pm Blood Pressure 147/74 mm Hg 03/03/2015 5:33pm Blood Pressure Mean 98 mm Hg 03/03/2015 5:10pm Pain Pain Intensity 6 2015 5:33pm Height (Centimeters) 0 cm 03/03/2015 5:10pm Weight (Calculated Grams) 148807.000 gm 03/03/2015 5:10pm Weight (Kilograms) 145 kg 03/03/2015 5:10pm Calculated BMI 0.00 02/20 5:10pm Vital Response Date/Time Temperature (Fahrenheit) 98.6 degree s F (97.6 - 99.5) 07/26/2015 5:35pm Temperature (Calculated Celsius) 37. 30723 degrees C (36.4 - 37.5) 07/26/2015 5:35pm Temperature Source Temporal 07/26/2015 5:35pm Pulse Rate (adult) 86 bpm (60 - 90) 07/26/2015 6:04pm Respiratory Rate 12 bpm (12 - 24) 07/26/2015 6:04pm O2 Sat by Pulse Oximetry 96 % (88 - 100) 07/26/2015 6:04pm Blood Pressure 189/79 mm Hg 07/26/2015 6:04pm Blood Pressure Mean 115 mm Hg 07/26/2015 5:35pm Pain Pain Intensity 2 2015 6:04pm Height (Feet) 5 feet 06/2015 5:35pm Height (Inches) 11 inches 07/26/2015 5:35pm Height (Calculated Centimeters) 180. 436291 cm 07/26/2015 5:35pm Weight (Pounds) 290 pounds 07/26/2015 5:35pm Weight (Calculated Kilograms) 131.54 1789 kilograms 07/26/2015 5:35pm Height 5 ft 11 in Weight 290 lb Body Mass Index 40.4 kg/m^2 Vital Response Date/Time Temperature (Fahrenheit) 96.3 degree s F (97.6 - 99.5) 11/27/2014 8:06am Temperature (Calculated Celsius) 35. 86592 degrees C (36.4 - 37.5) 11/27/2014 8:06am Temperature Source Temporal 11/27/2014 8:06am Pulse Rate (adult) 82 bpm (60 - 90) 11/27/2014 8:06am Blood Pressure 173/106 mm Hg 11/27/2014 8:06am Blood Pressure Mean 128 mm Hg 11/27/2014 8:06am Pain Pain Intensity 9 2014 8:06am Height (Feet) 6 feet 09/2014 8:06am Height (Inches) 0 inches 11/27/2014 8:06am Height (Calculated Centimeters) 182. 909289 cm 11/27/2014 8:06am Weight (Pounds) 305 pounds 11/27/2014 8:06am Weight (Calculated Kilograms) 138.34 5674 kilograms 11/27/2014 8:06am Calculated BMI 41.36 09/2014 8:06am Vital Response Date/Time Temperature (Fahrenheit) 98.4 degree s F (97.6 - 99.5) Temperature (Calculated Celsius) 36. 20696 degrees C (36.4 - 37.5) Pulse Rate (adult) 95 bpm (60 - 90) Respiratory Rate 16 bpm (12 - 24) O2 Sat by Pulse Oximetry 99 % (88 - 100) Blood Pressure 157/107 mm Hg Pain Pain Intensity 6 Height (Feet) 6 feet Height (Inches) 0 inches Height (Calculated Centimeters) 182. 079690 cm Weight (Pounds) 308 pounds Weight (Calculated Kilograms) 139.70 6451 kilograms Calculated BMI 41.77 Vital Response Date/Time Temperature (Fahrenheit) 97.8 degree s F (97.6 - 99.5) 10/18/2014 12:41am Temperature (Calculated Celsius) 36. 75353 degrees C (36.4 - 37.5) 10/18/2014 12:41am Temperature Source Temporal 10/18/2014 12:41am Pulse Rate (adult) 91 bpm (60 - 90) 10/18/2014 12:41am Respiratory Rate 20 bpm (12 - 24) 10/18/2014 12:41am O2 Sat by Pulse Oximetry 98 % (88 - 100) 10/18/2014 12:41am Blood Pressure 176/102 mm Hg 10/18/2014 12:41am Blood Pressure Mean 126 mm Hg 10/18/2014 12:41am Pain Pain Intensity 8 2014 12:41am Height (Feet) 6 feet 12:41am Height (Calculated Centimeters) 182. 834053 cm 10/18/2014 12:41am Weight (Pounds) 306 pounds 10/18/2014 12:41am Weight (Calculated Kilograms) 138.79 9267 kilograms 10/18/2014 12:41am Vital Response Date/Time Temperature (Fahrenheit) 97.6 degree s F (97.6 - 99.5) Temperature (Calculated Celsius) 36. 05659 degrees C (36.4 - 37.5) Temperature Source Temporal Pulse Rate (adult) 95 bpm (60 - 90) Respiratory Rate 20 bpm (12 - 24) O2 Sat by Pulse Oximetry 98 % (88 - 100) Blood Pressure 182/123 mm Hg Pain Pain Intensity 0 Height (Feet) 5 feet Height (Inches) 11 inches Height (Calculated Centimeters) 180. 013059 cm Weight (Pounds) 300 pounds Weight (Calculated Grams) 510505.865 gm Weight (Calculated Kilograms) 136.07 7712 kilograms Calculated BMI 41.84 Vital Response Date/Time Temperature (Fahrenheit) 97.8 degree s F (97.6 - 99.5) 10/18/2014 12:41am Temperature (Calculated Celsius) 36. 30306 degrees C (36.4 - 37.5) 10/18/2014 12:41am Temperature Source Temporal 10/18/2014 12:41am Pulse Rate (adult) 91 bpm (60 - 90) 10/18/2014 12:41am Respiratory Rate 20 bpm (12 - 24) 10/18/2014 12:41am O2 Sat by Pulse Oximetry 98 % (88 - 100) 10/18/2014 12:41am Blood Pressure 176/102 mm Hg 10/18/2014 12:41am Blood Pressure Mean 126 mm Hg 10/18/2014 12:41am Pain Pain Intensity 8 2014 12:41am Height (Feet) 6 feet 12:41am Height (Calculated Centimeters) 182. 693394 cm 10/18/2014 12:41am Weight (Pounds) 306 pounds 10/18/2014 12:41am Weight (Calculated Kilograms) 138.79 9267 kilograms 10/18/2014 12:41am Height 6 ft 0 in Weight 306 lb Body Mass Index 41.5 kg/m^2 Vital Response Date/Time Temperature (Fahrenheit) 99.5 degree s F (97.6 - 99.5) 03/11/2017 5:50pm Temperature (Calculated Celsius) 37. 09808 degrees C (36.4 - 37.5) 03/11/2017 5:50pm Temperature Source Temporal 03/11/2017 5:50pm Pulse Rate (adult) 107 bpm (60 - 90) 03/11/2017 5:50pm Respiratory Rate 18 bpm (12 - 24) 03/11/2017 5:50pm O2 Sat by Pulse Oximetry 96 % (88 - 100) 03/11/2017 5:50pm Blood Pressure 120/100 mm Hg 03/11/2017 5:50pm Blood Pressure Mean 107 mm Hg (65 - 110) 03/11/2017 5:50pm Pain Height (Feet) 6 feet 5:50pm Height (Inches) 11 inches 03/11/2017 5:50pm Height (Calculated Centimeters) 210. 805613 cm 03/11/2017 5:50pm Height Method Stated 5:50pm Weight (Pounds) 304 pounds 03/11/2017 5:50pm Weight (Calculated Grams) 693682.082 gm 03/11/2017 5:50pm Weight (Calculated Kilograms) 137.89 2082 kilograms 03/11/2017 5:50pm Calculated BMI 0.00 02/21 5:50pm Weight Method Stated 5:50pm Capillary Refill Capillary Refill Less Than 3 Seconds 03/11/2017 5:50pm Vital Response Date/Time Temperature (Fahrenheit) 98.2 degree s F (97.6 - 99.5) 09/17/2017 3:42pm Temperature (Calculated Celsius) 36. 92243 degrees C (36.4 - 37.5) 09/17/2017 3:42pm Temperature Source Temporal 09/17/2017 3:42pm Pulse Rate (adult) 87 bpm (60 - 90) 09/17/2017 3:42pm Respiratory Rate 16 bpm (12 - 24) 09/17/2017 3:42pm O2 Sat by Pulse Oximetry 95 % (88 - 100) 09/17/2017 3:42pm Blood Pressure 149/83 mm Hg 09/17/2017 3:42pm Blood Pressure Mean 105 mm Hg (65 - 110) 09/17/2017 3:42pm Pain Numeric Pain Scale 8 3:42pm Height (Feet) 6 feet 3:42pm Height (Inches) 0 inches 09/17/2017 3:42pm Height (Calculated Centimeters) 182. 604541 cm 09/17/2017 3:42pm Height Method Stated 3:42pm Weight (Pounds) 296 pounds 09/17/2017 3:42pm Weight (Ounces) 0 oz 3:42pm Weight (Calculated Grams) 776429.34 gm 09/17/2017 3:42pm Weight (Calculated Kilograms) 134.26 3343 kilograms 09/17/2017 3:42pm Weight Method Stated 3:42pm Capillary Refill Capillary Refill Less Than 3 Seconds 09/17/2017 3:42pm Height 6 ft 0 in 018 3:42pm Weight 296 lb 09/17/2017 3:42pm Body Mass Index 40.1 kg/m^2 09/17/2017 3:42pm Vital Response Date/Time Temperature (Fahrenheit) 97.1 degree s F (97.6 - 99.5) 02/02/2018 10:15pm Temperature (Calculated Celsius) 36. 79583 degrees C (36.4 - 37.5) 02/02/2018 10:15pm Temperature Source Oral 02/02/2018 10:15pm Pulse Rate (adult) 104 bpm (60 - 90) 02/02/2018 10:15pm Respiratory Rate 18 bpm (12 - 24) 02/02/2018 10:15pm O2 Sat by Pulse Oximetry 96 % (88 - 100) 02/02/2018 10:15pm Blood Pressure 172/76 mm Hg 02/02/2018 10:15pm Blood Pressure Mean 108 mm Hg (65 - 110) 02/02/2018 10:15pm Pain Numeric Pain Scale 8 10:15pm Height (Feet) 6 feet 9:45pm Height (Inches) 0 inches 02/02/2018 9:45pm Height (Calculated Centimeters) 182. 837771 cm 02/02/2018 9:45pm Height Method Stated 9:45pm Weight (Pounds) 290 pounds 02/02/2018 9:45pm Weight (Ounces) 0 oz 9:45pm Weight (Calculated Grams) 925576.79 gm 02/02/2018 9:45pm Weight (Calculated Kilograms) 131.54 1789 kilograms 02/02/2018 9:45pm Calculated BMI 0.00 01/20 9:45pm Weight Method Stated 9:45pm Capillary Refill Capillary Refill Less Than 3 Seconds 02/02/2018 9:45pm Vital Response Date/Time Temperature (Fahrenheit) 97.0 degree s F (97.6 - 99.5) 05/16/2018 9:46pm Temperature (Calculated Celsius) 36. 71451 degrees C (36.4 - 37.5) 05/16/2018 9:46pm Pulse Rate (adult) 99 bpm (60 - 90) 05/16/2018 9:46pm Respiratory Rate 20 bpm (12 - 24) 05/16/2018 9:46pm O2 Sat by Pulse Oximetry 97 % (88 - 100) 05/16/2018 9:46pm Blood Pressure 169/88 mm Hg 05/16/2018 9:46pm Blood Pressure Mean 115 mm Hg (65 - 110) 05/16/2018 9:46pm Pain Pasero Opioid-induced Sedation Scale (POSS) Awake and alert 05/16/2018 10:18pm Numeric Pain Scale 7 9:46pm Height (Feet) 6 feet 9:46pm Height (Inches) 0 inches 05/16/2018 9:46pm Height (Calculated Centimeters) 182. 780029 cm 05/16/2018 9:46pm Height Method Stated 9:46pm Weight (Pounds) 308 pounds 05/16/2018 9:46pm Weight (Calculated Grams) 941660.45 gm 05/16/2018 9:46pm Weight (Calculated Kilograms) 139.70 6451 kilograms 05/16/2018 9:46pm Weight Method Stated 9:46pm Capillary Refill Capillary Refill Less Than 3 Seconds 05/16/2018 9:46pm Height 6 ft 0 in 019 9:46pm Weight 308 lb 05/16/2018 9:46pm Body Mass Index 41.8 kg/m^2 05/16/2018 9:46pm Vital Response Date/Time Temperature (Fahrenheit) 97.0 degree s F (97.6 - 99.5) 05/16/2018 10:19pm Temperature (Calculated Celsius) 36. 17185 degrees C (36.4 - 37.5) 05/16/2018 10:19pm Pulse Rate (adult) 99 bpm (60 - 90) 05/16/2018 10:19pm Respiratory Rate 20 bpm (12 - 24) 05/16/2018 10:19pm O2 Sat by Pulse Oximetry 97 % (88 - 100) 05/16/2018 10:19pm Blood Pressure 169/88 mm Hg 05/16/2018 10:19pm Blood Pressure Mean 115 mm Hg (65 - 110) 05/16/2018 10:19pm Pain Pasero Opioid-induced Sedation Scale (POSS) Awake and alert 05/16/2018 10:18pm Numeric Pain Scale 0-No Pain 05/16/2018 10:19pm Height (Feet) 6 feet 9:46pm Height (Inches) 0 inches 05/16/2018 9:46pm Height (Calculated Centimeters) 182. 855844 cm 05/16/2018 9:46pm Height Method Stated 9:46pm Weight (Pounds) 308 pounds 05/16/2018 9:46pm Weight (Calculated Grams) 351089.45 gm 05/16/2018 9:46pm Weight (Calculated Kilograms) 139.70 6451 kilograms 05/16/2018 9:46pm Weight Method Stated 9:46pm Capillary Refill Capillary Refill Less Than 3 Seconds 05/16/2018 9:46pm Vital Response Date/Time Temperature (Fahrenheit) 97.7 degree s F (97.6 - 99.5) 07/04/2018 10:22pm Temperature (Calculated Celsius) 36. 14966 degrees C (36.4 - 37.5) 07/04/2018 10:22pm Temperature Source Oral 07/04/2018 10:22pm Pulse Rate (adult) 95 bpm (60 - 90) 07/04/2018 10:22pm Respiratory Rate 18 bpm (12 - 24) 07/04/2018 10:22pm O2 Sat by Pulse Oximetry 96 % (88 - 100) 07/04/2018 10:22pm Blood Pressure 158/87 mm Hg 07/04/2018 10:22pm Blood Pressure Mean 110 mm Hg (65 - 110) 07/04/2018 10:22pm Pain Pasero Opioid-induced Sedation Scale (POSS) Awake and alert 07/04/2018 9:58pm Numeric Pain Scale 5-Moderate Pain 07/04/2018 10:22pm Height (Feet) 6 feet 9:15pm Height (Inches) 0 inches 07/04/2018 9:15pm Height (Calculated Centimeters) 182. 704635 cm 07/04/2018 9:15pm Height Method Stated 9:15pm Weight (Pounds) 308 pounds 07/04/2018 9:15pm Weight (Calculated Grams) 122175.45 gm 07/04/2018 9:15pm Weight (Calculated Kilograms) 139.70 6451 kilograms 07/04/2018 9:15pm Weight Method Stated 9:15pm Capillary Refill Capillary Refill Less Than 3 Seconds 07/04/2018 9:15pm Height 6 ft 0 in 019 9:15pm Weight 308 lb 07/04/2018 9:15pm Body Mass Index 41.8 kg/m^2 07/04/2018 9:15pm Vital Response Date/Time Temperature (Fahrenheit) 97.7 degree s F (97.6 - 99.5) 07/04/2018 10:22pm Temperature (Calculated Celsius) 36. 92165 degrees C (36.4 - 37.5) 07/04/2018 10:22pm Temperature Source Oral 07/04/2018 10:22pm Pulse Rate (adult) 95 bpm (60 - 90) 07/04/2018 10:22pm Respiratory Rate 18 bpm (12 - 24) 07/04/2018 10:22pm O2 Sat by Pulse Oximetry 96 % (88 - 100) 07/04/2018 10:22pm Blood Pressure 158/87 mm Hg 07/04/2018 10:22pm Blood Pressure Mean 110 mm Hg (65 - 110) 07/04/2018 10:22pm Pain Pasero Opioid-induced Sedation Scale (POSS) Awake and alert 07/04/2018 9:58pm Numeric Pain Scale 5-Moderate Pain 07/04/2018 10:22pm Height (Feet) 6 feet 9:15pm Height (Inches) 0 inches 07/04/2018 9:15pm Height (Calculated Centimeters) 182. 418797 cm 07/04/2018 9:15pm Height Method Stated 9:15pm Weight (Pounds) 308 pounds 07/04/2018 9:15pm Weight (Calculated Grams) 116552.45 gm 07/04/2018 9:15pm Weight (Calculated Kilograms) 139.70 6451 kilograms 07/04/2018 9:15pm Weight Method Stated 9:15pm Capillary Refill Capillary Refill Less Than 3 Seconds 07/04/2018 9:15pm Interventions No Information Plan of Treatment The data below is from unstructured sources Discharge Date 01/09/16 11:08pm Disposition 07 AGAINST MEDICAL ADVIC E Condition at Discharge Improved Prescriptions See Medication Section Referrals [facility] Physician Discharge Date 05/27/15 12:38am Disposition 01 HOME, SELF-CARE Condition at Discharge Improved Instructions/Education Provided Acut e Gouty Arthritis (DC) Prescriptions See Medication Section Referrals THIAGO DRISCOLL [facility] Physician Additional Instructions/Education 1. Take the third colchicine tablet 1 hour from her first 2 2. Return to ER for any worsening or oth er concerns 3. Follow-up with your doctor next week All discharge instructions reviewed with patient and/or family. Voiced understanding. Discharge Date 03/03/15 5:34pm Disposition 01 HOME, SELF-CARE Condition at Discharge Stable Instructions/Education Provided Wilmot al Caries (ED) Prescriptions See Medication Section Referrals THIAGO DRISCOLL [facility] Physician Additional Instructions/Education Al l discharge instructions reviewed with patient and/or family. Voiced understanding. NEED TO GET IN WITH A DENTIST ISAÍAS FOR FURTHER EVALUATION AND TREATMENT. Discharge Date 07/26/15 6:04pm Disposition 01 HOME, SELF-CARE Condition at Discharge Against Medic al Advice Prescriptions See Medication Section Referrals [facility] Physician Discharge Date 11/27/14 9:20am Disposition 01 HOME, SELF-CARE Condition at Discharge Stable Instructions/Education Provided Acut e Gouty Arthritis (ED) Prescriptions See Medication Section Referrals THIAGO DRISCOLL [facility] Physician Additional Instructions/Education Al l discharge instructions reviewed with patient and/or family. Voiced understanding. Take dose of colchicine as prescribed. Take pain medicines as prescribed. You may use Aleve one generic, 2 tabs twice daily OR ibuprofen, 800 mg every 8 hours as needed for pain as well. Follow up with your Dr. in one to 2 days for recheck. Return for worse pain, fever, swelling, redness extending up the leg or other concerns as needed. Discharge Date 10/30/14 2:13pm Prescriptions See Medication Section Discharge Date 10/18/14 1:01am Disposition 01 HOME, SELF-CARE Condition at Discharge Improved Instructions/Education Provided Acut e Gouty Arthritis (ED) Prescriptions See Medication Section Referrals THIAGO DRISCOLL [facility] Physician Additional Instructions/Education Al l discharge instructions reviewed with patient and/or family. Voiced understanding. Take your second dose of colchicine and one hour. You may take ibuprofen, 800 mg every 8 hours as needed for pain. Follow up with your doctor on Monday for recheck. Return for other concerns as needed. Activity Details Follow Up prn Reason: Discharge Date 03/11/17 6:16pm Disposition 01 HOME, SELF-CARE Condition at Discharge Stable Instructions/Education Provided Acut e Bronchitis in Adults Prescriptions See Medication Section Referrals [facility]/ [facility] Order Date: Primary Care Physician Address: [address] [address] Additional Instructions/Education 1. Inhaler 2 puffs every 4 hours as needed for shortness of breath and chest tightness 2. Tylenol with codeine to help control the cough every 4 hours as needed for excessive coughing 3. Antibiotics as directed Discharge Date 09/17/17 4:08pm Disposition 01 HOME, SELF-CARE Condition at Discharge Stable Instructions/Education Provided Gout Lifestyle Changes to Manage Gout Forms Provided Work Release Form Prescriptions See Medication Section Referrals [facility] Order Date: Primary Care Physician Address: [address] [address] Additional Instructions/Education 1. Follow-up with your doctor later this week 2. Return to ER for any concerns 3.All discharge instructions reviewed wi th patient and/or family. Voiced understanding. Discharge Date 02/02/18 10:15pm Disposition 01 HOME, SELF-CARE Condition at Discharge Improved Instructions/Education Provided Gout (DC) Prescriptions See Medication Section Referrals [facility]/ K Order Date: Primary Care Physician Address: [address] [id number] Additional Instructions/Education Al l discharge instructions reviewed with patient and/or family. Voiced understanding. Medications as instructed. Tylenol Extra Strength [id number] as directed for pain. Ice pack or heating pads as needed for pain and swelling. Elevate the right foot on pillows. Follow-up with your primary care provider for recheck as an outpatient. Call for appointment time. Return in the emergency department for worsened symptoms or any other concerns. Discharge Date 05/16/18 10:19pm Disposition 01 HOME, SELF-CARE Condition at Discharge Stable/Unchan ged Instructions/Education Provided Gout (DC) Prescriptions See Medication Section Referrals [facility]/ K Order Date: Primary Care Physician Address: [address] [id number] Additional Instructions/Education Ta ke medications as directed. Take the colchicine 1 hour after the initial dose of colchicine. Return back to the emergency room for worsening symptoms or concerns as needed. Follow-up with her primary care provider within 1 week for recheck. All discharge instructions reviewed with patient and/or family. Voiced understanding. Discharge Date 06/11/18 2:35am Disposition 01 HOME, SELF-CARE Condition at Discharge Stable Instructions/Education Provided Gout (DC) Prescriptions See Medication Section Referrals [facility]/ [facility] Order Date: Primary Care Physician Address: [address] [address] Additional Instructions/Education Yo u may take ibuprofen 800 mg every 8 hours as needed for pain. You may also take Tylenol/acetaminophen 1000 mg every 8 hours as needed for pain. Take a second dose of colchicine one hour from first dose. Follow-up with your doctor for recheck and further evaluation today. Drink plenty of fluids. Return for worse pain, fever, vomiting, weakness, breathing problems or other concerns as needed. Discharge Date 07/04/18 10:22pm Disposition 01 HOME, SELF-CARE Condition at Discharge Stable/Unchan ged Instructions/Education Provided Shou lder Pain (DC) Prescriptions See Medication Section Referrals [facility]/ K Order Date: Primary Care Physician Address: [address] [address] Additional Instructions/Education Yo u may use ibuprofen and Tylenol as directed by the bottle for pain relief. Call [facility] tomorrow morning to schedule an appointment for further evaluation of your shoulder. Return back to the emergency room for worsening symptoms or concerns as needed. All discharge instructions reviewed with patient and/or family. Voiced understanding. Discharge Date 07/16/18 2:16am Disposition 01 HOME, SELF-CARE Condition at Discharge Stable Instructions/Education Provided Life style Changes to Manage Gout Gout (DC) Low Purine Diet Prescriptions See Medication Section Referrals [facility] Order Date: Primary Care Physician Address: [address] [id number] Additional Instructions/Education [place] RM EPSOM SALTS SOAKS AND THEN ICE AT 20 MINUTE INTERVALS ELEVATE RIGHT FOOT MUCH POSSIBLE INCREASE YOUR WATER INTAKE FOLLOW UP WITH YOUR DR THIS WEEK FOR FURTHER CARE All discharge instructions reviewed with patient and/or family. Voiced understanding. Goals No Information Social History The data below is from unstructured sources History Response Recorde d Date/Time Alcohol Use Rarely Uses 10/31/12 4:15pm Recreational Drug Use N 10/31/12 4:15pm Recent Foreign Travel N 10/31/12 4:15pm Recent Infectious Disease Exposure N 10/31/12 4:15pm History Response Recorde d Date/Time Alcohol Use Rarely Uses 07/07/12 10:37am Recreational Drug Use N 07/07/12 9:20am Recent Foreign Travel N 07/07/12 9:20am Recent Infectious Disease Exposure N 07/07/12 9:20am History Response Recorde d Date/Time Alcohol Use Denies Use 0 06/30/12 9:05am Recreational Drug Use N 06/30/12 9:05am Recent Foreign Travel N 05/10/12 10:07pm Recent Infectious Disease Exposure N 05/10/12 10:07pm History Response Recorde d Date/Time Alcohol Use Rarely Uses 11/10/12 1:41pm Recreational Drug Use N 11/10/12 1:41pm Recent Foreign Travel N 11/10/12 1:41pm Recent Infectious Disease Exposure N 11/10/12 1:41pm Functional Status The data below is from unstructured sources Query Response Date Ruperto rded Pasero Opioid-induced Sedation Scale (POSS) Awake and alert May 16, 2018 10:18pm Query Response Date Ruperto rded Pasero Opioid-induced Sedation Scale (POSS) Awake and alert July 04, 2018 9:58pm Mental Status No Information Encounters Encounter Normalized Encounter Encounter Diagnosis Care Provi eusebio Organization Date Type 06-08-2018 ([facility]) Chronic Health Essential (primary) ADIN FLORES (no [facility] - Maintenance hypertension phone) (no phone) 06-08-2018 - 06-08-2018 07-20-2019 Emergency department no information Renée Lee MD (no [facility] - patient visit phone) Renée Herrera MD, MD (no ramakrishna ne) 07-20-2019 (no phone) Renée Lee MD (no phone) Renée Lee MD (no phone) Renée Herrera MD, MD (no phone) Renée Lee MD (no phone) Renée Lee MD (no phone) 07-15-2019 Emergency department no information Moses Whitney (no [facility] - patient visit phone) (no phone) 07-15-2019 07-14-2019 Emergency department no information Darlene loyola MD [facility] - patient visit (no phone) Darlene Potter (no phone ) 07-14-2019 MD LEVI (no phone) Darlene Wolf MD (no phone) 07-13-2019 Emergency department no information Kojo Oro (no [facility] - patient visit phone) (no phone) 07-14-2019 06-25-2019 Emergency department no information Darlene loyola MD [facility] - patient visit (no phone) (no phone) 06-25-2019 08-01-2018 Emergency department no information no name no organization name - patient visit 08-02-2018 08-01-2018 Emergency department no information no name no organization name - patient visit 08-01-2018 07-16-2018 Emergency department no information LORIE K LIONEL Wor k no organization name - patient visit Phone: 07-16-2018 07-15-2018 Emergency department no information no name no organization name - patient visit 07-15-2018 07-04-2018 Emergency department no information JORGE L MASON ( no no organization name - patient visit phone) JORGE L Bradford 07-04-2018 (no phone) 07-04-2018 Emergency department no information no name no organization name - patient visit 07-04-2018 06-11-2018 Emergency department no information NAHOMY WALLACE INS no organization name - patient visit Work Phone: 06-11-2018 NAHOMY DIAZBBINS 05-16-2018 Emergency department no information JORGE L MASON ( no no organization name - patient visit phone) JORGE L Bradford 05-16-2018 (no phone) 02-02-2018 Emergency department no information NEIL SALAMANCA IN Work no organization name - patient visit Phone: 02-02-2018 11-05-2017 Emergency department no information no name no organization name - patient visit 11-05-2017 09-17-2017 Emergency department no information DACIA Espinal APRN BA MARTÍN no organization name - patient visit Work Phone: 09-17-2017 NEGATED Emergency department no information no name no organization name 07-01-2017 patient visit - 07-01-2017 07-18-2016 Emergency department no information no name no organization name - patient visit 07-18-2016 03-04-2013 Emergency department no information no name no organization name - patient visit 03-04-2013 02-09-2013 Emergency department no information no name no organization name - patient visit 02-09-2013 01-12-2013 Emergency department no information no name no organization name - patient visit 01-12-2013 05-10-2012 Emergency department no information no name no organization name - patient visit 05-11-2012 04-14-2012 Emergency department no information no name no organization name - patient visit 04-14-2012 12-26-2011 Emergency department no information no name no organization name - patient visit 12-26-2011 10-15-2011 Emergency department no information no name no organization name - patient visit 10-15-2011 Emergency department no information Renée Herrera MD, MD (no [facility] patient visit phone) (no phone) 11-05-2017 Patient encounter no information no name no or ganization name 09-17-2017 Patient encounter no information no name no or ganization name 07-01-2017 Patient encounter no information no name no or ganization name 03-11-2017 Patient encounter no information no name no or ganization name 01-30-2014 Patient encounter no information no name no or ganization name 01-06-2012 Patient encounter no information no name no or ganization name 01-05-2012 Patient encounter no information no name no or ganization name 06-25-2019 Patient encounter no information Darlene Wolf MD [facility] procedure (no phone) (no phone) 01-29-2019 Patient encounter no information no name no or ganization name - procedure 01-29-2019 08-01-2018 Patient encounter no information no name no or ganization name procedure 07-04-2018 Patient encounter no information no name no or ganization name procedure 06-11-2018 Patient encounter no information no name no or ganization name procedure 06-08-2018 Patient encounter no information no name no or ganization name procedure 05-18-2018 Patient encounter no information no name no or ganization name procedure 05-14-2018 Patient encounter no information no name no or ganization name procedure 04-25-2018 Patient encounter no information no name no or ganization name procedure 04-02-2018 Patient encounter no information no name no or ganization name procedure Patient encounter no information Moses Price MD (no [facility] procedure phone) (no phone) 01-22-2019 Telephone encounter no information ADIN CHANG (n o [facility] phone) (no phone) 12-17-2018 Telephone encounter no information ADIN CHANG (n o [facility] phone) (no phone) 06-15-2018 Telephone encounter no information ADIN CHANG (n o [facility] - phone) (no phone) 06-15-2018 - 06-15-2018 Medical Equipment No Information Payers Normalized Payer Value [employer] [facility] [id number]) Medicaid [id number] Clinical Notes 2019-06-25 to 2019-07-20 Note Type Note Facility Note ~[facility] ) ~DISCHARGE INSTRUCTIONS (ED) ~REPORT #: [id number] [place] REPORT STATUS: Draft ~DATE: 07/20/19 TI ME: 0653~ ~PATIENT: JESSICA BARKER Medical UNIT #: [id number]~ 156 ROOM/BED: ~: 69 AGE: 54 SEX: Center M ATTEND: Renée Lee MD ~ADM DT: A UTHOR: Renée Lee MD ~ ~* ALL edits (76243) or amendments must be made on the elect ronic/computer document *~ ~Current patient of record information for this document is:~JESSICA BARKER~PatID: [id number] Age: 54~ : 1965~ ~Report including patient information as it appeared at t he time this document ~was generated and provided to the patient is as follows below.~ ----~ ~JESSICA BARKER~PatID: [id number] Age: 54~ : 1965~Printed: 07/20/2019 6:53 AM~ By: Renée Lee~ ~General Emergency Department Discharge Instructions~ ~The exam and treatment you received in the Emergency Department were for an~urgent problem and are not intended as complete care. It is important that you~follow u p with a doctor, nurse practitioner, or physician assistant associate professor for ongoing~care. I f your symptoms become worse or you do not improve as expected and you~are lavern ble to reach your usual health care provider, you should return to the~[facility] Department. We are available 24 hours a day. ~ ~You were treated in the Emergency Department by: ~Primary Provider: Renée Lee MD~ ~Follow Up Information:~ ~Follow up with Your Physician Call as soon as possible to a rrange.. Call as~soon as possible to arrange.~Although no dangerous cause of your chest pain has been found in the emergency~department today, it is very important that you followup within 72 hours with~your primary care physician, or referral doctor, for a reevaluation. Often~times, additional testing is need ed after an emergency department visit to~further evaluate an episode of chest pain. If your symptoms worsen, or you~develop new or different severe odilia st pain, shortness of breath, dizziness or~fainting, you should return to the E R immediately. Until your followup, you~should rest and avoid strenuous act ivity. You may take quko-lzo-ztdqrqw pain~relievers such as acetaminophen or Tylenol as needed for pain.~ ~ ~PATIENT'S NAME: JESSICA BARKER CCOUNT NO: [id number]~ ~ ~ ~The Following Instructions Were Selected fo r You Today: Shortness of Breath,~Unclear Etiology~ ~Shortness of Breath, Unclear Etiology~ ~You have been seen today for shortness of breath, or difficulty dayday thing; but~we don't know the cause.~ ~This means that after talking about yo ur medical problems, doing a physical~exam, and looking at the tests that were done, there is still not a clear~explanation as to why you are aurora rt of breath. You may need to go see your~doctor for another exam or more te sts to find out why you are short of breath. .~ ~CAUTION: Even after a nilo p, including EKGs, lab tests, x-rays and even CAT~Scans (CT scans), it is still possible to have a serious problem that cannot be~detected at first.~ ~The doct or caring for you feels that the cause of your shortness of breath is~not from a life-threatening problem.~ ~Some of the more dangerous medical problems such as a heart attack, blood clot~in the lung (pulmonary embolism), asthma, collapsed lung, heart failure, etc.~have been looked at, but are not felt to be the c ause of your shortness of~breath.~ ~Shortness of breath is a serious sympt om and must be handled carefully. It is~VERY IMPORTANT that you see your [facility] doctor and return for re-evaluation or~seek medical attention immediately i f your symptoms become worse or change.~ ~YOU SHOULD SEEK MEDICAL ATTENTION IMME DIATELY, EITHER HERE OR AT THE NEAREST~EMERGENCY DEPARTMENT, IF ANY OF THE FOLLOWING OCCURS:~ * Your shortness of breath returns.~ * You notice that y our shortness of breath happens as you walk, go up stairs,~ or exert yourself. ~ * If you develop chest pain, sweating, or nausea (feel sick to your stomach).~ * Rapid heartbeat.~ * You have any weakness, lightheadedness or you get so short of breath that~ you pass out.~ * It hurts to breathe.~ * Your leg swells .~ * Any other worsening symptoms or problems.~ * If you are unable to sleep because of shortness of breath, or you wake in~ the middle of the night short of breath.~ ~What To Do:~ ~ * Take this sheet with you when you go to your foll ow-up visit.~ * If you have any problem arranging the follow-up visit, contact the~ Emergency Department immediately.~ * Take all medications as directed.~ ~Add itional Information:~ ~PATIENT'S NAME: JESSICA BARKER ACCOUNT NO: [id number]~ ~ ~ ~ ~ * There are occasions where additional lab tests return - suc h as a culture~ result or an X-ray or EKG - is further reviewed after you are dis charged.~ If a change in your diagnosis or treatment is indicated, we will atte mpt to~ contact you. It is critical that we have a current phone number for you. ~ ~ * If you had X-rays done, we can provide you a CD with those X-rays for your~ review and follow-up.~ ~ * Culture results may take 2-3 days. We review [facility] culture results and will~ attempt to contact you if the results are signific ant or may change your~ treatment. ~ ~If side effects develop, such as a rash, d ifficulty breathing, or a severe upset~stomach,~stop the medication and call your doctor or the Emergency Department.~ ~Preventative Health Instr uctions:~ ~The care you received in the emergency department has been done on a n emergency~basis only and is not intended to be a substitute for regular medical care. If~your condition or symptoms persist or get worse at any ti me, you should return~to the emergency department if you're unable to contact your own physician. ~Please understand that although we may not have determine d a specific cause of~your symptoms today, further evaluation may be necess waldemar. It is important to~get a primary care provider (doctor, PA, or nurse pra ctitioner) for follow up as~well as ongoing healthcare needs. ~ ~The follow ing information is provided for you as education regarding~preventative health care and follow up from your emergency department visit:~ ~Regular exercise, g ood diet and adequate fluid intake are very important for~general health maint enance. Please discuss these with your primary care doctor~to develop a plan s pecific to your needs. ~ ~Tobacco use is a risk factor for multiple serious illn esses. If you use~tobacco, please contact the [employer] at [phone] ([phone]) or~[email or web address] to assist in your efforts to stop using tobacco prod ucts.~ ~During your visit today your blood pressure may have been higher naya n normal. ~If it was high you should have this rechecked. Follow up with your phy sician or~the referral provider for a recheck within 4 weeks. Hypertension is a common but~serious illness that should be monitored closely.~ ~If thoughts of increased anxiety and sadness prevent you from completing your~day to day activit ies at home or work, please call our 12/09 assessment line at~[phone] to speak with an Commercial Roofing Estimator. ~For deaf and hearing impaired, call 1- [phone].~For mental health and/or substance use disorders you can call e Substance~Abuse and Mental Health Services ([facility]) ~[facility] TTY for hearing impaired call ~ ~ ~PATIENT'S NAME: JESSICA CARVAJAL ACCOUNT NO: [id number]~ ~ ~ ~During ER visits man y patients receive sedation or medications which may impair~your judgm ent and or make driving, working or operating machinery or even~walking haz ardous. Some of these medications include diphenhydramine (Benadryl)~and medicati ons for anxiety, nausea and pain. Ask your nurse if you have~received any sed ating medications. If you received any potentially sedating~medications, plemigel e rest today and do not drive.~ ~I, JESSICA BARKER, understand the instruct ions and will arrange for follow-up~care. ~ ~ 9~JANN ENT/FLOORMAN SIGNATURE~ ~ _~ ~ STAFF SIGNATURE~ ~ ~ ~ ~ ~ ~ ~ ~ ~ ~ ~ ~ ~ ~ ~ ~ ~ ~ ~ ~ ~ ~ ~ ~ ~ ~ ~ ~ ~ ~ ~ ~ ~ ~ ~ ~ ~PATIENT'S NAME: JESSICA BARKER ACCOUNT NO: [id number] Note ~ [facility]~ [address]~ [place], [place] [address]~ ~ ~PATIENT'S [place] NAME: JESSICA BARKER UNIT NO: [id number]~: 0 [birth year] AGE: 54 SEX: M Medical ACCOUNT NO: [id number]~ATTENDING PHYS: Dr. ANDREWS PT STATUS: REG ER ~REPORT Center NAME: EKG REPORT ROOM NO: ~REPORT STATU S: Signed ~ ~DATE OF ADMISSION: 07/20/19~ ([id number]) ~ ~Test Reason : ANXIETY~Blood Pressure : / mmHG~Vent. Rate : 089 BPM Atrial Rate : 089 BPM~ P-R Int : 166 ms QRS Dur : 082 ms~ QT Int : 330 ms P-R-T Axes : 060 011 066 degrees~ QTc Int : 4 01 ms~ ~Confirmed by INTERPRETATION, ED PHYSICIAN ([id number]), social media editor MARLENE PICKETT ([id number] ) on~07/20/2019 6:26:47 AM~ ~Referred By: SELF REFERRED Confirmed By:ED PHYSIC~ I NTERPRETATION~ ~ ~ ~ ~ ~ ~ ~ ~PATIENT'S NAME: JESSICA BARKER ACCOUNT NO: [id number] Note [facility] ([facility]) [place]~E MERGENCY PROVIDER [place] REPORT~REPORT#:[id number] REPORT STATUS: Draft~DATE: TIME: 621~ Medical ~PATIENT: JESSICA BARKER UNIT #: [id number]~ACC OUNT#: [id number] Center ROOM/BED: [place] [address] 67 AGE : 54 SEX: PCP PHYS: No Primary or Family ([id number]) Physician~ADM DATE: 07/20/19 INI AUTH: Renée Lee MD~ED ADMIT LAST SIG:~REP SERV REP SER V TM: 621~ * ALL edits or amendments must be made on the electronic/computer document *~ ~ ~ ~HPI GREET~ ~General~Initial Greet Date/Time 0454~ ~Clinical Note~Clinical Note~First Documented:~ Result Date Mamta e~ Pulse Ox 96 07/19 0452~ B/P 125/88 07/19 0452~ B/P Mean 100 07/19 0452~ O2 Delivery Room air 07/19 0452~ Temp 36.5 07/19 0452~ Pulse 101 07/19 0452~ Resp 18 07/19 0452~ ~Last Documented:~ Result Date Time~ Pulse Ox 96 07/19 0611~ B/P 121/77 07/19 0611~ B/P Mean 91 07/19 0611~ O2 Delivery Room air 07/19 0611~ Pulse 90 07/19 0611~ Resp 16 07/19 0611~ Temp 36.5 07/19 0452~ ~CHIEF COMPLAINT: Shortness of air, anxiety~ ~HISTORY OF PRESENT ILLNESS: 54-year-old male with a history of hypertension ~coming study, sleep apnea presents to the emergency d [facility] with a chief ~complaint of shortness of air on exertion that occur red this morning when he ~woke up around 5 AM. No associated chest pain. No asso ciated diaphoresis, ~nausea, vomiting. No palpitations. States he thinks this danny ht be anxiety ~however this feels different than his typical anxiety loree cks. He also has ~sleep apnea but states this is a different type of shortness o f air. Patient ~reports a chronic cough but states that this is been different over the past ~several weeks. No fevers or chills. Patient has been traveling i n his van. No~known Cobin 19 exposure.~ ~Social History: Non-smoker~ ~REVIEW OF SYSTEMS:~A complete Review of Systems was obtained and is negative except as stated in ~HPI~ ~PHYSICAL EXAM:~Pulse oximetry as above. I have reviewed the pulse oximetry and my ~interpretation is that the oxygenation is normal.~General Appearance: The patient is alert, has no immediate need for airway ~protection, and no current signs of significant toxicity.~Eyes: Pupils equal and round no pallor or injection.~ENT, Mouth: Mucous membranes are moist.~Respiratory : There are no retractions, lungs are clear to auscultation.~Cardiovascular: Regular rhythm, tachycardic rate.~Gastrointestinal: Abdomen is soft and non tender, no masses, bowel sounds ~normal.~Neurological: Alert and orient ed 4, GCS 15, no gross motor or sensory deficits~Skin: Warm and dry, no rashes. ~Musculoskeletal: Neck is supple non tender. Extremities are symmetrical, fu ll ~range of motion.~ ~ASSESSMENT AND PLAN: ~54-year-old gentleman presents t he emergency department with a chief complaint ~of shortness of air. He is t achycardic, not hypoxic, afebrile. Differential ~includes atypical ACS, PE , pneumonia, viral URI, anxiety. Work-up to include ~chest x-ray, EKG, CBC, BMP, delta troponin, d-dimer. We will continue to ~monitor and reassess. Sabina nascimento disposition pending.~ ~Data:~I reviewed labs~Independently reviewed imaging~ ~E KG interpretation:~time: 0556~rate: 89~rhythm: Sinus~axis: Normal~sandra: No s igns of AV block~QT, and QTc: Normal~qrs duration: No signs of bundle branch blo ck~st segments: No elevation or depression to suggest ischemia~comparis on to prior: Not available~interpretation: Normal sinus EKG without evidence of acute ischemia or ~dysrhythmia~The EKG was interpreted by me contemporaneously. ~ ~ED course:~ ~Past Medical History~Stated Complaint ANXIETY~Allergies~Coded Allergies:~No Known Allergies (07/16/19)~ ~Home Medic ations~Reported Medications~LISINOPRIL (ZESTRIL) ~FUROSEMIDE (LASIX) ~ ~ ~Past Medical History:~Reports: Hypertension. ~Additional Medical History~HTN~Additio nal Surgical History~Denies~Smoking status for patients 13 years old or old er: Never Smoker~ ~COURSE~ ~Data~Diagnostics~Laboratory Tests~ ~ ~ ~07/20/19 0555:~[Embedded Image Not Available]~Laboratory Tests:~ 07/19~ 55~ Chemistry~ Sodium (135 - 148 mmol/L) 139~ Potassium (3.5 - 5.3 mmol/L) 4.1~ Chloride (98 - 110 mmol/L) 104~ Carbon Dioxide (21 - 32 mmol/L) 27~ Anion Gap (5 - 15 mmol/L) 8~ BUN (7 - 20 mg/dL) 12~ Creatinine (0.70 - 1.30 mg/dL) 1.11~ Es timated Creat Clear (> 59 mL/min) > 60~ Estimated GFR (MDRD) (> 59 mL/min) > 60 ~ Glucose (70 - 99 mg/dL) 97~ Calcium (8.5 - 10.1 mg/dL) 9.3~ Troponin I (< 0 .07 ng/mL) < 0.02~ Coagulation~ D-Dimer (< 500 ng/mL) < 215~ Hematology~ WBC (5 .0 - 10.0 k/cumm) 10.9 H~ RBC (4.00 - 6.00 m/cumm) 5.75~ Hgb (14.0 - 18.0 gm/ dL) 16.4~ Hct (40.0 - 54.0 %) 50.0~ MCV (80.0 - 100.0 fl) 87.0~ MCH (27.0 - 33. 0 pg) 28.5~ MCHC (32.0 - 37.0 g/dL) 32.8~ RDW (11.0 - 15.6 %) 14.1~ Plt Count (15 0 - 400 k/cumm) 418 H~ MPV (8.5 - 10.9 fl) 9.5~ Immature Gran % (Auto) (0.0 - 0.6 %) 0.5~ Abs Immat Gran (auto) (0.00 - 0.09 k/cumm) 0.05~ Lymphocytes % (20 - 30 %) 26.3~ Monocytes % (4 - 6 %) 12.4 H~ Eosinophils % (2 - 4 %) 1.7 L~ Basophil s % (0 - 1 %) 0.5~ Nucleated RBC % (0.0 - 0.0 /100 WBC) 0.0~ Absolute Granulocyte s (2.0 - 9.0 k/cumm) 6.4~ Segmented Neutrophils (50 - 75 %) 58.6~ Absolute Lymphocytes (1.0 - 4.0 k/cumm) 2.9~ Absolute Monocytes (0.1 - 1.0 k/cumm) 1 .4 H~ Absolute Eosinophils (0.1 - 0.5 k/cumm) 0.2~ Absolute Basophils (0.0 - 0.2 k/cumm) 0.1~ ~ ~ ~Med Data~Med Data~Medication(s) Ordered:~Pharmaceuti meghan Aids~ Sig/Monalisa Start time Last~ Medication Dose Route Stop Time Status Admin~ Sodium Chloride See Dose X1ED STA 07/19 0435 DC 07/19~ Insts (1) IV 07/20 535 0603~ ~Dose Instructions:~(1)Sodium Chloride:~ 10 ML PER PORT~ ~ ~ ~Patient Discharge Departure~ ~Vital Signs/Condition~Vital Signs~First Docum ented:~ Result Date Time~ Pulse Ox 96 07/192~ B/P 125/88 07/19 0452~ B/P Mean 100 07/192~ O2 Delivery Room air 07/20 451~ Temp 36.5 07/20 451~ Pulse 101 07/19 045~ Resp 18 07/20 451~ ~Last Documented:~ Result Date Time~ Pu lse Ox 96 07/19 0611~ B/P 121/77 07/19 0611~ B/P Mean 91 07/19 0611~ O2 Delive ry Room air 07/19 0611~ Pulse 90 07/19 0611~ Resp 16 07/19 0611~ Temp 36.5 0452~ ~All vital signs available at the time of this entry have been review ed.~ ~RPT #: [id number]~END OF REPORT~ Note [facility] ([facility]) [place]~E MERGENCY PROVIDER [place] REPORT~REPORT#:[id number] REPORT STATUS: Draft~DATE: TIME: 621~ Medical ~PATIENT: JESSICA BARKER UNIT #: [id number]~ACC OUNT#: [id number] Center ROOM/BED: [place] [address] [birth year] AGE : 54 SEX: PCP PHYS: No Primary or Family ([id number]) Physician~ADM DATE: 07/20/19 INI AUTH: Renée Lee MD~ED ADMIT LAST SIG: Renée Lee MD~REP SERV D REP SERV TM: 621~ * ALL edits or amendments must be made on the electronic/computer document *~ ~ ~ ~HPI GREET~ ~General~Initial Greet Date/Time 07/20/19 0454~ ~Clinical Note~Clinical Note~First Documented:~ Result Date Mamta e~ Pulse Ox 96 07/19 0452~ B/P 125/88 07/19 0452~ B/P Mean 100 07/19 0452~ O2 Delivery Room air 07/19 0452~ Temp 36.5 07/19 0452~ Pulse 101 07/19 0452~ Resp 18 07/19 0452~ ~Last Documented:~ Result Date Time~ Pulse Ox 96 / 0611~ B/P 121/77 07/19 0611~ B/P Mean 91 07/19 0611~ O2 Delivery Room air 07/19 0611~ Pulse 90 07/19 0611~ Resp 16 07/19 0611~ Temp 36.5 07/19 0452~ ~CHIEF COMPLAINT: Shortness of air, anxiety~ ~HISTORY OF PRESENT ILLNESS: 54-year-old male with a history of hypertension ~coming study, sleep apnea presents to the emergency d [facility] with a chief ~complaint of shortness of air on exertion that occur red this morning when he ~woke up around 5 AM. No associated chest pain. No asso ciated diaphoresis, ~nausea, vomiting. No palpitations. States he thinks this danny ht be anxiety ~however this feels different than his typical anxiety loree cks. He also has ~sleep apnea but states this is a different type of shortness o f air. Patient ~reports a chronic cough but states that this is been different over the past ~several weeks. No fevers or chills. Patient has been traveling i n his van. No~known Cobin 19 exposure.~ ~Social History: Non-smoker~ ~REVIEW OF SYSTEMS:~A complete Review of Systems was obtained and is negative except as stated in ~HPI~ ~PHYSICAL EXAM:~Pulse oximetry as above. I have reviewed the pulse oximetry and my ~interpretation is that the oxygenation is normal.~General Appearance: The patient is alert, has no immediate need for airway ~protection, and no current signs of significant toxicity.~Eyes: Pupils equal and round no pallor or injection.~ENT, Mouth: Mucous membranes are moist.~Respiratory : There are no retractions, lungs are clear to auscultation.~Cardiovascular: Regular rhythm, tachycardic rate.~Gastrointestinal: Abdomen is soft and non tender, no masses, bowel sounds ~normal.~Neurological: Alert and orient ed 4, GCS 15, no gross motor or sensory deficits~Skin: Warm and dry, no rashes. ~Musculoskeletal: Neck is supple non tender. Extremities are symmetrical, fu ll ~range of motion.~ ~ASSESSMENT AND PLAN: ~54-year-old gentleman presents t he emergency department with a chief complaint ~of shortness of air. He is t achycardic, not hypoxic, afebrile. Differential ~includes atypical ACS, PE , pneumonia, viral URI, anxiety. Work-up to include ~chest x-ray, EKG, CBC, BMP, delta troponin, d-dimer. We will continue to ~monitor and reassess. Sabina nascimento disposition pending.~ ~Heart Score: 3 (age, risk factors)~ ~Data:~I reviewed labs~Independently reviewed imaging~ ~EKG interpretation:~time: 0556~rate: 89~rhy thm: Sinus~axis: Normal~sandra: No signs of AV block~QT, and QTc: Normal~qrs durati on: No signs of bundle branch block~st segments: No elevation or depression to suggest ischemia~comparison to prior: Not available~interpretation: Normal si nus EKG without evidence of acute ischemia or ~dysrhythmia~The EKG was in terpreted by me contemporaneously. ~ ~ED course:~624: EKG nonischemic, initial troponin negative, chest x-ray without focal ~consolidations or infiltrates. D -dimer negative.~ ~Past Medical History~Stated Complaint ANXIETY~Allerg ies~Coded Allergies:~No Known Allergies (07/16/19)~ ~Home Medications~Reported Medications~LISINOPRIL (ZESTRIL) ~FUROSEMIDE (LASIX) ~ ~ ~Past Medical H istory:~Reports: Hypertension. ~Additional Medical History~HTN~Additio nal Surgical History~Denies~Smoking status for patients 13 years old or old er: Never Smoker~ ~COURSE~ ~Data~Diagnostics~Laboratory Tests~ ~ ~ ~07/20/19 0555:~[Embedded Image Not Available]~Laboratory Tests:~ 07/19~ 55~ Chemistry~ Sodium (135 - 148 mmol/L) 139~ Potassium (3.5 - 5.3 mmol/L) 4.1~ Chloride (98 - 110 mmol/L) 104~ Carbon Dioxide (21 - 32 mmol/L) 27~ Anion Gap (5 - 15 mmol/L) 8~ BUN (7 - 20 mg/dL) 12~ Creatinine (0.70 - 1.30 mg/dL) 1.11~ Es timated Creat Clear (> 59 mL/min) > 60~ Estimated GFR (MDRD) (> 59 mL/min) > 60 ~ Glucose (70 - 99 mg/dL) 97~ Calcium (8.5 - 10.1 mg/dL) 9.3~ Troponin I (< 0 .07 ng/mL) < 0.02~ Coagulation~ D-Dimer (< 500 ng/mL) < 215~ Hematology~ WBC (5 .0 - 10.0 k/cumm) 10.9 H~ RBC (4.00 - 6.00 m/cumm) 5.75~ Hgb (14.0 - 18.0 gm/ dL) 16.4~ Hct (40.0 - 54.0 %) 50.0~ MCV (80.0 - 100.0 fl) 87.0~ MCH (27.0 - 33. 0 pg) 28.5~ MCHC (32.0 - 37.0 g/dL) 32.8~ RDW (11.0 - 15.6 %) 14.1~ Plt Count (15 0 - 400 k/cumm) 418 H~ MPV (8.5 - 10.9 fl) 9.5~ Immature Gran % (Auto) (0.0 - 0.6 %) 0.5~ Abs Immat Gran (auto) (0.00 - 0.09 k/cumm) 0.05~ Lymphocytes % (20 - 30 %) 26.3~ Monocytes % (4 - 6 %) 12.4 H~ Eosinophils % (2 - 4 %) 1.7 L~ Basophil s % (0 - 1 %) 0.5~ Nucleated RBC % (0.0 - 0.0 /100 WBC) 0.0~ Absolute Granulocyte s (2.0 - 9.0 k/cumm) 6.4~ Segmented Neutrophils (50 - 75 %) 58.6~ Absolute Lymphocytes (1.0 - 4.0 k/cumm) 2.9~ Absolute Monocytes (0.1 - 1.0 k/cumm) 1 .4 H~ Absolute Eosinophils (0.1 - 0.5 k/cumm) 0.2~ Absolute Basophils (0.0 - 0.2 k/cumm) 0.1~ ~ ~ ~Med Data~Med Data~Medication(s) Ordered:~Pharmaceuti meghan Aids~ Sig/Monalisa Start time Last~ Medication Dose Route Stop Time Status Admin~ Sodium Chloride See Dose X1ED STA 07/19 0435 DC 07/19~ Insts (1) IV 07/19~ ~Dose Instructions:~(1)Sodium Chloride:~ 10 ML PER PORT~ ~ ~ ~Patient Discharge Departure~ ~Vital Signs/Condition~Vital Signs~First Docum ented:~ Result Date Time~ Pulse Ox 96 07/20 451~ B/P 125/88 05/30 0452~ B/P Mean 100 07/19 0452~ O2 Delivery Room air 07/19 0452~ Temp 36.5 07/19 0452~ Pulse 101 07/19 0452~ Resp 18 07/19 0452~ ~Last Documented:~ Result Date Time~ Pu lse Ox 96 07/19 0611~ B/P 121/77 07/19 0611~ B/P Mean 91 07/19 0611~ O2 Delive ry Room air 07/19 0611~ Pulse 90 07/19 0611~ Resp 16 07/19 0611~ Temp 36.5 0452~ ~All vital signs available at the time of this entry have been review ed.~ ~RPT #: [id number]~END OF REPORT~ Note [facility] ([facility] [place]~E MERGENCY PROVIDER [place] REPORT~REPORT#:[id number] REPORT STATUS: Draft~DATE: TIME: 621~ Medical ~PATIENT: JESSICA BARKER UNIT #: [id number]~ACC OUNT#: [id number] Center ROOM/BED: [place] [address] 67 AGE : 54 SEX: PCP PHYS: No Primary or Family ([id number]) Physician~ADM DATE: 07/20/19 INI AUTH: Renée Lee MD~ED ADMIT LAST SIG: Renée Lee MD~REP SERV D REP SERV TM: 621~ * ALL edits or amendments must be made on the electronic/computer document *~ ~ ~ ~HPI GREET~ ~General~Initial Greet Date/Time 07/20/19 0454~ ~Clinical Note~Clinical Note~First Documented:~ Result Date Mamta e~ Pulse Ox 96 07/19 0452~ B/P 125/88 07/19 0452~ B/P Mean 100 07/19 0452~ O2 Delivery Room air 07/19 0452~ Temp 36.5 07/19 0452~ Pulse 101 07/19 0452~ Resp 18 07/19 0452~ ~Last Documented:~ Result Date Time~ Pulse Ox 96 07/19 0611~ B/P 121/77 07/19 0611~ B/P Mean 91 05/30 06~ O2 Delivery Room air 07/19 06~ Pulse 90 07/19 06~ Resp 16 07/19 06~ Temp 36.5 07/19 0452~ ~CHIEF COMPLAINT: Shortness of air, anxiety~ ~HISTORY OF PRESENT ILLNESS: 54-year-old male with a history of hypertension ~coming study, sleep apnea presents to the emergency d [facility] with a chief ~complaint of shortness of air on exertion that occur red this morning when he ~woke up around 5 AM. No associated chest pain. No asso ciated diaphoresis, ~nausea, vomiting. No palpitations. States he thinks this danny ht be anxiety ~however this feels different than his typical anxiety loree cks. He also has ~sleep apnea but states this is a different type of shortness o f air. Patient ~reports a chronic cough but states that this is been different over the past ~several weeks. No fevers or chills. Patient has been traveling i n his van. No~known Cobin 19 exposure.~ ~Social History: Non-smoker~ ~REVIEW OF SYSTEMS:~A complete Review of Systems was obtained and is negative except as stated in ~HPI~ ~PHYSICAL EXAM:~Pulse oximetry as above. I have reviewed the pulse oximetry and my ~interpretation is that the oxygenation is normal.~General Appearance: The patient is alert, has no immediate need for airway ~protection, and no current signs of significant toxicity.~Eyes: Pupils equal and round no pallor or injection.~ENT, Mouth: Mucous membranes are moist.~Respiratory : There are no retractions, lungs are clear to auscultation.~Cardiovascular: Regular rhythm, tachycardic rate.~Gastrointestinal: Abdomen is soft and non tender, no masses, bowel sounds ~normal.~Neurological: Alert and orient ed 4, GCS 15, no gross motor or sensory deficits~Skin: Warm and dry, no rashes. ~Musculoskeletal: Neck is supple non tender. Extremities are symmetrical, fu ll ~range of motion.~ ~ASSESSMENT AND PLAN: ~54-year-old gentleman presents t emergency department with a chief complaint ~of shortness of air. He is t achycardic, not hypoxic, afebrile. Differential ~includes atypical ACS, PE , pneumonia, viral URI, anxiety. Work-up to include ~chest x-ray, EKG, CBC, BMP, delta troponin, d-dimer. We will continue to ~monitor and reassess. Sabina nascimento disposition pending.~ ~Heart Score: 3 (age, risk factors)~ ~Data:~I reviewed labs~Independently reviewed imaging~ ~EKG interpretation:~time: 555~rate: 89~rhy thm: Sinus~axis: Normal~sandra: No signs of AV block~QT, and QTc: Normal~qrs durati on: No signs of bundle branch block~st segments: No elevation or depression to suggest ischemia~comparison to prior: Not available~interpretation: Normal si nus EKG without evidence of acute ischemia or ~dysrhythmia~The EKG was in terpreted by me contemporaneously. ~ ~ED course:~624: EKG nonischemic, initial troponin negative, chest x-ray without focal ~consolidations or infiltrates. D -dimer negative.~ ~0700: Patient signed out to oncoming shift. Repeat troponin due at 8 AM. ~Patient updated and aware of shift change and pending lab results . Patient ~expressed understanding agree with plan. All questions answered to chelsie stringer ~satisfaction.~ ~Past Medical History~Stated Complaint ANXIETY~Allerg ies~Coded Allergies:~No Known Allergies (07/16/19)~ ~Home Medications~Reported Medications~LISINOPRIL (ZESTRIL) ~FUROSEMIDE (LASIX) ~ ~ ~Past Medical H istory:~Reports: Hypertension. ~Additional Medical History~HTN~Additio nal Surgical History~Denies~Smoking status for patients 13 years old or old er: Never Smoker~ ~COURSE~ ~Data~Diagnostics~Laboratory Tests~ ~ ~ ~07/20/19 0555:~[Embedded Image Not Available]~Laboratory Tests:~ 07/19~ ~ Chemistry~ Sodium (135 - 148 mmol/L) 139~ Potassium (3.5 - 5.3 mmol/L) 4.1~ Chloride (98 - 110 mmol/L) 104~ Carbon Dioxide (21 - 32 mmol/L) 27~ Anion Gap (5 - 15 mmol/L) 8~ BUN (7 - 20 mg/dL) 12~ Creatinine (0.70 - 1.30 mg/dL) 1.11~ Es timated Creat Clear (> 59 mL/min) > 60~ Estimated GFR (MDRD) (> 59 mL/min) > 60 ~ Glucose (70 - 99 mg/dL) 97~ Calcium (8.5 - 10.1 mg/dL) 9.3~ Troponin I (< 0 .07 ng/mL) < 0.02~ Coagulation~ D-Dimer (< 500 ng/mL) < 215~ Hematology ~ WBC (5.0 - 10.0 k/cumm) 10.9 H~ RBC (4.00 - 6.00 m/cumm) 5.75~ Hgb (14.0 - 18.0 gm/dL) 16.4~ Hct (40.0 - 54.0 %) 50.0~ MCV (80.0 - 100.0 fl) 87.0~ MCH ( 27.0 - 33.0 pg) 28.5~ MCHC (32.0 - 37.0 g/dL) 32.8~ RDW (11.0 - 15.6 %) 14.1~ P lt Count (150 - 400 k/cumm) 418 H~ MPV (8.5 - 10.9 fl) 9.5~ Immature Gran % (A uto) (0.0 - 0.6 %) 0.5~ Abs Immat Gran (auto) (0.00 - 0.09 k/cumm) 0.05~ Lymph ocytes % (20 - 30 %) 26.3~ Monocytes % (4 - 6 %) 12.4 H~ Eosinophils % (2 - 4 %) 1.7 L~ Basophils % (0 - 1 %) 0.5~ Nucleated RBC % (0.0 - 0.0 /100 WBC) 0. 0~ Absolute Granulocytes (2.0 - 9.0 k/cumm) 6.4~ Segmented Neutrophils (50 - 75 %) 58.6~ Absolute Lymphocytes (1.0 - 4.0 k/cumm) 2.9~ Absolute Monocytes (0. 1 - 1.0 k/cumm) 1.4 H~ Absolute Eosinophils (0.1 - 0.5 k/cumm) 0.2~ Abs olute Basophils (0.0 - 0.2 k/cumm) 0.1~ ~ ~ ~Med Data~Med Data~Medication(s) Orde red:~Pharmaceutical Aids~ Sig/Monalisa Start time Last~ Medication Dose Route Stop T jay Status Admin~ Sodium Chloride See Dose X1ED STA 07/19 0535 DC 07/19~ Inst s (1) IV 07/20 535 06~ ~Dose Instructions:~(1)Sodium Chloride:~ 10 M L PER PORT~ ~ ~ ~Patient Discharge Departure~ ~Vital Signs/Condition~Vital Signs~First Documented:~ Result Date Time~ Pulse Ox 96 07/19 0452~ B/P 125/8 8 07/19 0452~ B/P Mean 100 07/19 0452~ O2 Delivery Room air 07/19 0452~ Temp 36.5 07/19 0452~ Pulse 101 07/19 0452~ Resp 18 07/19 0452~ ~Last Documented:~ Resul t Date Time~ Pulse Ox 96 07/19 0611~ B/P 121/77 07/19 0611~ B/P Mean 91 07/19 06 11~ O2 Delivery Room air 07/19 0611~ Pulse 90 07/19 0611~ Resp 16 07/19 0611 ~ Temp 36.5 07/19 0452~ ~All vital signs available at the time of this entry hav e been reviewed.~ ~ ~Clinical Impression~Clinical Impression~Primary Impression: Shortness of breath~ ~Discharge/Care Plan~Counseled Regardin g Diagnosis, Lab results, Imaging studies, Need for follow-up,~shift [place] ge~ ~Pt/Provider Handoff~ Shift Change Note~This patient's care has been trans ferred to the incoming physician. We discussed~: the patient's chief complai nt; labs and imaging that have been completed and ~those that are still pen ding; procedures that have been completed and those ~remaining to be done; any tr eatment provided and the patient's response to ~treatment; input from cons ultants (if any); the remaining treatment plan. The ~incoming physician will foll ow up on all pending labs and imaging, make any ~necessary changes to the curr ent impression and/or treatment plan and provide a ~final disposition.~ ~RPT #: [id number]~END OF REPORT~ Note [facility] ([facility]) ED WEST~E MERGENCY PROVIDER Lanre REPORT~REPORT#:[id number] REPORT STATUS: FSign~DATE: TIME: 621~ Medical ~PATIENT: JESSICA BARKER UNIT #: [id number]~ACC OUNT#: [id number] Center ROOM/BED: [facility] [birth year] AGE: 54 SEX: PCP PHYS: No Primary or Family ([id number]) Physician~ADM DATE: 07/20/19 INI AUTH: Renée Lee MD~ED ADMIT LAST SIG: Renée Lee MD~REP SERV D REP SERV TM: 621~ * ALL edits or amendments must be made on the electronic/computer document *~ ~ ~ ~HPI GREET~ ~General~Initial Greet Date/Time 07/20/19 0454~ ~Clinical Note~Clinical Note~First Documented:~ Result Date Mamta e~ Pulse Ox 96 07/19 0452~ B/P 125/88 07/19 0452~ B/P Mean 100 07/19 0452~ O2 Delivery Room air 07/19 0452~ Temp 36.5 07/19 0452~ Pulse 101 07/19 0452~ Resp 18 07/19 0452~ ~Last Documented:~ Result Date Time~ Pulse Ox 97 07/19 0715~ B/P 115/72 07/19 0715~ B/P Mean 86 07/19 0715~ Pulse 92 07/19 0715~ Resp 16 05/3 0 0715~ O2 Delivery Room air 07/19 0611~ Temp 36.5 07/19 0452~ ~CHIEF COMPLAINT: Shortness of air, anxiety~ ~HISTORY OF PRESENT ILLNESS: 54-year-old male with a history of hypertension ~coming study, [facility] chief ~complaint of shortness of air on exertion that occur red this morning when he ~woke up around 5 AM. No associated chest pain. No asso ciated diaphoresis, ~nausea, vomiting. No palpitations. States he thinks this danny ht be anxiety ~however this feels different than his typical anxiety loree cks. He also has ~sleep apnea but states this is a different type of shortness o f air. Patient ~reports a chronic cough but states that this is been different over the past ~several weeks. No fevers or chills. Patient has been traveling i n his van. No~known Cobin 19 exposure.~ ~Social History: Non-smoker~ ~REVIEW OF SYSTEMS:~A complete Review of Systems was obtained and is negative except as stated in ~HPI~ ~PHYSICAL EXAM:~Pulse oximetry as above. I have reviewed the pulse oximetry and my ~interpretation is that the oxygenation is normal.~General Appearance: The patient is alert, has no immediate need for airway ~protection, and no current signs of significant toxicity.~Eyes: Pupils equal and round no pallor or injection.~ENT, Mouth: Mucous membranes are moist.~Respiratory : There are no retractions, lungs are clear to auscultation.~Cardiovascular: Regular rhythm, tachycardic rate.~Gastrointestinal: Abdomen is soft and non tender, no masses, bowel sounds ~normal.~Neurological: Alert and orient ed 4, GCS 15, no gross motor or sensory deficits~Skin: Warm and dry, no rashes. ~Musculoskeletal: Neck is supple non tender. Extremities are symmetrical, fu ll ~range of motion.~ ~ASSESSMENT AND PLAN: ~54-year-old gentleman presents t emergency department with a chief complaint ~of shortness of air. He is t achycardic, not hypoxic, afebrile. Differential ~includes atypical ACS, PE , pneumonia, viral URI, anxiety. Work-up to include ~chest x-ray, EKG, CBC, BMP, delta troponin, d-dimer. We will continue to ~monitor and reassess. Sabina nascimento disposition pending.~ ~Heart Score: 3 (age, risk factors)~ ~Data:~I reviewed labs~Independently reviewed imaging~ ~EKG interpretation:~time: 0556~rate: 89~rhy thm: Sinus~axis: Normal~sandra: No signs of AV block~QT, and QTc: Normal~qrs durati on: No signs of bundle branch block~st segments: No elevation or depression to suggest ischemia~comparison to prior: Not available~interpretation: Normal si nus EKG without evidence of acute ischemia or ~dysrhythmia~The EKG was in terpreted by me contemporaneously. ~ ~ED course:~0625: EKG nonischemic, initial troponin negative, chest x-ray without focal ~consolidations or infiltrates. D -dimer negative.~ ~0700: Patient signed out to [facility] shift. Repeat troponin due at 8 AM. ~Patient updated and aware of shift change and pending lab results . Patient ~expressed understanding agree with plan. All questions answered to chelsie cuello's ~satisfaction.~ ~Past Medical History~Stated Complaint ANXIETY~Allerg ies~Coded Allergies:~No Known Allergies (07/16/19)~ ~Home Medications~Reported Medications~LISINOPRIL (ZESTRIL) ~FUROSEMIDE (LASIX) ~ ~ ~Past Medical H istory:~Reports: Hypertension. ~Additional Medical History~HTN~Additio nal Surgical History~Denies~Smoking status for patients 13 years old or old er: Never Smoker~ ~COURSE~ ~Data~Diagnostics~Laboratory Tests~ ~ ~ ~07/20/19 0555:~[Embedded Image Not Available]~Laboratory Tests:~ 07/19~ 813 0655~ Chemistry~ Sodium (135 - 148 mmol/L) 139~ Potassium (3.5 - 5.3 m mol/L) 4.1~ Chloride (98 - 110 mmol/L) 104~ Carbon Dioxide (21 - 32 mmol/L) 27 ~ Anion Gap (5 - 15 mmol/L) 8~ BUN (7 - 20 mg/dL) 12~ Creatinine (0.70 - 1.30 m g/dL) 1.11~ Estimated Creat Clear (> 59 mL/min) > 60~ Estimated GFR (MDRD) (> 5 9 mL/min) > 60~ Glucose (70 - 99 mg/dL) 97~ Calcium (8.5 - 10.1 mg/dL) 9.3~ Tro ponin I (< 0.07 ng/mL) < 0.02 < 0.02~ Coagulation~ D-Dimer (< 500 ng/mL) < 21 5~ Hematology~ WBC (5.0 - 10.0 k/cumm) 10.9 H~ RBC (4.00 - 6.00 m/cumm) 5.75~ Hgb (14.0 - 18.0 gm/dL) 16.4~ Hct (40.0 - 54.0 %) 50.0~ MCV (80.0 - 100.0 fl) 87. 0~ MCH (27.0 - 33.0 pg) 28.5~ MCHC (32.0 - 37.0 g/dL) 32.8~ RDW (11.0 - 15.6 %) 14.1~ Plt Count (150 - 400 k/cumm) 418 H~ MPV (8.5 - 10.9 fl) 9.5~ Immature Gran % (Auto) (0.0 - 0.6 %) 0.5~ Abs Immat Gran (auto) (0.00 - 0.09 k/cumm) 0.05~ Lymphocytes % (20 - 30 %) 26.3~ Monocytes % (4 - 6 %) 12.4 H~ Eosinophils % (2 - 4 %) 1.7 L~ Basophils % (0 - 1 %) 0.5~ Nucleated RBC % (0.0 - 0.0 /100 WBC) 0. 0~ Absolute Granulocytes (2.0 - 9.0 k/cumm) 6.4~ Segmented Neutrophils (50 - 75 %) 58.6~ Absolute Lymphocytes (1.0 - 4.0 k/cumm) 2.9~ Absolute Monocytes (0. 1 - 1.0 k/cumm) 1.4 H~ Absolute Eosinophils (0.1 - 0.5 k/cumm) 0.2~ Abs olute Basophils (0.0 - 0.2 k/cumm) 0.1~ ~Recent Impressions:~DIAGNOSTIC RADIOLO GY - XR CHEST AP/PA LATERAL 07/19 0438~ Report Impression - Status: SI GNED Entered: 07/20/2019 0854~ ~IMPRESSION: ~No acute cardiopulmonary process.~ ~I have personally reviewed these images and approved or corrected the~resident physician's interpretation.~ ~Impression By: EMILY GARCÍA MD~ ~ ~ ~Med Data~Med Data~Medication(s) Ordered:~Pharmaceuti meghan Aids~ Sig/Monalisa Start time Last~ Medication Dose Route Stop Time Status Admin~ Sodium Chloride See Dose X1ED STA 07/19 0535 DC 07/19~ Insts (1) IV 07/20 535 0603~ ~Dose Instructions:~(1)Sodium Chloride:~ 10 ML PER PORT~ ~ ~ ~Patient Discharge Departure~ ~Vital Signs/Condition~Vital Signs~First Docum ented:~ Result Date Time~ Pulse Ox 96 07/19 0452~ B/P 125/88 07/19 0452~ B/P Mean 100 07/19 0452~ O2 Delivery Room air 07/19 0452~ Temp 36.5 07/19 0452~ Pulse 101 07/19 0452~ Resp 18 07/19 0452~ ~Last Documented:~ Result Date Time~ Pu lse Ox 97 07/19 0715~ B/P 115/72 07/19 0715~ B/P Mean 86 07/19 0715~ Pulse 92 07/19 0715~ Resp 16 07/19 0715~ O2 Delivery Room air 07/19 0611~ Temp 36.5 07/19 0452~ ~All vital signs available at the time of this entry have been rev iewed.~ ~ ~Clinical Impression~Clinical Impression~Primary Impression: Shortnes s of breath~ ~Discharge/Care Plan~Counseled Regarding Diagnosis, Lab results, Imaging studies, Need for follow-up,~shift change~ ~Pt/Provider H andoff~ Shift Change Note~This patient's care has been transferred to the [facility] physician. We discussed~: the patient's chief complaint; labs and marty ging that have been completed and ~those that are still pending; procedures that have been completed and those ~remaining to be done; any treatment provided and the patient's response to ~treatment; input from consultants (if any); the remaining treatment plan. The ~incoming physician will follow up on a ll pending labs and imaging, make any ~necessary changes to the current impre ssion and/or treatment plan and provide a ~final disposition.~ ~ ~ at 1829~RPT #: [id number]~END OF REPO RT~ Note [facility] ([facility]) ED [place]~E MERGENCY PROVIDER [place] REPORT~REPORT#:[id number] REPORT STATUS: Draft~DATE: TIME: 621~ Medical ~PATIENT: JESSICA BARKER UNIT #: [id number]~ACC OUNT#: [id number] Center ROOM/BED: [facility]~: 69 AGE: 54 SEX: PCP PHYS: No Primary or Family ([id number]) Physician~ADM DATE: 07/20/19 IN AUTH: Renée Lee MD~ED ADMIT LAST SIG: Renée Lee MD~REP SERV D REP SERV TM: 0622~ * ALL edits or amendments must be made on the electronic/computer document *~ ~ ~ ~HPI GREET~ ~General~Initial Greet Date/Time 07/20/19 0454~ ~Clinical Note~Clinical Note~First Documented:~ Result Date Mamta e~ Pulse Ox 96 07/19 0452~ B/P 125/88 07/19 0452~ B/P Mean 100 07/19 0452~ O2 Delivery Room air 07/19 0452~ Temp 36.5 07/19 0452~ Pulse 101 07/19 0452~ Resp 18 07/19 0452~ ~Last Documented:~ Result Date Time~ Pulse Ox 97 07/19 0715~ B/P 115/72 07/19 0715~ B/P Mean 86 07/19 0715~ Pulse 92 07/19 0715~ Resp 16 05/3 0 0715~ O2 Delivery Room air 07/19 0611~ Temp 36.5 07/19 0452~ ~CHIEF COMPLAINT: Shortness of air, anxiety~ ~HISTORY OF PRESENT ILLNESS: 54-year-old male with a history of hypertension ~coming study, sleep apnea [facility] chief ~complaint of shortness of air on exertion that occur red this morning when he ~woke up around 5 AM. No associated chest pain. No asso ciated diaphoresis, ~nausea, vomiting. No palpitations. States he thinks this danny ht be anxiety ~however this feels different than his typical anxiety loree cks. He also has ~sleep apnea but states this is a different type of shortness o f air. Patient ~reports a chronic cough but states that this is been different over the past ~several weeks. No fevers or chills. Patient has been traveling i n his van. No~known Cobin 19 exposure.~ ~Social History: Non-smoker~ ~REVIEW OF SYSTEMS:~A complete Review of Systems was obtained and is negative except as stated in ~HPI~ ~PHYSICAL EXAM:~Pulse oximetry as above. I have reviewed the pulse oximetry and my ~interpretation is that the oxygenation is normal.~General Appearance: The patient is alert, has no immediate need for airway ~protection, and no current signs of significant toxicity.~Eyes: Pupils equal and round no pallor or injection.~ENT, Mouth: Mucous membranes are moist.~Respiratory : There are no retractions, lungs are clear to auscultation.~Cardiovascular: Regular rhythm, tachycardic rate.~Gastrointestinal: Abdomen is soft and non tender, no masses, bowel sounds ~normal.~Neurological: Alert and orient ed 4, GCS 15, no gross motor or sensory deficits~Skin: Warm and dry, no rashes. ~Musculoskeletal: Neck is supple non tender. Extremities are symmetrical, fu ll ~range of motion.~ ~ASSESSMENT AND PLAN: ~54-year-old gentleman presents t he emergency department with a chief complaint ~of shortness of air. He is t achycardic, not hypoxic, afebrile. Differential ~includes atypical ACS, PE , pneumonia, viral URI, anxiety. Work-up to include ~chest x-ray, EKG, CBC, BMP, delta troponin, d-dimer. We will continue to ~monitor and reassess. Sabina nascimento disposition pending.~ ~Heart Score: 3 (age, risk factors)~ ~Data:~I reviewed labs~Independently reviewed imaging~ ~EKG interpretation:~time: 0556~rate: 89~rhy thm: Sinus~axis: Normal~sandra: No signs of AV block~QT, and QTc: Normal~qrs durati on: No signs of bundle branch block~st segments: No elevation or depression to suggest ischemia~comparison to prior: Not available~interpretation: Normal si nus EKG without evidence of acute ischemia or ~dysrhythmia~The EKG was in terpreted by me contemporaneously. ~ ~ED course:~0625: EKG nonischemic, initial troponin negative, chest x-ray without focal ~consolidations or infiltrates. D -dimer negative.~ ~0700: Patient signed out to oncoming shift. Repeat troponin due at 8 AM. ~Patient updated and aware of shift change and pending lab results . Patient ~expressed understanding agree with plan. All questions answered to chelsie stringer ~satisfaction.~ ~Past Medical History~Stated Complaint ANXIETY~Allerg ies~Coded Allergies:~No Known Allergies (07/16/19)~ ~Home Medications~Reported Medications~LISINOPRIL (ZESTRIL) ~FUROSEMIDE (LASIX) ~ ~ ~Past Medical H istory:~Reports: Hypertension. ~Additional Medical History~HTN~Additio nal Surgical History~Denies~Smoking status for patients 13 years old or old er: Never Smoker~ ~COURSE~ ~Data~Diagnostics~Laboratory Tests~ ~ ~ ~07/20/19554:~[Embedded Image Not Available]~Laboratory Tests:~ 07/19~ 813 0655~ Chemistry~ Sodium (135 - 148 mmol/L) 139~ Potassium (3.5 - 5.3 m mol/L) 4.1~ Chloride (98 - 110 mmol/L) 104~ Carbon Dioxide (21 - 32 mmol/L) 27 ~ Anion Gap (5 - 15 mmol/L) 8~ BUN (7 - 20 mg/dL) 12~ Creatinine (0.70 - 1.30 m g/dL) 1.11~ Estimated Creat Clear (> 59 mL/min) > 60~ Estimated GFR (MDRD) (> 5 9 mL/min) > 60~ Glucose (70 - 99 mg/dL) 97~ Calcium (8.5 - 10.1 mg/dL) 9.3~ Tro ponin I (< 0.07 ng/mL) < 0.02 < 0.02~ Coagulation~ D-Dimer (< 500 ng/mL) < 21 5~ Hematology~ WBC (5.0 - 10.0 k/cumm) 10.9 H~ RBC (4.00 - 6.00 m/cumm) 5.75~ Hgb (14.0 - 18.0 gm/dL) 16.4~ Hct (40.0 - 54.0 %) 50.0~ MCV (80.0 - 100.0 fl) 87. 0~ MCH (27.0 - 33.0 pg) 28.5~ MCHC (32.0 - 37.0 g/dL) 32.8~ RDW (11.0 - 15.6 %) 14.1~ Plt Count (150 - 400 k/cumm) 418 H~ MPV (8.5 - 10.9 fl) 9.5~ Immature Gran % (Auto) (0.0 - 0.6 %) 0.5~ Abs Immat Gran (auto) (0.00 - 0.09 k/cumm) 0.05~ Lymphocytes % (20 - 30 %) 26.3~ Monocytes % (4 - 6 %) 12.4 H~ Eosinophils % (2 - 4 %) 1.7 L~ Basophils % (0 - 1 %) 0.5~ Nucleated RBC % (0.0 - 0.0 /100 WBC) 0. 0~ Absolute Granulocytes (2.0 - 9.0 k/cumm) 6.4~ Segmented Neutrophils (50 - 75 %) 58.6~ Absolute Lymphocytes (1.0 - 4.0 k/cumm) 2.9~ Absolute Monocytes (0. 1 - 1.0 k/cumm) 1.4 H~ Absolute Eosinophils (0.1 - 0.5 k/cumm) 0.2~ Abs olute Basophils (0.0 - 0.2 k/cumm) 0.1~ ~Recent Impressions:~DIAGNOSTIC RADIOLO GY - XR CHEST AP/PA LATERAL 07/19 0438~ Report Impression - Status: SI GNED Entered: 07/20/2019 0854~ ~IMPRESSION: ~No acute cardiopulmonary process.~ ~I have personally reviewed these images and approved or corrected the~resident physician's interpretation.~ ~Impression By: EMILY GARCÍA MD~ ~ ~ ~Med Data~Med Data~Medication(s) Ordered:~Pharmaceuti meghan Aids~ Sig/Monalisa Start time Last~ Medication Dose Route Stop Time Status Admin~ Sodium Chloride See Dose X1ED STA 07/19 0535 DC 07/19~ Insts (1) IV 07/20 535 0603~ ~Dose Instructions:~(1)Sodium Chloride:~ 10 ML PER PORT~ ~ ~ ~Patient Discharge Departure~ ~Vital Signs/Condition~Vital Signs~First Docum ented:~ Result Date Time~ Pulse Ox 96 07/19 0452~ B/P 125/88 07/19 0452~ B/P Mean 100 07/19 0452~ O2 Delivery Room air 07/19 045~ Temp 36.5 07/19 0452~ Pulse 101 07/19 0452~ Resp 18 07/19 045~ ~Last Documented:~ Result Date Time~ Pu lse Ox 97 07/19 0715~ B/P 115/72 07/19 0715~ B/P Mean 86 07/19 0715~ Pulse 92 07/19 0715~ Resp 16 07/19 0715~ O2 Delivery Room air 07/19 0611~ Temp 36.5 07/19 0452~ ~All vital signs available at the time of this entry have been rev iewed.~ ~ ~Clinical Impression~Clinical Impression~Primary Impression: Shortnes s of breath~ ~Discharge/Care Plan~Counseled Regarding Diagnosis, Lab results, Imaging studies, Need for follow-up,~shift change~ ~Pt/Provider H andoff~ Shift Change Note~This patient's care has been transferred to the [facility] physician. We discussed~: the patient's chief complaint; labs and marty ging that have been completed and ~those that are still pending; procedures that have been completed and those ~remaining to be done; any treatment provided and the patient's response to ~treatment; input from consultants (if any); the remaining treatment plan. The ~incoming physician will follow up on a ll pending labs and imaging, make any ~necessary changes to the current impre ssion and/or treatment plan and provide a ~final disposition.~ ~RPT #: [id number]~ END OF REPORT~ Note ~[facility] ([facility] ) ~DISCHARGE INSTRUCTIONS (ED) ~REPORT #: [id number] [place] REPORT STATUS: Draft ~DATE: 07/16/19 TI ME: 0036~ ~PATIENT: JESSICA BARKER Medical UNIT #: [id number]~ 593 ROOM/BED: ~: 69 AGE: 54 SEX: Center M ATTEND: Moses Price MD ~ADM DT: AUT HOR: Moses Price MD ~ ~* ALL edits or (25457) amendments must be made on the electron ic/computer document *~ ~Current patient of record information for this document is:~JESSICA BARKER~PatID: [id number] Age: 54~ : 1965~ ~Report including patient information as it appeared at t he time this document ~was generated and provided to the patient is as follows below.~ ----~ ~JESSICA ELAMPatID: [id number] Age: 54~ : 1965~Printed: 07/16/2019 12:36 AM ~By: Moses Price~ ~General Emergency Department Discharge Instructions~ ~The exam and treatment you received in the Emergency Department were for an~urgent problem and are not intended as complete care. It is important that you~follow u p with a doctor, nurse practitioner, or physician assistant associate professor for ongoing~care. I f your symptoms become worse or you do not improve as expected and you~are lavern ble to reach your usual health care provider, you should return to the~[facility] Department. We are available 24 hours a day. ~ ~You were treated in the Emergency Department by: ~Primary Provider: Moses Price M.D.~ ~The Follo wing Instructions Were Selected for You Today: Anxiety, Panic, Elevated~Blood P ressure~ ~Anxiety, --I believe this is playing a strong role in some of your e levated~blood pressure readings~ ~You have been diagnosed with an anxiety att ack.~ ~You seem to have had an anxiety attack. There are many conditions that can~cause symptoms like these. If this is the first time this has happened,~follo w-up with your regular doctor. You may need more testing to be sure there~isn' t another cause for your symptoms.~ ~Anxiety causes very strong feelings of worry and fear. It may also cause chest~ ~PATIENT'S NAME: JESSICA BARKER CCOUNT NO: [id number]~ ~ ~ ~pain or shortness of breath. You may feel like you have palpitations (a racing~heart). You might feel numbness (like parts of your body are "asleep"),~especially around the mouth and in the hands or fe et.~ ~Follow up with your counselor and family doctor. If you do not have an~ap pointment in the next 2-3 days, call and make one. It is VERY IMPORTANT for~your counselor and family doctor to know if you get worse.~ ~YOU SHOULD SEEK MEDICA L ATTENTION IMMEDIATELY, EITHER HERE OR AT THE NEAREST~EMERGENCY DEPARTMENT, IF ANY OF THE FOLLOWING OCCURS:~ * You have symptoms that you normally don't have w ith your anxiety attacks.~ * You think of harming yourself (suicidal thoughts) or harming someone else.~ * You have symptoms you normally don't have and th ey last longer than normal~ or your medicine doesn't help. These include ch est pain, passing out,~ feeling that your heart is racing or shortness of breath. ~ * You have a fever (temperature higher than 100.4 F / 38 C).~ ~Elevated Blood Pressure - no ibuprofen, motrin or anti-inflammatories/ no~decongestants/ no energy drinks or stimulants; no alcohol-- all of these can~raise your b lood pressure~ ~During your visit today your blood pressure was higher than nor mal.~ ~Check your blood pressure several times over the next several days, then follow~up with your regular doctor. If you do not have a doctor, ask the medic al staff~to refer you to one.~ ~You may need medication for your blood pressure if it stays high. Untreated~high blood pressure can cause damage to your heart and kidneys and may lead to a~heart attack or stroke. It is VERY IMPORTANT to follow up with your doctor.~ * Check your blood pressure daily and follow up with your doctor.~ * A doctor will diagnose high blood pressure only if yo ur blood pressure is~ high for several days. Many pharmacies have machines naya t let you check~ your own blood pressure. You can also check with a fire station to see~ whether a executive assistant to general counsel will take your blood pressure. Another option is to~ purchase a blood pressure monitor to use at home. These are available at~ pharmacies. ~ ~YOU SHOULD SEEK MEDICAL ATTENTION IMMEDIATELY, EITHER HERE OR A T THE NEAREST~EMERGENCY DEPARTMENT, IF ANY OF THE FOLLOWING OCCURS:~ * You hav e a sudden or severe headache.~ * You are numb, tingly, or weak on one side of yo ur body, half of your face~ droops, or you have trouble speaking.~ * You have chest pain.~ * You are short of breath.~ ~What To Do:~ ~ * Take this sheet with you when you go to your follow-up visit.~ * If you have any problem arranging the follow-up visit, contact the~ Emergency Department immediately.~ * Take all med ications as directed.~ ~PATIENT'S NAME: JESSICA BARKER ACCOUNT NO: [id number]~ ~ ~ ~ ~You Were Given The Following Excuses and Limitations:~BLAISE BARKER was seen on 07/16/2019 and is excused from Work from 07/16/2019~german 07/17/2019~ ~Additional Information:~ ~ * There are occasions where additiona l lab tests return - such as a culture~ result or an X-ray or EKG - is further reviewed after you are discharged.~ If a change in your diagnosis or treatment i s indicated, we will attempt to~ contact you. It is critical that we have a [employer] phone number for you.~ ~ * If you had X-rays done, we can provide you a CD wi th those X-rays for your~ review and follow-up.~ ~ * Culture results may michaela e 2-3 days. We review many culture results and will~ attempt to contact yo u if the results are significant or may change your~ treatment. ~ ~If side effe cts develop, such as a rash, difficulty breathing, or a severe upset~stomach,~s top the medication and call your doctor or the Emergency Department.~ ~[facility] Instructions:~ ~The care you received in the emergency department pickett s been done on an emergency~basis only and is not intended to be a substitute for regular medical care. If~your condition or symptoms persist or get wo rse at any time, you should return~to the emergency department if you're unable t o contact your own physician. ~Please understand that although we may not hav e determined a specific cause of~your symptoms today, further evaluation may be necessary. It is important to~get a primary care provider (doctor, PA, or reilly acosta practitioner) for follow up as~well as ongoing healthcare needs. ~ ~The leisa hurst information is provided for you as education regarding~preventative health care and follow up from your emergency department visit:~ ~Regular exercise, g ood diet and adequate fluid intake are very important for~general health maint enance. Please discuss these with your primary care doctor~to develop a plan s pecific to your needs. ~ ~Tobacco use is a risk factor for multiple serious illn esses. If you use~tobacco, please contact the [employer] at 9-759-PTKLRIQ ([phone]) or~[email or web address] to assist in your efforts to stop using tobacco prod ucts.~ ~During your visit today your blood pressure may have been higher naya n normal. ~If it was high you should have this rechecked. Follow up with your phy sician or~the referral provider for a recheck within 4 weeks. Hypertension is a common but~serious illness that should be monitored closely.~ ~If thoughts of increased anxiety and sadness prevent you from completing your~day to day activit ies at home or work, please call our 12/09 assessment line at~ ~PATIENT'S NAME: JESSICA PERRY ACCOUNT NO: [id number]~ ~ ~ ~[phone] to speak with an Commercial Roofing Estimator. ~For deaf and hearing impaired, call 1- [phone].~For mental health and/or substance use disorders you can call [facility] Substance~Abuse and Mental Health Services ([facility]) ~[facility] TTY for hearing impaired call ~ ~During ER visits many patients receive sedation or medications which may impair~your judgment and or m brian driving, working or operating machinery or even~walking hazardous. So me of these medications include diphenhydramine (Benadryl)~and medicati ons for anxiety, nausea and pain. Ask your nurse if you have~received any sed ating medications. If you received any potentially sedating~medications, pleas e rest today and do not drive.~ ~JESSICA Low, understand the instruct ions and will arrange for follow-up~care. ~ ~ 9~JANN ENT/FLOORMAN SIGNATURE~ ~ _~ ~ STAFF SIGNATURE~ ~ ~ ~ ~ ~ ~ ~ ~ ~ ~ ~ ~ ~ ~ ~ ~ ~ ~ ~ ~ ~ ~ ~ ~ ~ ~ ~ ~ ~ ~ ~PA TONY'S NAME: JESSICA BARKER ACCOUNT NO: [id number] Note [facility] ([facility]) [facility]~E MERGENCY PROVIDER [place] REPORT~REPORT#:[id number] REPORT STATUS: Draft~DATE: TIME: 14~ Medical ~PATIENT: JESSICA BARKER UNIT #: [id number]~ACC OUNT#: [id number] Center ROOM/BED: [place] [address]~: [birth year] AGE : 54 SEX: PCP PHYS: No Primary or Family ([id number]) Physician~ADM DATE: IN AUTH: Clementina Price MD~ED ADMIT LAST SIG:~REP SERV REP SERV TM: 14~ * ALL edits or amendments must be made on the electronic/computer documen t *~ ~ ~ ~HPI-General Illness~ ~General~Initial Greet Date/Time 14~ ~Presentation~Chief Complaint __ (elevated BP)~ ~Past Medical History - Adult~Stated Complaint HIGH BP~Allergies~Coded Allergies:~No Known Allergies (06/25/19)~ ~Home Medications~Reported Medications~LISINO PRIL (ZESTRIL) ~FUROSEMIDE (LASIX) ~ ~ ~ ~Patient Discharge Departure~ ~Vital Si gns/Condition~Vital Signs~All vital signs available at the time of this entry hav e been reviewed.~ ~ ~Discharge/Care Plan~Referrals~No Primary or Family Gilda thayer (PCP)~ ~RPT #: [id number]~END OF REPORT~ Note [facility] ([facility]) [facility]~E MERGENCY PROVIDER [place] REPORT~REPORT#:[id number] REPORT STATUS: Draft~DATE: TIME: 14~ Medical ~PATIENT: JESSICA BARKER UNIT #: [id number]~ACC OUNT#: [id number] Center ROOM/BED: [place] [address]~: [birth year] AGE : 54 SEX: PCP PHYS: No Primary or Family ([id number]) Physician~ADM DATE: 07/16/19 INI AUTH: Moses Price MD~ED ADMIT LAST SIG: Moses Price MD~REP SERV REP SERV TM: 0015~ * ALL edits or amendments must be made on the elect ronic/computer document *~ ~ ~ ~HPI-General Illness~ ~General~Initial Greet Date/Time 07/16/1914~ ~Presentation~Chief Complaint __ (eleva chelsea BP)~ ~Context~Additional Context~pt has hypertension/also has anxiety/~here last night/ big work-up all normal/ sent home on BP meds/ woke up and took ~BP ; it was 170--while he knows this number is not immediately dangerous; he is ~wo rried about it and that it will be as high or higher tomorrow/ ~ ~this is asy mptomatic ~ ~Review of Systems~ ~ROS Statements~All systems rev neg except a s marked.~ ~Review of Systems~Constitutional~Denies: Fever. ~ ~Past Medical History - Adult~Stated Complaint HIGH BP~Allergies~Coded Aller gies:~No Known Allergies (07/16/19)~ ~Home Medications~Reported Medications~ LISINOPRIL (ZESTRIL) ~FUROSEMIDE (LASIX) ~ ~ ~Review of Nursing Notes Rev avail, and agree~Additional Medical History~HTN~ ~Physical Exam~ ~Vital Sig ns~Vital Signs~First Documented:~ Result Date Time~ Pulse Ox 99 07/15 14~ B/P 161/80 05/26 0015~ B/P Mean 107 07/15 001~ O2 Delivery Room air 07/15 0015~ Temp 36.2 07/15 001~ Pulse 86 07/15 001~ Resp 18 07/15 14~ ~Last Documen chelsea:~ Result Date Time~ Pulse Ox 99 07/15 0015~ B/P 161/80 07/15 0015~ B/P Mean 1 07 07/15 001~ O2 Delivery Room air 07/15 001~ Temp 36.2 07/15 001~ Pulse 86 0015~ Resp 18 07/15 001~ ~ ~Review of Vital Signs Reviewed~ ~Basic Physica l Exam~Basic PE GEN: Well appearing/NAD, HEAD: Atraumatic/NC, EYES: PERRL, conj clear, ~ENT: Membranes moist, NECK: Supple, RESP: No resp distress, CV: Reg rate ~rhythm, EXT: No gross abnormality, SKIN: No rashes, warm/dry, NEURO: alert ~oriented, NEURO: gross movement NL, PSYCH: NL thought content~ ~Free Text P E Notes~Free Text PE Notes~obese~ ~initial BP = 160/80~ ~Interpretation D iagnostics~ ~Point of Care Testing~Pulse Oximetry~ Pulse Ox % 97~ On: Room air~ Interpretation Interpreted by me, Pulse oximetry normal~ ~Re-Evaluation MDM~ ~F ree Text MDM Notes~Additional Text~discussed hypertension the disease vs vconditional elevation of BP and how he ~has both~ ~We are leaving him alone for 20-30 min and see what happens after reassurance ~and sitting still~ ~if sys tolic trends down below 140-150; I will leave meds alone~ ~if BP sysdtoloic rem ains > 160; I may increase dose at least until he can have ~PCP follow-up~ ~eith er way, I will discourage NSAIDS/ decongestants/ wrt loss products/ energ y ~dfrinks etc.~ ~Patient Discharge Departure~ ~Vital Signs/Condition~Vital Signs~First Documented:~ Result Date Time~ Pulse Ox 99 07/15 0015~ B/P 161/8 0 07/15 0015~ B/P Mean 107 07/15 001~ O2 Delivery Room air 07/15 0015~ Temp 36.2 07/15 0015~ Pulse 86 07/15 0015~ Resp 18 07/15 001~ ~Last Documented:~ Result D ate Time~ Pulse Ox 99 07/15 0015~ B/P 161/80 07/15 0015~ B/P Mean 107 07/15 0 015~ O2 Delivery Room air 07/15 14~ Temp 36.2 07/15 0015~ Pulse 86 07/15 00 15~ Resp 18 07/15 0015~ ~All vital signs available at the time of this entry hav e been reviewed.~ ~ ~Discharge/Care Plan~Referrals~No Primary or Family Gilda thayer (PCP)~ ~RPT #: [id number]~END OF REPORT~ Note [facility] ([facility]) [facility]~E MERGENCY PROVIDER [place] REPORT~REPORT#:[id number] REPORT STATUS: Draft~DATE: TIME: 14~ Medical ~PATIENT: JESSICA BARKER UNIT #: [id number]~ACC OUNT#: [id number] Center ROOM/BED: [place] [address]~: [birth year] AGE : 54 SEX: PCP PHYS: No Primary or Family ([id number]) Physician~ADM DATE: 07/16/19 INI AUTH: Moses Price MD~ED ADMIT LAST SIG: Moses Price MD~REP SERV REP SERV TM: 0015~ * ALL edits or amendments must be made on the elect ronic/computer document *~ ~ ~ ~HPI-General Illness~ ~General~Initial Greet Date/Time 07/16/1914~ ~Presentation~Chief Complaint __ (eleva chelsea BP)~ ~Context~Additional Context~pt has hypertension/also has anxiety/~here last night/ big work-up all normal/ sent home on BP meds/ woke up and took ~BP ; it was 170--while he knows this number is not immediately dangerous; he is ~wo rried about it and that it will be as high or higher tomorrow/ ~ ~this is the 4th visit this month for the same thing.~ ~this is asymptomatic ~ ~Review of Systems~ ~ROS Statements~All systems rev neg except as marked.~ ~Review of S ystems~Constitutional~Denies: Fever. ~ ~Past Medical History - Adult~Stated Co mplaint HIGH BP~Allergies~Coded Allergies:~No Known Allergies (07/16/19 )~ ~Home Medications~Reported Medications~LISINOPRIL (ZESTRIL) ~FUROS EMIDE (LASIX) ~ ~ ~Review of Nursing Notes Rev avail, and agree~Additional M edical History~HTN~ ~Physical Exam~ ~Vital Signs~Vital Signs~First Document ed:~ Result Date Time~ Pulse Ox 99 07/15 0015~ B/P 161/80 07/15 0015~ B/P Mean 1 07 07/15 0015~ O2 Delivery Room air 07/15 0015~ Temp 36.2 07/15 0015~ Pulse 86 0015~ Resp 18 07/15 0015~ ~Last Documented:~ Result Date Time~ Pulse Ox 99 07/15 0015~ B/P 161/80 07/15 0015~ B/P Mean 107 07/15 0015~ O2 Delivery Ro om air 07/15 0015~ Temp 36.2 07/15 0015~ Pulse 86 07/15 0015~ Resp 18 07/15 0015 ~ ~ ~Review of Vital Signs Reviewed~ ~Basic Physical Exam~Basic PE GEN: Well appearing/NAD, HEAD: Atraumatic/NC, EYES: PERRL, conj clear, ~ENT: Membrane s moist, NECK: Supple, RESP: No resp distress, CV: Reg rate ~rhythm, EXT: No gross abnormality, SKIN: No rashes, warm/dry, NEURO: alert ~oriented, NEURO : gross movement NL, PSYCH: NL thought content~ ~Free Text PE Notes~Free Text PE Notes~obese~ ~initial BP = 160/80~ ~Interpretation Diagnostics~ ~Point of Care Testing~Pulse Oximetry~ Pulse Ox % 97~ On: Room air~ Interpretation Interp reted by me, Pulse oximetry normal~ ~Re-Evaluation MDM~ ~Free Text MDM Note s~Free Text MDM Notes~I believe the pandemic has greatly enhanced his anxie ty and this is being ~perservered upon as his blood pressure. I believe his BP wh ich each time trends ~down nicely before treatment is seconday.~ ~I believe his primary disorder is anxiety~Additional Text~discussed hypertension the disease vs vconditional elevation of BP and how he ~has both~ ~We are leaving him alone for 20-30 min and see what happens after reassurance ~and sitting still~ ~if sys tolic trends down below 140-150; I will leave meds alone~ ~if BP sysdtoloic rem ains > 160; I may increase dose at least until he can have ~PCP follow-up~ ~eith er way, I will discourage NSAIDS/ decongestants/ wrt loss products/ energ y ~dfrinks etc.~ ~Patient Discharge Departure~ ~Vital Signs/Condition~Vital Signs~First Documented:~ Result Date Time~ Pulse Ox 99 07/15 0015~ B/P 161/8 0 07/15 0015~ B/P Mean 107 07/15 0015~ O2 Delivery Room air 07/15 0015~ Temp 36.2 07/15 0015~ Pulse 86 07/15 0015~ Resp 18 07/15 0015~ ~Last Documented:~ Result D ate Time~ Pulse Ox 99 07/15 0015~ B/P 161/80 07/15 0015~ B/P Mean 107 07/15 0 015~ O2 Delivery Room air 07/15 0015~ Temp 36.2 07/15 0015~ Pulse 86 07/15 00 15~ Resp 18 07/15 0015~ ~All vital signs available at the time of this entry hav e been reviewed.~ ~ ~Clinical Impression~Clinical Impression~Primary Impression: ANXIETY~Secondary Impressions: HYPERTENSION~ ~Discharge/C are Plan~Referrals~No Primary or Family Physician (PCP)~ ~RPT #: [id number]~E ND OF REPORT~ Note [facility] ([facility]) [facility]~E MERGENCY PROVIDER [place] REPORT~REPORT#:[id number] REPORT STATUS: Draft~DATE: TIME: 0015~ Medical ~PATIENT: JESSICA BARKER UNIT #: [id number]~ACC OUNT#: [id number] Center ROOM/BED: [place] [address]~: [birth year] AGE : 54 SEX: PCP PHYS: No Primary or Family ([id number]) Physician~ADM DATE: 07/16/19 INI AUTH: Moses Price MD~ED ADMIT LAST SIG: Moses Price MD~REP SERV REP SERV TM: 0015~ * ALL edits or amendments must be made on the elect ronic/computer document *~ ~ ~ ~HPI-General Illness~ ~General~Initial Greet Date/Time 07/16/19 0015~ ~Presentation~Chief Complaint __ (eleva chelsea BP)~ ~Context~Additional Context~pt has hypertension/also has anxiety/~here last night/ big work-up all normal/ sent home on BP meds/ woke up and took ~BP ; it was 170--while he knows this number is not immediately dangerous; he is ~wo rried about it and that it will be as high or higher tomorrow/ ~ ~this is the 4th visit this month for the same thing.~ ~this is asymptomatic ~ ~Review of Systems~ ~ROS Statements~All systems rev neg except as marked.~ ~Review of S ystems~Constitutional~Denies: Fever. ~ ~Past Medical History - Adult~Stated Co mplaint HIGH BP~Allergies~Coded Allergies:~No Known Allergies (07/16/19 )~ ~Home Medications~Reported Medications~LISINOPRIL (ZESTRIL) ~FUROS EMIDE (LASIX) ~ ~ ~Review of Nursing Notes Rev avail, and agree~Additional M edical History~HTN~ ~Physical Exam~ ~Vital Signs~Vital Signs~First Document ed:~ Result Date Time~ Pulse Ox 99 07/15 0015~ B/P 161/80 07/15 0015~ B/P Mean 1 07 07/15 0015~ O2 Delivery Room air 07/15 0015~ Temp 36.2 07/15 0015~ Pulse 86 0015~ Resp 18 07/15 0015~ ~Last Documented:~ Result Date Time~ Pulse Ox 99 07/15 0015~ B/P 161/80 07/15 0015~ B/P Mean 107 07/15 0015~ O2 Delivery Ro om air 07/15 0015~ Temp 36.2 07/15 0015~ Pulse 86 07/15 0015~ Resp 18 07/15 0015 ~ ~ ~Review of Vital Signs Reviewed~ ~Basic Physical Exam~Basic PE GEN: Well appearing/NAD, HEAD: Atraumatic/NC, EYES: PERRL, conj clear, ~ENT: Membrane s moist, NECK: Supple, RESP: No resp distress, CV: Reg rate ~rhythm, EXT: No gross abnormality, SKIN: No rashes, warm/dry, NEURO: alert ~oriented, NEURO : gross movement NL, PSYCH: NL thought content~ ~Free Text PE Notes~Free Text PE Notes~obese~ ~initial BP = 160/80~ ~Interpretation Diagnostics~ ~Point of Care Testing~Pulse Oximetry~ Pulse Ox % 97~ On: Room air~ Interpretation Interp reted by me, Pulse oximetry normal~ ~Re-Evaluation MDM~ ~Free Text MDM Note s~Free Text MDM Notes~I believe the pandemic has greatly enhanced his anxie ty and this is being ~perservered upon as his blood pressure. I believe his BP wh ich each time trends ~down nicely before treatment is seconday.~ ~I believe his primary disorder is anxiety~Additional Text~discussed hypertension the disease vs vconditional elevation of BP and how he ~has both~ ~We are leaving him alone for 20-30 min and see what happens after reassurance ~and sitting still~ ~if sys tolic trends down below 140-150; I will leave meds alone~ ~if BP sysdtoloic rem ains > 160; I may increase dose at least until he can have ~PCP follow-up~ ~eith er way, I will discourage NSAIDS/ decongestants/ wrt loss products/ energ y ~dfrinks etc.~ ~he is on lisinipril~ ~amlodipine 2.5mg started yesterday~ ~P atient Discharge Departure~ ~Vital Signs/Condition~Vital Signs~First Docum ented:~ Result Date Time~ Pulse Ox 99 07/15 0015~ B/P 161/80 07/15 0015~ B/P Mean 107 07/15 0015~ O2 Delivery Room air 07/15 0015~ Temp 36.2 07/15 0015~ Pulse 86 07/15 0015~ Resp 18 07/15 001~ ~Last Documented:~ Result Date Time~ Pulse Ox 99 07/15 0015~ B/P 161/80 07/15 0015~ B/P Mean 107 07/15 0015~ O2 Delivery Ro om air 07/15 0015~ Temp 36.2 07/15 14~ Pulse 86 07/15 14~ Resp 18 07/15 14 ~ ~All vital signs available at the time of this entry have been reviewed.~ ~ ~C linical Impression~Clinical Impression~Primary Impression: ANXIETY~ Secondary Impressions: HYPERTENSION~ ~Discharge/Care Plan~Referrals~No Prima ry or Family Physician (PCP)~ ~RPT #: [id number]~END OF REPORT~ Note [facility] ([facility]) [facility]~E MERGENCY PROVIDER [place] REPORT~REPORT#:[id number] REPORT STATUS: FSign~DATE: TIME: 14~ Medical ~PATIENT: JESSICA BARKER UNIT #: [id number]~ACC OUNT#: [id number] Center ROOM/BED: [facility]~: [birth year] AGE: 54 SEX: PCP PHYS: No Primary or Family ([id number]) Physician~ADM DATE: 07/16/19 INI AUTH: Moses Price MD~ED ADMIT LAST SIG: Moses Price MD~REP SERV REP SERV TM: 0015~ * ALL edits or amendments must be made on the elect ronic/computer document *~ ~ ~ ~HPI-General Illness~ ~General~Initial Greet Date/Time 07/16/1914~ ~Presentation~Chief Complaint __ (eleva chelsea BP)~ ~Context~Additional Context~pt has hypertension/also has anxiety/~here last night/ big work-up all normal/ sent home on BP meds/ woke up and took ~BP ; it was 170--while he knows this number is not immediately dangerous; he is ~wo rried about it and that it will be as high or higher tomorrow/ ~ ~this is the 4th visit this month for the same thing.~ ~this is asymptomatic ~ ~Review of Systems~ ~ROS Statements~All systems rev neg except as marked.~ ~Review of S ystems~Constitutional~Denies: Fever. ~ ~Past Medical History - Adult~Stated Co mplaint HIGH BP~Allergies~Coded Allergies:~No Known Allergies (07/16/19 )~ ~Home Medications~Reported Medications~LISINOPRIL (ZESTRIL) ~FUROS EMIDE (LASIX) ~ ~ ~Review of Nursing Notes Rev avail, and agree~Additional M edical History~HTN~ ~Physical Exam~ ~Vital Signs~Vital Signs~First Document ed:~ Result Date Time~ Pulse Ox 99 07/15 0015~ B/P 161/80 07/15 0015~ B/P Mean 1 07 07/15 0015~ O2 Delivery Room air 07/15 0015~ Temp 36.2 07/15 0015~ Pulse 86 0015~ Resp 18 07/15 0015~ ~Last Documented:~ Result Date Time~ Pulse Ox 98 07/15 0050~ B/P 114/45 07/15 0050~ B/P Mean 68 07/15 0050~ O2 Delivery Henna m air 07/15 0050~ Pulse 78 07/15 0050~ Resp 18 07/15 0050~ Temp 36.2 07/15 001 5~ ~ ~Review of Vital Signs Reviewed~ ~Basic Physical Exam~Basic PE GEN: Well appearing/NAD, HEAD: Atraumatic/NC, EYES: PERRL, conj clear, ~ENT: Membrane s moist, NECK: Supple, RESP: No resp distress, CV: Reg rate ~rhythm, EXT: No gross abnormality, SKIN: No rashes, warm/dry, NEURO: alert ~oriented, NEURO : gross movement NL, PSYCH: NL thought content~ ~Free Text PE Notes~Free Text PE Notes~obese~ ~initial BP = 160/80~ ~Interpretation Diagnostics~ ~Point of Care Testing~Pulse Oximetry~ Pulse Ox % 97~ On: Room air~ Interpretation Interp reted by me, Pulse oximetry normal~ ~Re-Evaluation MDM~ ~Free Text MDM Note s~Free Text MDM Notes~I believe the pandemic has greatly enhanced his anxie ty and this is being ~perservered upon as his blood pressure. I believe his BP wh ich each time trends ~down nicely before treatment is seconday.~ ~I believe his primary disorder is anxiety~Additional Text~discussed hypertension the disease vs vconditional elevation of BP and how he ~has both~ ~We are leaving him alone for 20-30 min and see what happens after reassurance ~and sitting still~ ~if sys tolic trends down below 140-150; I will leave meds alone~ ~if BP sysdtoloic rem ains > 160; I may increase dose at least until he can have ~PCP follow-up~ ~eith er way, I will discourage NSAIDS/ decongestants/ wrt loss products/ energ y ~dfrinks etc.~ ~he is on lisinipril~ ~amlodipine 2.5mg started yesterday~ ~B P down to 114/65 with NO intervention~ ~Patient Discharge Departure~ ~Vital Si gns/Condition~Vital Signs~First Documented:~ Result Date Time~ Pulse Ox 99 07/15 0015~ B/P 161/80 07/15 0015~ B/P Mean 107 07/15 0015~ O2 Delivery Ro om air 07/15 0015~ Temp 36.2 07/15 0015~ Pulse 86 07/15 0015~ Resp 18 07/15 0015 ~ ~Last Documented:~ Result Date Time~ Pulse Ox 98 07/15 0050~ B/P 114/45 05/2 6 0050~ B/P Mean 68 07/15 0050~ O2 Delivery Room air 07/15 0050~ Pulse 78 07/15 0050~ Resp 18 07/15 0050~ Temp 36.2 07/15 0015~ ~All vital signs available at the time of this entry have been reviewed.~ ~ ~Clinical Impression~Clini meghan Impression~Primary Impression: ANXIETY~Secondary Impressions: HYPERTEN ARLEN~ ~Discharge/Care Plan~Referrals~No Primary or Family Physician (PCP)~ ~ ~E lectronically Signed by Moses Price MD on 07/16/19 at 0145~RPT #: [id number]~ *END OF REPORT~ Note [facility] ([facility]) [facility]~E MERGENCY PROVIDER [place] REPORT~REPORT#:[id number] REPORT STATUS: Draft~DATE: TIME: 0015~ Medical ~PATIENT: JESSICA BARKER UNIT #: [id number]~ACC OUNT#: [id number] Center ROOM/BED: [facility]~: [birth year] AGE: 54 SEX: PCP PHYS: No Primary or Family ([id number]) Physician~ADM DATE: 07/16/19 INI AUTH: Moses Prcie MD~ED ADMIT LAST SIG: Moses Price MD~REP SERV REP SERV TM: 0015~ * ALL edits or amendments must be made on the elect ronic/computer document *~ ~ ~ ~HPI-General Illness~ ~General~Initial Greet Date/Time 07/16/19 0015~ ~Presentation~Chief Complaint __ (eleva chelsea BP)~ ~Context~Additional Context~pt has hypertension/also has anxiety/~here last night/ big work-up all normal/ sent home on BP meds/ woke up and took ~BP ; it was 170--while he knows this number is not immediately dangerous; he is ~wo rried about it and that it will be as high or higher tomorrow/ ~ ~this is the 4th visit this month for the same thing.~ ~this is asymptomatic ~ ~Review of Systems~ ~ROS Statements~All systems rev neg except as marked.~ ~Review of S ystems~Constitutional~Denies: Fever. ~ ~Past Medical History - Adult~Stated Co mplaint HIGH BP~Allergies~Coded Allergies:~No Known Allergies (07/16/19 )~ ~Home Medications~Reported Medications~LISINOPRIL (ZESTRIL) ~FUROS EMIDE (LASIX) ~ ~ ~Review of Nursing Notes Rev avail, and agree~Additional M edical History~HTN~ ~Physical Exam~ ~Vital Signs~Vital Signs~First Document ed:~ Result Date Time~ Pulse Ox 99 07/15 0015~ B/P 161/80 07/15 0015~ B/P Mean 1 07 07/15 0015~ O2 Delivery Room air 07/15 0015~ Temp 36.2 07/15 0015~ Pulse 86 0015~ Resp 18 07/15 0015~ ~Last Documented:~ Result Date Time~ Pulse Ox 98 07/15 0050~ B/P 114/45 07/15 0050~ B/P Mean 68 07/15 0050~ O2 Delivery Henna m air 07/15 0050~ Pulse 78 07/15 0050~ Resp 18 07/15 0050~ Temp 36.2 07/15 001 5~ ~ ~Review of Vital Signs Reviewed~ ~Basic Physical Exam~Basic PE GEN: Well appearing/NAD, HEAD: Atraumatic/NC, EYES: PERRL, conj clear, ~ENT: Membrane s moist, NECK: Supple, RESP: No resp distress, CV: Reg rate ~rhythm, EXT: No gross abnormality, SKIN: No rashes, warm/dry, NEURO: alert ~oriented, NEURO : gross movement NL, PSYCH: NL thought content~ ~Free Text PE Notes~Free Text PE Notes~obese~ ~initial BP = 160/80~ ~Interpretation Diagnostics~ ~Point of Care Testing~Pulse Oximetry~ Pulse Ox % 97~ On: Room air~ Interpretation Interp reted by me, Pulse oximetry normal~ ~Re-Evaluation MDM~ ~Free Text MDM Note s~Free Text MDM Notes~I believe the pandemic has greatly enhanced his anxie ty and this is being ~perservered upon as his blood pressure. I believe his BP wh ich each time trends ~down nicely before treatment is seconday.~ ~I believe his primary disorder is anxiety~Additional Text~discussed hypertension the disease vs vconditional elevation of BP and how he ~has both~ ~We are leaving him alone for 20-30 min and see what happens after reassurance ~and sitting still~ ~if sys tolic trends down below 140-150; I will leave meds alone~ ~if BP sysdtoloic rem ains > 160; I may increase dose at least until he can have ~PCP follow-up~ ~eith er way, I will discourage NSAIDS/ decongestants/ wrt loss products/ energ y ~dfrinks etc.~ ~he is on lisinipril~ ~amlodipine 2.5mg started yesterday~ ~B P down to 114/65 with NO intervention~ ~Patient Discharge Departure~ ~Vital Si gns/Condition~Vital Signs~First Documented:~ Result Date Time~ Pulse Ox 99 07/15 0015~ B/P 161/80 07/15 0015~ B/P Mean 107 07/15 0015~ O2 Delivery Ro om air 07/15 0015~ Temp 36.2 07/15 0015~ Pulse 86 07/15 0015~ Resp 18 07/15 0015 ~ ~Last Documented:~ Result Date Time~ Pulse Ox 98 07/15 0050~ B/P 114/45 05/2 6 0050~ B/P Mean 68 07/15 0050~ O2 Delivery Room air 07/15 0050~ Pulse 78 07/15 0050~ Resp 18 07/15 0050~ Temp 36.2 07/15 0015~ ~All vital signs available at the time of this entry have been reviewed.~ ~ ~Clinical Impression~Clini meghan Impression~Primary Impression: ANXIETY~Secondary Impressions: HYPERTEN ARLEN~ ~Discharge/Care Plan~Referrals~No Primary or Family Physician (PCP)~ ~RPT #: [id number]~END OF REPORT~ Note ~ [facility]~ [address]~ [place], [place] [address]~ ~ ~PATIENT'S [place] NAME: JESSICA BARKER UNIT NO: [id number]~: 0 [birth year] AGE: 54 SEX: M Medical ACCOUNT NO: [id number]~ATTENDING PHYS: Dr. IRISH Bradford STATUS: DEP ER ~REPORT Center NAME: EKG REPORT ROOM NO: ~REPORT STATU S: Signed ~ ~DATE OF ADMISSION: 07/14/19~ ([id number]) ~ ~Test Reason : HTN~Blood Pressure : * / mmHG~Vent. Rate : 091 BPM Atrial Rate : 091 BPM~ P-R Int : 176 ms QRS Du r : 078 ms~ QT Int : 330 ms P-R-T Axes : 038 016 062 degrees~ QTc Int : 405 ms~ ~Confirmed by INTERPRETATION, ED PHYSICIAN ([id number]), social media editor ALYSHA SOTO ([id number]) on~07/15/2019 9:24:34 AM~ ~Referred By: SELF Confirmed By:ED PHYSIC~ INTERP RETATION~ ~ ~ ~ ~ ~ ~ ~ ~PATIENT'S NAME: JESSICA BARKER ACCOUNT NO: [id number] Note ~[facility] ~DISCHARGE INSTRUCTIONS (ED) ~REPORT #: [id number] [place] REPORT STATUS: Draft ~DATE: 07/15/19 TI ME: 0024~ ~PATIENT: JESSICA BARKER Medical UNIT #: [id number]~ 250 ROOM/BED: ~: 69 AGE: 54 SEX: Center M ATTEND: Darlene Wolf MD ~ADM DT : AUTHOR: Darlene Wolf MD ~ ~* ALL (48615) edits or amendments must be made on the electronic/computer document *~ ~Current patient of record information for this document is:~JESSICA BARKER~PatID: [id number] Age: 54~ : 1965~ ~Report including patient information as it appeared at t he time this document ~was generated and provided to the patient is as follows below.~ ----~ ~JESSICA BARKER~PatID: [id number] Age: 54~ : 1965~Printed: 07/15/2019 12:24 AM ~By: Darlene Wolf~ ~General Emergency Department Discharge Instruct ions~ ~The exam and treatment you received in the Emergency Department we re for an~urgent problem and are not intended as complete care. It is import ant that you~follow up with a doctor, nurse practitioner, or physician assist ant for ongoing~care. If your symptoms become worse or you do not improve as e xpected and you~are unable to reach your usual health care provider, you should return to the~Emergency Department. We are available 24 hours a day. ~ ~You we re treated in the Emergency Department by: ~Primary Provider: Darlene Wolf M.D.~ ~Follow Up Information:~ ~Follow up with Your Physician in 10-12 days. C all as soon as possible to~arrange.~ ~Your Provider has typed these Special Instructions for you:~Your lab was normal for your kidney function and you are no t anemic. Your EKG~was normal.~ ~Prescriptions Written:~Amlodipine (Nor vasc) 2.5 mg Tablet, Take one (1) tablet by mouth one time per~day~Dispense Four teen (14).~Prescriber: Darlene Wolf~ ~PATIENT'S NAME: JESSICA BARKER CCOUNT NO: [id number]~ ~ ~ ~Paper Prescription given to patient~ ~The Leisa hurst Instructions Were Selected for You Today: Hypertension~ ~Hypertension~ ~Yo u have been diagnosed with elevated blood pressure.~ ~The medical term for high b lood pressure is hypertension. Many people feel~anxious or uncomfortable ab out being at the hospital. If you feel anxious~today, this could make your blo od pressure appear high, even if your blood~pressure is usually normal. Check your blood pressure several more times when~you are not feeling stress. Keep a record of these readings and give this~information to your regular doctor . He or she will decide whether you have~hypertension that requires medical treatment.~ ~If your blood pressure becomes extremely high all of a sudden, you will probably~notice symptoms. In fact, very high blood pressure is a med ical emergency. ~Most people with hypertension have blood pressure that i s only a little too~high. Mild high blood pressure does not cause specific sympto ms. Instead, the~effects of hypertension develop slowly over time. Untreated hyp ertension can~affect the heart, brain, kidneys, eyes, and blood vessels. Unfor tunately, by~the time side-effects become noticeable, the body has already been d amaged. ~This is why hypertension is called "the silent killer!"~ ~The physi william treating you today decided to start you on a blood pressure~medicine. It is VERY IMPORTANT that you follow up with your regular doctor so~he or she can fo llow your progress and adjust the blood pressure medications.~ ~It is important to follow up with your regular doctor. Check your blood~pressure several times in the next 1 to 2 weeks and tell your doctor about the~results. It may be hel pful to keep a log or a journal where you can write down~your blood pressures. No te the time of day and the activity you were doing when~the reading was taken.~ ~YOU SHOULD SEEK MEDICAL ATTENTION IMMEDIATELY, EITHER HERE OR AT THE NEAR EST~EMERGENCY DEPARTMENT, IF ANY OF THE FOLLOWING OCCURS:~ * You have a headach e.~ * You have chest pain.~ * You are short of breath or have trouble breathi ng. ~ * You feel weak, especially on only one side of the body.~ * Your symptoms get worse or you have other concerns.~ ~Continue your Lisinopril. Monitor your pressure 3 times per day. If you~consistenly have systolic(the first number) over 140, you can take one~Amlodipine tablet per day. Follow u p with your doctor at the clinic you go to in~[place]. ~ ~Medication Instructi ons: Amlodipine (Norvasc) 2.5 mg Tablet~ ~Amlodipine (Norvasc) 2.5 mg Tablet~You have been given an antihypertensive medication.~ ~PATIENT'S NAME: GLORIA BARKER ACCOUNT NO: [id number]~ ~ ~ ~ * This medication is used to treat hi gh blood pressure, heart failure and~ other cardiac conditions. It belongs to a group of medicines called~ calcium channel blockers.~ * DO NOT take this m edication if you have an unusual or allergic reaction to~ it, or to other m edicines like this one. DO NOT take this medication if~ you are or curr ently trying to get , or if you are breast~ feeding.~ * Tell your docto r about all other medicines you are taking, including~ non-prescription med icines, nutritional supplements, or herbal products. ~ This will allow your doctor to make a good decision about which medication~ is best for you. Also tell your doctor if you have asthma.~ * If you develop the following side-effec ts, you should report them to your~ doctor as soon as possible and immediat zoë STOP taking the medication: ~ Changes in blood sugar, cold hands or feet, dif ficulty breathing, wheezing,~ difficulty sleeping, nightmares, dizziness or ronald ting spells,~ hallucinations.~ * You may feel dizzy or lightheaded. DO NOT drive , use machinery, or do~ anything that needs mental alertness until you know h ow the medication will~ affect you. To reduce the risk of dizzy or fainting sp ells, do not sit or~ stand up quickly, especially if you are elderly.~ * Keep this medication out of the reach of children. Always keep this~ medication in child-proof containers. DO NOT give your medication to~ anyone else.~ ~THES E INSTRUCTIONS ARE NOT COMPREHENSIVE (complete): Ask your pharmacist for~add itional information and precautions for this medication.~ ~What To Do:~ ~ * Michaela e this sheet with you when you go to your follow-up visit.~ * If you have any pro blem arranging the follow-up visit, contact the~ Emergency Department anita garrett.~ * Take all medications as directed.~ ~Additional Information:~ ~ * There are occasions where additional lab tests return - such as a culture~ r esult or an X-ray or EKG - is further reviewed after you are discharged.~ If a change in your diagnosis or treatment is indicated, we will attempt to~ conta ct you. It is critical that we have a current phone number for you.~ ~ * If y ou had X-rays done, we can provide you a CD with those X-rays for your~ review a nd follow-up.~ ~ * Culture results may take 2-3 days. We review many culture r esults and will~ attempt to contact you if the results are significant or may c hange your~ treatment. ~ ~If side effects develop, such as a rash, difficulty berkley athing, or a severe upset~stomach,~stop the medication and call your doctor or the Emergency Department.~ ~ ~PATIENT'S NAME: JESSICA BARKER ACCOUNT NO: [id number]~ ~ ~ ~Preventative Health Instructions:~ ~The care you received i n the emergency department has been done on an emergency~basis only and is not i ntended to be a substitute for regular medical care. If~your condition or symp toms persist or get worse at any time, you should return~to the emergency depa rtment if you're unable to contact your own physician. ~Please understand that although we may not have determined a specific cause of~your symptoms today, further evaluation may be necessary. It is important to~get a primary care prov ider (doctor, PA, or nurse practitioner) for follow up as~well as ongoing health care needs. ~ ~The following information is provided for you as education regard ing~preventative health care and follow up from your emergency department visit :~ ~Regular exercise, good diet and adequate fluid intake are very importan t for~general health maintenance. Please discuss these with your primary care do ctor~to develop a plan specific to your needs. ~ ~Tobacco use is a risk factor for multiple serious illnesses. If you use~tobacco, please contact the [employer] e at 3-016-JZBWBBT ( ) or~www.GENWI[facility].org to assist in your eff orts to stop using tobacco products.~ ~During your visit today your blood pre ssure may have been higher than normal. ~If it was high you should have this re checked. Follow up with your physician or~the referral provider for a recheck within 4 weeks. Hypertension is a common but~serious illness that should be terra tored closely.~ ~If thoughts of increased anxiety and sadness prevent you from co mpleting your~day to day activities at home or work, please call our 12/09 asse ssment line at~[phone] to speak with an Commercial Roofing Estimator. ~F or deaf and hearing impaired, call .~For mental health and/o r substance use disorders you can call the Substance~Abuse and Mental Health S ervices ([facility]) ~[facility] TTY for hearing impaired call [phone]~ ~During ER visits many patients receive sedation or medications which m ay impair~your judgment and or make driving, working or operating machinery or even~walking hazardous. Some of these medications include diphenhydramine (Be nadryl)~and medications for anxiety, nausea and pain. Ask your nurse if you have~received any sedating medications. If you received any potentially sedatin g~medications, please rest today and do not drive.~ ~JESSICA Low underst and the instructions and will arrange for follow-up~care. ~ ~ 9~JANN ENT/FLOORMAN SIGNATURE~ ~ _~ ~ STAFF SIGNATURE~ ~ ~PATIENT'S NAME: JESSICA BARKER ACCOUNT NO: [id number] Note [facility] ([facility]) ED [facility]ST~E MERGENCY PROVIDER [place] REPORT~REPORT#:[id number] REPORT STATUS: Draft~DATE: TIME: 2339~ Medical ~PATIENT: JESSICA BARKER UNIT #: [id number]~ACC OUNT#: [id number] Center ROOM/BED: [place] [id number] [birth year] AGE : 54 SEX: PCP PHYS: No Primary or Family ([id number]) Physician~ADM DATE: 07/14/19 INI AUTH: Darlene Wolf MD~ED ADMIT LAST SIG:~REP SERV DT: 0 REP SERV TM: 2339~ * ALL edits or amendments must be made on the electron ic/computer document *~ ~ ~ ~HPI GREET~ ~General~Initial Greet Date/Time 2326~ ~Clinical Note~Clinical Note~First Documented:~ Result Date Mamta e~ Pulse Ox 97 07/13 233~ B/P 180/92 07/133~ B/P Mean 121 07/13 233~ O2 Delivery Room air 07/13 2332~ Temp 98.8 07/13 2332~ Pulse 97 07/13 233~ Resp 1 6 07/13 2332~ ~Last Documented:~ Result Date Time~ Pulse Ox 97 07/13 2333~ B/P 180/92 07/133~ B/P Mean 121 07/13 2332~ O2 Delivery Room air 07/13 2332~ Temp 98.8 07/13 2332~ Pulse 97 07/13 2333~ Resp 16 07/13 2332~ ~Chief Compla int:~[He is here because his blood pressure is elevated]~ ~HPI:~[This jann ent was seen at the [facility] earlier today. His blood pressure ~was elevated then and it has remained elevated. He states his been 180 ~systolic. He is on lisinopril he t took a second dose before coming in. Does ~have a blood pr essure monitor at home and did get an oxygen saturation monitor ~recently ethel reyes he was worried about COVID. He does have known anxiety. He ~states this is not an anxiety attack. He has had a slight cough, nonproductive.~ He does h ave nasal drainage. He states he had a feeling like there something ~popped in his right eye and has had some redness since that occurred this ~morning. He i s not having any visual changes he is not having any pain in his ~eyes. His right upper eyelid is painful when he touches it. He denies alcohol ~use, does drink a lot of caffeine, does not watch his salt intake. He states he~is tried mult iple blood pressure medicines but only lisinopril has been ~tolerated. He does have Lasix but he takes it as needed he has not had any ~peripheral edema recen tly. He is obese.]~ ~ROS:~Constitutional: [No fever, no chills.]~Eyes: [No discha rge. Pain in the right upper eyelid]~ENT: [No sore throat.]~Cardiovascular: [No c hest pain, no palpitations.]~Respiratory: [Persistent cough, no shortness of dayday th.]~Gastrointestinal: [No abdominal pain, no vomiting.]~Genitourinary: [No hematuria. Dysuria]~Musculoskeletal: [No back pain.]~Skin: [No rashes.]~Neurolog ical: [No headache. No visual changes no difficulty with his speech she~has no f ocal weakness. No confusion.]~ ~Exam:~General Appearance: [ alert, has no immediate need for airway protection, and no~current signs of significant tox icity.] [He is speaking rapidly but is not ~having any respiratory distress.]~ Eyes: [pupils equal and round no pallor or injection. The mucosa of the inner ~ upper right eyelid is erythematous medially. Tenderness with eversion of t he ~lid. There is no abnormality on the eye. There is no conjunctival redness n o ~injected vessels. His pupil is equal to the left it is round is reactive. ~F unduscopic exam does not reveal any abnormalities. He has intact extraocula r ~movements.]~ENT, Mouth: [Mask is in place. He states this is irritating him and he feels ~like it is hard to breathe with the mask on. He continues to conve rse with the ~mask in place. Oxygen saturation is 96% on room air.]~Respira tory: [There are no retractions, lungs are clear to auscultation.]~Cardiovascu lar: [ rapid rate ,98 beats a minute and rhythm is regular] [ ]~Gastrointestinal : [Abdomen is soft , morbidly obese and non tender, no masses, ~bowel sounds no rmal.]~Neurological: [awake, alert, oriented. moves all extremities ]~Skin: [warm and dry, no rashes.]~Musculoskeletal: [Neck is supp le non tender. ] [Extremities are symmetrical, ~full range of motion.]~ ~ Reevaluation:~[]~ ~Reevaluation:~[]~ ~Data:~[I reviewed labs][I independentl y viewed x-ray]~ ~Medical Decision Making:~[ After history and physical ex am differential diagnosis was considered for] [ ]~ ~Past Medical History~Stated Complaint HIGH BP~Allergies~Coded Allergies:~No Known Allergies (06/25/19 )~ ~Past Medical History:~Reports: Hypertension. ~Additional Medical Histo ry~Anxiety~Additional Surgical History~Denies~Smoking status for patie nts 13 years old or older: Never Smoker~ ~COURSE~ ~Med Data~Med Data~Medication( s) Ordered:~Cardiovascular Drugs~ Sig/Monalisa Start time Last~ Medication Dose Route Stop Time Status Admin~ Labetalol HCl 20 MG X1ED STA 07/13 2333 DC~ IV 07/13 233 5~ ~ ~ ~Patient Discharge Departure~ ~Vital Signs/Condition~Vital Signs~Firs t Documented:~ Result Date Time~ Pulse Ox 97 07/13 2332~ B/P 180/92 07/13 2332~ B /P Mean 121 07/13 2332~ O2 Delivery Room air 07/13 2332~ Temp 98.8 07/13 2332~ P ulse 97 07/13 2332~ Resp 16 07/13 2332~ ~Last Documented:~ Result Date Time~ Pu lse Ox 97 07/13 2333~ B/P 180/92 07/133~ B/P Mean 121 07/13 2332~ O2 Deliv selene Room air 07/13 2332~ Temp 98.8 07/13 2332~ Pulse 97 07/13 233~ Resp 16 05 4 2333~ ~All vital signs available at the time of this entry have been reviewed.~ ~RPT #: [id number]~END OF REPORT~ Note [facility] ([facility]) ED [facility]~E MERGENCY PROVIDER [facility] REPORT~REPORT#:[id number] REPORT STATUS: Draft~DATE: TIME: 2339~ Medical ~PATIENT: JESSICA BARKER UNIT #: [id number]~ACC OUNT#: [id number] Center ROOM/BED: [place] [address] [birth year] AGE : 54 SEX: PCP PHYS: No Primary or Family ([id number]) Physician~ADM DATE: 07/14/19 INI AUTH: Darlene Wolf MD~ED ADMIT LAST SIG: Darlene Wolf~REP SERV REP SERV TM: 2339~ * ALL edits or amendments must be made on the electronic/computer document *~ ~ ~ ~HPI GREET~ ~General~Initial Gre et Date/Time 07/14/192326~ ~Clinical Note~Clinical Note~First Documented:~ R esult Date Time~ Pulse Ox 97 07/13 2332~ B/P 180/07/133~ B/P Mean 121 2332~ O2 Delivery Room air 07/13 2332~ Temp 98.8 07/13 2332~ Pulse 97 07/13 22 33~ Resp 16 07/13 2332~ ~Last Documented:~ Result Date Time~ Pulse Ox 97 07/13 233~ B/P 180/92 07/133~ B/P Mean 121 07/13 233~ O2 Delivery Ro om air 07/13 2332~ Temp 98.8 07/13 2332~ Pulse 97 07/13 2333~ Resp 16 07/13 2332 ~ ~Chief Complaint:~[He is here because his blood pressure is elevated]~ ~HPI:~ [This patient was seen at the [facility] earlier today. His blood press ure ~was elevated then and it has remained elevated. He states his been 1 80 ~systolic. He is on lisinopril he t took a second dose before coming in. Do es ~have a blood pressure monitor at home and did get an oxygen saturation monito r ~recently because he was worried about COVID. He does have known anxiety. He ~ states this is not an anxiety attack. He has had a slight cough, nonproductive.~ He does have nasal drainage. He states he had a feeling like there something ~ popped in his right eye and has had some redness since that occurred this ~ramu goel. He is not having any visual changes he is not having any pain in his ~eyes. His right upper eyelid is painful when he touches it. He denies alcohol ~use, does drink a lot of caffeine, does not watch his salt intake. He states he~is tried multiple blood pressure medicines but only lisinopril has been ~tolerated . He does have Lasix but he takes it as needed he has not had any ~peripheral e faraz recently. He is obese.]~ ~ROS:~Constitutional: [No fever, no chi lls.]~Eyes: [No discharge. Pain in the right upper eyelid]~ENT: [No sore throa t.]~Cardiovascular: [No chest pain, no palpitations.]~Respiratory: [Persistent cough, no shortness of breath.]~Gastrointestinal: [No abdomina l pain, no vomiting.]~Genitourinary: [No hematuria. Dysuria]~Musculoskeletal: [N o back pain.]~Skin: [No rashes.]~Neurological: [No headache. No visual changes no difficulty with his speech she~has no focal weakness. No co nfusion.]~ ~Exam:~General Appearance: [ alert, has no immediate need for airway protection, and no~current signs of significant toxicity.] [He is speaking rapidly but is not ~having any respiratory distress.]~Eyes: [pupils eq ual and round no pallor or injection. The mucosa of the inner ~upper right eyelid is erythematous medially. Tenderness with eversion of the ~lid. There is no abnormality on the eye. There is no conjunctival redness no ~injected vesse ls. His pupil is equal to the left it is round is reactive. ~Funduscopic exam do es not reveal any abnormalities. He has intact extraocular ~movements.]~ENT, Mo uth: [Mask is in place. He states this is irritating him and he feels ~like it is hard to breathe with the mask on. He continues to converse with the ~mask in place. Oxygen saturation is 96% on room air.]~Respiratory: [There are no retrac tions, lungs are clear to auscultation.]~Cardiovascular: [ rapid rate ,98 beats a minute and rhythm is regular] [ ]~Gastrointestinal: [Abdomen is soft , morbidly obese and non tender, no masses, ~bowel sounds normal.]~Neuro logical: [awake, alert, oriented. moves all extremities ]~Skin: [warm and dry, no rashes.]~Musculoskeletal: [Neck is supple non tender. ] [Extremities are s ymmetrical, ~full range of motion.]~ ~Reevaluation:~[]~ ~Reevaluation:~[]~ ~ Data:~[I reviewed labs][I independently viewed x-ray]~ ~Medical Decision Making :~[ After history and physical exam differential diagnosis was considered f or] [ ]~ ~Past Medical History~Stated Complaint HIGH BP~Allergies~Coded Aller gies:~No Known Allergies (06/25/19)~ ~Past Medical History:~Reports: Hyperte nsion. ~Additional Medical History~Anxiety~Additional Surgical His tory~Denies~Smoking status for patients 13 years old or older: Never Smoker~ ~C OURSE~ ~Med Data~Med Data~Medication(s) Ordered:~Cardiovascular Drugs~ Sig/Monalisa Start time Last~ Medication Dose Route Stop Time Status Admin~ Labetalol HCl 2 0 MG X1ED STA 07/13 2334 DC 07/13~ IV 07/13 2334 2347~ ~ ~ ~Full Procedures~ ~Free Text Proc Notes~Free Text Proc Notes~EKG-normal sinus rhythm there are no ectopic beats there were no sign of any ~ischemic changes no ST elevation. 91 bpm QT interval is normal OK interval is ~normal.~ ~Patient Discharge Departu re~ ~Vital Signs/Condition~Vital Signs~First Documented:~ Result Date Ti me~ Pulse Ox 97 07/13 2333~ B/P 180/92 07/133~ B/P Mean 121 07/13 2332~ O2 Delivery Room air 07/13 2332~ Temp 98.8 07/13 2332~ Pulse 97 07/13 2332~ Resp 1 6 07/13 2332~ ~Last Documented:~ Result Date Time~ Pulse Ox 97 07/13 233~ B/P 180/92 07/13 2332~ B/P Mean 121 07/13 2332~ O2 Delivery Room air 07/13 2332~ Temp 98.8 07/13 2332~ Pulse 97 07/13 2332~ Resp 16 07/13 2332~ ~All vital si gns available at the time of this entry have been reviewed.~ ~RPT #: [id number]~ END OF REPORT~ Note [facility] ([facility]) ED [place]~E MERGENCY PROVIDER [facility] REPORT~REPORT#:[id number] REPORT STATUS: Draft~DATE: TIME: 2339~ Medical ~PATIENT: JESSICA BARKER UNIT #: [id number]~ACC OUNT#: [id number] Center ROOM/BED: [place] [address] [birth year] AGE : 54 SEX: PCP PHYS: No Primary or Family ([id number]) Physician~ADM DATE: 07/14/19 INI AUTH: Darelne Wolf MD~ED ADMIT LAST SIG: Darlene Wolf~REP SERV REP SERV TM: 234~ * ALL edits or amendments must be made on the electronic/computer document *~ ~ ~ ~HPI GREET~ ~General~Initial Gre et Date/Time 07/14/192326~ ~Clinical Note~Clinical Note~First Documented:~ R esult Date Time~ Pulse Ox 97 07/13 2332~ B/P 180/92 07/13 2332~ B/P Mean 121 2332~ O2 Delivery Room air 07/13 2332~ Temp 98.8 07/13 2332~ Pulse 97 07/13 22 33~ Resp 16 07/13 2332~ ~Last Documented:~ Result Date Time~ Pulse Ox 95 07/14 0000~ B/P 127/76 07/14 0000~ B/P Mean 93 07/14 0000~ O2 Delivery Henna m air 07/14 0000~ Pulse 79 07/14 0000~ Resp 18 07/14 0000~ Temp 98.8 07/13 233 3~ ~Chief Complaint:~[He is here because his blood pressure is elevated]~ ~HPI:~ [This patient was seen at the [facility] earlier today. His blood press ure ~was elevated then and it has remained elevated. He states his been 1 80 ~systolic. He is on lisinopril he t took a second dose before coming in. Do es ~have a blood pressure monitor at home and did get an oxygen saturation monito r ~recently because he was worried about COVID. He does have known anxiety. He ~ states this is not an anxiety attack. He has had a slight cough, nonproductive.~ He does have nasal drainage. He states he had a feeling like there something ~ popped in his right eye and has had some redness since that occurred this ~ramu goel. He is not having any visual changes he is not having any pain in his ~eyes. His right upper eyelid is painful when he touches it. He denies alcohol ~use, does drink a lot of caffeine, does not watch his salt intake. He states he~is tried multiple blood pressure medicines but only lisinopril has been ~tolerated . He does have Lasix but he takes it as needed he has not had any ~peripheral e faraz recently. He is obese.]~ ~ROS:~Constitutional: [No fever, no chi lls.]~Eyes: [No discharge. Pain in the right upper eyelid]~ENT: [No sore throa t.]~Cardiovascular: [No chest pain, no palpitations.]~Respiratory: [Persistent cough, no shortness of breath.]~Gastrointestinal: [No abdomina l pain, no vomiting.]~Genitourinary: [No hematuria. Dysuria]~Musculoskeletal: [N o back pain.]~Skin: [No rashes.]~Neurological: [No headache. No visual changes no difficulty with his speech she~has no focal weakness. No co nfusion.]~ ~Exam:~General Appearance: [ alert, has no immediate need for airway protection, and no~current signs of significant toxicity.] [He is speaking rapidly but is not ~having any respiratory distress.]~Eyes: [pupils eq ual and round no pallor or injection. The mucosa of the inner ~upper right eyelid is erythematous medially. Tenderness with eversion of the ~lid. There is no abnormality on the eye. There is no conjunctival redness no ~injected vesse ls. His pupil is equal to the left it is round is reactive. ~Funduscopic exam do es not reveal any abnormalities. He has intact extraocular ~movements.]~ENT, Mo uth: [Mask is in place. He states this is irritating him and he feels ~like it is hard to breathe with the mask on. He continues to converse with the ~mask in place. Oxygen saturation is 96% on room air.]~Respiratory: [There are no retrac tions, lungs are clear to auscultation.]~Cardiovascular: [ rapid rate ,98 beats a minute and rhythm is regular] [ ]~Gastrointestinal: [Abdomen is soft , morbidly obese and non tender, no masses, ~bowel sounds normal.]~Neuro logical: [awake, alert, oriented. moves all extremities ]~Skin: [warm and dry, no rashes.]~Musculoskeletal: [Neck is supple non tender. ] [Extremities are s ymmetrical, ~full range of motion.]~ ~Reevaluation:~[0012-BP was 148/62 prio r to any medication. After the labetalol his pressure is~119/72.~Lab showed a no rmal creatinine. WBC normal. Hgb within normal limits.]~ ~Reevaluation:~[]~ ~Da ta:~[I reviewed labs][I independently viewed x-ray]~ ~Medical Decision Making :~[ After history and physical exam differential diagnosis was considered f or] [ ]~ ~Past Medical History~Stated Complaint HIGH BP~Allergies~Coded Aller gies:~No Known Allergies (06/25/19)~ ~Home Medications~Reported Medications~ LISINOPRIL (ZESTRIL) ~FUROSEMIDE (LASIX) ~ ~ ~Past Medical History:~Reports: Hyp ertension. ~Additional Medical History~Anxiety~Additional Surgical His tory~Denies~Smoking status for patients 13 years old or older: Never Smoker~ ~C OURSE~ ~Data~Diagnostics~Laboratory Tests~ ~ ~ ~07/14/192346:~[Embedded Im age Not Available]~Laboratory Tests:~ 07/13~ 2346~ Chemistry~ Sodium (135 - 1 48 mmol/L) 136~ Potassium (3.5 - 5.3 mmol/L) 4.0~ Chloride (98 - 110 mmol/L) 100~ Carbon Dioxide (21 - 32 mmol/L) 29~ Anion Gap (5 - 15 mmol/L) 7~ BUN (7 - 2 0 mg/dL) 11~ Creatinine (0.70 - 1.30 mg/dL) 1.09~ Estimated Creat Clear (> 5 9 mL/min) > 60~ Estimated GFR (MDRD) (> 59 mL/min) > 60~ Glucose (70 - 99 mg/dL ) 126 H~ Calcium (8.5 - 10.1 mg/dL) 9.1~ Hematology~ WBC (5.0 - 10.0 k/cumm) 10. 2 H~ RBC (4.00 - 6.00 m/cumm) 5.52~ Hgb (14.0 - 18.0 gm/dL) 15.7~ Hct (40.0 - 5 4.0 %) 47.4~ MCV (80.0 - 100.0 fl) 85.9~ MCH (27.0 - 33.0 pg) 28.4~ MCHC (32.0 - 37.0 g/dL) 33.1~ RDW (11.0 - 15.6 %) 14.0~ Plt Count (150 - 400 k/cumm) 392~ MPV (8.5 - 10.9 fl) 9.4~ Immature Gran % (Auto) (0.0 - 0.6 %) 0.3~ Abs Immat Gra n (auto) (0.00 - 0.09 k/cumm) 0.03~ Lymphocytes % (20 - 30 %) 28.3~ Monocyt es % (4 - 6 %) 9.8 H~ Eosinophils % (2 - 4 %) 1.6 L~ Basophils % (0 - 1 %) 0.5~ Nucleated RBC % (0.0 - 0.0 /100 WBC) 0.0~ Absolute Granulocytes (2.0 - 9.0 k/cumm ) 6.0~ Segmented Neutrophils (50 - 75 %) 59.5~ Absolute Lymphocytes (1.0 - 4.0 k /cumm) 2.9~ Absolute Monocytes (0.1 - 1.0 k/cumm) 1.0~ Absolute Eosinophils (0.1 - 0.5 k/cumm) 0.2~ Absolute Basophils (0.0 - 0.2 k/cumm) 0.1~ ~ ~ ~Med Data~M ed Data~Medication(s) Ordered:~Cardiovascular Drugs~ Sig/Monalisa Start time Last~ Medication Dose Route Stop Time Status Admin~ Labetalol HCl 2 0 MG X1ED STA 07/13 2333 DC 07/13~ IV 07/13~ ~ ~ ~Full Procedures~ ~Free Text Proc Notes~Free Text Proc Notes~EKG-normal sinus rhythm there are no ectopic beats there were no sign of any ~ischemic changes no ST elevation. 91 bpm QT interval is normal OK interval is ~normal.~ ~Patient Discharge Departu re~ ~Vital Signs/Condition~Vital Signs~First Documented:~ Result Date Ti me~ Pulse Ox 97 07/13 2332~ B/P 180/92 07/13 2332~ B/P Mean 121 07/13 2332~ O2 Delivery Room air 07/13 2332~ Temp 98.8 07/13 2332~ Pulse 97 07/13 2332~ Resp 1 6 07/13 2332~ ~Last Documented:~ Result Date Time~ Pulse Ox 95 07/14 0000~ B/P 127/76 07/14 0000~ B/P Mean 93 07/14 0000~ O2 Delivery Room air 07/14 0000~ Pulse 79 07/14 0000~ Resp 18 07/14 0000~ Temp 98.8 07/13 2332~ ~All vital signs available at the time of this entry have been reviewed.~ ~RPT #: [id number]~EN D OF REPORT~ Note [facility] ([facility]) ED [place]~E MERGENCY PROVIDER [place] REPORT~REPORT#:[id number] REPORT STATUS: Draft~DATE: TIME: 2339~ Medical ~PATIENT: JESSICA BARKER UNIT #: [id number]~ACC OUNT#: [id number] Center ROOM/BED: [place] [id number]~: [birth year] AGE : 54 SEX: PCP PHYS: No Primary or Family ([id number]) Physician~ADM DATE: 07/14/19 INI AUTH: Darlene Wolf MD~ED ADMIT LAST SIG: Darlene Wolf~REP SERV REP SERV TM: 2340~ * ALL edits or amendments must be made on the electronic/computer document *~ ~ ~ ~HPI GREET~ ~General~Initial Gre et Date/Time 07/14/192326~ ~Clinical Note~Clinical Note~First Documented:~ R esult Date Time~ Pulse Ox 97 07/13 2332~ B/P 180/92 07/13 2332~ B/P Mean 121 2332~ O2 Delivery Room air 07/13 2332~ Temp 98.8 07/13 2332~ Pulse 97 07/13 22 33~ Resp 16 07/13 2332~ ~Last Documented:~ Result Date Time~ Pulse Ox 94 07/14 0015~ B/P 123/75 07/14 0015~ B/P Mean 91 07/14 0015~ O2 Delivery Henna m air 07/14 0015~ Pulse 80 07/14 0015~ Resp 18 07/14 0015~ Temp 98.8 07/13 233 3~ ~Chief Complaint:~[He is here because his blood pressure is elevated]~ ~HPI:~ [This patient was seen at the [facility] earlier today. His blood press ure ~was elevated then and it has remained elevated. He states his been 1 80 ~systolic. He is on lisinopril he t took a second dose before coming in. Do es ~have a blood pressure monitor at home and did get an oxygen saturation monito r ~recently because he was worried about COVID. He does have known anxiety. He ~ states this is not an anxiety attack. He has had a slight cough, nonproductive.~ He does have nasal drainage. He states he had a feeling like there something ~ popped in his right eye and has had some redness since that occurred this ~ramu goel. He is not having any visual changes he is not having any pain in his ~eyes. His right upper eyelid is painful when he touches it. He denies alcohol ~use, does drink a lot of caffeine, does not watch his salt intake. He states he~is tried multiple blood pressure medicines but only lisinopril has been ~tolerated . He does have Lasix but he takes it as needed he has not had any ~peripheral e faraz recently. He is obese.]~ ~ROS:~Constitutional: [No fever, no chi lls.]~Eyes: [No discharge. Pain in the right upper eyelid]~ENT: [No sore throa t.]~Cardiovascular: [No chest pain, no palpitations.]~Respiratory: [Persistent cough, no shortness of breath.]~Gastrointestinal: [No abdomina l pain, no vomiting.]~Genitourinary: [No hematuria. Dysuria]~Musculoskeletal: [N o back pain.]~Skin: [No rashes.]~Neurological: [No headache. No visual changes no difficulty with his speech she~has no focal weakness. No co nfusion.]~ ~Exam:~General Appearance: [ alert, has no immediate need for airway protection, and no~current signs of significant toxicity.] [He is speaking rapidly but is not ~having any respiratory distress.]~Eyes: [pupils eq ual and round no pallor or injection. The mucosa of the inner ~upper right eyelid is erythematous medially. Tenderness with eversion of the ~lid. There is no abnormality on the eye. There is no conjunctival redness no ~injected vesse ls. His pupil is equal to the left it is round is reactive. ~Funduscopic exam do es not reveal any abnormalities. He has intact extraocular ~movements.]~ENT, Mo uth: [Mask is in place. He states this is irritating him and he feels ~like it is hard to breathe with the mask on. He continues to converse with the ~mask in place. Oxygen saturation is 96% on room air.]~Respiratory: [There are no retrac tions, lungs are clear to auscultation.]~Cardiovascular: [ rapid rate ,98 beats a minute and rhythm is regular] [ ]~Gastrointestinal: [Abdomen is soft , morbidly obese and non tender, no masses, ~bowel sounds normal.]~Neuro logical: [awake, alert, oriented. moves all extremities ]~Skin: [warm and dry, no rashes.]~Musculoskeletal: [Neck is supple non tender. ] [Extremities are s ymmetrical, ~full range of motion.]~ ~Reevaluation:~[0012-BP was 148/62 prio r to any medication. After the labetalol his pressure is~119/72.~Lab showed a no rmal creatinine. WBC normal. Hgb within normal limits.]~ ~Reevaluation:~[0022 S ystolic 122. He has taken a beta mayda in the past. He says it gave him~plapit ations. ]~ ~Data:~[I reviewed labs][I independently viewed x-ray]~ ~Medical D ecision Making:~[ After history and physical exam differential diagnosis wa s considered for] [ ]~ ~Past Medical History~Stated Complaint HIGH BP~Allerg ies~Coded Allergies:~No Known Allergies (06/25/19)~ ~Home Medications~Reported Medications~LISINOPRIL (ZESTRIL) ~FUROSEMIDE (LASIX) ~ ~ ~Past Medical H istory:~Reports: Hypertension. ~Additional Medical History~Anxiety~Add itional Surgical History~Denies~Smoking status for patients 13 years old or old er: Never Smoker~ ~COURSE~ ~Data~Diagnostics~Laboratory Tests~ ~ ~ ~07/14/19 2347:~[Embedded Image Not Available]~Laboratory Tests:~ 07/13~ 47~ Chemistry~ Sodium (135 - 148 mmol/L) 136~ Potassium (3.5 - 5.3 mmol/L) 4.0~ Chloride (98 - 110 mmol/L) 100~ Carbon Dioxide (21 - 32 mmol/L) 29~ Anion Gap (5 - 15 mmol/L) 7~ BUN (7 - 20 mg/dL) 11~ Creatinine (0.70 - 1.30 mg/dL) 1.09~ Es timated Creat Clear (> 59 mL/min) > 60~ Estimated GFR (MDRD) (> 59 mL/min) > 60 ~ Glucose (70 - 99 mg/dL) 126 H~ Calcium (8.5 - 10.1 mg/dL) 9.1~ Hematology~ WBC (5.0 - 10.0 k/cumm) 10.2 H~ RBC (4.00 - 6.00 m/cumm) 5.52~ Hgb (14.0 - 18.0 gm/ dL) 15.7~ Hct (40.0 - 54.0 %) 47.4~ MCV (80.0 - 100.0 fl) 85.9~ MCH (27.0 - 33. 0 pg) 28.4~ MCHC (32.0 - 37.0 g/dL) 33.1~ RDW (11.0 - 15.6 %) 14.0~ Plt Count (15 0 - 400 k/cumm) 392~ MPV (8.5 - 10.9 fl) 9.4~ Immature Gran % (Auto) (0.0 - 0.6 %) 0.3~ Abs Immat Gran (auto) (0.00 - 0.09 k/cumm) 0.03~ Lymphocytes % (20 - 30 %) 28.3~ Monocytes % (4 - 6 %) 9.8 H~ Eosinophils % (2 - 4 %) 1.6 L~ Basophil s % (0 - 1 %) 0.5~ Nucleated RBC % (0.0 - 0.0 /100 WBC) 0.0~ Absolute Granulocyte s (2.0 - 9.0 k/cumm) 6.0~ Segmented Neutrophils (50 - 75 %) 59.5~ Absolute Lymphocytes (1.0 - 4.0 k/cumm) 2.9~ Absolute Monocytes (0.1 - 1.0 k/cumm) 1 .0~ Absolute Eosinophils (0.1 - 0.5 k/cumm) 0.2~ Absolute Basophils (0.0 - 0.2 k/cumm) 0.1~ ~ ~ ~Med Data~Med Data~Medication(s) Ordered:~Cardiovascu lar Drugs~ Sig/Monalisa Start time Last~ Medication Dose Route Stop Time Status Admin~ Labetalol HCl 20 MG X1ED STA 07/13 233 DC 07/13~ IV 07/137~ ~ ~ ~Full Procedures~ ~Free Text Proc Notes~Free Text Proc Notes~EKG-normal s inus rhythm there are no ectopic beats there were no sign of any ~ischemic jordyn nges no ST elevation. 91 bpm QT interval is normal OK interval is ~normal.~ ~Pat ient Discharge Departure~ ~Vital Signs/Condition~Vital Signs~First Docum ented:~ Result Date Time~ Pulse Ox 97 07/13 2332~ B/P 180/92 07/13 2332~ B/P Mean 121 07/13 2332~ O2 Delivery Room air 07/13 2332~ Temp 98.8 07/13 2332~ Pulse 97 07/13 2332~ Resp 16 07/13 2332~ ~Last Documented:~ Result Date Time~ Pulse Ox 94 07/14 0015~ B/P 123/75 07/14 0015~ B/P Mean 91 07/14 0015~ O2 Delivery Henna m air 07/14 0015~ Pulse 80 07/14 0015~ Resp 18 07/14 0015~ Temp 98.8 07/13 233 3~ ~All vital signs available at the time of this entry have been reviewed.~ ~Con dition Stable~ ~Clinical Impression~Clinical Impression~Primary Impression: Hypertension~ ~Disposition Decision~Discharge~ )( Discharged to me Yes~ )( Time 0020~ )( Date 07/15/19~ ~Discharge/Care Plan~Counseled Regardin g Diagnosis, Lab results, Need for follow-up, When to return ~to ED~Prescr iptions~amlodipine 2.5mg~ Discharge Note~I have spoken with the patient and /or caregivers. I have explained the patient's~condition, diagnoses and anisa tment plan based on the information available to me~at this time. I have an swered the patient's and/or caregiver's questions and ~addressed any concerns. The patient and/or caregivers have as good an ~understanding of the patient's diagnosis, condition and treatment plan as can be~expected at this point. The v ital signs have been stable. The patient's ~condition is stable and appr opriate for discharge from the emergency department.~ ~ ~The patient will pursue further outpatient evaluation with the primary care ~physician or other design ated or consulting physician as outlined in the ~discharge instructions. The pat ient and/or caregivers are agreeable to this plan~of care and follow-up instruc tions have been explained in detail. The patient ~and/or caregivers have receive d these instructions in written format and have ~expressed an understanding of the discharge instructions. The patient and/or ~caregivers are aware that any s ignificant change in condition or worsening of ~symptoms should prompt an immediate return to this or the closest emergency ~department or a call to 911. ~ ~RPT #: [id number]~END OF REPORT~ Note [facility] ([facility]) [place]~E MERGENCY PROVIDER [place] REPORT~REPORT#:[id number] REPORT STATUS: FSign~DATE: TIME: 2339~ Medical ~PATIENT: JESSICA BARKER UNIT #: [id number]~ACC OUNT#: [id number] Center ROOM/BED: [facility]~: [birth year] AGE: 54 SEX: PCP PHYS: No Primary or Family ([id number]) Physician~ADM DATE: 07/14/19 INI AUTH: Darlene Wolf MD~ED ADMIT LAST SIG: Darlene Wolf~REP SERV REP SERV TM: 2339~ * ALL edits or amendments must be made on the electronic/computer document *~ ~ ~ ~HPI GREET~ ~General~Initial Gre et Date/Time 07/14/192326~ ~Clinical Note~Clinical Note~First Documented:~ R esult Date Time~ Pulse Ox 97 07/13 2332~ B/P 180/92 07/13 2332~ B/P Mean 121 2332~ O2 Delivery Room air 07/13 2332~ Temp 98.8 07/13 2332~ Pulse 97 07/13 22 33~ Resp 16 07/13 2332~ ~Last Documented:~ Result Date Time~ Pulse Ox 94 07/14 0015~ B/P 123/75 07/14 0015~ B/P Mean 91 07/14 0015~ O2 Delivery Henna m air 07/14 0015~ Pulse 80 07/14 0015~ Resp 18 07/14 0015~ Temp 98.8 07/13 233 3~ ~Chief Complaint:~[He is here because his blood pressure is elevated]~ ~HPI:~ [This patient was seen at the [facility] earlier today. His blood press ure ~was elevated then and it has remained elevated. He states his been 1 80 ~systolic. He is on lisinopril he t took a second dose before coming in. Do es ~have a blood pressure monitor at home and did get an oxygen saturation monito r ~recently because he was worried about COVID. He does have known anxiety. He ~ states this is not an anxiety attack. He has had a slight cough, nonproductive.~ He does have nasal drainage. He states he had a feeling like there something ~ popped in his right eye and has had some redness since that occurred this ~ramu goel. He is not having any visual changes he is not having any pain in his ~eyes. His right upper eyelid is painful when he touches it. He denies alcohol ~use, does drink a lot of caffeine, does not watch his salt intake. He states he~is tried multiple blood pressure medicines but only lisinopril has been ~tolerated . He does have Lasix but he takes it as needed he has not had any ~peripheral e faraz recently. He is obese.]~ ~ROS:~Constitutional: [No fever, no chi lls.]~Eyes: [No discharge. Pain in the right upper eyelid]~ENT: [No sore throa t.]~Cardiovascular: [No chest pain, no palpitations.]~Respiratory: [Persistent cough, no shortness of breath.]~Gastrointestinal: [No abdomina l pain, no vomiting.]~Genitourinary: [No hematuria. Dysuria]~Musculoskeletal: [N o back pain.]~Skin: [No rashes.]~Neurological: [No headache. No visual changes no difficulty with his speech she~has no focal weakness. No co nfusion.]~ ~Exam:~General Appearance: [ alert, has no immediate need for airway protection, and no~current signs of significant toxicity.] [He is speaking rapidly but is not ~having any respiratory distress.]~Eyes: [pupils eq ual and round no pallor or injection. The mucosa of the inner ~upper right eyelid is erythematous medially. Tenderness with eversion of the ~lid. There is no abnormality on the eye. There is no conjunctival redness no ~injected vesse ls. His pupil is equal to the left it is round is reactive. ~Funduscopic exam do es not reveal any abnormalities. He has intact extraocular ~movements.]~ENT, Mo uth: [Mask is in place. He states this is irritating him and he feels ~like it is hard to breathe with the mask on. He continues to converse with the ~mask in place. Oxygen saturation is 96% on room air.]~Respiratory: [There are no retrac tions, lungs are clear to auscultation.]~Cardiovascular: [ rapid rate ,98 beats a minute and rhythm is regular] [ ]~Gastrointestinal: [Abdomen is soft , morbidly obese and non tender, no masses, ~bowel sounds normal.]~Neuro logical: [awake, alert, oriented. moves all extremities ]~Skin: [warm and dry, no rashes.]~Musculoskeletal: [Neck is supple non tender. ] [Extremities are s ymmetrical, ~full range of motion.]~ ~Reevaluation:~[0012-BP was 148/62 prio r to any medication. After the labetalol his pressure is~119/72.~Lab showed a no rmal creatinine. WBC normal. Hgb within normal limits.]~ ~Reevaluation:~[0022 S ystolic 122. He has taken a beta mayda in the past. He says it gave him~plapit ations. ]~ ~Data:~[I reviewed labs][I independently viewed x-ray]~ ~Medical D ecision Making:~[ After history and physical exam differential diagnosis wa s considered for] [ ]~ ~Past Medical History~Stated Complaint HIGH BP~Allerg ies~Coded Allergies:~No Known Allergies (06/25/19)~ ~Home Medications~Reported Medications~LISINOPRIL (ZESTRIL) ~FUROSEMIDE (LASIX) ~ ~ ~Past Medical H istory:~Reports: Hypertension. ~Additional Medical History~Anxiety~Add itional Surgical History~Denies~Smoking status for patients 13 years old or old er: Never Smoker~ ~COURSE~ ~Data~Diagnostics~Laboratory Tests~ ~ ~ ~07/14/19 5887:~[Embedded Image Not Available]~Laboratory Tests:~ 07/13~ 23 47~ Chemistry~ Sodium (135 - 148 mmol/L) 136~ Potassium (3.5 - 5.3 mmol/L) 4.0~ Chloride (98 - 110 mmol/L) 100~ Carbon Dioxide (21 - 32 mmol/L) 29~ Anion Gap (5 - 15 mmol/L) 7~ BUN (7 - 20 mg/dL) 11~ Creatinine (0.70 - 1.30 mg/dL) 1.09~ Es timated Creat Clear (> 59 mL/min) > 60~ Estimated GFR (MDRD) (> 59 mL/min) > 60 ~ Glucose (70 - 99 mg/dL) 126 H~ Calcium (8.5 - 10.1 mg/dL) 9.1~ Hematology~ WBC (5.0 - 10.0 k/cumm) 10.2 H~ RBC (4.00 - 6.00 m/cumm) 5.52~ Hgb (14.0 - 18.0 gm/ dL) 15.7~ Hct (40.0 - 54.0 %) 47.4~ MCV (80.0 - 100.0 fl) 85.9~ MCH (27.0 - 33. 0 pg) 28.4~ MCHC (32.0 - 37.0 g/dL) 33.1~ RDW (11.0 - 15.6 %) 14.0~ Plt Count (15 0 - 400 k/cumm) 392~ MPV (8.5 - 10.9 fl) 9.4~ Immature Gran % (Auto) (0.0 - 0.6 %) 0.3~ Abs Immat Gran (auto) (0.00 - 0.09 k/cumm) 0.03~ Lymphocytes % (20 - 30 %) 28.3~ Monocytes % (4 - 6 %) 9.8 H~ Eosinophils % (2 - 4 %) 1.6 L~ Basophil s % (0 - 1 %) 0.5~ Nucleated RBC % (0.0 - 0.0 /100 WBC) 0.0~ Absolute Granulocyte s (2.0 - 9.0 k/cumm) 6.0~ Segmented Neutrophils (50 - 75 %) 59.5~ Absolute Lymphocytes (1.0 - 4.0 k/cumm) 2.9~ Absolute Monocytes (0.1 - 1.0 k/cumm) 1 .0~ Absolute Eosinophils (0.1 - 0.5 k/cumm) 0.2~ Absolute Basophils (0.0 - 0.2 k/cumm) 0.1~ ~ ~ ~Med Data~Med Data~Medication(s) Ordered:~Cardiovascu lar Drugs~ Sig/Monalisa Start time Last~ Medication Dose Route Stop Time Status Admin~ Labetalol HCl 20 MG X1ED STA 07/13 2334 DC 07/13~ IV 07/13 2334 2347~ ~ ~ ~Full Procedures~ ~Free Text Proc Notes~Free Text Proc Notes~EKG-normal s inus rhythm there are no ectopic beats there were no sign of any ~ischemic jordyn nges no ST elevation. 91 bpm QT interval is normal OK interval is ~normal.~ ~Pat ient Discharge Departure~ ~Vital Signs/Condition~Vital Signs~First Docum ented:~ Result Date Time~ Pulse Ox 97 07/13 2332~ B/P 180/92 07/133~ B/P Mean 121 07/13 2332~ O2 Delivery Room air 07/13 2332~ Temp 98.8 07/13 2332~ Pulse 97 07/13 2332~ Resp 16 07/13 2332~ ~Last Documented:~ Result Date Time~ Pulse Ox 94 07/14 0015~ B/P 123/75 07/14 0015~ B/P Mean 91 07/14 0015~ O2 Delivery Henna m air 07/14 0015~ Pulse 80 07/14 0015~ Resp 18 07/14 0015~ Temp 98.8 07/13 233 3~ ~All vital signs available at the time of this entry have been reviewed.~ ~Con dition Stable~ ~Clinical Impression~Clinical Impression~Primary Impression: Hypertension~ ~Disposition Decision~Discharge~ )( Discharged to me Yes~ )( Time 0020~ )( Date 07/15/19~ ~Discharge/Care Plan~Counseled Regardin g Diagnosis, Lab results, Need for follow-up, When to return ~to ED~Prescr iptions~amlodipine 2.5mg~ Discharge Note~I have spoken with the patient and /or caregivers. I have explained the patient's~condition, diagnoses and anisa tment plan based on the information available to me~at this time. I have an swered the patient's and/or caregiver's questions and ~addressed any concerns. The patient and/or caregivers have as good an ~understanding of the patient's diagnosis, condition and treatment plan as can be~expected at this point. The v ital signs have been stable. The patient's ~condition is stable and appr opriate for discharge from the emergency department.~ ~ ~The patient will pursue further outpatient evaluation with the primary care ~physician or other design ated or consulting physician as outlined in the ~discharge instructions. The pat ient and/or caregivers are agreeable to this plan~of care and follow-up instruc tions have been explained in detail. The patient ~and/or caregivers have receive d these instructions in written format and have ~expressed an understanding of the discharge instructions. The patient and/or ~caregivers are aware that any s ignificant change in condition or worsening of ~symptoms should prompt an immediate return to this or the closest emergency ~department or a call to 911. ~ ~ ~ at 06 55~RPT #: [id number]~END OF REPORT~ Note ~[facility] ([facility] ) ~DISCHARGE INSTRUCTIONS (ED) ~REPORT #: [id number] [place] REPORT STATUS: Draft ~DATE: 07/14/19 TI ME: 0440~ ~PATIENT: JESSICA BARKER Medical UNIT #: [id number]~ 6 ROOM/BED: ~: 69 AGE: 54 SEX: Center M ATTEND: Kojo Sears DO ~ADM DT: AUT HOR: Kojo Sears DO ~ ~* ALL edits or (98645) amendments must be made on the electron ic/computer document *~ ~Current patient of record information for this document is:~JESSICA BARKER~PatID: [id number] Age: 54~ : 1965~ ~Report including patient information as it appeared at t he time this document ~was generated and provided to the patient is as follows below.~ ----~ ~JESSICA BARKER~PatID: [id number] Age: 54~ : 1965~Printed: 07/14/2019 4:40 AM~ By: Krish Fortune~ ~General Emergency Department Discharge Instructions~ ~The exam and treatment you received in the Emergency Department were for an~urgent problem and are not intended as complete care. It is important that you~follow u p with a doctor, nurse practitioner, or physician assistant associate professor for ongoing~care. I f your symptoms become worse or you do not improve as expected and you~are lavern ble to reach your usual health care provider, [facility] 24 hours a day. ~ ~You were treated in the Emergency Department by: ~Primary Provider: Krish Fortune DO~ ~Follow Up Information:~ ~Follow up with Your Physician in 1-3 days. Call as soon as possible to arrange.~ ~The Following Instructions Were Selected for You Toda y: Anxiety, Panic~ ~Anxiety, Panic~ ~You have been diagnosed with an anxiety att ack.~ ~You seem to have had an anxiety attack. There are many conditions that can~cause symptoms like these. If this is the first time this has happened,~follo w-up with your regular doctor. You may need more testing to be sure there~isn' t another cause for your symptoms.~ ~PATIENT'S NAME: JESSICA BARKER CCOUNT NO: [id number]~ ~ ~ ~ ~Anxiety causes very strong feelings of worry an d fear. It may also cause chest~pain or shortness of breath. You may feel like you have palpitations (a racing~heart). You might feel numbness (like parts of your body are "asleep"),~especially around the mouth and in the hands or fe et.~ ~Follow up with your counselor and family doctor. If you do not have an~ap pointment in the next 2-3 days, call and make one. It is VERY IMPORTANT for~your counselor and family doctor to know if you get worse.~ ~YOU SHOULD SEEK MEDICA L ATTENTION IMMEDIATELY, EITHER HERE OR AT THE NEARESTEMERGENCY DEPARTMENT, IF ANY OF THE FOLLOWING OCCURS:~ * You have symptoms that you normally don't have w ith your anxiety attacks.~ * You think of harming yourself (suicidal thoughts) or harming someone else.~ * You have symptoms you normally don't have and th ey last longer than normal~ or your medicine doesn't help. These include ch est pain, passing out,~ feeling that your heart is racing or shortness of breath. ~ * You have a fever (temperature higher than 100.4 F / 38 C).~ ~What To Do:~ ~ * Take this sheet with you when you go to your follow-up visit.~ * If you have an y problem arranging the follow-up visit, contact the~ Emergency Department immed shantaely.~ * Take all medications as directed.~ ~Additional Information:~ ~ * There are occasions where additional lab tests return - such as a culture~ r esult or an X-ray or EKG - is further reviewed after you are discharged.~ If a change in your diagnosis or treatment is indicated, we will attempt to~ conta ct you. It is critical that we have a current phone number for you.~ ~ * If y ou had X-rays done, we can provide you a CD with those X-rays for your~ review a nd follow-up.~ ~ * Culture results may take 2-3 days. We review many culture r esults and will~ attempt to contact you if the results are significant or may c hange your~ treatment. ~ ~If side effects develop, such as a rash, difficulty berkley athing, or a severe upset~stomach,~stop the medication and call your doctor or the Emergency Department.~ ~Preventative Health Instructions:~ ~The care you rec eived in the emergency department has been done on an emergency~basis only an d is not intended to be a substitute for regular medical care. If~your condition or symptoms persist or get worse at any time, you should return~to the emergenc y department if you're unable to contact your own physician. ~Please understand that although we may not have determined a specific cause of~your symptoms today , further evaluation may be necessary. It is important to~ ~PATIENT'S NAME: JESSICA RUEDA ACCOUNT NO: [id number]~ ~ ~ ~get a primary care provider (CHELSIE ellis, or nurse practitioner) for follow up as~well as ongoing healthcare needs. ~ ~The following information is provided for you as education regarding~preventa tive health care and follow up from your emergency department visit:~ ~Regular e xercise, good diet and adequate fluid intake are very important for~general h ealth maintenance. Please discuss these with your primary care doctor~to william wharton a plan specific to your needs. ~ ~Tobacco use is a risk factor for multi ple serious illnesses. If you use~tobacco, please contact the [employer] e at 0-324-KNRINWU ( ) or~www.[employer].org to assist in your eff orts to stop using tobacco products.~ ~During your visit today your blood pre ssure may have been higher than normal. ~If it was high you should have this re checked. Follow up with your physician or~the referral provider for a recheck within 4 weeks. Hypertension is a common but~serious illness that should be terra tored closely.~ ~If thoughts of increased anxiety and sadness prevent you from co mpleting your~day to day activities at home or work, please call our 12/09 asse ssment line at~[phone] to speak with an Commercial Roofing Estimator. ~F or deaf and hearing impaired, call .~For mental health and/o r substance use disorders you can call the Substance~Abuse and Mental Health S ervices ([facility]) ~[facility] TTY for hearing impaired call ~ ~During ER visits many patients receive sedation or medications which m ay impair~your judgment and or make driving, working or operating machinery or even~walking hazardous. Some of these medications include diphenhydramine (Be nadryl)~and medications for anxiety, nausea and pain. Ask your nurse if you have~received any sedating medications. If you received any potentially sedatin g~medications, please rest today and do not drive.~ ~JESSICA Low underst and the instructions and will arrange for follow-up~care. ~ ~ 9~JANN ENT/FLOORMAN SIGNATURE~ ~ _~ ~ STAFF SIGNATURE~ ~ ~ ~ ~ ~ ~ ~ ~ ~ ~PATIENT'S NAME: JESSICA BARKER A CCOUNT NO: [id number] Note [facility] ([facility]~E MERGENCY PROVIDER [facility] REPORT~REPORT#:[id number] REPORT STATUS: Draft~DATE: TIME: 0440~ Medical ~PATIENT: JESSICA BARKER UNIT #: [id number]~ACC OUNT#: [id number] Center ROOM/BED: [place] [address]~: [birth year] AGE: 54 SEX: PCP PHYS: No Primary or Family ([id number]) Physician~ADM DATE: 07/14/19 INI AUTH: Kojo Sears DO~ED ADMIT LAST SIG:~REP SERV REP SER V TM: 0440~ * ALL edits or amendments must be made on the electronic/computer document *~ ~ ~ ~HPI GREET~ ~General~Initial Greet Date/Time 4~ ~Clinical Note~Clinical Note~First Documented:~ Result Date Mamta e~ Pulse Ox 95 07/13 0214~ B/P 158/82 07/13 0214~ B/P Mean 107 07/13 0214~ O2 Delivery Room air 07/13 021~ Temp 98.5 07/13 0214~ Pulse 76 07/13 0214~ Resp 1 8 07/13 021~ ~Last Documented:~ Result Date Time~ Pulse Ox 99 07/13 0409~ B/P 191/97 07/13 0409~ B/P Mean 128 07/13 0409~ O2 Delivery Room air 07/13 408~ Temp 98.1 07/13 408~ Pulse 82 07/13 408~ Resp 16 07/13 408~ ~CHIEF COMPLA INT-~Low oxygen level and anxiety~ ~HPI-(Onset,Timing,Context,Location,Master lity,Severity,MF,)-~Patient is recently purchased a new blood pressure cuff as well as an O2 ~saturation monitor. The patient is concerned about having COVID and states his ~oxygen saturation was 91% while laying down. Has had no cough no fever and no ~swelling. Denies chest pain. Does have a history of sleep apne a and does not ~wear his CPAP as he cannot afford the unit he states he tellez s have a history of ~hypertension continues lisinopril~ ~ ~REVIEW OF [facility]-~ ~Constitutional: No fever. No chills. Low oxygen saturation~Eyes: No vision change.~ENT: No sore throat.~Cardiovascular: No chest pain.~ Respiratory: No cough.shortness of breath.~Gastrointestinal: No abdominal pain. No vomiting.~Genitourinary: No hematuria.~Musculoskeletal: No back steven n.~Skin: No rashes.~Neurological: No headache.~All systems reviewed and nega tive except as indicated above or in HPI~ ~ ~PHYSICAL EXAM- ~ ~ All available vit al signs were reviewed: Blood pressure slightly elevated O2~sat 99%~ ~Gen: Aimee ke, alert, and in no acute distress. Anxious male~Eyes: PERRL. EOMI.~Neck: S upple. No lymphadenopathy.~Ears/Nose/Throat: Mois t mucous membranes.~Cardiac: Regular rate and rhythm. No murmurs, rubs, or gallop s.~Pulmonary: Clear to auscultation bilaterally. No wheezes, rales, or rhon chi.~Abdominal: Soft. Nontender. No distention. No masses. Bowel sounds pos itive.~Extremities: No edema. Pulses palpable.~Skin: No rashes or jaundice.~ Neuro: Alert and oriented 3. Normal speech. Normal motor function.~ ~ ~ ~-- -DATA INTERPRETATION--- ~ ~Imaging reviewed by me and interpreted by the r adiologist:~ ~ ~Lab work reviewed and interpreted by me:~ ~ ~Medical Decision Making/Differential Diagnosis/ED Course/Disposition: If ~applicable, all available laboratory and radiographic studies have been reviewed~and consider ed in the medical decision making, including treatement plan, diff. ~diagn osis and disposition.~Vies patient definitely need follow-up to discuss an xiety related issues with ~his PCP as well as continuing his lisinopril. Also recommend calling family to ~see if they can help him purchase his new CPAP unit . Did recommend that if he ~is prescribed anxiety lytic medications that he shoul d avoid central depressing ~meds~ ~ ~Reevaluation/Time: ~ ~ ~ ~Prescription s:~ ~ ~ ~ ~I, Dr. Krish Sears, am the primary provider of this patient.~ ~Past Medical History~Stated Complaint LOW O2- " FALLS TO 91%"~Allergies~Coded Allergies:~No Known Allergies (06/25/19)~ ~Past Medical History:~Repo rts: Hypertension. ~Additional Medical History~Anxiety~Additional Surgical His tory~Denies~Smoking status for patients 13 years old or older: Never Smoker~ ~P atient Discharge Departure~ ~Vital Signs/Condition~Vital Signs~First Docum ented:~ Result Date Time~ Pulse Ox 95 07/13 0214~ B/P 158/82 07/13 0214~ B/P Mean 107 07/13 0214~ O2 Delivery Room air 07/13 0214~ Temp 98.5 07/13 0214~ Pulse 76 07/13 0214~ Resp 18 07/13 0214~ ~Last Documented:~ Result Date Time~ Pulse Ox 99 07/13 0409~ B/P 191/97 07/13 0409~ B/P Mean 128 07/13 0409~ O2 Delivery Ro om air 07/13 0409~ Temp 98.1 07/13 0409~ Pulse 82 07/13 0409~ Resp 16 07/13 0409 ~ ~All vital signs available at the time of this entry have been reviewed.~ ~ ~C linical Impression~Clinical Impression~Primary Impression: Anxiety reaction~Secondary Impressions: Obesity~ ~Disposition Decision~Discharge~ )( Dis charged to Home Yes~ )( Time 0444~ )( Date 07/14/19~ ~Discharge/Care Plan~ Alvina navarro Note~I have spoken with the patient and/or caregivers. I have expla ined the patient's~condition, diagnoses and treatment plan based on the informa tion available to me~at this time. I have answered the patient's and/or caregiver 's questions and ~addressed any concerns. The patient and/or caregivers have as g ood an ~understanding of the patient's diagnosis, condition and treatment plan as can be~expected at this point. The vital signs have been stable. The janne nt's ~condition is stable and appropriate for discharge from the emergency depart ment.~ ~ ~The patient will pursue further outpatient evaluation with the primary care ~physician or other designated or consulting physician as outlined in the ~discharge instructions. The patient and/or caregivers are agreeable to this plan~of care and follow-up instructions have been explained in detail. The jann ent ~and/or caregivers have received these instructions in written format an d have ~expressed an understanding of the discharge instructions. The patient and /or ~caregivers are aware that any significant change in condition or wors ening of ~symptoms should prompt an immediate return to this or the closest emergency ~department or a call to 911.~ ~RPT #: [id number]~END OF REPORT~ Note [facility] ([facility]) ED [facility]~E MERGENCY PROVIDER [facility] REPORT~REPORT#:[id number] REPORT STATUS: FSign~DATE: TIME: 439~ Medical ~PATIENT: JESSICA BARKER UNIT #: [id number]~ACC OUNT#: [id number] Center ROOM/BED: [facility]~: [birth year] AGE: 54 SEX: PCP PHYS: No Primary or Family ([id number]) Physician~ADM DATE: 07/14/19 INI AUTH: Kojo Sears DO~ED ADMIT LAST SIG: Kojo Sears DO~REP SERV REP SERV TM: 439~ * ALL edits or amendments must be made on the elect ronic/computer document *~ ~ ~ ~HPI GREET~ ~General~Initial Greet Date/Time 07/14/19413~ ~Clinical Note~Clinical Note~First Documented:~ Result Date Mamta e~ Pulse Ox 95 05/24 0214~ B/P 158/82 07/13 213~ B/P Mean 107 07/13 213~ O2 Delivery Room air 07/13 213~ Temp 98.5 07/13 213~ Pulse 76 07/13 021~ Resp 1 8 07/13 213~ ~Last Documented:~ Result Date Time~ Pulse Ox 99 07/13 408~ B/P 191/97 07/13 408~ B/P Mean 128 07/13 408~ O2 Delivery Room air 07/13 408~ Temp 98.1 07/13 408~ Pulse 82 07/13 408~ Resp 16 07/13 408~ ~CHIEF COMPLA INT-~Low oxygen level and anxiety~ ~HPI-(Onset,Timing,Context,Location,Master lity,Severity,MF,)-~Patient is recently purchased a new blood pressure cuff as well as an O2 ~saturation monitor. The patient is concerned about having COVID and states his ~oxygen saturation was 91% while laying down. Has had no cough no fever and no ~swelling. Denies chest pain. Does have a history of sleep apne a and does not ~wear his CPAP as he cannot afford the unit he states he tellez s have a history of ~hypertension continues lisinopril~ ~ ~REVIEW OF [facility]-~ ~Constitutional: No fever. No chills. Low oxygen saturation~Eyes: No vision change.~ENT: No sore throat.~Cardiovascular: No chest pain.~ Respiratory: No cough.shortness of breath.~Gastrointestinal: No abdominal pain. No vomiting.~Genitourinary: No hematuria.~Musculoskeletal: No back steven n.~Skin: No rashes.~Neurological: No headache.~All systems reviewed and nega tive except as indicated above or in HPI~ ~ ~PHYSICAL EXAM- ~ ~ All available vit al signs were reviewed: Blood pressure slightly elevated O2~sat 99%~ ~Gen: Aimee ke, alert, and in no acute distress. Anxious male~Eyes: PERRL. EOMI.~Neck: S upple. No lymphadenopathy.~Ears/Nose/Throat: Mois t mucous membranes.~Cardiac: Regular rate and rhythm. No murmurs, rubs, or gallop s.~Pulmonary: Clear to auscultation bilaterally. No wheezes, rales, or rhon chi.~Abdominal: Soft. Nontender. No distention. No masses. Bowel sounds pos itive.~Extremities: No edema. Pulses palpable.~Skin: No rashes or jaundice.~ Neuro: Alert and oriented 3. Normal speech. Normal motor function.~ ~ ~ ~-- -DATA INTERPRETATION--- ~ ~Imaging reviewed by me and interpreted by the r adiologist:~ ~ ~Lab work reviewed and interpreted by me:~ ~ ~Medical Decision Making/Differential Diagnosis/ED Course/Disposition: If ~applicable, all available laboratory and radiographic studies have been reviewed~and consider ed in the medical decision making, including treatement plan, diff. ~diagn osis and disposition.~Vies patient definitely need follow-up to discuss an xiety related issues with ~his PCP as well as continuing his lisinopril. Also recommend calling family to ~see if they can help him purchase his new CPAP unit . Did recommend that if he ~is prescribed anxiety lytic medications that he shoul d avoid central depressing ~meds~ ~ ~Reevaluation/Time: ~ ~ ~ ~Prescription s:~ ~ ~ ~ ~I, Dr. Krish Sears, am the primary provider of this patient.~ ~Past Medical History~Stated Complaint LOW O2- " FALLS TO 91%"~Allergies~Coded Allergies:~No Known Allergies (06/25/19)~ ~Past Medical History:~Repo rts: Hypertension. ~Additional Medical History~Anxiety~Additional Surgical His tory~Denies~Smoking status for patients 13 years old or older: Never Smoker~ ~P atient Discharge Departure~ ~Vital Signs/Condition~Vital Signs~First Docum ented:~ Result Date Time~ Pulse Ox 95 07/13 0214~ B/P 158/82 07/13 0214~ B/P Mean 107 07/13 0214~ O2 Delivery Room air 07/13 0214~ Temp 98.5 07/13 0214~ Pulse 76 07/13 0214~ Resp 18 07/13 213~ ~Last Documented:~ Result Date Time~ Pulse Ox 99 07/13 408~ B/P 191/97 07/13 408~ B/P Mean 128 07/13 408~ O2 Delivery Ro om air 07/13 408~ Temp 98.1 07/13 408~ Pulse 82 07/13 408~ Resp 16 07/13 408 ~ ~All vital signs available at the time of this entry have been reviewed.~ ~ ~C linical Impression~Clinical Impression~Primary Impression: Anxiety reaction~Secondary Impressions: Obesity~ ~Disposition Decision~Discharge~ )( Dis charged to Home Yes~ )( Time 0444~ )( Date 07/14/19~ ~Discharge/Care Plan~ Alvina navarro Note~I have spoken with the patient and/or caregivers. I have expla ined the patient's~condition, diagnoses and treatment plan based on the informa tion available to me~at this time. I have answered the patient's and/or caregiver 's questions and ~addressed any concerns. The patient and/or caregivers have as g ood an ~understanding of the patient's diagnosis, condition and treatment plan as can be~expected at this point. The vital signs have been stable. The lalit nt's ~condition is stable and appropriate for discharge from the emergency depart ment.~ ~ ~The patient will pursue further outpatient evaluation with the primary care ~physician or other designated or consulting physician as outlined in the ~discharge instructions. The patient and/or caregivers are agreeable to this plan~of care and follow-up instructions have been explained in detail. The jann ent ~and/or caregivers have received these instructions in written format an d have ~expressed an understanding of the discharge instructions. The patient and /or ~caregivers are aware that any significant change in condition or wors ening of ~symptoms should prompt an immediate return to this or the closest emergency ~department or a call to 911.~ ~ ~ at 0556~RPT #: [id number]~END OF REPORT~ Note ~[facility] ([facility] ) ~DISCHARGE INSTRUCTIONS (ED) ~REPORT #: [id number] [facility] REPORT STATUS: Draft ~DATE: 06/25/19 TIME: 1347~ ~PAT IENT: VEGA BARKER Medical UNIT #: [id number]~ 961 ROOM/BED: ~: 69 AGE: 54 SEX: Center M ATTEND: Darlene Wolf MD ~ADM DT : AUTHOR: Darlene Wolf MD ~ ~* ALL (54143) edits or amendments must be made on the electronic/computer document *~ ~Current patient of record information for this document is:~VEGA BARKER~PatID: [id number] Age: 54~ : 1965~ ~Report including patient information as it appeared at t he time this document ~was generated and provided to the patient is as follows below.~ ----~ ~VEGA BARKER~PatID: [id number] Age: 54~ : 1965~Printed: 06/25/2019 1:47 PM~ By: Darlene Wolf~ ~General Emergency Department Discharge Instructions~ ~The exam and treatment you received in the Emergency Department were for an~urgent problem and are not intended as complete care. It is important that you~follow u p with a doctor, nurse practitioner, or physician assistant associate professor for ongoing~care. I f your symptoms become worse or you do not improve as expected and you~are lavern ble to reach your usual health care provider, [facility] are [facility] 24 hours a day. ~ ~You were treated in the Emergency Department by: ~Primary Provider: Darlene Wolf M.D.~ ~Foll ow Up Information:~ ~Follow up with Your Physician if not improving. ~ ~Your Pro vider has typed these Special Instructions for you:~Take your regular medications. Play music for stress relief.~ ~The Following Instructions We re Selected for You Today: Anxiety, Panic~ ~Anxiety, Panic~ ~Anxiety causes very strong feelings of worry and fear. It may also cause chest~pain or shortne ss of breath. You may feel like you have palpitations (a racing~heart). You migh t feel numbness (like parts of your body are "asleep"),~ ~PATIENT'S NAME: VEGA WIGGINSJR ACCOUNT NO: [id number]~ ~ ~ ~especially around th e mouth and in the hands or feet.~ ~YOU SHOULD SEEK MEDICAL ATTENTION IMMEDIATE LY, EITHER HERE OR AT THE NEAREST~EMERGENCY DEPARTMENT, IF ANY OF THE FOLLOWING OCCURS:~ * You have symptoms that you normally don't have w ith your anxiety attacks.~ * You think of harming yourself (suicidal thoughts) or harming someone else.~ * You have symptoms you normally don't have and th ey last longer than normal~ or your medicine doesn't help. These include ch est pain, passing out,~ feeling that your heart is racing or shortness of breath. ~ * You have a fever (temperature higher than 100.4 F / 38 C).~ ~What To Do:~ ~ * Take this sheet with you when you go to your follow-up visit.~ * If you have an y problem arranging the follow-up visit, contact the~ Emergency Department immed iately.~ * Take all medications as directed.~ ~Additional Information:~ ~ * There are occasions where additional lab tests return - such as a culture~ r esult or an X-ray or EKG - is further reviewed after you are discharged.~ If a change in your diagnosis or treatment is indicated, we will attempt to~ conta ct you. It is critical that we have a current phone number for you.~ ~ * If y ou had X-rays done, we can provide you a CD with those X-rays for your~ review a nd follow-up.~ ~ * Culture results may take 2-3 days. We review many culture r esults and will~ attempt to contact you if the results are significant or may c hange your~ treatment. ~ ~If side effects develop, such as a rash, difficulty berkley athing, or a severe upset~stomach,~stop the medication and call your doctor or the Emergency Department.~ ~Preventative Health Instructions:~ ~The care you rec eived in the emergency department has been done on an emergency~basis only an d is not intended to be a substitute for regular medical care. If~your condition or symptoms persist or get worse at any time, you should return~to the emergenc y department if you're unable to contact your own physician. ~Please understand that although we may not have determined a specific cause of~your symptoms today , further evaluation may be necessary. It is important to~get a primary care prov ider (doctor, PA, or nurse practitioner) for follow up as~well as ongoing health care needs. ~ ~The following information is provided for you as education regard ing~preventative health care and follow up from your emergency department visit :~ ~Regular exercise, good diet and adequate fluid intake are very importan t for~general health maintenance. Please discuss these with your primary care do ctor~ ~PATIENT'S NAME: VEGA BARKER ACCOUNT NO: [id number]~ ~ ~ ~to devel op a plan specific to your needs. ~ ~Tobacco use is a risk factor for multi ple serious illnesses. If you use~tobacco, please contact the [employer] at 6-418-NICYIJT ( ) or~www.[employer] to assist in your eff orts to stop using tobacco products.~ ~During your visit today your blood pre ssure may have been higher than normal. ~If it was high you should have this re checked. Follow up with your physician or~the referral provider for a recheck within 4 weeks. Hypertension is a common but~serious illness that should be terra tored closely.~ ~If thoughts of increased anxiety and sadness prevent you from co mpleting your~day to day activities at home or work, please call our 12/09 asse ssment line at~[phone] to speak with an Commercial Roofing Estimator. ~F or deaf and hearing impaired, call .~For mental health and/o r substance use disorders you can call the Substance~Abuse and Mental Health S ervices ([facility]) ~[facility] TTY for hearing impaired call ~ ~During ER visits many patients receive sedation or medications which m ay impair~your judgment and or make driving, working or operating machinery or even~walking hazardous. Some of these medications include diphenhydramine (Be nadryl)~and medications for anxiety, nausea and pain. Ask your nurse if you have~received any sedating medications. If you received any potentially sedatin g~medications, please rest today and do not drive.~ ~VEGA Low understan d the instructions and will arrange for follow-up~care. ~ ~ 9~JANN ENT/FLOORMAN SIGNATURE~ ~ _~ ~ STAFF SIGNATURE~ ~ ~ ~ ~ ~ ~ ~ ~ ~ ~ ~ ~ ~ ~ ~ ~ ~ ~PATIENT'S NAME: MJVEGA MIRANDA DIVYA ACCOUNT NO: [id number] Note [facility] ([facility]~ EMERGENCY PROVIDER [facility] REPORT~REPORT#:[id number] REPORT STATUS: FSign~DATE: TIME: 1347~ Medical ~PATIENT: VEGA BARKER DIVYA UNIT #: [id number]~ ROOM/BED: [facility] 9~: [birth year] AGE: 54 SEX: PCP PHYS:~ADM DA TE: INI AUTH: ([id number]) Darlene Wolf MD~ED ADMIT DT: 07/09 LAST SIG: Darlene Wolf MD~REP SERV REP SERV TM: 1347~ * ALL edits or amendments must be made on the electronic/computer document *~ ~ ~ ~HPI GREET~ ~General~Initial Greet Date/Time 06/25/19 1340~ ~Clinical Note ~Clinical Note~First Documented:~ Result Date Time~ Pulse Ox 96 06/24 1107~ B/P 192/88 06/24 1107~ B/P Mean 122 06/24 1107~ O2 Delivery Room air 06/24 1107~ Temp 97.9 06/24 1107~ Pulse 89 06/24 1107~ Resp 20 06/24 1107~ ~Last Documen chelsea:~ Result Date Time~ Pulse Ox 97 06/24 1329~ B/P 149/68 06/24 1329~ B/P Mean 9 5 06/24 1329~ O2 Delivery Room air 06/24 1329~ Pulse 80 06/24 1329~ Temp 98.3 1316~ Resp 15 06/24 1316~ ~Chief Complaint:~[Low oxygen saturation on a home monitor]~ ~HPI:~This patient has known anxiety disorder. He states that he has been concerned ~about COVID. He took did an O2 sat today and found it i n the 70s. He did not ~have any shortness of air he did not have a cough that was productive. He does ~have a chronic cough from taking lisinopril. He states that coughing with that ~medication may be part of his anxiety as well. He has not had a fever he has ~not been short of air. He also acknowledges that he has h igh blood pressure ~whenever he seen by . He did wait in the waiting room for 2 hours. The time ~that I saw him his blood pressure had stabilized at 148 sy stolic. He was very ~calm.]~ ~ROS:~Constitutional: [No fever, no chi lls~ENT: [No sore throat.]~Cardiovascular: [No chest pain , no palpitations.]~Respiratory: [Chronic cough, no shortness of breath.]~Gastroi ntestinal: [No abdominal pain, no vomiting.]~ ~Musculoskeletal: [No back pain.]~Skin: [No rashes.]~Neurological: [No headache.]~The rest of the 10 point review of systems is negative~ ~Exam:~General Appearance: [ alert, has no immediate need for airway protection, and no~current signs of significant tox icity.] [ ]~Eyes: [pupils equal and round no pallor or injection.]~ENT, Mouth: [M ask in place]~Respiratory: [There are no retractions, lungs are clear to auscult ation in all ~bates. There is no wheezing and there are no coarse breath sounds or rhonchi.]~Cardiovascular: [Regular rate and rhythm.] [ ]~Gastroin testinal: [Abdomen obese, and is soft and non tender, no masses, bowel ~sounds no rmal.]~Neurological: [awake, alert, oriented. moves all extremities ]~Skin: [warm and dry, no rashes.]~Musculoskeletal: [Neck is supp le non tender. ] [Extremities are symmetrical, ~full range of motion.]~ ~ Reevaluation:~[]~ ~Reevaluation:~[]~ ~Data:~[I reviewed labs][I independentl y viewed x-ray]~ ~Medical Decision Making:~[ After history and physical ex am differential diagnosis was considered for] [~anxiety versus viral illness jared dejah cough from lisinopril. I was able to ~discuss stress relief with this patien t. 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 He has opt ed not to take any benzodiazepines. He ~has stopped all alcohol and marijuana. He manages his anxiety well, this care ~of COVID has just been somewhat overwh elming.]~ ~Past Medical History~Stated Complaint "BP IS OFF"~Allergies~Coded A llergies:~No Known Allergies (06/25/19)~ ~Smoking status for patients 13 years o ld or older: Never Smoker~ ~Patient Discharge Departure~ ~Vital Signs/Condi tion~Vital Signs~First Documented:~ Result Date Time~ Pulse Ox 96 06/24 110 7~ B/P 192/88 06/24 1107~ B/P Mean 122 06/24 1107~ O2 Delivery Room air 06/24 1107~ Temp 97.9 06/24 1107~ Pulse 89 06/24 1107~ Resp 20 06/24 1107~ ~Last D ocumented:~ Result Date Time~ Pulse Ox 97 06/24 1329~ B/P 149/68 06/24 1329~ B/P Mean 95 06/24 1329~ O2 Delivery Room air 06/24 1329~ Pulse 80 06/24 1329~ Temp 9 8.3 06/24 1316~ Resp 15 06/24 1316~ ~All vital signs available at the time of is entry have been reviewed.~ ~Condition Stable~ ~Clinical Impression~Clinical I mpression~Primary Impression: Anxiety~Secondary Impressions: Cough du e to RYAN inhibitor~ ~Disposition Decision~Discharge~ )( Discharged to me Yes~ )( Time 1353~ )( Date 06/25/19~ ~Discharge/Care Plan~Counseled Regardin g Diagnosis, Need for follow-up, When to return to ED~Prescriptions~Patient pref ers no treatment for anxiety.~ Discharge Note~I have spoken with the patient and /or caregivers. I have explained the patient's~condition, diagnoses and anisa tment plan based on the information available to me~at this time. I have an swered the patient's and/or caregiver's questions and ~addressed any concerns. The patient and/or caregivers have as good an ~understanding of the patient's diagnosis, condition and treatment plan as can be~expected at this point. The v ital signs have been stable. The patient's ~condition is stable and appr opriate for discharge from the emergency department.~ ~ ~The patient will pursue further outpatient evaluation with the primary care ~physician or other design ated or consulting physician as outlined in the ~discharge instructions. The pat ient and/or caregivers are agreeable to this plan~of care and follow-up instruc tions have been explained in detail. The patient ~and/or caregivers have receive d these instructions in written format and have ~expressed an understanding of the discharge instructions. The patient and/or ~caregivers are aware that any s ignificant change in condition or worsening of ~symptoms should prompt an immediate return to this or the closest emergency ~department or a call to 911. ~ ~ ~ at 13 53~RPT #: [id number]~END OF REPORT~ Note [facility] ([facility] ED [facility]~ EMERGENCY PROVIDER Lanre REPORT~REPORT#:[id number] REPORT STATUS: Draft~DATE: TIME: 1347~ Medical ~PATIENT: VEGA BARKER UNIT #: [id number]~ ROOM/BED: [facility] 9~: 69 AGE: 54 SEX: PCP PHYS:~ADM DA TE: INI AUTH: ([id number]) Darlene Wolf MD~ED ADMIT DT: 07/09 LAST SIG:~REP SERV REP SERV TM: 1347~ * ALL edits or amendment s must be made on the electronic/computer document *~ ~ ~ ~HPI GREET~ ~General~In itial Greet Date/Time 06/25/19 1340~ ~Clinical Note~Clinical Note~First Docu mented:~ Result Date Time~ Pulse Ox 96 06/24 1107~ B/P 192/88 06/24 1107~ B/P Mean 122 06/24 1107~ O2 Delivery Room air 06/24 1107~ Temp 97.9 06/24 1107~ Pulse 89 06/24 1107~ Resp 20 06/24 1107~ ~Last Documented:~ Result Date Time~ Pulse Ox 97 06/24 1329~ B/P 149/68 06/24 1329~ B/P Mean 95 06/24 1329~ O2 Delivery Henna m air 06/24 1329~ Pulse 80 06/24 1329~ Temp 98.3 06/24 1316~ Resp 15 06/24 131 6~ ~Chief Complaint:~[Low oxygen saturation on a home monitor]~ ~HPI:~Th is patient has known anxiety disorder. He states that he has been concerned ~abou t COVID. He took did an O2 sat today and found it in the 70s. He did not ~have a ny shortness of air he did not have a cough that was productive. He does ~hav e a chronic cough from taking lisinopril. He states that coughing with that ~medi cation may be part of his anxiety as well. He has not had a fever he has ~no t been short of air. He also acknowledges that he has high blood pressure ~whenev er he seen by . He did wait in the waiting room for 2 hours. The time ~naya t I saw him his blood pressure had stabilized at 148 systolic. He was very ~calm.]~ ~ROS:~Constitutional: [No fever, no chills~ENT: [No sore throat.] ~Cardiovascular: [No chest pain, no palpitations.]~Respiratory: [Chronic co ugh, no shortness of breath.]~Gastrointestinal: [No abdomina l pain, no vomiting.]~ ~Musculoskeletal: [No back pain.]~Skin: [No rashes.]~Neur ological: [No headache.]~The rest of the 10 point review of systems is negative~ ~Exam:~General Appearance: [ alert, has no immediate need for airway protection , and no~current signs of significant toxicity.] [ ]~Eyes: [pupils equal and round no pallor or injection.]~ENT, Mouth: [Mask in place]~Respiratory: [Th ere are no retractions, lungs are clear to auscultation in all ~bates. There i s no wheezing and there are no coarse breath sounds or rhonchi.]~Cardiovascul ar: [Regular rate and rhythm.] [ ]~Gastrointestinal: [Abdomen obese, and is soft and non tender, no masses, bowel ~sounds normal.]~Neurological: [awake, alert, oriented. moves all extremities ]~Skin: [warm and dry, no rashes.]~Musc uloskeletal: [Neck is supple non tender. ] [Extremities are symmetrical, ~full r roderick of motion.]~ ~Reevaluation:~[]~ ~Reevaluation:~[]~ ~Data:~[I reviewed l abs][I independently viewed x-ray]~ ~Medical Decision Making:~[ After histo ry and physical exam differential diagnosis was considered for] [~anxiety versus viral illness versus cough from lisinopril. I was able to ~discuss stre ss relief with this patient. 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 He has opted not to take any benzodiazepines. He ~has stopp ed all alcohol and marijuana. He manages his anxiety well, this care ~of COVID h as just been somewhat overwhelming.]~ ~Past Medical History~Stated Complaint "BP IS OFF"~Allergies~Coded Allergies:~No Known Allergies (06/25/19)~ ~Smoking st atus for patients 13 years old or older: Never Smoker~ ~Patient Discharge Depart ure~ ~Vital Signs/Condition~Vital Signs~First Documented:~ Result Date Ti me~ Pulse Ox 96 06/24 1107~ B/P 192/88 06/24 1107~ B/P Mean 122 06/24 1107~ O2 Delivery Room air 06/24 1107~ Temp 97.9 06/24 1107~ Pulse 89 06/24 1107~ Resp 2 0 06/24 1107~ ~Last Documented:~ Result Date Time~ Pulse Ox 97 06/24 1329~ B/P 149/68 06/24 1329~ B/P Mean 95 06/24 1329~ O2 Delivery Room air 06/24 1329~ Pulse 80 06/24 1329~ Temp 98.3 06/24 1316~ Resp 15 06/24 1316~ ~All vital si gns available at the time of this entry have been reviewed.~ ~RPT #: [id number]~ END OF REPORT~ History general Narrative - Reported Type Medical chronic pain to back and ri ght shoulder from work related injury 2009 History Medical coronary artery disease History Medical sleep apnea History Medical anxiety History Medical myocardial infarction 2011 (nuclear stress test done) History Medical hypertension History Medical gout History Surgical No Surgical history informa tion History Hospitaliz [place] 12/2011 ation History [facility] ([id number]) Summary Purpose eClinicalWorks SubmissioneClinicalWorks SubmissioneClinicalWorks SubmissioneClinicalWorks SubmissioneClinicalWorks Submission Advance Directives Directive Response Recor ded Date/Time Advance Directives No 10:07pm Health Care Power of Tire Repairer No 01/09/16 10:07pm Organ Donor Yes 01/09/16 10:07pm Resuscitation Status Full Code 01/09/16 10:07pm Directive Response Recor ded Date/Time Advance Directives No 10:55pm Health Care Power of Tire Repairer No 05/26/15 10:55pm Organ Donor Yes 05/26/15 10:55pm Resuscitation Status Full Code 05/26/15 10:55pm Directive Response Recor ded Date/Time Advance Directives No 5:25pm Health Care Power of Tire Repairer No 03/03/15 5:25pm Organ Donor Yes 03/03/15 5:25pm Resuscitation Status Full Code 03/03/15 5:25pm Directive Response Recor ded Date/Time Advance Directives No 5:35pm Health Care Power of Tire Repairer No 07/26/15 5:35pm Organ Donor Yes 07/26/15 5:35pm Resuscitation Status Full Code 07/26/15 5:35pm Directive Response Recor ded Date/Time Advance Directives No 8:09am Health Care Power of Tire Repairer No 11/27/14 8:09am Organ Donor Yes 11/27/14 8:09am Resuscitation Status Full Code 11/27/14 8:09am Directive Response Recor ded Date/Time Advance Directives No 5:24pm Health Care Power of Tire Repairer No 08/23/14 5:24pm Organ Donor Yes 08/23/14 5:24pm Resuscitation Status Full Code 08/23/14 5:24pm Directive Response Recor ded Date Advance Directives N 01/02 4:15pm Health Care Power of Tire Repairer N 10/31/12 4:15pm Organ Donor Y 10/31/12 4 :15pm Directive Response Recor ded Date Advance Directives N 9:20am Health Care Power of Tire Repairer N 07/07/12 9:20am Organ Donor Y 07/07/12 9 :20am Directive Response Recor ded Date Advance Directives N 01/02 9:05am Health Care Power of Tire Repairer N 06/30/12 9:05am Organ Donor Y 06/30/12 9 :05am Directive Response Recor ded Date/Time Advance Directives No 12:46am Health Care Power of Tire Repairer No 10/18/14 12:46am Organ Donor Yes 10/18/14 12:46am Directive Response Recor ded Date/Time Advance Directives No 5:51am Health Care Power of Tire Repairer No 01/28/14 5:51am Organ Donor Yes 01/28/14 5:51am Resuscitation Status Full Code 01/28/14 5:51am Directive Response Recor ded Date Advance Directives N 1:41pm Health Care Power of Tire Repairer N 11/10/12 1:41pm Organ Donor Y 11/10/12 1 :41pm Directive Response Recor ded Date/Time Advance Directives No 12:46am Health Care Power of Tire Repairer No 10/18/14 12:46am Organ Donor Yes 10/18/14 12:46am Resuscitation Status Full Code 10/18/14 12:46am Directive Response Recor ded Date/Time Advance Directives No 5:59pm Health Care Power of Tire Repairer No 03/11/17 5:59pm Organ Donor Yes 03/11/17 5:59pm Resuscitation Status Full Code 03/11/17 5:59pm Directive Response Recor ded Date/Time Advance Directives No 3:42pm Health Care Power of Tire Repairer No 09/17/17 3:42pm Organ Donor Yes 09/17/17 3:42pm Resuscitation Status Full Code 09/17/17 3:42pm Directive Response Recor ded Date/Time Advance Directives No 9:45pm Health Care Power of Tire Repairer No 02/02/18 9:45pm Organ Donor Yes 02/02/18 9:45pm Resuscitation Status Full Code 02/02/18 9:45pm Directive Response Recor ded Date/Time Advance Directives No 9:46pm Health Care Power of Tire Repairer No 05/16/18 9:46pm Organ Donor Yes 05/16/18 9:46pm Resuscitation Status Full Code 05/16/18 9:46pm Directive Response Recor ded Date/Time Advance Directives No 9:46pm Health Care Power of Tire Repairer No 05/16/18 9:46pm Organ Donor Yes 05/16/18 9:46pm Directive Response Recor ded Date/Time Advance Directives No 9:15pm Health Care Power of Tire Repairer No 05/16/18 9:46pm Organ Donor Yes 05/16/18 9:46pm Resuscitation Status Full Code 07/04/18 9:15pm Directive Response Recor ded Date/Time Advance Directives No 9:15pm Health Care Power of Tire Repairer No 05/16/18 9:46pm Organ Donor Yes 05/16/18 9:46pm Discharge Instructions No hospital discharge instructions.No hospital discharge instructions.No hospital discharge instructions.No hospital discharge instructions.No hospital discharge instructions.No hospital discharge instructions.No hospital discharge instructions.No hospital discharge instructions.No hospital discharge instructions.No hospital discharge instruction information available.No hospital discharge instruction information available.No hospital discharge instruction information available.No hospital discharge instruction information available.No hospital discharge instruction information available.No hospital discharge instruction information available.No hospital discharge instruction information available. Chief Complaint and Reason for Visit Chief Complaint General Problems/Steven n Reason for Visit Gouty arthropathy Chief Complaint Lower Extremity Reason for Visit Gout of left foot Chief Complaint Upper Extremity Reason for Visit Right shoulder pain Chief Complaint General Problems/Steven n Reason for Visit GOUT FLARE RIGHT AN KLE Additional Source Comments This clinical document has been generated using [employer] software that has been certified by the Office of the National Coordinator for Health Information Technology (ONC 15.99.04.3023.Diam.31.00.0.464457) and the National Committee for Compressor Operator Portable (NCQA, as an eMeasure certified technology). FOR RECORDS PERTAINING TO PATIENTS WHO ARE OR HAVE BEEN ENROLLED IN A CHEMICAL D EPENDENCY/SUBSTANCE ABUSE PROGRAM, SOME INFORMATION MAY BE OMITTED. This clinica l summary was aggregated from multiple sources. Caution should be exercised in using it in the provision of clinical care. This summary normalizes information from multiple sources, and as a consequence, information in this document may ma terially change the coding, format and clinical context of patient data. In elba tion, data may be omitted in some cases. CLINICAL DECISIONS SHOULD BE BASED ON T HE PRIMARY CLINICAL RECORDS. [employer] provides no warranty or guara ntee of the accuracy or completeness of information in this document.The followi ng information is based on time limited clinical information UNRECOGNIZED CONTENT PROVIDED BELOW FOR UNRECOGNIZED SECTION MEDICAL (GENERAL) HISTORY Type Description Date Medical History chronic pain to back and right shoulder from work related injury 2009 Medical History coronary artery disease Medical History sleep apnea Medical History anxiety Medical History myocardial infarctio n 12/22/2011 (nuclear stress test done) Medical History hypertension Medical History gout Hospitalization History [place] 12/2011 Type Description Date Medical History chronic pain to back and right shoulder from work related injury 2009 Medical History coronary artery disease Medical History sleep apnea Medical History anxiety Medical History myocardial infarctio n 12/22/2011 (nuclear stress test done) Medical History hypertension Medical History gout Surgical History No know Surgical history Hospitalization History 12/2011 Type Description Date Medical History chronic pain to back and right shoulder from work related injury 2009 Medical History coronary artery disease Medical History sleep apnea Medical History anxiety Medical History myocardial infarctio n 12/22/2011 (nuclear stress test done) Medical History hypertension Medical History gout Surgical History No Surgical history information Hospitalization History [place] 12/2011 UNRECOGNIZED CONTENT PROVIDED BELOW FOR UNRECOGNIZED SECTION REASON FOR VISIT [id number] (walk-in)lab results
--- OUTSIDE RECORDS SUMMARY | 2019-08-17 11:06 | XMS REPORT | Continuity of Care Document ---
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 Automated blood basophil count (count/volume) 0.0 10*3/uL 0.0-0.1 Comprehensive metabolic panel - 08/16/19 18:10 Serum or plasma sodium measurement (moles/volume) 137 mmol/L 135-145 Serum or plasma potassium measurement (moles/volume) 3.7 mmol/L 3.6-5.0 Serum or plasma chloride measurement (moles/volume) 104 mmol/L 98-107 Carbon dioxide 21 mmol/L 21-32 Serum or plasma anion gap determination (moles/volume) 12 mmol/L 5-14 Serum or plasma urea nitrogen measurement (mass/volume ) 14 mg/dL 7-18 Serum or plasma creatinine measurement (mass/volume) 0.94 mg/dL 0.60-1.30 Serum or plasma urea nitrogen/creatinine mass ratio 15 NRG Serum or plasma creatinine measurement w ith calculation of estimated glomerular filtration rate > NRG Serum or plasma glucose measurement (mass/volume) 128 mg/dL 70-105 Serum or plasma calcium measurement (mass/volume) 9.5 mg/dL 8.5-10.1 Serum or plasma total bilirubin measurement (mass/volu me) 0.5 mg/dL 0.1-1.0 Serum or plasma alkaline phosphatase vernoica surement (enzymatic activity/volume) 117 U/L 40-136 Serum or plasma aspartate aminotransfera se measurement (enzymatic activity/volume) 16 U/L 5-34 Serum or plasma alanine aminotransferase measurement (enzymatic activity/volume) 23 U/L 0-55 Serum or plasma protein measurement (mass/volume) 7.6 g/dL 6.4-8.2 Serum or plasma albumin measurement (mass/volume) 4.4 g/dL 3.2-4.5 CALCIUM CORRECTED 9.2 mg/dL 8.5-10.1 Serum or plasma troponin i.cardiac measu rement (mass/volume) - 08/16/19 18:10 Serum or plasma troponin i.cardiac measurement (mass/v olume) < ng/mL <0.028 Manual absolute plasma cell count - 07/22 08/09 18:10 Blood monocytes/100 leukocytes 4 % NRG Manual blood segmented neutrophils/100 leukocytes 68 % NRG Blood band neutrophils/100 leukocytes 1 % NRG Manual blood lymphocytes/100 leukocytes 23 % NRG Manual eosinophils/100 leukocytes in nose 0 % NRG Manual blood basophils/100 leukocytes 0 % NRG Blood lymphocytes variant/100 leukocytes 4 % NRG Blood anisocytosis detection by light microscopy S LIGHT NRG Serum or plasma lithium measurement (mol es/volume) - 08/16/19 18:10 BNP PT < 10.0 <100.0 Radiology Report from [facility] on 07/20/19 08:54:00 PATIENT NAME: JESSICA BARKER UNIT NO: [id number] EXAMS: CPT CODE: [id number] XR CHEST AP/PA LATERAL 06005 REASON FOR EXAM: 54 years old Male soa TIME OF CURRENT STUDY: 07/20/2019 5:42 AM COMPARISON: None Technique: PA/AP and lateral radiographs of the chest were obtained. FINDINGS: Lung volumes within normal limits. Both lungs are well aerated. There is no lobar consolidation or mass. There are no large pleural effusions. No pneumothorax. The cardiomediastinal silhouette and pulmonary vasculature have a normal appearance. Included osseous structures demonstrate no acute abnormality. IMPRESSION: No acute cardiopulmonary process. I have personally reviewed these images and approved or corrected the resident physician's interpretation. at 0849 RESIDENT: KENNEY PADILLA DO Reported and signed by: BATSHEVA GARCÍA MD CC: TECHNOLOGIST: SUSAN BARRIOS TRANSCRIBED DATE/Time: 07/20/2019 0849 BY: PPAUVI EXAM COMPLETE DATE/TIME: [id number] D/TM:07/20/2019 (0854) [facility] NAME: JESSICA BARKER [address] HP: [phone] AGE: 54 [place] [address] : 1965 LOC: W.EDW PHYS: Renée Valdez MD PHONE #: [phone] EXAM DATE: 07/20/2019 STATUS: DEP ER FAX #: [phone] A#: [id number] U#: [id number] PAGE 1 Signed Report *Final Page* Encounters ACCT No. Visit Date/Time Discharge Status Pt. Type Provider Facility Loc./Unit Complaint [id number] 08/13/2019 08:05:00 08/13/2019 08:05 :00 DIS Outpatient CAROLE TOBIN [id number] 01/29/2019 08:10:00 01/29/2019 08:10 :00 DIS Outpatient ANNY KULKARNI [id number] 06/08/2018 15:00:00 06/08/2018 23:59: 59 CLS Outpatient CHARLENE LEVI, [facility] [id number] 06/08/2018 15:00:00 Document Registration [id number] 05/18/2018 09:00:00 Document Registration [id number] 05/14/2018 11:20:00 Document Registration [id number] 08/16/2019 18:10:00 19:01:00 DIS Emergency DANY AN DO [facility] ER SOB [id number] 08/01/2018 22:22:00 23:02:00 DIS Emergency DEMETRIA BUSBY MD [facility] ER LEG SWELLING [id number] 07/16/2018 01:34:00 02:16:00 DIS Emergency LORIE FLOWERS DO [facility] ER PROBLEMS WITH GOUT [id number] 07/04/2018 20:55:00 22:22:00 DIS Emergency JORGE L MASON [facility] ER RT SHOULDER PAIN [id number] 06/11/2018 01:00:00 02:35:00 DIS Emergency NAHOMY ROBERTS MD [facility] ER GOUT FLARE UP [id number] 05/16/2018 20:34:00 22:19:00 DIS Emergency JORGE L MASON [facility] ER PAIN IN LEFT FOOT [id number] 02/02/2018 21:35:00 22:15:00 DIS Emergency NEIL WHITE [facility] ER R FOOT PAIN [id number] 11/05/2017 00:10:00 018 00:45:00 DIS Emergency CHERELLE PADILLA MD [facility] ER GOUT R FOOT [id number] 09/17/2017 15:33:00 018 16:08:00 DIS Emergency DACIA CAMPOS APRN [facility] ER GOUT FLARE UP [id number] 06/30/2017 23:12:00 018 00:45:00 DIS Outpatient NAHOMY ROBERTS MD [facility] ER GOUT, RT FOOT [id number] 03/11/2017 17:50:00 018 18:16:00 DIS Emergency DACIA CAMPOS APRN [facility] ER COUGH,LIGHT HEADED WHEN COUGHING,FEVER [id number] 07/18/2016 05:24:00 017 05:58:00 DIS Emergency MICHEL CANO MD [facility] ER GOUT [id number] 01/09/2016 21:53:00 016 23:08:00 DIS Emergency NAHOMY ROBERTS MD [facility] ER L FOOT INJ [id number] 07/26/2015 17:31:00 016 18:04:00 DIS Emergency DACIA CAMPOS APRN [facility] ER RT LOWER BACK PAIN [id number] 05/26/2015 22:47:00 016 00:38:00 DIS Emergency NAHOMY ROBERTS MD [facility] ER PAIN FROM GOUT [id number] 03/03/2015 17:02:00 016 17:34:00 DIS Emergency KIRSTIN CESPEDES DO [facility] ER [id number] 11/27/2014 07:57:00 09:20:00 DIS Emergency NAHOMY ROBERTS MD [facility] ER GOUT ATTACK R K NEE [id number] 10/30/2014 14:07:00 015 14:13:00 DIS Outpatient VENUS BELLO DO [facility] SLEEP OBS APNEAS, SNORING, AR RHYTHMIAS, HTN, EDS, CHOKIN [id number] 10/18/2014 00:37:00 015 01:01:00 DIS Emergency NAHOMY ROBERTS MD [facility] ER GOUT-LEFT FOOT [id number] 08/23/2014 17:14:00 17:59:00 DIS Emergency DACIA CAMPOS APRN [facility] ER LEFT RING FINGER INJURY [id number] 01/30/2014 07:41:00 014 23:59:59 CLS Outpatient GELDENZEL THIAGO PHILIP [facility] LAB HTN [id number] 01/28/2014 05:44:00 014 06:28:00 DIS Emergency KIRSTIN CESPEDES DO [facility] ER SOB [id number] 03/04/2013 23:03:00 014 23:57:00 DIS Emergency KEHINDE LEVI, DEMETRIA Bradford [facility] ER RT ANKLE GOUT [id number] 02/09/2013 08:18:00 013 09:56:00 DIS Emergency LORIE FLOWERS DO [facility] ER FALL, KNEE PAIN [id number] 01/12/2013 20:17:00 013 21:02:00 DIS Emergency DACIA CAMPOS APRN [facility] ER CALF PAIN [id number] 11/10/2012 13:40:00 013 14:27:00 DIS Emergency NEIL WHITE [facility] ER GOUT [id number] 10/31/2012 16:12:00 013 17:36:00 DIS Emergency JEANCARLOS TAFOYA DO [facility] ER BACK PAIN [id number] 07/20/2012 11:04:00 23:59:59 CLS Outpatient [id number] 07/07/2012 09:13:00 013 11:05:00 DIS Emergency LORIE FLOWERS DO [facility] ER CHEST PAIN [id number] 06/30/2012 08:59:00 013 09:58:00 DIS Emergency NAHOMY ROBERTS MD [facility] ER GOUT FLARE UP I N RIGHT ANKLE [id number] 05/10/2012 21:29:00 Document Registration [id number] 04/14/2012 20:06:00 Document Registration [id number] 01/06/2012 07:03:00 Document Registration [id number] 01/05/2012 13:01:00 Document Registration [id number] 12/26/2011 05:04:00 Document Registration [id number] 10/15/2011 09:48:00 Document Registration [id number] 08/06/2011 18:04:00 Document Registration [id number] 06/19/2011 13:28:00 Document Registration [id number] 03/08/2011 12:50:00 Document Registration [id number] 02/09/2011 22:40:00 Document Registration [id number] 10/23/2010 07:08:00 Document Registration [id number] 09/26/2010 14:08:00 Document Registration [id number] 08/03/2010 22:10:00 Document Registration [id number] 07/03/2010 20:53:00 Document Registration [id number] 09/27/2009 03:22:00 Document Registration [id number] 04/22/2016 09:14:00 Document Registration [id number] 07/31/2012 08:06:00 Document Registration [id number] 07/20/2019 04:52:00 020 08:40:00 DIS Emergency Kaiden LEVI, Renée Herrera [facility] W.EDW [id number] 07/16/2019 00:12:00 020 00:55:00 DIS Emergency Dee LEVI, Moses Molina [facility] W.EDW [id number] 07/14/2019 23:23:00 00:30:00 DIS Emergency Maryann LEVI, Darlene Potter [facility] W[facility]EDW [id number] 07/14/2019 01:07:00 020 04:47:00 DIS Emergency Tong PHILIP [facility] W.[place]ASTA [id number] 06/25/2019 11:04:00 020 13:59:00 DIS [facility]
--- NOTE | 2019-08-17 11:09 | NUR ---
PT REPORTS HE HAS NOT BEEN ABLE TO FILL PRESCRIPTION FROM ED VISIT LAST NIGHT. PT REQUESTING A CT OF HIS LUNGS TO FIND OUT WHAT THE PROBLEM IS.
--- NOTE | 2019-08-17 11:45 | ED Cough/URI ---
General Chief Complaint: Respiratory Problems Stated Complaint: SOA Nursing Triage Note: PT AMBULATE TO ROOM WITH C/O SOA WHILE SLEEPING. PT STATES THAT HIS O2 DROPPED TO 78% WHILE SLEEPING. PT O2 98% UPON ARRIVAL. PT REPORTS BEING SEEN IN THIS ED LAST NIGHT FOR SAME C/O. Sepsis Screen: No Definite Risk History of Present Illness Date Seen by Provider: Aug 17, 2019 Time Seen by Provider: 11:15 Initial Comments 54 year old male presents for low SaO2 at home when resting and not using his CPAP, 80%. He was seen for similar complaints yesterday and has not started his Rxs. He has chronic sleep apnea and obtained a new CPAP, but hasn't used it yet. Has an albuterol inhaler but doesn't like to use it because his resting pulse is 80-90. 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 His RA SaO2 is 94-96% upon arrival, both sitting and lying. No TAMI or respiratory distress. He has been quarantining at home, until coming to [place] to obtain his CPAP this week. Timing/Duration: this morning Severity/Quality: mild, dry cough Prior Episodes/Possible Cause: occasional episodes Associated Symptoms: denies symptoms Allergies and Home Medications Allergies Coded Allergies: No Known Drug Allergies (Unverified , 05/26/15) Home Medications Alprazolam 0.25 Mg Tablet, 0.25 MG PO QID, (Reported) Colchicine 0.6 Mg Capsule, 0.6 MG PO ONCE Prescribed by: DACIA CAMPOS on 09/17/17 1610 Doxycycline Hyclate 100 Mg Tablet, 100 MG PO BID Prescribed by: DANY AN on 08/16/191900 Lisinopril 10 Mg Tablet, 10 MG PO DAILY, (Reported) Prednisone 20 Mg Tab, 40 MG PO DAILY Prescribed by: DANY AN on 08/16/191900 Patient Home Medication List Home Medication List Reviewed: Yes Review of Systems Review of Systems Constitutional: no symptoms reported, see HPI; No fever Respiratory: cough; No phlegm, No short of breath Cardiovascular: no symptoms reported, see HPI Gastrointestinal: no symptoms reported, see HPI Musculoskeletal: no symptoms reported, see HPI Skin: no symptoms reported, see HPI All Other Systems Reviewed Negative Unless Noted: Yes Past Sivghdx-Wsqbni-Kjnywp Hx Past Med/Social Hx: Reviewed Nursing Past Med/Soc Hx Patient Social History Alcohol Use: Past History Recreational Drug Use: No Smoking Status: Former Smoker Type Used: Smokeless Tobacco Former Smoker, Quit: Feb 20, 1986 2nd Hand Smoke Exposure: No Recent Foreign Travel: No Contact w/Someone Who Travel: No Recent Infectious Disease Expo: No Recent Hopitalizations: No Physical Abuse: No Sexual Abuse: No Mistreated: No Fear: No Immunizations Up To Date Tetanus Booster (TDap): Less than 5yrs PED Vaccines UTD: Yes Seasonal Allergies Seasonal Allergies: No Past Medical History Surgeries: Yes (CARDIAC CATH--NO INTERVENTION) Respiratory: Yes Sleep Apnea Cardiac: Yes ( CARDIAC CATH--NO INTERVENTION) Coronary Artery Disease, Heart Attack, High Cholesterol, Hypertension Neurological: No Reproductive Disorders: No Sexually Transmitted Disease: No HIV/AIDS: No Genitourinary: No Gastrointestinal: Yes Gastroesophageal Reflux Musculoskeletal: Yes Chronic Back Pain, Fractures, Gout Endocrine: No HEENT: Yes Cataract Cancer: No Psychosocial: Yes Anxiety Integumentary: No Blood Disorders: No Adverse Reaction/Blood Tranf: No Family Medical History Patient reports no known family medical history. No Pertinent Family Hx, Hypertension Physical Exam Vital Signs - First Documented 08/17/19 08/17/19 11:02 11:57 Temp 36.8 Pulse 100 Resp 17 B/P (MAP) 165/100 (121) Pulse Ox 97 O2 Delivery Room Air Capillary Refill : Less Than 3 Seconds Height: 6'0" Weight: 306lbs. 0oz. 138.816474nb; 44.00 BMI Method:Stated General Appearance: WD/WN, no apparent distress HEENT: PERRL/EOMI, normal ENT inspection, TMs normal, pharynx normal Neck: non-tender, full range of motion, supple, normal inspection Respiratory: chest non-tender, lungs clear, normal breath sounds, no respiratory distress Cardiovascular: normal peripheral pulses, regular rate, rhythm Gastrointestinal: normal bowel sounds, non tender, soft Neurologic/Psychiatric: no motor/sensory deficits, alert, normal mood/affect, oriented x 3 Progress/Results/Core Measures Suspected Sepsis Recent Fever Within 48 Hours: No Infection Criteria Present: None New/Unexplained Altered Menta: No Sepsis Screen: No Definite Risk SIRS Temperature: Pulse: 100 Respiratory Rate: 17 Blood Pressure 165 /100 Mean: 121 Results/Orders My Orders Orders - ANNY TANNER Coronavirus Sars-Cov-2 So 2018 (08/17/19 11:33) Vital Signs/I&O 08/17/19 08/17/19 11:02 11:57 Temp 36.8 Pulse 100 88 Resp 17 18 B/P (MAP) 165/100 (121) 146/84 Pulse Ox 97 O2 Delivery Room Air Capillary Refill : Less Than 3 Seconds Blood Pressure Mean: 121 Progress Note : Time: 11:15 Progress Note Patient seen and evaluated, will obtain a COVID-19 swab. Stressed the importance of using his CPAP and inhaler. Discharge instructions and follow-up precautions reviewed. Since we are doing a COVID swab he was instructed to maintain isolation at home until results are called to him. Departure Impression Primary Impression: URI (upper respiratory infection) Qualified Codes: J06.9 - Acute upper respiratory infection, unspecified Additional Impression: Sleep apnea in adult Disposition: 01 HOME, SELF-CARE Condition: Improved Departure-Patient Inst. Decision time for Depature: 11:40 [address]errals: [facility] (PCP/Family) Primary Care Physician Patient Instructions: Sleep Apnea (DC), Viral Upper Respiratory Infection, Adult (DC) Add. Discharge Instructions: Obtain your prescriptions from yesterday and start ISAÍAS. Use your CPAP anytime you are sleeping. Follow up with your primary care provider in [place] Isolate at home, until your COVID results are called to you. Use your inhaler 1-2 puffs every 4-6 hours, when Short of Air or Low SaO2. Return to an emergency dept, for acute health care problems All discharge instructions reviewed with patient and/or family. Voiced understanding. ANNY TANNER Aug 17, 2019 11:45
[2019-08-17 11:57] VITALS: BP 146/84
== END 2019-08-17 11:56 | disposition home or self-care (01) ==
LOC: EDUNIT# 10:56 → ER 10:58
DX: J06.9 Acute upper respiratory infection, unspecified (principal); G47.30 Sleep apnea, unspecified; I25.2 Old myocardial infarction; I10 Essential (primary) hypertension; M10.9 Gout, unspecified; F41.9 Anxiety disorder, unspecified; Z20.828 Contact with and (suspected) exposure to other viral communicable diseases; Z91.19 Patient's noncompliance with other medical treatment and regimen; Z87.891 Personal history of nicotine dependence
CPT/HCPCS: 99282; U0002; 87635

== ENCOUNTER 2019-08-19 02:42 | Emergency (ER) | payer SELFPAY ==
[~2019-08-19] VITALS: Ht 180 cm; Wt 146.9 kg
[2019-08-19 02:52] VITALS: BP 145/84
--- NOTE | 2019-08-19 03:05 | ED Respiratory ---
General Chief Complaint: Respiratory Problems Stated Complaint: LOW O2 LEVELS Nursing Triage Note: C/O LOW SPO2 WITH CPAP WHILE SLEEPING. Source: patient, old records History of Present Illness Date Seen by Provider: Aug 19, 2019 Time Seen by Provider: 02:54 Initial Comments PT ARRIVES VIA POV STATES "LOW O2 SAT" HAS CHRONIC SLEEP APNEA, AND HAS HAD PROBLEMS FOR A LONG TIME RECENTLY WAS PRESCRIBED A CPAP, AND OBTAINED A HOME O2 SAT FINGER MONITOR, AND HAS BEEN CHECKING IT CONSTANTLY STATES "MY O2 SATS DROPPING LOW FOR THE LAST 2 NIGHTS"-"ONLY WHEN I RECLINE" "ONLY WHEN I USE THE CPAP" SO HE HAS NOT BEEN WEARING THE CPAP PT IS NOT HAVING ANY DYSPNEA AT THIS TIME AND NO DYSPNEA WITH EXERTION NO CHEST PAIN NO FEVER/SWEATS/CHILLS NO COUGH NO SWELLING IN LEGS/ FEET PT IS HERE FROM [place]--APPROXIMATELY 2 HOURS AWAY STATES THE CPAP WAS PRESCRIBED BY HIS IN [place], BUT DROVE TO [place] TO GET IT FILLED. STATES IT WAS PRESCRIBED ON MONDAY, AND STATES "I CAME HERE TO GET MY CPAP PRESCRIPTION FILLED" STATES HE HAS AN APPOINTMENT AT 0900 THIS MORNING WITH HIS IN [place] FOR FOLLOW UP PT SEEN HERE 08/16/19 FOR SAME COMPLAINT--FULL WORK UP INCLUDING LAB, EKG AND CXR DONE --ALL NORMAL. PT WAS PRESCRIBED DOXYCYCLINE AND PREDNISONE, WHICH HE HAS NOT BEEN TAKING PT ALSO HAS HISTORY OF COPD AND HAS ALBUTEROL INHALER, WHICH HE HAS NOT BEEN USING PT SEEN HERE AGAIN 08/17/19 FOR SAME, COVID TESTING DONE AND WAS NEGATIVE SYMPTOMS ARE NOT ANY DIFFERENT TONIGHT Allergies and Home Medications Allergies Coded Allergies: No Known Drug Allergies (Unverified , 05/26/15) Home Medications Alprazolam 0.25 Mg Tablet, 0.25 MG PO QID, (Reported) Colchicine 0.6 Mg Capsule, 0.6 MG PO ONCE Prescribed by: DACIA CAMPOS on 09/17/17 1610 Doxycycline Hyclate 100 Mg Tablet, 100 MG PO BID Prescribed by: DANY AN on 08/16/191900 Lisinopril 10 Mg Tablet, 10 MG PO DAILY, (Reported) Prednisone 20 Mg Tab, 40 MG PO DAILY Prescribed by: DANY AN on 08/16/191900 Patient Home Medication List Home Medication List Reviewed: Yes Review of Systems Review of Systems Constitutional: no symptoms reported; No chills, No diaphoresis, No dizziness, No fever EENTM: no symptoms reported Respiratory: see HPI; No cough, No dyspnea on exertion, No orthopnea, No short of breath, No wheezing Cardiovascular: no symptoms reported Gastrointestinal: no symptoms reported Genitourinary: no symptoms reported Musculoskeletal: no symptoms reported Skin: no symptoms reported Psychiatric/Neurological: No Symptoms Reported Hematologic/Lymphatic: No Symptoms Reported Immunological/Allergic: no symptoms reported Past Qqgmvof-Wpaehs-Nidgkv Hx Patient Social History Alcohol Use: Past History Recreational Drug Use: No Smoking Status: Former Smoker Type Used: Smokeless Tobacco Former Smoker, Quit: Feb 20, 1986 2nd Hand Smoke Exposure: No Recent Foreign Travel: No Contact w/Someone Who Travel: No Recent Infectious Disease Expo: No Recent Hopitalizations: No Immunizations Up To Date Tetanus Booster (TDap): Less than 5yrs PED Vaccines UTD: Yes Seasonal Allergies Seasonal Allergies: No Past Medical History Surgeries: Yes (CARDIAC CATH--NO INTERVENTION) Cardiac Respiratory: Yes Sleep Apnea, COPD Currently Using CPAP: No Cardiac: Yes ( CARDIAC CATH--NO INTERVENTION) Coronary Artery Disease, Heart Attack, High Cholesterol, Hypertension Neurological: No Reproductive Disorders: No Sexually Transmitted Disease: No HIV/AIDS: No Genitourinary: No Gastrointestinal: Yes Gastroesophageal Reflux Musculoskeletal: Yes Chronic Back Pain, Fractures, Gout Endocrine: No HEENT: Yes Cataract Cancer: No Psychosocial: Yes Anxiety Integumentary: No Blood Disorders: No Adverse Reaction/Blood Tranf: No Family Medical History Patient reports no known family medical history. No Pertinent Family Hx, Hypertension Physical Exam Vital Signs - First Documented 08/19/19 02:52 Temp 37.1 Pulse 97 Resp 18 B/P (MAP) 145/84 (104) Pulse Ox 96 O2 Delivery Room Air Capillary Refill : Less Than 3 Seconds Height: 6'0" Weight: 306lbs. 0oz. 138.411513cz; 45.00 BMI Method:Stated General Appearance: WD/WN, no apparent distress, other (NO DYSPNEA, TALKS IN FULL SENTENCEWS) Neck: normal inspection Respiratory: normal breath sounds, no respiratory distress, no accessory muscle use Cardiovascular: normal peripheral pulses, regular rate, rhythm, no edema, no JVD, no murmur Gastrointestinal: soft Extremities: normal inspection, no pedal edema Neurologic/Psychiatric: investment banker II-XII nml as tested, no motor/sensory deficits, alert, oriented x 3 Skin: normal color, warm/dry Progress/Results/Core Measures Suspected Sepsis Recent Fever Within 48 Hours: No Infection Criteria Present: None New/Unexplained Altered Menta: No Sepsis Screen: No Definite Risk SIRS Temperature: Pulse: 97 Respiratory Rate: 18 Blood Pressure 145 /84 Mean: 104 Results/Orders Vital Signs/I&O 08/19/19 02:52 Temp 37.1 Pulse 97 Resp 18 B/P (MAP) 145/84 (104) Pulse Ox 96 O2 Delivery Room Air Capillary Refill : Less Than 3 Seconds Blood Pressure Mean: 104 Progress Note : Progress Note O2 SATS IN UPPER 90'S AND PT IS CURRENTLY ASYMPTOMATIC REASSURANCE GIVEN TO PT AND ADVISED TO KEEP HIS APPOINTMENT THIS MORNING WITH HIS PCP WHO PRESCRIBED THE CPAP FOR FURTHER CARE Departure Impression Primary Impression: Sleep apnea Disposition: 01 HOME, SELF-CARE Condition: Stable Departure-Patient Inst. Referrals: NO,LOCAL PHYSICIAN (PCP/Family) Primary Care Physician Patient Instructions: How to Use a CPAP or BPAP Machine, Sleep Apnea in Adults Add. Discharge Instructions: SIT IN CHAIR TO SLEEP USE CPAP INSTRUCTED KEEP YOUR APPOINTMENT WITH YOUR DR THIS MORNING SCHEDULED, FOR FURTHER CARE All discharge instructions reviewed with patient and/or family. Voiced understanding. LORIE FLOWERS DO Aug 19, 2019 03:05
== END 2019-08-19 03:07 | disposition home or self-care (01) ==
LOC: EDUNIT# 02:42 → ER 02:43
DX: G47.30 Sleep apnea, unspecified (principal); J44.9 Chronic obstructive pulmonary disease, unspecified; I25.10 Atherosclerotic heart disease of native coronary artery without angina pectoris; E78.00 Pure hypercholesterolemia, unspecified; I10 Essential (primary) hypertension; I25.2 Old myocardial infarction; K21.9 Gastro-esophageal reflux disease without esophagitis; M10.9 Gout, unspecified; M54.9 Dorsalgia, unspecified; F41.9 Anxiety disorder, unspecified; Z87.891 Personal history of nicotine dependence; Z79.899 Other long term (current) drug therapy
CPT/HCPCS: 99282

== ENCOUNTER 2019-08-25 12:50 | Emergency (ER) | payer SELFPAY ==
[~2019-08-25] VITALS: Ht 71 cm; Wt 146.0 kg
--- OUTSIDE RECORDS SUMMARY | 2019-08-25 12:57 | XMS REPORT ---
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 on 2018-05-14 Albumin 4.1 g/dL (N) 3.4 - 5.4 g/dL [facility] Health [Mass/Vol] [facility] (31411) Albumin/Globulin 1.5 {ratio} (N) 1 - 2.5 {ratio} [facility] [Mass ratio] [facility] (35040) ALP [Catalytic 93 U/L (N) 44 - 147 U/L [facility] activity/Vol] [facility] (95181) ALT [Catalytic 14 U/L (N) 4 - 40 U/L [facility] activity/Vol] [facility] (38537) AST [Catalytic 12 U/L (N) 10 - 34 U/L [facility] Health activity/Vol] [facility] (64061) Bilirubin 0.5 mg/dL (N) 0.1 - 1.2 mg/dL [facility] [Mass/Vol] [facility] (84352) Calcium 9.7 mg/dL (N) 8.5 - 10.2 mg/dL [facility] [Mass/Vol] [facility] (96744) Chloride 102 mmol/L (N) 95 - 106 mmol/L [facility] [Moles/Vol] [facility] (37419) CO2 [Moles/Vol] 29 mmol/L (N) 23 - 29 mmol/L [facility] (18699) Creatinine 0.92 mg/dL (N) [facility] h [Mass/Vol] [facility] (95888) GFR/1.73 sq M 112 (N) 90 - [address] [facility] predicted among mL/min/{1.73_m2} mL/min/{1.73_m2} [place] [facility] blacks MDRD [facility] (S/P/Bld) [Vol (51914) rate/Area] GFR/1.73 sq 97 (N) 90 - 120 [facility] th M.predicted MDRD mL/min/{1.73_m2} mL/min/{1.73_m2} [facility] (S/P/Bld) [Vol [facility] rate/Area] (76012) Globulin (S) 2.8 g/dL (N) 2 - 3.5 g/dL [facility] [Mass/Vol] [facility] (80770) Glucose 94 mg/dL (N) 60 - 125 mg/dL [facility] [Mass/Vol] [facility] (05237) Potassium 4.5 mmol/L (N) 3.7 - 5.2 mmol/L [facility] [Moles/Vol] [facility] (63568) Protein 6.9 g/dL (N) 6.4 - 8.3 g/dL [facility] [Mass/Vol] [facility] (03930) Sodium 137 mmol/L (N) 135 - 145 mmol/L [facility] [Moles/Vol] [facility] (10188) Urea nitrogen 14 mg/dL (N) 7 - 20 mg/dL [facility] [Mass/Vol] [facility] (87826) Urea NOT APPLICABLE (no code) [facility] nitrogen/Creatin [facility] [Mass ratio] [facility] (22745) cardiac on 2018-05-14 Cholesterol 183 mg/dL (N) 180 - 200 mg/dL [facility] [Mass/Vol] [facility] (87310) Cholesterol in 47 mg/dL (N) [facility] [Mass[facility]] [facility] (74644) Triglyceride 174 mg/dL (H) 0 - 150 mg/dL [facility] [Mass/Vol] [facility] (32509) thyroid on 2016-04-22 TSH Qn 1.520 (no code) 04-22-2016 Not Available 09:370500 (69131) other on 2016-04-22 Albumin/Globulin 1.4 {ratio} (no code) 1 - 2.5 {ratio} 7 Not Available [Mass ratio] 09:0500 (52150) Cholesterol in 30 mg/dL (no code) 04-22-2016 Not Availab le VLDL [Mass/Vol] 09:0 (27648) Globulin (S) 2.9 g/dL (no code) 2 - 3.5 g/dL 04-22-2016 Not Av ailable [Mass/Vol] 09:0500 (18986) metabolic panel on 2016-04-22 Albumin 4.1 g/dL (no code) 3.4 - 5.4 g/dL 04-22-2016 Not Addie ilable [Mass/Vol] 09:0500 (76578) ALP [Catalytic 104 U/L (no code) 44 - 147 U/L 04-22-2016 Not Available activity/Vol] 09:090 (79735) ALT [Catalytic 15 U/L (no code) 4 - 40 U/L 04-22-2016 Not Av ailable activity/Vol] 09: (95578) AST [Catalytic 14 U/L (no code) 10 - 34 U/L 04-22-2016 Not A vailable activity/Vol] 09: (51594) Bilirubin 0.6 mg/dL (no code) 0.1 - 1.2 mg/dL 04-22-2016 Not Av ailable [Mass/Vol] 09: (33079) Calcium 9.2 mg/dL (no code) 8.5 - 10.2 mg/dL 04-22-2016 Not A vailable [Mass/Vol] 09: (03006) Chloride 97 mmol/L (no code) 95 - 106 mmol/L 04-22-2016 Not Av ailable [Moles/Vol] : (04210) CO2 [Moles/Vol] 26 mmol/L (no code) 23 - 29 mmol/L 04-22-2016 N ot Available : (48348) Creatinine 0.90 mg/dL (no code) 04-22-2016 Not Available [Mass/Vol] 09: (33286) GFR/1.73 sq M 116 (no code) 90 - 120 04-22-2016 Not Avai lable predicted among mL/min/{1.73_m2} mL/min/{1.73_m2} 09: (05835) blacks MDRD (S/P/Bld) [Vol rate/Area] GFR/1.73 sq M 101 (no code) 90 - 120 04-22-2016 Not Avai lable predicted among mL/min/{1.73_m2} mL/min/{1.73_m2} 09: (31668) non-blacks MDRD (S/P/Bld) [Vol rate/Area] Glucose 86 mg/dL (no code) 60 - 125 mg/dL 04-22-2016 Not Addie ilable [Mass/Vol] 09: (47089) Potassium 4.9 mmol/L (no code) 3.7 - 5.2 mmol/L 04-22-2016 Not Available [Moles/Vol] 09:09-0500 (79246) Protein 7.0 g/dL (no code) 6.4 - 8.3 g/dL 04-22-2016 Not Addie ilable [Mass/Vol] 09:0 (09518) Sodium 137 mmol/L (no code) 135 - 145 mmol/L 04-22-2016 Not Available [Moles/Vol] 09:0 (89213) Urea nitrogen 10 mg/dL (no code) 7 - 20 mg/dL 04-22-2016 Not A vailable [Mass/Vol] 09:050 (76388) Urea 11 mg/mg (no code) 6 - 22 mg/mg 04-22-2016 Not Avail able nitrogen/Creatin 09: (24652) ine [Mass ratio] cardiac on 2016-04-22 Cholesterol 185 mg/dL (no code) 180 - 200 mg/dL 04-22-2016 Not Available [Mass/Vol] 09:0 (71555) Cholesterol in 49 mg/dL (no code) 04-22-2016 Not Availab le HDL [Mass/Vol] 09:0500 (92846) Cholesterol in 106 mg/dL (H) 0 - 100 mg/dL 04-22-2016 Not Available LDL [Mass/Vol] 09:0500 (14562) Triglyceride 152 mg/dL (H) 0 - 150 mg/dL 04-22-2016 Not A vailable [Mass/Vol] 09:0500 (76279) Vital Signs The data below is from unstructured sources Vital Response Date/Time Temperature (Fahrenheit) 98.1 degree s F (97.6 - 99.5) 01/09/2016 10:07pm Temperature (Calculated Celsius) 36. 15930 degrees C (36.4 - 37.5) 01/09/2016 10:07pm [...] inches 01/09/2016 10:07pm Height (Calculated Centimeters) 180. 279183 cm 01/09/2016 10:07pm Weight (Pounds) 298 pounds 01/09/2016 10:07pm Weight (Calculated Kilograms) 135.17 0528 kilograms 01/09/2016 10:07pm Capillary Refill Capillary Refill Less Than 3 Seconds 01/09/2016 10:07pm Height 5 ft 11 in Weight 298 lb Body Mass Index 41.6 kg/m^2 Vital Response Date/Time Temperature (Fahrenheit) 97.9 degree s F (97.6 - 99.5) 05/26/2015 10:55pm Temperature (Calculated Celsius) 36. 69764 degrees C (36.4 - 37.5) 05/26/2015 10:55pm [...] inches 05/26/2015 10:55pm Height (Calculated Centimeters) 182. 774594 cm 05/26/2015 10:55pm Weight (Pounds) 310 pounds [...] 0 cm 03/03/2015 5:10pm Weight (Calculated Grams) 158160.000 gm 03/03/2015 5:10pm Weight (Kilograms) 145 kg 03/03/2015 5:10pm Calculated BMI 0.00 02/20 5:10pm Vital Response Date/Time Temperature (Fahrenheit) 98.6 degree s F (97.6 - 99.5) 07/26/2015 5:35pm Temperature (Calculated Celsius) 37. 45984 degrees C (36.4 - 37.5) 07/26/2015 5:35pm [...] inches 07/26/2015 5:35pm Height (Calculated Centimeters) 180. 123212 cm 07/26/2015 5:35pm Weight (Pounds) 290 pounds 07/26/2015 5:35pm Weight (Calculated Kilograms) 131.54 1789 kilograms 07/26/2015 5:35pm Height 5 ft 11 in Weight 290 lb Body Mass Index 40.4 kg/m^2 Vital Response Date/Time Temperature (Fahrenheit) 96.3 degree s F (97.6 - 99.5) 11/27/2014 8:06am Temperature (Calculated Celsius) 35. 94698 degrees C (36.4 - 37.5) 11/27/2014 8:06am Temperature Source Temporal 11/27/2014 8:06am Pulse Rate (adult) 82 bpm (60 - 90) 11/27/2014 8:06am Blood Pressure 173/106 mm Hg 11/27/2014 8:06am Blood Pressure Mean 128 mm Hg 11/27/2014 8:06am Pain Pain Intensity 9 2014 8:06am Height (Feet) 6 feet 09/2014 8:06am Height (Inches) 0 inches 11/27/2014 8:06am Height (Calculated Centimeters) 182. 988915 cm 11/27/2014 8:06am Weight (Pounds) 305 pounds 11/27/2014 8:06am Weight (Calculated Kilograms) 138.34 5674 kilograms 11/27/2014 8:06am Calculated BMI 41.36 09/2014 8:06am Vital Response Date/Time Temperature (Fahrenheit) 98.4 degree s F (97.6 - 99.5) Temperature (Calculated Celsius) 36. 90173 degrees C (36.4 - 37.5) Pulse Rate (adult) 95 bpm (60 - 90) Respiratory Rate 16 bpm (12 - 24) O2 Sat by Pulse Oximetry 99 % (88 - 100) Blood Pressure 157/107 mm Hg Pain Pain Intensity 6 Height (Feet) 6 feet Height (Inches) 0 inches Height (Calculated Centimeters) 182. 855111 cm Weight (Pounds) 308 pounds Weight (Calculated Kilograms) 139.70 6451 kilograms Calculated BMI 41.77 Vital Response Date/Time Temperature (Fahrenheit) 97.8 degree s F (97.6 - 99.5) 10/18/2014 12:41am Temperature (Calculated Celsius) 36. 03148 degrees C (36.4 - 37.5) 10/18/2014 12:41am [...] 6 feet 12:41am Height (Calculated Centimeters) 182. 697524 cm 10/18/2014 12:41am Weight (Pounds) 306 pounds 10/18/2014 12:41am Weight (Calculated Kilograms) 138.79 9267 kilograms 10/18/2014 12:41am Vital Response Date/Time Temperature (Fahrenheit) 97.6 degree s F (97.6 - 99.5) Temperature (Calculated Celsius) 36. 75466 degrees C (36.4 - 37.5) Temperature Source Temporal Pulse Rate (adult) 95 bpm (60 - 90) Respiratory Rate 20 bpm (12 - 24) O2 Sat by Pulse Oximetry 98 % (88 - 100) Blood Pressure 182/123 mm Hg Pain Pain Intensity 0 Height (Feet) 5 feet Height (Inches) 11 inches Height (Calculated Centimeters) 180. 103811 cm Weight (Pounds) 300 pounds Weight (Calculated Grams) 832373.865 gm Weight (Calculated Kilograms) 136.07 7712 kilograms Calculated BMI 41.84 Vital Response Date/Time Temperature (Fahrenheit) 97.8 degree s F (97.6 - 99.5) 10/18/2014 12:41am Temperature (Calculated Celsius) 36. 99638 degrees C (36.4 - 37.5) 10/18/2014 12:41am [...] 6 feet 12:41am Height (Calculated Centimeters) 182. 660369 cm 10/18/2014 12:41am Weight (Pounds) 306 pounds 10/18/2014 12:41am Weight (Calculated Kilograms) 138.79 9267 kilograms 10/18/2014 12:41am Height 6 ft 0 in Weight 306 lb Body Mass Index 41.5 kg/m^2 Vital Response Date/Time Temperature (Fahrenheit) 99.5 degree s F (97.6 - 99.5) 03/11/2017 5:50pm Temperature (Calculated Celsius) 37. 96736 degrees C (36.4 - 37.5) 03/11/2017 5:50pm [...] inches 03/11/2017 5:50pm Height (Calculated Centimeters) 210. 788832 cm 03/11/2017 5:50pm Height Method Stated 5:50pm Weight (Pounds) 304 pounds 03/11/2017 5:50pm Weight (Calculated Grams) 079857.082 gm 03/11/2017 5:50pm Weight (Calculated Kilograms) 137.89 2082 kilograms 03/11/2017 5:50pm Calculated BMI 0.00 02/21 5:50pm Weight Method Stated 5:50pm Capillary Refill Capillary Refill Less Than 3 Seconds 03/11/2017 5:50pm Vital Response Date/Time Temperature (Fahrenheit) 98.2 degree s F (97.6 - 99.5) 09/17/2017 3:42pm Temperature (Calculated Celsius) 36. 05479 degrees C (36.4 - 37.5) 09/17/2017 3:42pm [...] inches 09/17/2017 3:42pm Height (Calculated Centimeters) 182. 343927 cm 09/17/2017 3:42pm Height Method Stated 3:42pm Weight (Pounds) 296 pounds 09/17/2017 3:42pm Weight (Ounces) 0 oz 3:42pm Weight (Calculated Grams) 883711.34 gm 09/17/2017 3:42pm Weight (Calculated Kilograms) 134.26 3343 kilograms 09/17/2017 3:42pm Weight Method Stated 3:42pm Capillary Refill Capillary Refill Less Than 3 Seconds 09/17/2017 3:42pm Height 6 ft 0 in 018 3:42pm Weight 296 lb 09/17/2017 3:42pm Body Mass Index 40.1 kg/m^2 09/17/2017 3:42pm Vital Response Date/Time Temperature (Fahrenheit) 97.1 degree s F (97.6 - 99.5) 02/02/2018 10:15pm Temperature (Calculated Celsius) 36. 26602 degrees C (36.4 - 37.5) 02/02/2018 10:15pm [...] inches 02/02/2018 9:45pm Height (Calculated Centimeters) 182. 578365 cm 02/02/2018 9:45pm Height Method Stated 9:45pm Weight (Pounds) 290 pounds 02/02/2018 9:45pm Weight (Ounces) 0 oz 9:45pm Weight (Calculated Grams) 966823.79 gm 02/02/2018 9:45pm Weight (Calculated Kilograms) 131.54 1789 kilograms 02/02/2018 9:45pm Calculated BMI 0.00 01/20 9:45pm Weight Method Stated 9:45pm Capillary Refill Capillary Refill Less Than 3 Seconds 02/02/2018 9:45pm Vital Response Date/Time Temperature (Fahrenheit) 97.0 degree s F (97.6 - 99.5) 05/16/2018 9:46pm Temperature (Calculated Celsius) 36. 32394 degrees C (36.4 - 37.5) 05/16/2018 9:46pm [...] inches 05/16/2018 9:46pm Height (Calculated Centimeters) 182. 693316 cm 05/16/2018 9:46pm Height Method Stated 9:46pm Weight (Pounds) 308 pounds 05/16/2018 9:46pm Weight (Calculated Grams) 458724.45 gm 05/16/2018 9:46pm Weight (Calculated Kilograms) 139.70 6451 kilograms 05/16/2018 9:46pm Weight Method Stated 9:46pm Capillary Refill Capillary Refill Less Than 3 Seconds 05/16/2018 9:46pm Height 6 ft 0 in 019 9:46pm Weight 308 lb 05/16/2018 9:46pm Body Mass Index 41.8 kg/m^2 05/16/2018 9:46pm Vital Response Date/Time Temperature (Fahrenheit) 97.0 degree s F (97.6 - 99.5) 05/16/2018 10:19pm Temperature (Calculated Celsius) 36. 72940 degrees C (36.4 - 37.5) 05/16/2018 10:19pm [...] inches 05/16/2018 9:46pm Height (Calculated Centimeters) 182. 641272 cm 05/16/2018 9:46pm Height Method Stated 9:46pm Weight (Pounds) 308 pounds 05/16/2018 9:46pm Weight (Calculated Grams) 780509.45 gm 05/16/2018 9:46pm Weight (Calculated Kilograms) 139.70 6451 kilograms 05/16/2018 9:46pm Weight Method Stated 9:46pm Capillary Refill Capillary Refill Less Than 3 Seconds 05/16/2018 9:46pm Vital Response Date/Time Temperature (Fahrenheit) 97.7 degree s F (97.6 - 99.5) 07/04/2018 10:22pm Temperature (Calculated Celsius) 36. 83009 degrees C (36.4 - 37.5) 07/04/2018 10:22pm [...] inches 07/04/2018 9:15pm Height (Calculated Centimeters) 182. 823511 cm 07/04/2018 9:15pm Height Method Stated 9:15pm Weight (Pounds) 308 pounds 07/04/2018 9:15pm Weight (Calculated Grams) 075688.45 gm 07/04/2018 9:15pm Weight (Calculated Kilograms) 139.70 6451 kilograms 07/04/2018 9:15pm Weight Method Stated 9:15pm Capillary Refill Capillary Refill Less Than 3 Seconds 07/04/2018 9:15pm Height 6 ft 0 in 019 9:15pm Weight 308 lb 07/04/2018 9:15pm Body Mass Index 41.8 kg/m^2 07/04/2018 9:15pm Vital Response Date/Time Temperature (Fahrenheit) 97.7 degree s F (97.6 - 99.5) 07/04/2018 10:22pm Temperature (Calculated Celsius) 36. 37801 degrees C (36.4 - 37.5) 07/04/2018 10:22pm [...] inches 07/04/2018 9:15pm Height (Calculated Centimeters) 182. 648083 cm 07/04/2018 9:15pm Height Method Stated 9:15pm Weight (Pounds) 308 pounds 07/04/2018 9:15pm Weight (Calculated Grams) 426469.45 gm 07/04/2018 9:15pm Weight (Calculated Kilograms) 139.70 6451 kilograms 07/04/2018 9:15pm Weight Method Stated 9:15pm Capillary Refill Capillary Refill Less Than 3 Seconds 07/04/2018 9:15pm Interventions No Information Plan of Treatment The data below is from unstructured sources Discharge Date 01/09/16 11:08pm Disposition 07 AGAINST MEDICAL ADVIC E Condition at Discharge Improved Prescriptions See Medication Section Referrals [facility] Physician Discharge Date 05/27/15 12:38am Disposition 01 HOME, SELF-CARE Condition at Discharge Improved Instructions/Education Provided Acut e Gouty Arthritis (DC) Prescriptions See Medication Section Referrals THIAGO DRISCOLL [facility] Physician Additional Instructions/Education 1. Take the third colchicine tablet 1 hour from her first 2 2. Return to ER for any worsening or oth er concerns 3. Follow-up with your doctor next week All discharge instructions reviewed with patient and/or family. Voiced understanding. Discharge Date 03/03/15 5:34pm Disposition 01 HOME, SELF-CARE Condition at Discharge Stable Instructions/Education Provided Malcolm al Caries (ED) Prescriptions See Medication Section Referrals THIAGO DRISCOLL [facility] Physician Additional Instructions/Education Al l discharge instructions reviewed with patient and/or family. Voiced understanding. NEED TO GET IN WITH A DENTIST ISAÍAS FOR FURTHER EVALUATION AND TREATMENT. Discharge Date 07/26/15 6:04pm Disposition 01 HOME, SELF-CARE Condition at Discharge Against Medic al Advice Prescriptions See Medication Section Referrals [facility] Physician Discharge Date 11/27/14 9:20am Disposition 01 HOME, SELF-CARE Condition at Discharge Stable Instructions/Education Provided Acut e Gouty Arthritis (ED) Prescriptions See Medication Section Referrals THIAGO DRISCOLL [facility] Physician Additional Instructions/Education Al l discharge instructions [...] Prescriptions See Medication Section Referrals THIAGO DRISCOLL [facility] Physician Additional Instructions/Education Al l discharge instructions [...] in Adults Prescriptions See Medication Section Referrals [facility]/ [facility] Order Date: Primary Care Physician Address: [address] [address] Additional Instructions/Education 1. Inhaler 2 [...] Release Form Prescriptions See Medication Section Referrals [facility] Order Date: Primary Care Physician Address: [address] [address] Additional Instructions/Education 1. Follow-up with your doctor later this week 2. Return to ER for any concerns 3.All discharge instructions reviewed wi th patient and/or family. Voiced understanding. Discharge Date 02/02/18 10:15pm Disposition 01 HOME, SELF-CARE Condition at Discharge Improved Instructions/Education Provided Gout (DC) Prescriptions See Medication Section Referrals [facility]/ K Order Date: Primary Care Physician Address: [address] [id number] Additional Instructions/Education Al l discharge instructions reviewed with patient and/or family. Voiced understanding. Medications as instructed. Tylenol Extra Strength [id number] as directed for pain. Ice pack or [...] Gout (DC) Prescriptions See Medication Section Referrals [facility]/ K Order Date: Primary Care Physician Address: [address] [id number] Additional Instructions/Education Ta ke medications as directed. [...] Gout (DC) Prescriptions See Medication Section Referrals [facility]/ [facility] Order Date: Primary Care Physician Address: [address] [address] Additional Instructions/Education Yo u may [...] Pain (DC) Prescriptions See Medication Section Referrals [facility]/ K Order Date: Primary Care Physician Address: [address] [address] Additional Instructions/Education Yo u may use ibuprofen and Tylenol as directed by the bottle for pain relief. Call [facility] tomorrow morning to schedule an appointment for [...] Purine Diet Prescriptions See Medication Section Referrals [facility] Order Date: Primary Care Physician Address: [address] [address] Additional Instructions/Education [place] [facility] EPSOM SALTS SOAKS [...] Chronic Health Essential (primary) ADIN FLORES (no [facility] - Maintenance hypertension phone) (no phone) 06-08-2018 - 06-08-2018 07-20-2019 Emergency department no information Renée Lee MD (no [facility] - patient visit phone) Renée Herrera MD, MD (no ramakrishna ne) 07-20-2019 (no phone) Renée Lee MD (no phone) Renée Lee MD (no phone) Renée Herrera MD, MD (no phone) Renée Lee MD (no phone) Renée Lee MD (no phone) 07-15-2019 Emergency department no information Moses Whitney (no [facility] - patient visit phone) (no phone) 07-15-2019 07-14-2019 Emergency department no information Darlene loyola MD [facility] - patient visit (no phone) Darlene Potter (no phone ) 07-14-2019 MD LEVI (no phone) Darlene Wolf MD (no phone) 07-13-2019 Emergency department no information Kojo Oro (no [facility] - patient visit phone) (no phone) 07-14-2019 06-25-2019 Emergency department no information Darlene loyola MD [facility] - patient visit (no phone) (no phone) [...] no information Renée Herrera MD, MD (no [facility] patient visit phone) (no phone) 11-05-2017 Patient [...] Patient encounter no information Darlene Wolf MD [facility] procedure (no phone) (no phone) 01-29-2019 Patient [...] encounter no information Moses Price MD (no [facility] procedure phone) (no phone) 01-22-2019 Telephone encounter no information ADIN CHANG (n o [facility] phone) (no phone) 12-17-2018 Telephone encounter no information ADIN CHANG (n o [facility] phone) (no phone) 06-15-2018 Telephone encounter no information ADIN CHANG (n o [facility] - phone) (no phone) 06-15-2018 - 06-15-2018 Medical Equipment No Information Payers Normalized Payer Value Blue Cross Blue [facility] [id number] ([id number]) Medicaid [id number] Clinical Notes 2019-06-25 to 2019-07-20 Note Type Note Facility Note ~[facility] EMERGENCY [facility] ([facility] ) ~DISCHARGE INSTRUCTIONS (ED) ~REPORT #: [id number] Sanders REPORT STATUS: Draft ~DATE: 07/20/19 TI ME: 0653~ ~PATIENT: JESSICA BARKER Medical UNIT #: [id number]~ 156 ROOM/BED: ~: 69 AGE: 54 SEX: Center M ATTEND: Renée Lee MD ~ADM DT: A UTHOR: Renée Lee MD ~ ~* ALL edits (48880) or amendments must be made on the elect ronic/computer document *~ ~Current patient of record information for this document is:~JESSICA BARKER~PatID: [id number] Age: 54~ : 1965~ ~Report including patient information as it appeared at t he time this document ~was generated and provided to the patient is as follows below.~ ----~ ~JESSICA BARKER~PatID: [id number] Age: 54~ : 1965~Printed: 07/20/2019 6:53 AM~ By: Renée Lee~ ~General Emergency Department Discharge Instructions~ ~The exam and treatment you received in the Emergency Department were for an~urgent problem and are not intended as complete care. It is important that you~follow u p with a doctor, nurse practitioner, or physician special education assistant for ongoing~care. I f your symptoms become worse or you do not improve as expected and you~are lavern ble to reach your usual health care provider, you should return to the~[facility] Department. We are available 24 hours [...] avoid strenuous act ivity. You may take tvjo-qqa-rwiecli pain~relievers such as acetaminophen or Tylenol as needed for pain.~ ~ ~PATIENT'S NAME: JESSICA BARKER CCOUNT NO: [id number]~ ~ ~ ~The Following Instructions Were Selected [...] It is~VERY IMPORTANT that you see your [facility] doctor and return for re-evaluation or~seek [...] Information:~ ~PATIENT'S NAME: JESSICA BARKER ACCOUNT NO: [id number]~ ~ ~ ~ ~ * There are [...] results may take 2-3 days. We review [facility] culture results and will~ attempt to [...] you use~tobacco, please contact the QuitLine at [phone] ([phone]) or~[email or web address] to assist in your efforts to stop [...] work, please call our 12/09 assessment line at~[phone]) to speak with an Plastic Extrusion Operator. ~For deaf and hearing impaired, call [phone]- [phone].~For mental health and/or substance use disorders you can call e Substance~Abuse and Mental Health Services ([facility]) ~[facility] TTY for hearing impaired call ~ ~ ~PATIENT'S NAME: JESSICA CARVAJAL ACCOUNT NO: [id number]~ ~ ~ ~During ER visits man y [...] will arrange for follow-up~care. ~ ~ 9~JANN ENT/HUNTING SALES LEADER SIGNATURE~ ~ _~ ~ STAFF SIGNATURE~ ~ ~ ~ ~ ~ ~ ~ ~ ~ ~ ~ ~ ~ ~ ~ ~ ~ ~ ~ ~ ~ ~ ~ ~ ~ ~ ~ ~ ~ ~ ~ ~ ~ ~ ~ ~ ~PATIENT'S NAME: JESSICA BARKER ACCOUNT NO: [id number] Note ~ [facility]~ [address]~ [place], [place] [address]~ ~ ~PATIENT'S Sanders NAME: JESSICA BARKER UNIT NO: [id number]~: 0 67 AGE: 54 SEX: M Medical ACCOUNT NO: [id number]~ATTENDING PHYS: Dr. ANDREWS PT STATUS: REG ER ~REPORT Center NAME: EKG REPORT ROOM NO: ~REPORT STATU S: Signed ~ ~DATE OF ADMISSION: 07/20/19~ ([id number]) ~ ~Test Reason : ANXIETY~Blood Pressure : / mmHG~Vent. Rate : 089 BPM Atrial Rate : 089 BPM~ P-R Int : 166 ms QRS Dur : 082 ms~ QT Int : 330 ms P-R-T Axes : 060 011 066 degrees~ QTc Int : 4 01 ms~ ~Confirmed by INTERPRETATION, ED PHYSICIAN ([id number]), dictionary editor MARLENE PICKETT ([id number] ) on~07/20/2019 6:26:47 AM~ ~Referred By: SELF REFERRED Confirmed By:ED PHYSIC~ I NTERPRETATION~ ~ ~ ~ ~ ~ ~ ~ ~PATIENT'S NAME: JESSICA BRAKER ACCOUNT NO: [id number] Note [facility] ([facility]) ED [place]~E MERGENCY PROVIDER Sanders REPORT~REPORT#:[id number] REPORT STATUS: Draft~DATE: TIME: 621~ Medical ~PATIENT: JESSICA BARKER UNIT #: [id number]~ACC OUNT#: [id number] Center ROOM/BED: [place] [address]~: 67 AGE : 54 SEX: PCP PHYS: No Primary or Family (98508) Physician~ADM DATE: 07/20/19 INI AUTH: Renée Lee [...] sleep apnea presents to the emergency d [facility] with a chief ~complaint of shortness of [...] entry have been review ed.~ ~RPT #: [id number]~END OF REPORT~ Note [facility] ([facility]) ED [place]~E MERGENCY PROVIDER Sanders REPORT~REPORT#:[id number] REPORT STATUS: Draft~DATE: TIME: 621~ Medical ~PATIENT: JESSICA BARKER UNIT #: [id number]~ACC OUNT#: [id number] Center ROOM/BED: [place] [address]~: 67 AGE : 54 SEX: PCP PHYS: No Primary or Family (73891) Physician~ADM DATE: 07/20/19 INI AUTH: Renée Lee [...] sleep apnea presents to the emergency d [facility] with a chief ~complaint of shortness of [...] entry have been review ed.~ ~RPT #: [id number]~END OF REPORT~ Note [facility] ([facility] ED [place]~E MERGENCY PROVIDER Sanders REPORT~REPORT#:[id number] REPORT STATUS: Draft~DATE: TIME: 621~ Medical ~PATIENT: JESSICA BARKER UNIT #: [id number]~ACC OUNT#: [id number] Center ROOM/BED: [place] [address]~: 67 AGE : 54 SEX: PCP PHYS: No Primary or Family (47405) Physician~ADM DATE: 07/20/19 INI AUTH: Renée Lee [...] sleep apnea presents to the emergency d [facility] with a chief ~complaint of shortness of [...] and provide a ~final disposition.~ ~RPT #: [id number]~END OF REPORT~ Note [facility] ([facility]) ED [place]~E MERGENCY PROVIDER Lanre REPORT~REPORT#:[id number] REPORT STATUS: FSign~DATE: TIME: 621~ Medical ~PATIENT: JESSICA BARKER UNIT #: [id number]~ACC OUNT#: [id number] Center ROOM/BED: [facility]~: 67 AGE: 54 SEX: PCP PHYS: No Primary or Family (44574) Physician~ADM DATE: 07/20/19 INI AUTH: Reéne Lee MD~ED ADMIT LAST SIG: Renée Lee [...] [facility] a chief ~complaint of shortness [...] -dimer negative.~ ~0700: Patient signed out to [facility] shift. Repeat troponin due at 8 AM. [...] corrected the~resident physician's interpretation.~ ~Impression By: EMILY GARÍCA MD~ ~ ~ ~Med Data~Med Data~Medication(s) Ordered:~Pharmaceuti [...] patient's care has been transferred to the [facility] physician. We discussed~: the patient's chief complaint; [...] ~final disposition.~ ~ ~ at 1829~RPT #: [id number]~END OF REPO RT~ Note [facility] ([facility]) ED [place]~E MERGENCY PROVIDER [facility] REPORT~REPORT#:[id number] REPORT STATUS: Draft~DATE: TIME: 621~ Medical ~PATIENT: JESSICA BARKER UNIT #: [id number]~ACC OUNT#: [id number] Center ROOM/BED: [facility]~: 69 AGE: 54 SEX: PCP PHYS: No Primary or Family (92487) Physician~ADM DATE: 07/20/19 IN AUTH: Renée Lee [...] [facility] a chief ~complaint of shortness [...] patient's care has been transferred to the [facility] physician. We discussed~: the patient's chief complaint; [...] and provide a ~final disposition.~ ~RPT #: [id number]~ END OF REPORT~ Note ~[facility] EMERGENCY [facility]PARTMENT ([facility] ) ~DISCHARGE INSTRUCTIONS (ED) ~REPORT #: [id number] Sanders REPORT STATUS: Draft ~DATE: 07/16/19 TI ME: 0036~ ~PATIENT: JESSICA BARKER Medical UNIT #: [id number]~ 593 ROOM/BED: ~: 67 AGE: 54 SEX: Center M ATTEND: Moses Price MD ~ADM DT: AUT HOR: Moses Price MD ~ ~* ALL edits or (11181) amendments must be made on the electron ic/computer document *~ ~Current patient of record information for this document is:~JESSICA BARKER~PatID: [id number] Age: 54~ : 1965~ ~Report including patient information as it appeared at t he time this document ~was generated and provided to the patient is as follows below.~ ----~ ~JESSICA ELAMPatID: [id number] Age: 54~ : 1965~Printed: 07/16/2019 12:36 AM ~By: Moses Price~ ~General Emergency Department Discharge Instructions~ ~The exam and treatment you received in the Emergency Department were for an~urgent problem and are not intended as complete care. It is important that you~follow u p with a doctor, nurse practitioner, or physician special education assistant for ongoing~care. I f your symptoms become worse or you do not improve as expected and you~are lavern ble to reach your usual health care provider, you should return to the~[facility] Department. We are available 24 hours [...] chest~ ~PATIENT'S NAME: JESSICA BARKER CCOUNT NO: [id number]~ ~ ~ ~pain or shortness of breath. [...] a fire station to see~ whether a washtub worker will take your blood pressure. Another option [...] directed.~ ~PATIENT'S NAME: JESSICA BARKER ACCOUNT NO: [id number]~ ~ ~ ~ ~You Were Given The [...] It is critical that we have a [facility] phone number for you.~ ~ * If [...] your doctor or the Emergency Department.~ ~[facility] Instructions:~ ~The care you received in [...] you use~tobacco, please contact the QuitLine at [phone] ([phone]) or~[email or web address] PressquPeople to [email or web address] to assist in your efforts to stop [...] at~ ~PATIENT'S NAME: JESSICA PERRY ACCOUNT NO: [id number]~ ~ ~ ~[phone]) to speak with an Plastic Extrusion Operator. ~For deaf and hearing impaired, call [phone]- [phone].~For mental health and/or substance use disorders you can call [facility] Substance~Abuse and Mental Health Services ([facility]) ~[facility] TTY for hearing impaired call ~ ~During [...] will arrange for follow-up~care. ~ ~ 9~JANN ENT/HUNTING SALES LEADER SIGNATURE~ ~ _~ ~ STAFF SIGNATURE~ ~ ~ ~ ~ ~ ~ ~ ~ ~ ~ ~ ~ ~ ~ ~ ~ ~ ~ ~ ~ ~ ~ ~ ~ ~ ~ ~ ~ ~ ~ ~PA TONY'S NAME: JESSICA BARKER ACCOUNT NO: [id number] Note [facility] ([facility]) [facility]~E MERGENCY PROVIDER Sanders REPORT~REPORT#:[id number] REPORT STATUS: Draft~DATE: TIME: 14~ Medical ~PATIENT: JESSICA BARKER UNIT #: [id number]~ACC OUNT#: [id number] Center ROOM/BED: [place] [address]~: 67 AGE : 54 SEX: PCP PHYS: No Primary or Family (63698) Physician~ADM DATE: IN AUTH: Clementina Price MD~ED [...] or Family Gilda thayer (PCP)~ ~RPT #: [id number]~END OF REPORT~ Note [facility] ([facility]) ED [place]~E MERGENCY PROVIDER Lanre REPORT~REPORT#:[id number] REPORT STATUS: Draft~DATE: TIME: 14~ Medical ~PATIENT: JESSICA BARKER UNIT #: [id number]~ACC OUNT#: [id number] Center ROOM/BED: [place] [address]~: 67 AGE : 54 SEX: PCP PHYS: No Primary or Family (04812) Physician~ADM DATE: 07/16/19 INI AUTH: Moses Price [...] or Family Gilda thayer (PCP)~ ~RPT #: [id number]~END OF REPORT~ Note [facility] ([facility]) [facility]~E MERGENCY PROVIDER Lanre REPORT~REPORT#:[id number] REPORT STATUS: Draft~DATE: TIME: 14~ Medical ~PATIENT: JESSICA BARKER UNIT #: [id number]~ACC OUNT#: [id number] Center ROOM/BED: [place] [address]~: 67 AGE : 54 SEX: PCP PHYS: No Primary or Family (04665) Physician~ADM DATE: 07/16/19 INI AUTH: Moses Prcie [...] Primary or Family Physician (PCP)~ ~RPT #: [id number]~E ND OF REPORT~ Note [facility] ([facility]) [facility]~E MERGENCY PROVIDER Sanders REPORT~REPORT#:[id number] REPORT STATUS: Draft~DATE: TIME: 0015~ Medical ~PATIENT: JESSICA BARKER UNIT #: [id number]~ACC OUNT#: [id number] Center ROOM/BED: [place] [address]~: 67 AGE : 54 SEX: PCP PHYS: No Primary or Family (50994) Physician~ADM DATE: 07/16/19 INI AUTH: Moses Price [...] ry or Family Physician (PCP)~ ~RPT #: [id number]~END OF REPORT~ Note [facility] ([facility]) ED [place]ST~E MERGENCY PROVIDER Lanre REPORT~REPORT#:[id number] REPORT STATUS: FSign~DATE: TIME: 14~ Medical ~PATIENT: JESSICA BARKER UNIT #: [id number]~ACC OUNT#: [id number] Center ROOM/BED: [facility]~: 67 AGE: 54 SEX: PCP PHYS: No Primary or Family (12286) Physician~ADM DATE: 07/16/19 INI AUTH: Moses Price [...] Price MD on 07/16/19 at 0145~RPT #: [id number]~ *END OF REPORT~ Note [facility] ([facility]) [facility]~E MERGENCY PROVIDER Sanders REPORT~REPORT#:[id number] REPORT STATUS: Draft~DATE: TIME: 0015~ Medical ~PATIENT: JESSICA BARKER UNIT #: [id number]~ACC OUNT#: [id number] Center ROOM/BED: [facility]~: 67 AGE: 54 SEX: PCP PHYS: No Primary or Family (32798) Physician~ADM DATE: 07/16/19 INI AUTH: Moses Price [...] Primary or Family Physician (PCP)~ ~RPT #: [id number]~END OF REPORT~ Note ~ [facility]~ [address]~ [place], [place] [address]~ ~ ~PATIENT'S Sanders NAME: JESSICA BARKER UNIT NO: [id number]~: 0 67 AGE: 54 SEX: M Medical ACCOUNT NO: [id number]~ATTENDING PHYS: Dr. IRISH Bradford STATUS: DEP ER ~REPORT Center NAME: EKG REPORT ROOM NO: ~REPORT STATU S: Signed ~ ~DATE OF ADMISSION: 07/14/19~ (53427) ~ ~Test Reason : HTN~Blood Pressure : * / mmHG~Vent. Rate : 091 BPM Atrial Rate : 091 BPM~ P-R Int : 176 ms QRS Du r : 078 ms~ QT Int : 330 ms P-R-T Axes : 038 016 062 degrees~ QTc Int : 405 ms~ ~Confirmed by INTERPRETATION, ED PHYSICIAN ([id number]), dictionary editor ALYSHA SOTO ([id number]) on~07/15/2019 9:24:34 AM~ ~Referred By: SELF Confirmed By:ED PHYSIC~ INTERP RETATION~ ~ ~ ~ ~ ~ ~ ~ ~PATIENT'S NAME: JESSICA BARKER ACCOUNT NO: [id number] Note ~[facility] EMERGENCY [facility]PARTMENT ([facility] ) ~DISCHARGE INSTRUCTIONS (ED) ~REPORT #: [id number] Sanders REPORT STATUS: Draft ~DATE: 07/15/19 TI ME: 0024~ ~PATIENT: JESSICA BARKER Medical UNIT #: [id number]~ 250 ROOM/BED: ~: 67 AGE: 54 SEX: Center M ATTEND: Darlene Wolf MD ~ADM DT : AUTHOR: Darlene Wolf MD ~ ~* ALL (33603) edits or amendments must be made on the electronic/computer document *~ ~Current patient of record information for this document is:~JESSICA BARKER~PatID: [id number] Age: 54~ : 1965~ ~Report including patient information as it appeared at t he time this document ~was generated and provided to the patient is as follows below.~ ----~ ~JESSICA BARKER~PatID: [id number] Age: 54~ : 1965~Printed: 07/15/2019 12:24 AM [...] Wolf~ ~PATIENT'S NAME: JESSICA BARKER CCOUNT NO: [id number]~ ~ ~ ~Paper Prescription given to patient~ [...] doctor at the clinic you go to in~[place]. ~ ~Medication Instructi ons: Amlodipine (Norvasc) 2.5 mg Tablet~ ~Amlodipine (Norvasc) 2.5 mg Tablet~You have been given an antihypertensive medication.~ ~PATIENT'S NAME: GLORIA BARKER ACCOUNT NO: [id number]~ ~ ~ ~ * This medication is [...] ~ ~PATIENT'S NAME: JESSICA BARKER ACCOUNT NO: [id number]~ ~ ~ ~Preventative Health Instructions:~ ~The care [...] illnesses. If you use~tobacco, please contact the Lead[employer] at [phone] ( ) or~www.App [email or web address] to assist in your eff orts to [...] please call our 12/09 asse ssment line at~[phone] to speak with an Plastic Extrusion Operator. ~F or deaf and hearing impaired, call .~For mental health and/o r substance use disorders you can call the Substance~Abuse and Mental Health S ervices ([facility]) ~[facility] TTY for hearing impaired call [phone]~ ~During ER visits many patients receive sedation [...] will arrange for follow-up~care. ~ ~ 9~JANN ENT/HUNTING SALES LEADER SIGNATURE~ ~ _~ ~ STAFF SIGNATURE~ ~ ~PATIENT'S NAME: JESSICA BARKER ACCOUNT NO: [id number] Note [facility] ([facility]) ED [place]~E MERGENCY PROVIDER Sanders REPORT~REPORT#:[id number] REPORT STATUS: Draft~DATE: TIME: 2339~ Medical ~PATIENT: JESSICA BARKER UNIT #: [id number]~ACC OUNT#: [id number] Center ROOM/BED: [place] [address]~: 67 AGE : 54 SEX: PCP PHYS: No Primary or Family (27237) Physician~ADM DATE: 07/14/19 INI AUTH: Darlene Wolf [...] ~HPI:~[This jann ent was seen at the [facility] earlier today. His blood pressure ~was elevated [...] this entry have been reviewed.~ ~RPT #: [id number]~END OF REPORT~ Note [facility] ([facility]) ED [place]~E MERGENCY PROVIDER Sanders REPORT~REPORT#:[id number] REPORT STATUS: Draft~DATE: TIME: 2339~ Medical ~PATIENT: JESSICA BARKER UNIT #: [id number]~ACC OUNT#: [id number] Center ROOM/BED: [place] [address]~: 67 AGE : 54 SEX: PCP PHYS: No Primary or Family (45716) Physician~ADM DATE: 07/14/19 INI AUTH: Darlene Wolf [...] ~HPI:~ [This patient was seen at the [facility] earlier today. His blood press ure [...] elevation. 91 bpm QT interval is normal NH interval is ~normal.~ ~Patient Discharge Departu re~ [...] this entry have been reviewed.~ ~RPT #: [id number]~ END OF REPORT~ Note [facility] ([facility]) ED [place]~E MERGENCY PROVIDER Sanders REPORT~REPORT#:[id number] REPORT STATUS: Draft~DATE: TIME: 2339~ Medical ~PATIENT: JESSICA BARKER UNIT #: [id number]~ACC OUNT#: [id number] Center ROOM/BED: [place] [address]~: 67 AGE : 54 SEX: PCP PHYS: No Primary or Family (72240) Physician~ADM DATE: 07/14/19 INI AUTH: Darlene Wolf [...] ~HPI:~ [This patient was seen at the [facility] earlier today. His blood press ure [...] elevation. 91 bpm QT interval is normal NH interval is ~normal.~ ~Patient Discharge Departu re~ [...] this entry have been reviewed.~ ~RPT #: [id number]~EN D OF REPORT~ Note [facility] ([facility]) ED [place]~E MERGENCY PROVIDER Sanders REPORT~REPORT#:[id number] REPORT STATUS: Draft~DATE: TIME: 2339~ Medical ~PATIENT: JESSICA BARKER UNIT #: [id number]~ACC OUNT#: [id number] Center ROOM/BED: [place] [address]~: 67 AGE : 54 SEX: PCP PHYS: No Primary or Family (30891) Physician~ADM DATE: 07/14/19 INI AUTH: Dralene Wolf MD~ED ADMIT LAST SIG: Darlene Wolf~REP [...] ~HPI:~ [This patient was seen at the [facility] earlier today. His blood press ure [...] elevation. 91 bpm QT interval is normal NH interval is ~normal.~ ~Pat ient Discharge Departure~ [...] a call to 911. ~ ~RPT #: [id number]~END OF REPORT~ Note [facility] ([facility]) ED [place]ST~E MERGENCY PROVIDER Lanre REPORT~REPORT#:[id number] REPORT STATUS: FSign~DATE: TIME: 2339~ Medical ~PATIENT: JESSICA BARKER UNIT #: [id number]~ACC OUNT#: [id number] Center ROOM/BED: [facility]~: 67 AGE: 54 SEX: PCP PHYS: No Primary or Family (95525) Physician~ADM DATE: 07/14/19 INI AUTH: Darlene Wolf [...] ~HPI:~ [This patient was seen at the [facility] earlier today. His blood press ure [...] Smoker~ ~COURSE~ ~Data~Diagnostics~Laboratory Tests~ ~ ~ ~07/14/19 1607:~[Embedded Image Not Available]~Laboratory Tests:~ 07/13~ 23 47~ [...] elevation. 91 bpm QT interval is normal NH interval is ~normal.~ ~Pat ient Discharge Departure~ [...] ~ ~ ~ at 06 55~RPT #: [id number]~END OF REPORT~ Note ~[facility] EMERGENCY [facility] ([facility] ) ~DISCHARGE INSTRUCTIONS (ED) ~REPORT #: [id number] Sanders REPORT STATUS: Draft ~DATE: 07/14/19 TI ME: 0440~ ~PATIENT: JESSICA BARKER Medical UNIT #: [id number]~ 6 ROOM/BED: ~: 69 AGE: 54 SEX: Center M ATTEND: Kojo Sears DO ~ADM DT: AUT HOR: Kojo Sears DO ~ ~* ALL edits or (56229) amendments must be made on the electron ic/computer document *~ ~Current patient of record information for this document is:~JESSICA BARKER~PatID: [id number] Age: 54~ : 1965~ ~Report including patient information as it appeared at t he time this document ~was generated and provided to the patient is as follows below.~ ----~ ~JESSICA BARKER~PatID: [id number] Age: 54~ : 1965~Printed: 07/14/2019 4:40 AM~ By: Krish Fortune~ ~General Emergency Department Discharge Instructions~ ~The exam and treatment you received in the Emergency Department were for an~urgent problem and are not intended as complete care. It is important that you~follow u p with a doctor, nurse practitioner, or physician special education assistant for ongoing~care. I f your symptoms become worse or you do not improve as expected and you~are lavern ble to reach your usual health care provider, [facility] We are available 24 [...] symptoms.~ ~PATIENT'S NAME: JESSICA BARKER CCOUNT NO: [id number]~ ~ ~ ~ ~Anxiety causes very strong [...] effects develop, such as a rash, difficulty berkely athing, or a severe upset~stomach,~stop the medication [...] to~ ~PATIENT'S NAME: JESSICA RUEDA ACCOUNT NO: [id number]~ ~ ~ ~get a primary care provider [...] illnesses. If you use~tobacco, please contact the Lead[employer] at [phone] ( ) or~[email or web address] to assist in your eff orts to [...] please call our 12/09 asse ssment line at~[phone] to speak with an Plastic Extrusion Operator. ~F or deaf and hearing impaired, call .~For mental health and/o r substance use disorders you can call the Substance~Abuse and Mental Health S ervices ([facility]) ~[facility] TTY for hearing impaired call [phone]~ ~During ER visits many patients receive sedation [...] will arrange for follow-up~care. ~ ~ 9~JANN ENT/HUNTING SALES LEADER SIGNATURE~ ~ _~ ~ STAFF SIGNATURE~ ~ ~ ~ ~ ~ ~ ~ ~ ~ ~PATIENT'S NAME: JESSICA BARKER A CCOUNT NO: [id number] Note [facility] ([facility]~E MERGENCY PROVIDER Sanders REPORT~REPORT#:[id number] REPORT STATUS: Draft~DATE: TIME: 0440~ Medical ~PATIENT: JESSICA BARKER UNIT #: [id number]~ACC OUNT#: [id number] Center ROOM/BED: [place] [address]~: [birth year] AGE: 54 SEX: PCP PHYS: No Primary or Family (21373) Physician~ADM DATE: 07/14/19 INI AUTH: Kojo Sears [...] or a call to 911.~ ~RPT #: [id number]~END OF REPORT~ Note [facility] ([facility]) ED [facility]~E MERGENCY PROVIDER Sanders REPORT~REPORT#:[id number] REPORT STATUS: FSign~DATE: TIME: 439~ Medical ~PATIENT: JESSICA BARKER UNIT #: [id number]~ACC OUNT#: [id number] Center ROOM/BED: [facility]~: 69 AGE: 54 SEX: PCP PHYS: No Primary or Family ([id number]) Physician~ADM DATE: 07/14/19 INI AUTH: Kojo Sears [...] to 911.~ ~ ~ at 0556~RPT #: [id number]~END OF REPORT~ Note ~[facility] EMERGENCY DEPARTMENT ([facility] ) ~DISCHARGE INSTRUCTIONS (ED) ~REPORT #: [id number] Sanders REPORT STATUS: Draft ~DATE: 06/25/19 TIME: 1347~ ~PAT IENT: VEGA BARKER Medical UNIT #: [id number]~ 961 ROOM/BED: ~: 69 AGE: 54 SEX: Center M ATTEND: Darlene Wolf MD ~ADM DT : AUTHOR: Darlene Wolf MD ~ ~* ALL ([id number]) edits or amendments must be made on the electronic/computer document *~ ~Current patient of record information for this document is:~VEGA BARKER~PatID: [id number] Age: 54~ : 1965~ ~Report including patient information as it appeared at t he time this document ~was generated and provided to the patient is as follows below.~ ----~ ~VEGA BARKER~PatID: [id number] Age: 54~ : 1965~Printed: 06/25/2019 1:47 PM~ By: Darlene Wolf~ ~General Emergency Department Discharge Instructions~ ~The exam and treatment you received in the Emergency Department were for an~urgent problem and are not intended as complete care. It is important that you~follow u p with a doctor, nurse practitioner, or physician special education assistant for ongoing~care. I f your symptoms become worse or you do not improve as expected and you~are lavern ble to reach your usual health care provider, [facility] We are available 24 [...] "asleep"),~ ~PATIENT'S NAME: VEGA WIGGINSJR ACCOUNT NO: [id number]~ ~ ~ ~especially around th e mouth [...] ctor~ ~PATIENT'S NAME: VEGA BARKER ACCOUNT NO: [id number]~ ~ ~ ~to devel op a plan specific to your needs. ~ ~Tobacco use is a risk factor for multi ple serious illnesses. If you use~tobacco, please contact the [employer] at [phone] ( ) or~[email or web address] to assist in your eff orts to [...] please call our 12/09 asse ssment line at~[phone]) to speak with an Plastic Extrusion Operator. ~F or deaf and hearing impaired, call .~For mental health and/o r substance use disorders you can call the Substance~Abuse and Mental Health S ervices ([facility]) ~[facility] TTY for hearing impaired call [phone]~ ~During ER visits many patients receive sedation [...] will arrange for follow-up~care. ~ ~ 9~JANN ENT/HUNTING SALES LEADER SIGNATURE~ ~ _~ ~ STAFF SIGNATURE~ ~ ~ ~ ~ ~ ~ ~ ~ ~ ~ ~ ~ ~ ~ ~ ~ ~ ~PATIENT'S NAME: MJVEGA MIRANDA DIVYA ACCOUNT NO: [id number] Note [facility] ([facility]~ EMERGENCY PROVIDER Sanders REPORT~REPORT#:[id number] REPORT STATUS: FSign~DATE: TIME: 1347~ Medical ~PATIENT: VEGA BARKER DIVYA UNIT #: [id number]~ ROOM/BED: [facility] 9~: 69 AGE: 54 SEX: PCP PHYS:~ADM DA TE: INI AUTH: ([id number]) Darlene Wolf MD~ED ADMIT DT: 07/09 LAST [...] ~ ~ ~ at 13 53~RPT #: [id number]~END OF REPORT~ Note [facility] ([facility]~ EMERGENCY PROVIDER Lanre REPORT~REPORT#:[id number] REPORT STATUS: Draft~DATE: TIME: 1347~ Medical ~PATIENT: VEGA BARKER UNIT #: [id number]~ ROOM/BED: [facility] 9~: 69 AGE: 54 SEX: PCP PHYS:~ADM DA TE: INI AUTH: ([id number]) Darlene Wolf MD~ED ADMIT DT: 07/09 LAST [...] this entry have been reviewed.~ ~RPT #: [id number]~ END OF REPORT~ History general Narrative - Reported Type Medical chronic pain to back and ri ght shoulder from work related injury 2009 History Medical coronary artery disease History Medical sleep apnea History Medical anxiety History Medical myocardial infarction 2011 (nuclear stress test done) History Medical hypertension History Medical gout History Surgical No Surgical history informa tion History Hospitaliz [place] 12/2011 ation History [facility] ([id number]) Summary Purpose eClinicalWorks SubmissioneClinicalWorks SubmissioneClinicalWorks SubmissioneClinicalWorks SubmissioneClinicalWorks Submission Advance Directives Directive Response Recor ded Date/Time Advance Directives No 10:07pm Health Care Power of Piece Maker No 01/09/16 10:07pm Organ Donor Yes 01/09/16 10:07pm Resuscitation Status Full Code 01/09/16 10:07pm Directive Response Recor ded Date/Time Advance Directives No 10:55pm Health Care Power of Piece Maker No 05/26/15 10:55pm Organ Donor Yes 05/26/15 10:55pm Resuscitation Status Full Code 05/26/15 10:55pm Directive Response Recor ded Date/Time Advance Directives No 5:25pm Health Care Power of Piece Maker No 03/03/15 5:25pm Organ Donor Yes 03/03/15 5:25pm Resuscitation Status Full Code 03/03/15 5:25pm Directive Response Recor ded Date/Time Advance Directives No 5:35pm Health Care Power of Piece Maker No 07/26/15 5:35pm Organ Donor Yes 07/26/15 5:35pm Resuscitation Status Full Code 07/26/15 5:35pm Directive Response Recor ded Date/Time Advance Directives No 8:09am Health Care Power of Piece Maker No 11/27/14 8:09am Organ Donor Yes 11/27/14 8:09am Resuscitation Status Full Code 11/27/14 8:09am Directive Response Recor ded Date/Time Advance Directives No 5:24pm Health Care Power of Piece Maker No 08/23/14 5:24pm Organ Donor Yes 08/23/14 5:24pm Resuscitation Status Full Code 08/23/14 5:24pm Directive Response Recor ded Date Advance Directives N 01/02 4:15pm Health Care Power of Piece Maker N 10/31/12 4:15pm Organ Donor Y 10/31/12 4 :15pm Directive Response Recor ded Date Advance Directives N 9:20am Health Care Power of Piece Maker N 07/07/12 9:20am Organ Donor Y 07/07/12 9 :20am Directive Response Recor ded Date Advance Directives N 01/02 9:05am Health Care Power of Piece Maker N 06/30/12 9:05am Organ Donor Y 06/30/12 9 :05am Directive Response Recor ded Date/Time Advance Directives No 12:46am Health Care Power of Piece Maker No 10/18/14 12:46am Organ Donor Yes 10/18/14 12:46am Directive Response Recor ded Date/Time Advance Directives No 5:51am Health Care Power of Piece Maker No 01/28/14 5:51am Organ Donor Yes 01/28/14 5:51am Resuscitation Status Full Code 01/28/14 5:51am Directive Response Recor ded Date Advance Directives N 1:41pm Health Care Power of Piece Maker N 11/10/12 1:41pm Organ Donor Y 11/10/12 1 :41pm Directive Response Recor ded Date/Time Advance Directives No 12:46am Health Care Power of Piece Maker No 10/18/14 12:46am Organ Donor Yes 10/18/14 12:46am Resuscitation Status Full Code 10/18/14 12:46am Directive Response Recor ded Date/Time Advance Directives No 5:59pm Health Care Power of Piece Maker No 03/11/17 5:59pm Organ Donor Yes 03/11/17 5:59pm Resuscitation Status Full Code 03/11/17 5:59pm Directive Response Recor ded Date/Time Advance Directives No 3:42pm Health Care Power of Piece Maker No 09/17/17 3:42pm Organ Donor Yes 09/17/17 3:42pm Resuscitation Status Full Code 09/17/17 3:42pm Directive Response Recor ded Date/Time Advance Directives No 9:45pm Health Care Power of Piece Maker No 02/02/18 9:45pm Organ Donor Yes 02/02/18 9:45pm Resuscitation Status Full Code 02/02/18 9:45pm Directive Response Recor ded Date/Time Advance Directives No 9:46pm Health Care Power of Piece Maker No 05/16/18 9:46pm Organ Donor Yes 05/16/18 9:46pm Resuscitation Status Full Code 05/16/18 9:46pm Directive Response Recor ded Date/Time Advance Directives No 9:46pm Health Care Power of Piece Maker No 05/16/18 9:46pm Organ Donor Yes 05/16/18 9:46pm Directive Response Recor ded Date/Time Advance Directives No 9:15pm Health Care Power of Piece Maker No 05/16/18 9:46pm Organ Donor Yes 05/16/18 9:46pm Resuscitation Status Full Code 07/04/18 9:15pm Directive Response Recor ded Date/Time Advance Directives No 9:15pm Health Care Power of Piece Maker No 05/16/18 9:46pm Organ Donor Yes 05/16/18 [...] This clinical document has been generated using [employer] software that has been certified by the Office of the National Coordinator for Health Information Technology (ONC 15.99.04.3023.Diam.31.00.0.243785) and the National Committee for Formation Testing Operator (NCQA, as an eMeasure certified technology). FOR [...] BASED ON T HE PRIMARY CLINICAL RECORDS. [employer] provides no warranty or guara ntee of [...] History hypertension Medical History gout Hospitalization History [place] 12/2011 Type Description Date Medical History chronic [...] History No Surgical history information Hospitalization History [place] 12/2011 UNRECOGNIZED CONTENT PROVIDED BELOW FOR UNRECOGNIZED SECTION REASON FOR VISIT AQZ-VonSIA-QjoYOA-MigLab (walk-in)lab results
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
[2019-08-25] MEDS ORDERED: DEXAMETHASONE 10 MG/ML (DECADRON) 1 ML VIAL IM ONE (13:30)
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
[2019-08-25 13:55] VITALS: BP 127/81
== END 2019-08-25 14:01 | disposition home or self-care (01) ==
LOC: EDUNIT# 12:50 → ER 12:51
DX: R09.81 Nasal congestion (principal); K21.9 Gastro-esophageal reflux disease without esophagitis; J44.9 Chronic obstructive pulmonary disease, unspecified; E78.00 Pure hypercholesterolemia, unspecified; I10 Essential (primary) hypertension; M54.9 Dorsalgia, unspecified; F41.9 Anxiety disorder, unspecified; I25.2 Old myocardial infarction; G47.30 Sleep apnea, unspecified; Z87.891 Personal history of nicotine dependence; Z79.899 Other long term (current) drug therapy; Z79.52 Long term (current) use of systemic steroids
CPT/HCPCS: 99284

== ENCOUNTER 2019-08-30 13:45 | Emergency (ER) | payer SELFPAY ==
[~2019-08-30] VITALS: Ht 180 cm; Wt 146.0 kg
[2019-08-30 14:26] LABS: BASOPHILS % (AUTO) 0 % (0-10); EOSINOPHILS # (AUTO) 0.2 10^3/uL (0.0-0.3); EOSINOPHILS % (AUTO) 2 % (0-10); HEMATOCRIT 45 % (40-54); HEMOGLOBIN 15.1 G/DL (13.3-17.7); LYMPHOCYTES # (AUTO) 2.6 X 10^3 (1.0-4.0); LYMPHOCYTES % (AUTO) 19 % (12-44); MEAN CORPUSCULAR HEMOGLOBIN 29 PG (25-34); MEAN CORPUSCULAR HGB CONC 34 G/DL (32-36); MEAN CORPUSCULAR VOLUME 87 FL (80-99); MEAN PLATELET VOLUME 9.6 FL (7.4-10.4); MONOCYTES % (AUTO) 7 % (0-12); NEUTROPHILS # (AUTO) 10.2 X 10^3 (1.8-7.8); NEUTROPHILS % (AUTO) 73 % (42-75); PLATELET COUNT 402 10^3/uL (130-400); RED CELL DISTRIBUTION WIDTH 14.8 % (10.0-14.5); WHITE BLOOD COUNT 14.1 10^3/uL (4.3-11.0)
--- NOTE | 2019-08-30 14:30 | ED Lower Extremity ---
General Chief Complaint: Lower Extremity Stated Complaint: BILAT LEG EDEMA Nursing Triage Note: PT CO OF LOWER EXT SWELLING NOTICED THIS AM. STATES STARTED THIS AM DENIES PAIN Nursing Sepsis Screen: No Definite Risk Source: patient Exam Limitations: no limitations History of Present Illness Date Seen by Provider: Aug 30, 2019 Time Seen by Provider: 14:10 Initial Comments Complains of lower extremity edema for the last 2-3 days. He was started on Norvasc about a month ago. He is currently on Omnicef for otitis media. Onset: other Severity: moderate Pain/Injury Location: bilateral hip, bilateral ankle Modifying Factors: Worse With Movement Allergies and Home Medications Allergies Coded Allergies: No Known Drug Allergies (Unverified , 05/26/15) Home Medications Alprazolam 0.25 Mg Tablet, 0.25 MG PO QID, (Reported) Colchicine 0.6 Mg Capsule, 0.6 MG PO ONCE Prescribed by: DACIA CAMPOS on 09/17/17 1610 Doxycycline Hyclate 100 Mg Tablet, 100 MG PO BID Prescribed by: DANY AN on 08/16/191900 Lisinopril 10 Mg Tablet, 10 MG PO DAILY, (Reported) Prednisone 20 Mg Tab, 40 MG PO DAILY Prescribed by: DANY AN on 08/16/191900 Patient Home Medication List Home Medication List Reviewed: Yes Review of Systems Constitutional: see HPI; No chills, No fever EENTM: see HPI Respiratory: see HPI, cough (chronic) Cardiovascular: no symptoms reported Genitourinary: no symptoms reported Musculoskeletal: no symptoms reported Skin: no symptoms reported Psychiatric/Neurological: No Symptoms Reported Past Lqctgil-Xhyxdh-Eiladd Hx Patient Social History Alcohol Use: Denies Use Recreational Drug Use: No Smoking Status: Never a Smoker Type Used: Smokeless Tobacco Former Smoker, Quit: Feb 20, 1986 2nd Hand Smoke Exposure: No Recent Foreign Travel: No Contact w/Someone Who Travel: No Recent Infectious Disease Expo: No Recent Hopitalizations: No Physical Abuse: No Sexual Abuse: No Immunizations Up To Date Tetanus Booster (TDap): Less than 5yrs PED Vaccines UTD: Yes Seasonal Allergies Seasonal Allergies: No Past Medical History Surgeries: Yes (CARDIAC CATH--NO INTERVENTION) Cardiac Respiratory: Yes Sleep Apnea, COPD Currently Using CPAP: No Cardiac: Yes ( CARDIAC CATH--NO INTERVENTION) Coronary Artery Disease, Heart Attack, High Cholesterol, Hypertension Neurological: No Reproductive Disorders: No Sexually Transmitted Disease: No HIV/AIDS: No Genitourinary: No Gastrointestinal: Yes Gastroesophageal Reflux Musculoskeletal: Yes Chronic Back Pain, Fractures, Gout Endocrine: No HEENT: Yes Cataract Cancer: No Psychosocial: Yes Anxiety Integumentary: No Blood Disorders: No Adverse Reaction/Blood Tranf: No Family Medical History Patient reports no known family medical history. No Pertinent Family Hx, Hypertension Physical Exam Vital Signs Vital Signs - First Documented 08/30/19 13:50 Temp 36.9 Pulse 71 Resp 18 B/P (MAP) 164/88 (113) Pulse Ox 96 Capillary Refill : Less Than 3 Seconds Height, Weight, BMI Height: 6'0" Weight: 306lbs. 0oz. 138.378310go; 45.00 BMI Method:Stated General Appearance: WD/WN, no apparent distress, obese HEENT: PERRL/EOMI, normal ENT inspection Neck: non-tender, full range of motion Respiratory: normal breath sounds, no respiratory distress, no accessory muscle use; No crackles, No wheezing Gastrointestinal: normal bowel sounds, non tender Hips: bilateral hip non-tender, bilateral hip normal inspection, bilateral hip normal range of motion Legs: bilateral leg non-tender, bilateral leg normal inspection, bilateral leg normal range of motion Ankles: bilateral ankle swelling (1+ pitting edema bilateral lower extremities) Feet: bilateral foot non-tender, bilateral foot normal inspection, bilateral foot normal range of motion Neurologic/Psychiatric: alert, normal mood/affect, oriented x 3 Skin: normal color, warm/dry Progress/Results/Core Measures Results/Orders Lab Results Laboratory Tests Test 08/30/19 14:15 Range/Units White Blood Count 14.1 H 4.3-11.0 10^3/uL Red Blood Count 5.17 4.35-5.85 10^6/uL Hemoglobin 15.1 13.3-17.7 G/DL Hematocrit 45 40-54 % Mean Corpuscular Volume 87 80-99 FL Mean Corpuscular Hemoglobin 29 25-34 PG Mean Corpuscular Hemoglobin Concent 34 32-36 G/DL Red Cell Distribution Width 14.8 H 10.0-14.5 % Platelet Count 402 H 130-400 10^3/uL Mean Platelet Volume 9.6 7.4-10.4 FL Neutrophils (%) (Auto) 73 42-75 % Lymphocytes (%) (Auto) 19 12-44 % Monocytes (%) (Auto) 7 0-12 % Eosinophils (%) (Auto) 2 0-10 % Basophils (%) (Auto) 0 0-10 % Neutrophils # (Auto) 10.2 H 1.8-7.8 X 10^3 Lymphocytes # (Auto) 2.6 1.0-4.0 X 10^3 Monocytes # (Auto) 1.0 0.0-1.0 X 10^3 Eosinophils # (Auto) 0.2 0.0-0.3 10^3/uL Basophils # (Auto) 0.0 0.0-0.1 10^3/uL Neutrophils % (Manual) 66 % Lymphocytes % (Manual) 22 % Monocytes % (Manual) 7 % Eosinophils % (Manual) 4 % Basophils % (Manual) 0 % Band Neutrophils 1 % Blood Morphology Comment NORMAL Sodium Level 138 135-145 MMOL/L Potassium Level 3.9 3.6-5.0 MMOL/L Chloride Level 105 98-107 MMOL/L Carbon Dioxide Level 23 21-32 MMOL/L Anion Gap 10 5-14 MMOL/L Blood Urea Nitrogen 11 7-18 MG/DL Creatinine 0.88 0.60-1.30 MG/DL Estimat Glomerular Filtration Rate > 60 BUN/Creatinine Ratio 13 Glucose Level 116 H 70-105 MG/DL Calcium Level 8.9 8.5-10.1 MG/DL Corrected Calcium 8.9 8.5-10.1 MG/DL Total Bilirubin 0.9 0.1-1.0 MG/DL Aspartate Amino Transf (AST/SGOT) 12 5-34 U/L Alanine Aminotransferase (ALT/SGPT) 22 0-55 U/L Alkaline Phosphatase 103 40-136 U/L B-Type Natriuretic Peptide < 10.0 <100.0 PG/ML Total Protein 6.9 6.4-8.2 GM/DL Albumin 4.0 3.2-4.5 GM/DL Thyroid Stimulating Hormone (TSH) 0.84 0.35-4.94 UIU/ML Free Thyroxine 1.10 0.70-1.48 NG/DL My Orders Orders - DACIA CAMPOS FIELD SERVICE CONSULTANT Cbc With Automated Diff (08/30/19 14:06) BNP (08/30/19 14:06) Thyroid Stimulating Hormone (08/30/19 14:06) Free T4 (Free Thyroxine) (08/30/19 14:06) Comprehensive Metabolic Panel (08/30/19 14:06) Manual Differential (08/30/19 14:15) Vital Signs/I&O 08/30/19 13:50 Temp 36.9 Pulse 71 Resp 18 B/P (MAP) 164/88 (113) Pulse Ox 96 Blood Pressure Mean: 113 Departure Impression Primary Impression: Edema Qualified Codes: R60.9 - Edema, unspecified Additional Impression: amlodipine side effect Disposition: 01 HOME, SELF-CARE Condition: Stable Departure-Patient Inst. Decision time for Depature: 15:18 Referrals: NO,LOCAL PHYSICIAN (PCP/Family) Primary Care Physician Patient Instructions: Side Effects From Medicines Add. Discharge Instructions: Ultimately he'll probably need to stop the amlodipine as this is the cause of swelling. However, elevate legs as much as possible and reducing sodium intake will help in the meantime. All discharge instructions reviewed with patient and/or family. Voiced understanding. DACIA CAMPOS FIELD SERVICE CONSULTANT Aug 30, 2019 14:30
[2019-08-30 14:44] LABS: CHLORIDE 105 MMOL/L (98-107); POTASSIUM 3.9 MMOL/L (3.6-5.0); SODIUM 138 MMOL/L (135-145)
[2019-08-30 14:46] LABS: CALCIUM 8.9 MG/DL (8.5-10.1)
[2019-08-30 14:47] LABS: GLUCOSE 116 MG/DL (70-105); TOTAL PROTEIN 6.9 GM/DL (6.4-8.2)
[2019-08-30 14:48] LABS: CARBON DIOXIDE 23 MMOL/L (21-32)
[2019-08-30 14:49] LABS: BILIRUBIN,TOTAL 0.9 MG/DL (0.1-1.0)
[2019-08-30 14:50] LABS: ALKALINE PHOSPHATASE 103 U/L (40-136); BAND NEUTROPHILS 1 %; BASOPHILS % (MANUAL) 0 %; CREATININE SERUM 0.88 MG/DL (0.60-1.30); EOSINOPHILS % (MANUAL) 4 %; GFR ESTIMATED > 60; LYMPHOCYTES % (MANUAL) 22 %; MONOCYTES % (MANUAL) 7 %; NEUTROPHILS % (MANUAL) 66 %; RBC MORPH NORMAL
[2019-08-30 14:51] LABS: BUN/CREATININE RATIO 13
[2019-08-30 14:53] LABS: ALANINE AMINOTRANSFERASE 22 U/L (0-55)
[2019-08-30 15:36] VITALS: BP 164/88
--- OUTSIDE RECORDS SUMMARY | 2019-08-30 17:31 | XMS REPORT ---
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 Name Role Phone GOLDY CARTAGENA Unavailable Unavailable LITTLE ROTHMAN Unavailable Unavailable CLEMENCIA GOSS Unavailable Unavailable [facility] Unavailable [phone] THIAGO DRISCOLL Unavailable THIAGO DRISCOLL Unavailable THIAGO DRISCOLL Unavailable ADIN CHANG Unavailable ADIN CHANG Unavailable GOLDY DUGGAN Unavailable [facility] Unavailable ADIN CHANG Unavailable ADIN CHANG Unavailable [facility] Unavailable [facility] PCP [phone] Migration, Doctor Unavailable Unavailable Migration, Doctor Unavailable Unavailable NAHOMY ROBERTS MD Unavailable Unavailable Migration, Doctor Unavailable Unavailable ISABELLA, JORGE L Unavailable Unavailable KEHINDE LEVI, DEMETRIA Bradford Unavailable Unavailable ADIN CHANG Unavailable LORIE FLOWERS DO Unavailable Unavailable DR CHELSIE KULKARNI Unavailable Unavailable DR CHELSIE KULKARNI Unavailable Unavailable DR CHELSIE KULKARNI Unavailable Unavailable ADIN CHANG Unavailable Maryann LEVI, Darlene Potter Unavailable Unavailable REFERRED, SELF Unavailable Unavailable Know, Does Not Unavailable Unavailable Lacoste DO, C J Unavailable Unavailable Physician, No Primary or Family Unavailable Unavaila dante Price MD, Moses Molina Unavailable Unavailable Renée Lee MD, V Unavailable Unavailable ADIN CHANG Unavailable Unavailable DACIA CAMPOS APRN Unavailable Unavailable Unavailable Unavailable Unavailable Unavailable Unavailable Unavailable Unavailable Unavailable Unavailable Unavailable Unavailable Unavailable Allergies Allergy Reported Allergen(s) Allergy Type Date of Reaction(s) Care Facility Classificati Onset Provider on Opioid oxyCODONE Drug Allergy ANNY CAYLA August Urbano Rai (2 sources) [facility] ([id number]) Encounters Encounter Date Encounter Type Encounter Diagnosis Care Provider Facility Start: Emergency department NAHOMY ROBERTS MD [facility] 08-30-2019 patient visit [facility] End: 08-30-2019 Start: Patient encounter ADNI CHANG [facility] 08-29-2019 procedure [facility] Start: Patient encounter LORIE FLOWERS DO [facility] 08-18-2019 [facility] Start: Emergency department Renée Lee MD [facility] 07-20-2019 patient visit End: 07-20-2019 Start: Emergency department Moses Price MD [facility] 07-15-2019 patient visit End: 07-15-2019 Start: Emergency department Darlene Wolf MD [facility] 07-14-2019 patient visit End: 07-14-2019 Start: Emergency department Kojo Sears DO [facility] 07-13-2019 patient visit End: 07-14-2019 Start: Patient encounter Darlene Wolf MD [facility] 06-25-2019 procedure Start: Emergency department Darlene Wolf MD [facility] 06-25-2019 patient visit End: 06-25-2019 Start: Patient encounter ANNY garcia 01-29-2019 [facility] ([id number]) End: 01-29-2019 Start: Telephone encounter ADIN JACKSON [facility] 01-22-2019 Start: Telephone encounter ADIN JACKSON [facility] 12-17-2018 Start: Emergency department DEMETRIA BUSBY MD [facility] 08-01-2018 patient visit [facility] ([id number]) End: 08-02-2018 Start: Emergency department DEMETRIA BUSBY MD [facility] 08-01-2018 patient visit [facility] ([id number]) End: 08-01-2018 Start: Patient encounter DEMETRIA BUSBY MD [facility] 08-01-2018 [facility] ([id number]) Start: Emergency department LORIE FLOWERS [facility] 07-16-2018 patient visit Work Phone: [facility] ([id number]) End: 07-16-2018 Start: Emergency department LORIE FLOWERS DO [facility] 07-15-2018 patient visit [facility] ([id number]) End: 07-15-2018 Start: Emergency department [facility]GEL MASON [facility] 07-04-2018 patient visit Hospital ([id number]) End: 07-04-2018 Start: Patient encounter JORGE L MASON [facility] 07-04-2018 procedure [facility] ([id number]) Start: Emergency department JORGE L MASON [facility] 07-04-2018 patient visit [facility] ([id number]) End: 07-04-2018 Start: Telephone encounter ADIN CHANG [facility] 06-15-2018 End: 06-15-2018 Start: Emergency department NAHOMY ROBERTS Not Available ([id number]) 06-11-2018 patient visit End: 06-11-2018 Start: Patient encounter NAHOMY ROBERTS MD Not Av ailable ([id number]) 06-11-2018 procedure Start: Patient encounter ADIN CHANG [facility] 06-08-2018 procedure [facility] ([id number]) Start: [facility] Essential (primary) ADIN OVALLES [facility] 06-08-2018 hypertension End: 06-08-2018 Start: Patient encounter NA DESI [facility] 05-18-2018 procedure [facility] ([id number]) Start: Emergency department JORGE L BERNAB Not Avai lable ([id number]) 05-16-2018 patient visit End: 05-16-2018 Start: Patient encounter ADIN CHANG [facility] 05-14-2018 procedure [facility] ([id number]) Start: Patient encounter ADIN CHANG [facility] 04-25-2018 procedure [facility] ([id number]) Start: Patient encounter ADIN CHANG [facility] 04-02-2018 procedure [facility] ([id number]) Start: Emergency department NEIL JAMES Not A rafatilable ([id number]) 02-02-2018 patient visit End: 02-02-2018 Start: Emergency department 11-05-2017 patient visit End: 11-05-2017 Start: Patient encounter NA DESI Not Availab le ([id number]) 11-05-2017 procedure Start: Emergency department DACIA CAMPOS Not Available ([id number]) 09-17-2017 patient visit End: 09-17-2017 Start: Patient encounter 09-17-2017 procedure Start: Emergency department 07-01-2017 patient visit End: 07-01-2017 Start: Patient encounter NAHOMY ROBERTS MD Not Av ailable ([id number]) 07-01-2017 procedure Start: Patient encounter DACIA CAMPOS Not Availab le ([id number]) 03-11-2017 procedure Start: Emergency department 07-18-2016 patient visit End: 07-18-2016 Start: Patient encounter 01-30-2014 procedure Start: Emergency department 03-04-2013 patient visit End: 03-04-2013 Start: Emergency department 02-09-2013 patient visit End: 02-09-2013 Start: Emergency department 01-12-2013 patient visit End: 01-12-2013 Start: Emergency department 05-10-2012 patient visit End: 05-11-2012 Start: Emergency department 04-14-2012 patient visit End: 04-14-2012 Start: Patient encounter OJ GRIMALDO MD Not Availa ble ([id number]) 01-06-2012 procedure Start: Patient encounter OJ GRIMALDO MD Not Availa ble ([id number]) 01-05-2012 procedure Start: Emergency department DEMETRIA BUSBY MD N ot Available ([id number]) 12-26-2011 patient visit End: 12-26-2011 Start: Emergency department RUI DAVIS MD Not Av ailable ([id number]) 10-15-2011 patient visit End: 10-15-2011 Emergency department Renée Herrera MD, MD [facility] enter patient visit Patient encounter Moses Price MD [facility] er procedure Medical Equipment No Information Goals No Information Immunizations The data below is from unstructured [...] Immunizations No Known Immunizations No Known Immunizations Interventions No Information Medications The data below is from unstructured sources Unknown Medications Unknown Medications Unknown Medications Unknown Medications Unknown Medications Unknown Medications Unknown Medications Unknown Medications Unknown Medications Unknown Medications No Known Medications No Known Medications No Known Medications No Known Medications No Known Medications No Known Medications No Known Medications No Known Medications Unknown Medications No Known Medications Payers Date Payer Normalized Payer [id number] [place] [id number] Plan of Treatment The data below is from unstructured sources Discharge Date 01/09/16 11:08pm Disposition 07 AGAINST MEDICAL ADVIC E Condition at Discharge Improved Prescriptions See Medication Section Referrals [facility] Physician Discharge Date 05/27/15 12:38am Disposition 01 HOME, SELF-CARE Condition at Discharge Improved Instructions/Education Provided Acut e Gouty Arthritis (DC) Prescriptions See Medication Section Referrals THIAGO DRISCOLL [facility] Physician Additional Instructions/Education 1. Take the third colchicine tablet 1 hour from her first 2 2. Return to ER for any worsening or oth er concerns 3. Follow-up with your doctor next week All discharge instructions reviewed with patient and/or family. Voiced understanding. Discharge Date 03/03/15 5:34pm Disposition 01 HOME, SELF-CARE Condition at Discharge Stable Instructions/Education Provided Killdeer al Caries (ED) Prescriptions See Medication Section Referrals THIAGO DRISCOLL [facility] Physician Additional Instructions/Education Al l discharge instructions reviewed with patient and/or family. Voiced understanding. NEED TO GET IN WITH A DENTIST ISAÍAS FOR FURTHER EVALUATION AND TREATMENT. Discharge Date 07/26/15 6:04pm Disposition 01 HOME, SELF-CARE Condition at Discharge Against Medic al Advice Prescriptions See Medication Section Referrals [facility] Physician Discharge Date 11/27/14 9:20am Disposition 01 HOME, SELF-CARE Condition at Discharge Stable Instructions/Education Provided Acut e Gouty Arthritis (ED) Prescriptions See Medication Section Referrals THIAGO DRISCOLL [facility] Physician Additional Instructions/Education Al l discharge instructions [...] Prescriptions See Medication Section Referrals THIAGO DRISCOLL [facility] Physician Additional Instructions/Education Al pily discharge instructions reviewed with patient and/or family. [...] in Adults Prescriptions See Medication Section Referrals [facility]/ [facility] Order Date: Primary Care Physician Address: [address] [address] Additional Instructions/Education 1. Inhaler 2 [...] Release Form Prescriptions See Medication Section Referrals [facility] Order Date: Primary Care Physician Address: [address] [address] Additional Instructions/Education 1. Follow-up with your doctor later this week 2. Return to ER for any concerns 3.All discharge instructions reviewed wi th patient and/or family. Voiced understanding. Discharge Date 02/02/18 10:15pm Disposition 01 HOME, SELF-CARE Condition at Discharge Improved Instructions/Education Provided Gout (DC) Prescriptions See Medication Section Referrals [facility] Order Date: Primary Care Physician Address: [address] [address] Additional Instructions/Education Al l discharge instructions reviewed with patient and/or family. Voiced understanding. Medications as instructed. Tylenol Extra Strength [id number] as directed for pain. Ice pack or [...] Gout (DC) Prescriptions See Medication Section Referrals [facility]/ K Order Date: Primary Care Physician Address: [address] [address] Additional Instructions/Education Ta ke medications as directed. [...] Gout (DC) Prescriptions See Medication Section Referrals [facility] Order Date: Primary Care Physician Address: [address] [address] Additional Instructions/Education Yo u may take ibuprofen [...] Pain (DC) Prescriptions See Medication Section Referrals [facility]/ K Order Date: Primary Care Physician Address: [facility] [address], [place] [address] Additional Instructions/Education Yo u may use ibuprofen and Tylenol as directed by the bottle for pain relief. Call [facility] tomorrow morning to schedule an appointment [...] Purine Diet Prescriptions See Medication Section Referrals [facility]/ K Order Date: Primary Care Physician Address: [place] [address], [place] [address] Additional Instructions/Education [place] RM EPSOM SALTS SOAKS AND THEN ICE AT 20 MINUTE INTERVALS ELEVATE RIGHT FOOT MUCH POSSIBLE INCREASE YOUR WATER INTAKE FOLLOW UP WITH YOUR DR THIS WEEK FOR FURTHER CARE All discharge instructions reviewed with patient and/or family. Voiced understanding. 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 ; 08-27-2019 Chronic NA NA atherosclero Translations: [Atherosclero tic sis and heart disease of [place] cor onary other heart artery without angina pecto ris] disease (26 sources) E Codes: Adverse effect of 06-26-2019 Episodic Darlene Adverse [id number] Jessie loyola MD effects of inhibitors, initial encount er medical drugs (2 sources) E Codes: Caught accidentally in or between Ep isodic Other objects specified and classifiable (2 sources) E Codes: Fall from other slipping, tripping, Episodic Overexertion or stumbling (2 sources) E Codes: Accidents occurring in public Episod ic Place of building ; Translations: [H ome occurrence accidents] (5 sources) E Codes: Other external cause status ; Episod ic Unspecified Translations: [Activity, fo od (8 sources) preparation and clean up] Heart valve Mitral valve disorders Chronic CONSTANTINO forbes MD (1 source) Nonspecific Chest pain, unspecified Episodic CHAVA UA chest pain KEHINDE (5 sources) Other long term care phlebotomist (current) use of systemic Episodic NA NA aftercare steroids (15 sources) Other Other long term care phlebotomist (current) drug 08-27-2019 Episodic aftercare therapy (3 sources) Other and Cardiomegaly Chronic OJ GRIMALDO ill-defined MD heart disease (1 source) Other Presence of cardiac and vascular Chronic LORIE LIONEL DO circulatory implant and graft, unspecif ied disease (8 sources) Other Pain in limb Episodic connective tissue disease (4 sources) Other Other specified soft tissue Episodic DEMETRIA connective disorders KEHINDE tissue MD disease (6 sources) Other Personal history of (healed) Episodic PETER CAMPOS injuries and traumatic fracture conditions due to external causes (5 sources) Other Knee, leg, ankle, and foot injury Ep isodic injuries and conditions due to external causes (2 sources) Other Finger injury Episodic injuries and conditions due to external causes (2 sources) Other lower Shortness of breath Episodic respiratory disease (4 sources) Other lower Cough Episodic respiratory disease (2 sources) Other lower Other respiratory abnormalities Episodic OJ GRIMALDO respiratory disease (2 sources) Other lower Cough 06-26-2019 Episodic Darlene respiratory Ekcalinren disease (2 sources) Other lower Shortness of breath 07-21-2019 Episodic Meliss a respiratory Leedavid LEVI disease (1 source) Other Other chronic pain ; Translations: Chronic Doctor nervous [ - Other chronic pain G89.29] Migr ation system disorders (3 sources) Other Chronic pain ; Translations: [Other Chronic Doctor nervous chronic pain] Migration system disorders (3 sources) Other Pain in right ankle and joints of Ep isodic non-traumati right foot c joint disorders (4 sources) Other Pain in right knee Episodic non-traumati c joint disorders (2 sources) Other Pain in joint, ankle and foot Episod ic non-traumati c joint disorders (2 sources) Other Obesity, unspecified 07-15-2019 Chronic LORIE LIONEL DO nutritional; endocrine; and metabolic disorders (4 sources) Other upper Nasal congestion Episodic PETER CAMPOS respiratory disease (5 sources) Residual Obstructive sleep apnea Chronic codes; (adult)(pediatric) unclassified (2 sources) Residual Obstructive sleep apnea (adult) Chronic Doctor codes; (pediatric) ; Translations: [ - Tony ration unclassified Obstructive sleep apnea G47 .33] (3 sources) Residual Obstructive sleep apnea syndrome ; Chronic Doctor codes; Translations: [Obstructive sleep Mi gration unclassified apnea] (3 sources) Residual Sleep apnea, unspecified 08-27-2019 Chronic L JOSE LIONEL DO codes; unclassified (2 sources) Residual Procedure and treatment not carried Episodic codes; out because of patient's de cision unclassified for other reasons (2 sources) Residual Family history of ischemic heart Episodic DEMETRIA codes; disease and other diseases of the B NASIMA unclassified circulatory system (6 sources) Residual Localized edema Episodic DEMETRIA codes; KEHINDE unclassified (6 sources) Residual Other specified postprocedural Episodic LORIE LIONEL DO codes; states unclassified (2 sources) Screening Personal history of nicotine 08-27-2019 E pisodic and history dependence of mental health and substance abuse codes (20 sources) Spondylosis; Pain in thoracic spine ; 08-27-2019 Episo dic intervertebr Translations: [Low back steven n] al disc disorders; other back problems (5 sources) Sprains and Sprain of unspecified site of back E pisodic strains (2 sources) Substance-re Nicotine dependence, cigarettes, in Chronic lated remission disorders (2 sources) Superficial Contusion of knee Episodic injury; contusion (2 sources) Past or Other Problems Problem Problem Date Last Documented Episodic/Chr Provider Classificati Recorded Date onic on E Codes: Overexertion from sudden st renuous Overexertion movement (2 sources) E Codes: Other cause of strike by thrown, Episodic NAHOMY Struck by; projected or falling object, CLIF VALDEZ MD against initial encounter (1 source) Other Pain in right foot Episodic NEIL connective ERIKA PA tissue disease (1 source) Other Pain in left foot Episodic JORGE L connective BERNOT tissue disease (1 source) Other Unspecified injury of left foot, Episodic NAHOMY injuries and initial encounter ALEJANDRA LEVI conditions due to external causes (2 sources) Other Pain in right shoulder ; Episodic TRA VIS non-traumati Translations: [ - Pain in right IFRAH NOT c joint shoulder M25.511] disorders (7 sources) Other Hyperuricemia without signs of Episodic ANNY FINE nutritional; inflammatory arthritis and endocrine; tophaceous disease and metabolic disorders (1 source) Other Encounter for screening for lipoid Episodic ANNY FINE screening disorders ; Translations: for [Encounter for screening fo r suspected malignant neoplasm of prost ate] conditions (not mental disorders or infectious disease) (2 sources) Residual Procedure and treatment not carried Episodic NAHOMY codes; out due to patient leaving prior to ALEJANDRA LEVI unclassified being seen by health care denilson quinn (1 source) Procedures Date Procedure Procedure Detail Performing Cl inician Start: Radiography of JORGE L MASON 07-04-2018 shoulder Start: Comprehensive ADIN CHANG 05-14-2018 metabolic panel Other Phone: Start: Lipid panel ADIN CHANG 05-14-2018 Other Results Test Name Value Interpreta Reference Facilit Date tion Range y Time laboratory on 2019-08-30 Albumin [Mass/Vol] 4.0 g/dL Negative 3.2-4.5 PENDING 07- 0-2 g/dL [facility] 0[facility] N S 10:15-0 ([id number]) 400 ALP [Catalytic 103 U/L Negative 40-136 U/L PENDING --2 activity/Vol] [facility] N [facility] 10:15-0 ([id number]) 400 ALT [Catalytic 22 U/L Negative 0-55 U/L PENDING -10-2 activity/Vol] [facility] 10:15-0 ([id number]) 400 Anion gap 10 mmol/L Negative 5-14 PENDING -10-2 [Moles/Vol] mmol/L [facility] N [facility] 10:15-0 ([id number]) 400 AST [Catalytic 12 U/L Negative 5-34 U/L PENDING -10-2 activity/Vol] [facility] N [facility] 10:15-0 ([id number]) 400 Band form 1 % Invalid % PENDING 08-29-2 neutrophils/100 WBC Interpreta [facility] 0[facility] (Bld) tion Code N [facility] 10:15-0 ([id number]) 400 Basophils (Bld) 0.0 10*3/uL Negative 0.0-0.1 PENDING - -2 [#/Vol] 10*3/uL [facility] N [facility] 10:15-0 ([id number]) 400 Basophils/100 WBC 0 % Negative PENDING --2 (Bld) [facility] N [facility] 10:15-0 ([id number]) 400 Bilirubin [Mass/Vol] 0.9 mg/dL Negative 0.1-1.0 PENDING 07 -10-2 mg/dL [facility] 020 N [facility] 10:15-0 ([id number]) 400 Calcium [Mass/Vol] 8.9 mg/dL Negative 8.5-10.1 PENDING 07-1 0-2 mg/dL [facility] 020 N S 10:15-0 ([id number]) 400 Chloride [Moles/Vol] 105 mmol/L Negative 98-107 PENDING 0 7-10-2 mmol/L [facility] 020 [facility] 10:15-0 ([id number]) 400 CO2 [Moles/Vol] 23 mmol/L Negative 21-32 PENDING -10-2 mmol/L [facility] 020 [facility] 10:15-0 ([id number]) 400 Creatinine 0.88 mg/dL Negative 0.60-1.30 PENDING --2 [Mass/Vol] mg/dL [facility] 020 [facility] 10:15-0 ([id number]) 400 Creatinine and > Invalid PENDING Glomerular Interpreta [facility] 020 filtration tion Code [facility] 10:15-0 rate.predicted panel ([id number]) 400 - Serum, Plasma or Blood Eosinophils (Bld) 0.2 10*3/uL Negative 0.0-0.3 PENDING 11-21 [#/Vol] 10*3/uL [facility] 020 N S 10:15-0 (02426) 400 Eosinophils/100 WBC 2 % Negative 0-10 % PENDING 11-21 (Bld) [facility] 020 N S 10:15-0 ([id number]) 400 Eosinophils/100 WBC 4 % Invalid % PENDING 11-21 (Nose) Interpreta [facility] 020 tion Code [facility] 10:15-0 ([id number]) 400 Erythrocyte 14.8 % High 10.0-14.5 PENDING distribution width % [facility] 0[facility] (RBC) [Ratio] N [facility] 10:15-0 ([id number]) 400 Free T4 [Mass/Vol] 1.10 ng/dL Negative 0.70-1.48 PENDING - ng/dL [facility] 020 [facility] 10:15-0 ([id number]) 400 Glucose [Mass/Vol] 116 mg/dL High 70-105 PENDING 07-1 0-2 mg/dL [facility] 020 [facility] 10:15-0 ([id number]) 400 Hematocrit (Bld) 45 % Negative 40-54 % PENDING [Volume fraction] [facility] 020 [facility] 10:15-0 ([id number]) 400 Hemoglobin (Bld) 15.1 g/dL Negative 13.3-17.7 PENDING 08-29- 2 [Mass/Vol] g[facility] 10:15-0 ([id number]) 400 Lymphocytes (Bld) 2.6 10*3/uL Negative 1.0-4.0 PENDING 11-21 [#/Vol] 10*[address] 10:15-0 ([id number]) 400 Lymphocytes/100 WBC 19 % Negative 12-44 % PENDING 11-21 (Bld) [facility] 10:15-0 ([id number]) 400 Lymphocytes/100 WBC 22 % Invalid % PENDING 11-21 (Bld) [facility] tion Code [facility] 10:15-0 ([id number]) 400 MCH (RBC) [Entitic 29 pg Negative 25-34 pg PENDING 07-1 0-2 mass] [facility] [address] [place] [address] 10:15-0 ([id number]) 400 MCHC (RBC) 34 g/dL Negative 32-36 g/dL PENDING [Mass/Vol] [facility] 10:15-0 ([id number]) 400 MCV (RBC) [Entitic 87 Negative 80-99 PENDING 07-1 0-2 vol] [foz_us] [facility] 10:15-0 ([id number]) 400 Monocytes (Bld) 1.0 10*3/uL Negative 0.0-1.0 PENDING 08-29 [#/Vol] 10*3 [facility] 020 [facility] 10:15-0 ([id number]) 400 Monocytes/100 WBC 7 % Negative PENDING 2 (Bld) [facility] 020 [facility] 10:15-0 ([id number]) 400 Natriuretic peptide pg/mL Invalid <100.0 PENDING 2 B (Bld) [Mass/Vol] Interpreta [facility] 020 tion Code N [facility] 10:15-0 ([id number]) 400 Neutrophils (Bld) 10.2 10*3/uL High 1.8-7.8 PENDING [#/Vol] 10*3 [facility] 020 N [facility] 10:15-0 (47391) 400 Neutrophils/100 WBC 73 % Negative 42-75 % PENDING 11-21 (Bld) [facility] 020 N [facility] 10:15-0 (05318) 400 Platelet mean volume 9.6 Negative 7.4-10.4 PENDING (Bld) [Entitic vol] [foz_us] [facility] 020 N [facility] 10:15-0 ([id number]) 400 Platelets (Bld) 402 10*3/uL High 130-400 PENDING 08-29 [#/Vol] 10*3/uL [facility] 0[facility] 10:15-0 ([id number]) 400 Potassium 3.9 mmol/L Negative 3.6-5.0 PENDING [Moles/Vol] mmol/L [facility] 020 [facility] 10:15-0 ([id number]) 400 Protein [Mass/Vol] 6.9 g/dL Negative 6.4-8.2 PENDING - 0-2 g/dL [facility]20 [facility] [facility] 10[facility]15-0 (92862) 400 RBC (Bld) [#/Vol] 5.17 10*6/uL Negative 4.35-5.85 PENDING 10*6/uL LOCATIO 020 [facility] 10:15-0 (35306) 400 RBC morphology NORMAL Invalid PENDING finding Nom (Bld) Interpreta LOCATIO 020 tion Code N [facility] 10:15-0 (86463) 400 Segmented 66 % Invalid % PENDING neutrophils/100 WBC Interpreta LOCATIO 020 (Bld) tion Code N [facility] 10:15-0 (94910) 400 Sodium [Moles/Vol] 138 mmol/L Negative 135-145 PENDING 11-21 mmol/L LOCATIO 020 [facility] 10:150 (63693) 400 TSH Qn 0.84 m[IU]/L Negative 0.35-4.94 PENDING u[iU]/mL LOCATIO 020 N [facility] 10:15-0 (13327) 400 Urea nitrogen 11 mg/dL Negative 7-18 mg/dL PENDING [Mass/Vol] LOCATIO 020 N [facility] 10:15-0 (24450) 400 Urea 13 mg/mg Invalid PENDING nitrogen/Creatinine Interpreta LOCATIO 020 [Mass ratio] tion Code N [facility] 10:15-0 (48899) 400 WBC (Bld) [#/Vol] 14.1 10*3/uL High 4.3-11.0 PENDING 10*3/uL LOCATIO 020 N [facility] 10:15-0 (25943) 400 not yet categorized on 2019-07-20 - XR CHEST AP/PA ~ ~ PATIENT NAME: JESSICA BARKER ~ UNIT Invalid [place] LATERAL NO: [id number] ~ ~ EXAMS: CPT CODE: ~ [facility] [id number] XR CHEST AP/PA LATERAL 32098 ~ ~ ~ tion Code Center REASON FOR EXAM: 54 years old Male soa ~ ~ (60177) TIME OF CURRENT STUDY: 07/20/2019 5:42 A M ~ ~ COMPARISON: None ~ ~ Technique: PA/AP a nd lateral radiographs of the chest were obtained. ~ ~ FINDINGS: ~ Lung volumes within normal limits. ~ ~ Both lungs are well aerated. ~ There is no lobar consolidat ion or mass. ~ ~ There are no large pleural effusions. No pneumothorax. ~ ~ The cardiomediastinal silhouette and pulmon waldemar vasculature have a ~ normal appearance. ~ ~ Included osseous structures demonstrate no acute abnormality. ~ ~ IMPRESSION: ~ No acute cardiopulmonary process. ~ ~ I have personally reviewed these images and ap proved or corrected the ~ resident physician's interpretation. 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 KEY ~ TRANSCRIBED DATE/Time: 07/20/2019 0849 BY: PPAUVI ~ EXAM COMPLETE DATE/TIME: 530 0542 D/TM:07/20/2019 (0854)~ ~ ~ [facility] NAME: JESSICA BARKER ~ [address] HP: [phone] AGE: 54 S:M~ [place] [address] : 1965 L OC: W.EDW ~ PHYS: Renée Valdez D ~ PHONE #: [phone] EXAM DATE: 2019 STATUS: DEP ER~ FAX #: [phone] A#: [id number] U#: [id number] ~ ~ PAGE 1 Sign ed Report *Final Page* BASOPHIL # 0.1 Normal 0.0-0.2 [facility] (02420) D-DIMER QUANT < 215 Normal < 500 [place] ng/mL [facility] (72148) EOSINOPHIL # 0.2 Normal 0.1-0.5 [facility] (94517) EST CrCl (CG) > 60 > 59 [place] mL/min [facility] (19606) IMMATURE GRANULOCYTE 0.05 Normal 0.00-0.09 [facility] (79727) LYMPHOCYTE # 2.9 Normal 1.0-4.0 [facility] (17650) MONOCYTE # 1.4 High 0.1-1.0 [facility] (21457) NRBC % 0.0 Normal 0.0-0.0 [place] /100 WBC [facility] (49880) RED BLOOD CELL 5.75 Normal 4.00-6.[address] [facility] (34149) WHITE BLOOD CELL 10.9 High 5.0-10.0 [facility] (96414) laboratory on 2019-07-20 Anion gap 8 mmol/L Normal 5-15 [place] [Moles/Vol] mmol/L [facility] (47096) Basophils/100 WBC 0.5 % Normal 0-1 % [place] (Bld) [facility] (85603) Calcium [Mass/Vol] 9.3 mg/dL Normal 8.5-10.1 [place] mg/dL [facility] (16893) Chloride [Moles/Vol] 104 mmol/L Normal 98-110 [facility] mmol/L [facility] (71114) CO2 [Moles/Vol] 27 mmol/L Normal 21-32 [place] mmol/L [facility] (34318) Creatinine 1.11 mg/dL Normal 0.70-1.30 [place] [Mass/Vol] mg/dL [facility] (70769) Eosinophils/100 WBC 1.7 % Low 2-4 % [place] (Bld) [facility] (83781) Erythrocyte 14.1 % Normal 11.0-15.6 [place] distribution width % [facility] (RBC) [Ratio] Center (94960) GFR/1.73 sq mL/min/{1.73_m2} > 59 [place] M.predicted among mL/min [facility] non-blacks MDRD Center (S/P/Bld) [Vol (95115) rate/Area] Glucose [Mass/Vol] 97 mg/dL Normal 70-99 [place] mg/dL [facility] (00940) Granulocytes (Bld) 6.4 Normal 2.0-9.0 [place] [#/Vol] k/cumm [facility] (36676) Granulocytes/100 WBC 58.6 % Normal 50-75 % [facility] (Bld) [facility] (92264) Hematocrit (Bld) 50.0 % Normal 40.0-54.0 [place] [Volume fraction] % [facility] (19100) Hemoglobin (Bld) 16.4 g/dL Normal 14.0-18.0 [place] [Mass/Vol] gm/dL [facility] (46391) Immature 0.5 % Normal 0.0-0.6 % [place] granulocytes/100 WBC [facility] (Bld) Center (34563) Lymphocytes/100 WBC 26.3 % Normal 20-30 % [place] (Bld) [facility] (97874) MCH (RBC) [Entitic 28.5 pg Normal 27.0-33.0 [place] mass] pg [facility] (95753) MCHC (RBC) 32.8 g/dL Normal 32.0-37.0 [place] [Mass/Vol] g/dL [facility] (97703) MCV (RBC) [Entitic 87.0 fL Normal 80.0-100.0 [place] vol] fl [facility] (53514) Monocytes/100 WBC 12.4 % High 4-6 % [place] (Bld) [facility] (76034) Platelet mean volume 9.5 fL Normal 8.5-10.9 [place] (Bld) [Entitic vol] fl [facility] (57396) Platelets (Bld) 418 High 150-400 [place] [#/Vol] [facility] (16126) Potassium 4.1 mmol/L Normal 3.5-5.3 [place] [Moles/Vol] mmol/L [facility] (32254) Sodium [Moles/Vol] 139 mmol/L Normal 135-148 [place] mmol/L [facility] (75157) Troponin I.cardiac ng/mL Invalid < 0.07 [place] [Mass/Vol] Interpreta ng/mL [facility] (36691) Troponin I.cardiac ng/mL Normal < 0.07 [place] [Mass/Vol] ng/mL [facility] (79984) Troponin I.cardiac ng/mL Normal < 0.07 [place] [Mass/Vol] ng/mL [facility] (02289) Urea nitrogen 12 mg/dL Normal 7-20 mg/dL [place] [Mass/Vol] [facility] (70541) not yet categorized on 2019-07-14 BASOPHIL # 0.1 Normal 0.0-0.2 [facility] (67569) EOSINOPHIL # 0.2 Normal 0.1-0.5 [facility] (24855) EST CrCl (CG) > 60 Invalid > 59 [place] Interpreta mL/min [facility] (84774) IMMATURE GRANULOCYTE 0.03 Normal 0.00-0.09 [place] [facility] (68010) LYMPHOCYTE # 2.9 Normal 1.0-4.0 [facility] (87277) MONOCYTE # 1.0 Normal 0.1-1.0 [facility] (86602) NRBC % 0.0 Normal 0.0-0.0 [place] /100 WBC [facility] (99677) RED BLOOD CELL 5.52 Normal 4.00-6.[address] [facility] (08206) WHITE BLOOD CELL 10.2 High 5.0-10.0 [facility] (18013) laboratory on 2019-07-14 Anion gap 7 mmol/L Normal 5-15 [place] [Moles/Vol] mmol/L [facility] (75333) Basophils/100 WBC 0.5 % Normal 0-1 % [place] (Bld) [facility] (32581) Calcium [Mass/Vol] 9.1 mg/dL Normal 8.5-10.1 [place] mg/dL [facility] (89977) Chloride [Moles/Vol] 100 mmol/L Normal 98-110 [place] mmol/L [facility] (36469) CO2 [Moles/Vol] 29 mmol/L Normal 21-32 [place] mmol/L [facility] (51109) Creatinine 1.09 mg/dL Normal 0.70-1.30 [place] [Mass/Vol] mg/dL [facility] (10557) Eosinophils/100 WBC 1.6 % Low 2-4 % [place] (Bld) [facility] (96133) Erythrocyte 14.0 % Normal 11.0-15.6 [place] distribution width % [facility] (RBC) [Ratio] Center (22910) GFR/1.73 sq mL/min/{1.73_m2} Invalid > 59 [place] M.predicted among Interpreta mL/min Medical non-blacks MDRD tion Code Center (S/P/Bld) [Vol (06079) rate/Area] Glucose [Mass/Vol] 126 mg/dL High 70-99 [place] mg/dL [facility] (45828) Granulocytes (Bld) 6.0 Normal 2.0-9.0 [place] [#/Vol] k/cumm [facility] (43010) Granulocytes/100 WBC 59.5 % Normal 50-75 % [facility] (Bld) [facility] (98845) Hematocrit (Bld) 47.4 % Normal 40.0-54.0 [place] [Volume fraction] % [facility] (50791) Hemoglobin (Bld) 15.7 g/dL Normal 14.0-18.0 [place] [Mass/Vol] gm/dL [facility] (78294) Immature 0.3 % Normal 0.0-0.6 % [place] granulocytes/100 [facility] (Bld[facility] (61202) Lymphocytes/100 WBC 28.3 % Normal 20-30 % [place] (Bld) [facility] (90937) MCH (RBC) [Entitic 28.4 pg Normal 27.0-33.0 [place] mass] [facility] (09540) MCHC (RBC) 33.1 g/dL Normal 32.0-37.0 [place] [Mass/Vol] g/dL [facility] (27564) MCV (RBC) [Entitic 85.9 fL Normal 80.0-100.0 [place] vol] [facility] (09585) Monocytes/100 WBC 9.8 % High 4-6 % [place] (Bld) [facility] (29483) Platelet mean volume 9.4 fL Normal 8.5-10.9 [place] (Bld) [Entitic vol] [facility] (20067) Platelets (Bld) 392 Normal 150-400 [place] [#/Vol] /[facility] (18105) Potassium 4.0 mmol/L Normal 3.5-5.3 [place] [Moles/Vol] mmol/L [facility] (32048) Sodium [Moles/Vol] 136 mmol/L Normal 135-148 [place] mmol/L [facility] (62439) Urea nitrogen 11 mg/dL Normal 7-20 mg/dL [place] [Mass/Vol] [facility] (17408) not yet categorized on 2019-01-29 GFR >60 Invalid mL/min/1.7 [place] [address] Interpreta Rai 019 tion Code [facility] 09:25-0 l [facility] (85310) AGE 53 Invalid YEARS [facility] Interpreta Rai 019 tion Code [facility] 09:25-0 l [facility] (34536) eGFR >60 Invalid mL/min/1.7 [facility] Interpreta Rai 019 tion Code [facility] 09:25-0 l [facility] (91434) FASTING SPECIMEN? UNKNOWN [facility] Rai 019 Memoria 09:25-0 l [facility] (46227) FINGER STICK NO Invalid [facility] Interpreta Rai 019 tion Code [facility] 08:09-0 l [facility] (35572) FINGER STICK NO Invalid [facility] Interpreta Rai 019 tion Code [facility] 09:25-0 l [facility] (93930) INDIRECT BILI 0.5 Invalid 0.1 - 1.0 [facility] Interpreta mg/dl Rai 019 tion Code [facility] 09:25-0 l [facility] (42953) MANUAL DIFF NOT INDICATED Invalid Interpreta Rai 019 tion Code [facility] 08:09-0 l [facility] (94580) Invalid Mata Interpreta Rai 019 tion Code [facility] 08:09-0 l [facility] (75412) Invalid Mata Interpreta Rai 019 tion Code [facility] 09:25-0 l [facility] (18414) Invalid Mata Interpreta Rai 019 tion Code [facility] 09:25-0 l [facility] (41556) laboratory on 2019-01-29 Albumin BCP dye 3.7 Invalid 3.4 - 5.6 [Mass/Vol] Interpreta g/dL Rai 019 tion Code [facility] 09:25-0 l [facility] (34729) ALP [Catalytic 110 U/L Invalid 50 - 136 activity/Vol] Interpreta U/L Rai 019 tion Code [facility] 09:25-0 l [facility] (07056) ALT With P-5'-P 21 U/L Invalid 12 - 78 [Catalytic Interpreta U/L Rai 019 activity/Vol] tion Code [facility] 09:25-0 l [facility] (70818) AST With P-5'-P 10 U/L Low 15 - 45 [Catalytic U/L Rai 019 activity/Vol] [facility] 09:25-0 l [facility] (09413) Basophils (Bld) 0.05 10*3/uL Invalid 0.00 - 01-20 0-2 [#/Vol] Interpreta 0.10 Rai 019 tion Code [facility] 08:09-0 l [facility] (28243) Basophils/100 WBC 0.50 % Invalid 0.00 - 01-29 (Bld) Interpreta 2.00 % Rai 019 tion Code [facility] 08:09-0 l [facility] (48596) Bilirubin [Mass/Vol] 0.6 mg/dL Invalid 0.0 - 1.0 Interpreta mg/dL Rai 019 tion Code [facility] 09:25-0 l [facility] (55820) Bilirubin.direct 0.1 mg/dL Invalid 0.0 - 0.3 [facility] [Mass/Vol] Interpreta mg/dL Rai 019 tion Code [facility]oria 09:25-0 l [facility] (10737) Calcium [Mass/Vol] 8.8 mg/dL Invalid 8.5 - 10.0 [facility] 11-21 Interpreta mg/dL Rai 019 tion Code [facility]oria 09:25-0 l [facility] (20211) Chloride [Moles/Vol] 103 mmol/L Invalid 98 - 107 [facility] Interpreta mmol/L Rai 019 tion Code [facility]oria 09:25-0 l [facility] (65678) Cholesterol 194 mg/dL Invalid 50 - 200 [facility] [Mass/Vol] Interpreta mg/dL Rai 019 tion Code Memoria 09:25-0 l [facility] (67763) Cholesterol in HDL 46 mg/dL Invalid 32 - 96 [facility] 01-20 0-2 [Mass/Vol] Interpreta mg/dL Rai 019 tion Code Memoria 09:25-0 l [facility] (43648) Cholesterol in VLDL 114 mg/dL Invalid 100 - 130 [facility] 11-21 [Mass/Vol] Interpreta mg/dL Rai 019 tion Code [facility]oria 09:25-0 l [facility] (01474) CO2 [Moles/Vol] 29 mmol/L Invalid 21 - 32 [facility] Interpreta mmol/L Rai 019 tion Code Memoria 09:25-0 l [facility] (91991) Creatinine 1.1 mg/dL Invalid 0.8 - 1.1 [facility] [Mass/Vol] Interpreta mg/dL Rai 019 tion Code Memoria 09:25-0 l [facility] (26540) Eosinophils (Bld) 0.20 10*3/uL Invalid 0.00 - [facility] [#/Vol] Interpreta 0.50 Rai 019 tion Code Memoria 08:09-0 l [facility] (77956) Eosinophils/100 WBC 2.20 % Invalid 0.00 - [facility] 11-21 (Bld) Interpreta 8.00 % Fredi 019 tion Code Memoria 08:09-0 l [facility] (48914) Erythrocyte 13.5 % Invalid 11.5 - distribution width Interpreta 14.5 % Rai 019 (RBC) [Ratio] tion Code [facility]oria 08:09-0 l [facility] (21185) GFR/1.73 sq 75 Low 90 - 120 M.predicted MDRD ml/min/1.7 Rai 019 (S/P/Bld) [Vol [facility] 09:25-0 rate/Area] l [facility] (81148) Glucose [Mass/Vol] 98 mg/dL Invalid 65 - 110 01-20 Interpreta mg/dL Rai 019 tion Code [facility]oria 09:25-0 l [facility] (81417) Hematocrit (Bld) 47.9 % Invalid 35.0 - [Volume fraction] Interpreta 58.0 % Rai 019 tion Code Memoria 08:09-0 l [facility] (92255) Hemoglobin (Bld) 15.3 g/dL Invalid 13.5 - [Mass/Vol] Interpreta 16.0 g/dL Rai 019 tion Code [facility]oria 08:09-0 l [facility] (22012) Immature 0.03 10*3/uL Invalid 0.00 - granulocytes (Bld) Interpreta 0.03 Rai 019 [#/Vol] tion Code Memoria 08:09-0 l [facility] (08647) Immature 0.30 % Invalid 0.00 - granulocytes/100 WBC Interpreta 0.90 % Rai 019 (Bld) tion Code Memoria 08:09-0 l [facility] (60082) Lymphocytes (Bld) 3.15 10*3/uL High 0.70 - [#/Vol] 3.10 Rai 019 Memoria 08:09-0 l [facility] (72153) Lymphocytes/100 WBC 34.1 % Invalid 20.0 - 11-21 (Bld) Interpreta 53.0 % Rai 019 tion Code [facility]oria 08:09-0 l [facility] (00114) MCH (RBC) [Entitic 28.0 pg Invalid 25.0 - 01-20 0-2 mass] Interpreta 35.0 pg Rai 019 tion Code [facility]oria 08:09-0 l [facility] (58713) MCHC (RBC) 31.9 g/dL Low 32.0 - [Mass/Vol] 36.0 g/dL Rai 019 Memoria 08:09-0 l [facility] (95995) MCV (RBC) [Entitic 87.7 fL Invalid 78.0 - Mata 01-20 0-2 vol] Interpreta 95.0 fl Rai 019 tion Code [facility]oria 08:09-0 l [facility] (09235) Monocytes (Bld) 0.87 10*3/uL Invalid 0.20 - 01-20 0-2 [#/Vol] Interpreta 0.90 Rai 019 tion Code [facility]oria 08:09-0 l [facility] (21149) Monocytes/100 WBC 9.4 % Invalid 0.0 - 10.0 Mata 01-20 02 (Bld) Interpreta % Rai 019 tion Code [facility]oria 08:09-0 l [facility] (53650) Neutrophils (Bld) 4.94 10*3/uL Invalid 1.80 - [#/Vol] Interpreta 7.50 Rai 019 tion Code [facility]oria 08:09-0 l [facility] (75120) Neutrophils/100 WBC 53.5 % Invalid 35.0 - 11-21 (Bld) Interpreta 75.0 % Rai 019 tion Code [facility]oria 08:09-0 l [facility] (32598) Nucleated RBC (Bld) 0.00 10*3/uL Low 0.40 - [#/Vol] 1.10 Rai 019 Memoria 08:09-0 l [facility] (67216) Nucleated RBC/100 0.00 % Invalid 0.00 - 01-29 WBC (Bld) [Ratio] Interpreta 10.00 % Rai 019 tion Code [facility]oria 08:09-0 l [facility] (79156) Platelets (Bld) 368 Invalid 130 - 400 [#/Vol] Interpreta 10^3uL Rai 019 tion Code [facility]oria 08:09-0 l [facility] (35355) Potassium 4.7 mmol/L Invalid 3.5 - 4.8 [facility] [Moles/Vol] Interpreta mmol/L Rai 019 tion Code Memoria 09:25-0 l [facility] (83816) Prostate specific Ag 0.80 ng/mL Invalid 0.05 - [Mass/Vol] Interpreta 4.00 ng/mL Rai 019 tion Code [facility]oria 09:25-0 l [facility] (29442) Protein [Mass/Vol] 7.4 g/dL Invalid 6.4 - 8.2 [facility] 01-20 0-2 Interpreta g/dL Rai 019 tion Code Memoria 09:25-0 l [facility] (33500) RBC (Bld) [#/Vol] 5.46 High 4.20 - [facility] 01-29 5.40 Rai 019 10^6uL [facility]oria 08:09-0 l [facility] (02843) RBC morphology NOT INDICATED Invalid Mata finding Nom (Bld) Interpreta Rai 019 tion Code [facility]oria 08:09-0 l [facility] (89604) Sodium [Moles/Vol] 140 mmol/L Invalid 136 - 145 [facility] 11-21 Interpreta mmol/L Fredi 019 tion Code Memoria 09:25-0 l [facility] (32817) Triglyceride 168 mg/dL High 0 - 150 [facility] [Mass/Vol] mg/dL Rai 019 Memoria 09:25-0 l [facility] (00381) Urate [Mass/Vol] 8.0 mg/dL Invalid 4.0 - 8.6 [facility] Interpreta mg/dL Rai 019 tion Code Memoria 09:25-0 l [facility] (54494) Urea nitrogen 14 mg/dL Invalid 7 - 18 [facility] [Mass/Vol] Interpreta mg/dL Rai 019 tion Code Memoria 09:25-0 l [facility] (74112) WBC (Bld) [#/Vol] 9.2 Invalid 4.0 - 11.0 [facility] 01-20 0-2 Interpreta 10^3uL Rai 019 tion Code [facility]oria 08:09-0 l [facility] (94935) laboratory on 2018-06-08 Albumin [Mass/Vol] 4.3 g/dL Normal 3.6-5.1 Communi g/dL ty [facility] (23423) Albumin/Globulin 1.4 {ratio} Normal 1.0-2.5 Communi [Mass ratio] (calc) [facility] (03732) ALP [Catalytic 97 U/L Normal 40-115 U/L Communi activity/Vol] [facility] (16217) ALT [Catalytic 14 U/L Normal 9-46 U/L Communi activity/Vol] [facility] (50812) AST [Catalytic 13 U/L Normal 10-35 U/L Communi activity/Vol] [facility] (57061) Bilirubin [Mass/Vol] 0.6 mg/dL Normal 0.2-1.2 Commu ni mg/dL [facility] (41009) Calcium [Mass/Vol] 9.5 mg/dL Normal 8.6-10.3 Communi mg/dL ty [facility] (21444) Chloride [Moles/Vol] 102 mmol/L Normal 98-110 Commu ni mmol/L ty [facility] (24754) CO2 [Moles/Vol] 25 mmol/L Normal 20-32 Communi mmol/L [facility] (86551) Creatinine 0.81 mg/dL Normal 0.70-1.33 Communi [Mass/Vol] mg/dL ty [facility] (17875) GFR/1.73 sq 119 mL/min/{1.73_m2} Normal > OR = 60 Commu ni M.predicted among mL/min/1.7 ty blacks MDRD 3m2 Health (S/P/Bld) [Vol Center rate/Area] [facility] (49129) GFR/1.73 sq 103 mL/min/{1.73_m2} Normal > OR = 60 Commu ni M.predicted MDRD mL/min/1.7 ty (S/P/Bld) [Vol 3m2 Health rate/Area] [facility] (77698) Globulin (S) 3.1 g/dL Normal 1.9-3.7 Communi [Mass/Vol] g/dL ty (calc) [facility] (24031) Glucose [Mass/Vol] 83 mg/dL Normal 65-99 Communi mg/dL ty [facility] (26718) Potassium 4.4 mmol/L Normal 3.5-5.3 Communi [Moles/Vol] mmol/L ty [facility] (66246) Protein [Mass/Vol] 7.4 g/dL Normal 6.1-8.1 Communi g/dL ty [facility] (04097) Sodium [Moles/Vol] 137 mmol/L Normal 135-146 Communi mmol/L ty [facility] (04377) Urea nitrogen 10 mg/dL Normal 7-25 mg/dL Communi [Mass/Vol] ty [facility] (27088) Urea NOT APPLICABLE Invalid 6-22 Communi nitrogen/Creatinine Interpreta (calc) ty [Mass ratio] tion Code [facility] (39898) laboratory on 2018-05-18 Basophils (Bld) 0.057 10*3/uL Normal 0-200 Communi [#/Vol] cells/uL [facility] (99801) Basophils/100 WBC 0.7 % Normal % Communi (Bld) [facility] (60336) Eosinophils (Bld) 0.162 10*3/uL Normal 15-500 Commun i [#/Vol] cells/uL ty [facility] (83819) Eosinophils/100 WBC 2.0 % Normal % Commun i (Bld) [facility] (75485) Erythrocyte 13.8 % Normal 11.0-15.0 Communi distribution width % ty (RBC) [Ratio] [facility] (53354) Hematocrit (Bld) 48.6 % Normal 38.5-50.0 Communi [Volume fraction] % ty [facility] (63088) Hemoglobin (Bld) 16.0 g/dL Normal 13.2-17.1 Communi [Mass/Vol] g/dL [facility] (49960) Heterophile Ab LA Ql Negative Normal NEGATIVE Commu ni (S) [facility] (37064) Lymphocytes (Bld) 2.973 10*3/uL Normal 850-3900 Commun i [#/Vol] cells/uL [facility] (00901) Lymphocytes/100 WBC 36.7 % Normal % Commun i (Bld) [facility] (67360) MCH (RBC) [Entitic 28.3 pg Normal 27.0-33.0 Communi mass] pg [facility] (88756) MCHC (RBC) 32.9 g/dL Normal 32.0-36.0 Communi [Mass/Vol] g/dL [facility] (47470) MCV (RBC) [Entitic 86.0 fL Normal 80.0-100.0 Communi vol] fL [facility] (82620) Monocytes (Bld) 0.948 10*3/uL Normal 200-950 Communi [#/Vol] cells/uL [facility] (83678) Monocytes/100 WBC 11.7 % Normal % Communi (Bld) [facility] (86490) Neutrophils (Bld) 3.961 10*3/uL Normal 2719-3047 Commun i [#/Vol] cells/uL [facility] (32683) Neutrophils/100 WBC 48.9 % Normal % Commun i (Bld) [facility] (22169) Platelet mean volume 9.9 fL Normal 7.5-12.5 Commu ni (Bld) [Entitic vol] fL [facility] (02216) Platelets (Bld) 385 10*3/uL Normal 140-400 Communi [#/Vol] Thousand/u ty [facility] (76988) RBC (Bld) [#/Vol] 5.65 10*6/uL Normal 4.20-5.80 Communi Million/uL [facility] (74445) WBC (Bld) [#/Vol] 8.1 10*3/uL Normal 3.8-10.8 Communi Thousand/u ty L [facility] (70611) laboratory on 2018-05-14 Albumin [Mass/Vol] 4.1 g/dL Normal 3.6-5.1 Communi g/dL [facility] (84336) Albumin/Globulin 1.5 {ratio} Normal 1.0-2.5 Communi [Mass ratio] (calc) [facility] (53530) ALP [Catalytic 93 U/L Normal 40-115 U/L Communi activity/Vol] [facility] (37361) ALT [Catalytic 14 U/L Normal 9-46 U/L Communi activity/Vol] [facility] (27381) AST [Catalytic 12 U/L Normal 10-35 U/L Communi activity/Vol] [facility] (19285) Bilirubin [Mass/Vol] 0.5 mg/dL Normal 0.2-1.2 Commu ni mg/dL [facility] (33625) Calcium [Mass/Vol] 9.7 mg/dL Normal 8.6-10.3 Communi mg/dL [facility] [facility] ([id number]) Chloride [Moles/Vol] 102 mmol/L Normal 98-110 Commu ni mmol/L [facility] (27232) Cholesterol 183 mg/dL Normal <200 mg/dL Communi [Mass/Vol] [facility] (86382) Cholesterol in HDL 47 mg/dL Normal >40 mg/dL Communi [Mass/Vol] [facility] (47668) Cholesterol in LDL 107 mg/dL High mg/dL Communi [Mass/Vol] (calc) [facility] (67938) Cholesterol non HDL 136 mg/dL High <130 mg/dL Commun i [Mass/Vol] (calc) [facility] (79638) Cholesterol.total/Ch 3.9 {ratio} Normal <5.0 Commu ni olesterol in HDL (calc) ty [Mass ratio] [facility] (76268) CO2 [Moles/Vol] 29 mmol/L Normal 20-32 Communi mmol/L ty [facility] (86141) Creatinine 0.92 mg/dL Normal 0.70-1.33 Communi [Mass/Vol] mg/dL ty [facility] (91888) GFR/1.73 sq 112 mL/min/{1.73_m2} Normal > OR = 60 Commu ni M.predicted among mL/min/1.7 ty blacks MDRD 3m2 Health (S/P/Bld) [Vol [place] rate/Area] [facility] (00628) GFR/1.73 sq 97 mL/min/{1.73_m2} Normal > OR = 60 Commun i M.predicted MDRD mL/min/1.7 ty (S/P/Bld) [Vol 3m2 Health rate/Area] [facility] () Globulin (S) 2.8 g/dL Normal 1.9-3.7 Communi [Mass/Vol] g/dL ty (calc) [facility] (80298) Glucose [Mass/Vol] 94 mg/dL Normal 65-139 Communi mg/dL ty [facility] (35221) Potassium 4.5 mmol/L Normal 3.5-5.3 Communi [Moles/Vol] mmol/L ty [facility] (81292) Protein [Mass/Vol] 6.9 g/dL Normal 6.1-8.1 Communi g/dL ty [facility] (58428) Sodium [Moles/Vol] 137 mmol/L Normal 135-146 Communi mmol/L ty [facility] (03645) Triglyceride 174 mg/dL High <150 mg/dL Communi [Mass/Vol] ty [facility] (72039) Urea nitrogen 14 mg/dL Normal 7-25 mg/dL Communi [Mass/Vol] ty [facility] (69143) Urea NOT APPLICABLE Invalid 6-22 Communi nitrogen/Creatinine Interpreta (calc) ty [Mass ratio] tion Code [facility] (14384) laboratory on 2016-04-22 Albumin [Mass/Vol] 4.1 g/dL Invalid 3.5-5.5 Not 03-0 3-2 Interpreta g/dL Avail[facility] 017 tion Code le 09:090 (16868) 500 Albumin/Globulin 1.4 {ratio} Invalid 1.1-2.5 Not 03-0 3-2 [Mass ratio] Interpreta Avail[facility] 017 tion Code le 09:09-0 (51148) 500 ALP [Catalytic 104 U/L Invalid 39-117 Not 04-22-2 activity/Vol] Interpreta IU/L [facility]ail[facility] 017 tion Code le 09:-0 (76852) 500 ALT [Catalytic 15 U/L Invalid 0-44 IU/L Not 2 activity/Vol] Interpreta Avail[facility] 017 tion Code le 09:0 (59385) 500 AST [Catalytic 14 U/L Invalid 0-40 IU/L Not 2 activity/Vol] Interpreta Availab 017 tion Code le 09:0 (48110) 500 Bilirubin [Mass/Vol] 0.6 mg/dL Invalid 0.0-1.2 Not 03-2 Interpreta mg/dL Avail[facility] 017 tion Code le 09:0 (20063) 500 Calcium [Mass/Vol] 9.2 mg/dL Invalid 8.7-10.2 Not 03-0 3-2 Interpreta mg/dL Avail[facility] 017 tion Code le 09:0 (45936) 500 Chloride [Moles/Vol] 97 mmol/L Invalid 96-106 Not 03-2 Interpreta mmol/L [facility]ail[facility] 017 tion Code le 09:-0 (08695) 500 Cholesterol 185 mg/dL Invalid 100-199 Not 03-2 [Mass/Vol] Interpreta mg/dL Avail[facility] 017 tion Code le 09:09-0 (96147) 500 Cholesterol in HDL 49 mg/dL Invalid >39 mg/dL Not 03-0 3-2 [Mass/Vol] Interpreta Availab 017 tion Code le 09:09-0 (35853) 500 Cholesterol in LDL 106 mg/dL High 0-99 mg/dL Not 03-2 [Mass/Vol] Avail[facility] 017 le 09:090 (83320) 500 Cholesterol in VLDL 30 mg/dL Invalid 5-40 mg/dL Not [Mass/Vol] Interpreta [facility]ail[facility] 017 tion Code le 09:09-0 (62861) 500 CO2 [Moles/Vol] 26 mmol/L Invalid 18-29 Not Interpreta mmol/L Avail[facility] 017 tion Code le 09:09-0 (22101) 500 Creatinine 0.90 mg/dL Invalid 0.76-1.27 Not [Mass/Vol] Interpreta mg/dL Avail[facility] 017 tion Code le 09:0 (54338) 500 GFR/1.73 sq 116 mL/min/{1.73_m2} Invalid >59 Not M.predicted among Interpreta mL/min/1.7 Avail[facility] 017 blacks MDRD tion Code 3 le 09:09-0 (S/P/Bld) [Vol (84719) 500 rate/Area] GFR/1.73 sq 101 mL/min/{1.73_m2} Invalid >59 Not M.predicted among Interpreta mL/min/1.7 Availab 017 non-blacks MDRD tion Code 3 le 09:-0 (S/P/Bld) [Vol (66878) 500 rate/Area] Globulin (S) 2.9 g/dL Invalid 1.5-4.5 Not [Mass/Vol] Interpreta g/dL Avail[facility] 017 tion Code le 09:0 (36270) 500 Glucose [Mass/Vol] 86 mg/dL Invalid 65-99 Not 03-0 3-2 Interpreta mg/dL Avail[facility] 017 tion Code le 09:0 (35564) 500 Potassium 4.9 mmol/L Invalid 3.5-5.2 Not 2 [Moles/Vol] Interpreta mmol/L Avail[facility] 017 tion Code le 09:0 (54315) 500 Protein [Mass/Vol] 7.0 g/dL Invalid 6.0-8.5 Not 03-0 3-2 Interpreta g/dL Avail[facility] 017 tion Code le 09:090 (23855) 500 Sodium [Moles/Vol] 137 mmol/L Invalid 134-144 Not 03- 03-2 Interpreta mmol/L Avail[facility] 017 tion Code le 09:09-0 (95695) 500 Triglyceride 152 mg/dL High 0-149 Not 04-22-2 [Mass/Vol] mg/dL [facility] 017 le 09:09-0 (17117) 500 TSH Qn 1.520 Invalid 0.450-4.50 Not 04-22-2 Interpreta 0 uIU/mL [facility]ail[facility] 017 tion Code le 09:37-0 (27312) 500 Urea nitrogen 10 mg/dL Invalid 6-24 mg/dL Not 2 [Mass/Vol] Interpreta Availab 017 tion Code le 09:09-0 (95823) 500 Urea 11 mg/mg Invalid 9-20 Not 04-22-2 nitrogen/Creatinine Interpreta Availab 017 [Mass ratio] tion Code le 09:09-0 (60400) 500 Social History The data below is from [...] Recent Infectious Disease Exposure N 11/10/12 1:41pm Vital Signs The data below is from unstructured sources Vital Response Date/Time Temperature (Fahrenheit) 98.1 degree s F (97.6 - 99.5) 01/09/2016 10:07pm Temperature (Calculated Celsius) 36. 84614 degrees C (36.4 - 37.5) 01/09/2016 10:07pm [...] inches 01/09/2016 10:07pm Height (Calculated Centimeters) 180. 145432 cm 01/09/2016 10:07pm Weight (Pounds) 298 pounds 01/09/2016 10:07pm Weight (Calculated Kilograms) 135.17 0528 kilograms 01/09/2016 10:07pm Capillary Refill Capillary Refill Less Than 3 Seconds 01/09/2016 10:07pm Height 5 ft 11 in Weight 298 lb Body Mass Index 41.6 kg/m^2 Vital Response Date/Time Temperature (Fahrenheit) 97.9 degree s F (97.6 - 99.5) 05/26/2015 10:55pm Temperature (Calculated Celsius) 36. 66192 degrees C (36.4 - 37.5) 05/26/2015 10:55pm [...] inches 05/26/2015 10:55pm Height (Calculated Centimeters) 182. 813321 cm 05/26/2015 10:55pm Weight (Pounds) 310 pounds [...] 0 cm 03/03/2015 5:10pm Weight (Calculated Grams) 501335.000 gm 03/03/2015 5:10pm Weight (Kilograms) 145 kg 03/03/2015 5:10pm Calculated BMI 0.00 02/20 5:10pm Vital Response Date/Time Temperature (Fahrenheit) 98.6 degree s F (97.6 - 99.5) 07/26/2015 5:35pm Temperature (Calculated Celsius) 37. 18973 degrees C (36.4 - 37.5) 07/26/2015 5:35pm [...] inches 07/26/2015 5:35pm Height (Calculated Centimeters) 180. 991180 cm 07/26/2015 5:35pm Weight (Pounds) 290 pounds 07/26/2015 5:35pm Weight (Calculated Kilograms) 131.54 1789 kilograms 07/26/2015 5:35pm Height 5 ft 11 in Weight 290 lb Body Mass Index 40.4 kg/m^2 Vital Response Date/Time Temperature (Fahrenheit) 96.3 degree s F (97.6 - 99.5) 11/27/2014 8:06am Temperature (Calculated Celsius) 35. 17766 degrees C (36.4 - 37.5) 11/27/2014 8:06am Temperature Source Temporal 11/27/2014 8:06am Pulse Rate (adult) 82 bpm (60 - 90) 11/27/2014 8:06am Blood Pressure 173/106 mm Hg 11/27/2014 8:06am Blood Pressure Mean 128 mm Hg 11/27/2014 8:06am Pain Pain Intensity 9 2014 8:06am Height (Feet) 6 feet 09/2014 8:06am Height (Inches) 0 inches 11/27/2014 8:06am Height (Calculated Centimeters) 182. 079479 cm 11/27/2014 8:06am Weight (Pounds) 305 pounds 11/27/2014 8:06am Weight (Calculated Kilograms) 138.34 5674 kilograms 11/27/2014 8:06am Calculated BMI 41.36 09/2014 8:06am Vital Response Date/Time Temperature (Fahrenheit) 98.4 degree s F (97.6 - 99.5) Temperature (Calculated Celsius) 36. 78036 degrees C (36.4 - 37.5) Pulse Rate (adult) 95 bpm (60 - 90) Respiratory Rate 16 bpm (12 - 24) O2 Sat by Pulse Oximetry 99 % (88 - 100) Blood Pressure 157/107 mm Hg Pain Pain Intensity 6 Height (Feet) 6 feet Height (Inches) 0 inches Height (Calculated Centimeters) 182. 647429 cm Weight (Pounds) 308 pounds Weight (Calculated Kilograms) 139.70 6451 kilograms Calculated BMI 41.77 Vital Response Date/Time Temperature (Fahrenheit) 97.8 degree s F (97.6 - 99.5) 10/18/2014 12:41am Temperature (Calculated Celsius) 36. 64059 degrees C (36.4 - 37.5) 10/18/2014 12:41am [...] 6 feet 12:41am Height (Calculated Centimeters) 182. 050682 cm 10/18/2014 12:41am Weight (Pounds) 306 pounds 10/18/2014 12:41am Weight (Calculated Kilograms) 138.79 9267 kilograms 10/18/2014 12:41am Vital Response Date/Time Temperature (Fahrenheit) 97.6 degree s F (97.6 - 99.5) Temperature (Calculated Celsius) 36. 29711 degrees C (36.4 - 37.5) Temperature Source Temporal Pulse Rate (adult) 95 bpm (60 - 90) Respiratory Rate 20 bpm (12 - 24) O2 Sat by Pulse Oximetry 98 % (88 - 100) Blood Pressure 182/123 mm Hg Pain Pain Intensity 0 Height (Feet) 5 feet Height (Inches) 11 inches Height (Calculated Centimeters) 180. 556450 cm Weight (Pounds) 300 pounds Weight (Calculated Grams) 004625.865 gm Weight (Calculated Kilograms) 136.07 7712 kilograms Calculated BMI 41.84 Vital Response Date/Time Temperature (Fahrenheit) 97.8 degree s F (97.6 - 99.5) 10/18/2014 12:41am Temperature (Calculated Celsius) 36. 03277 degrees C (36.4 - 37.5) 10/18/2014 12:41am [...] 6 feet 12:41am Height (Calculated Centimeters) 182. 360507 cm 10/18/2014 12:41am Weight (Pounds) 306 pounds 10/18/2014 12:41am Weight (Calculated Kilograms) 138.79 9267 kilograms 10/18/2014 12:41am Height 6 ft 0 in Weight 306 lb Body Mass Index 41.5 kg/m^2 Vital Response Date/Time Temperature (Fahrenheit) 99.5 degree s F (97.6 - 99.5) 03/11/2017 5:50pm Temperature (Calculated Celsius) 37. 50638 degrees C (36.4 - 37.5) 03/11/2017 5:50pm [...] inches 03/11/2017 5:50pm Height (Calculated Centimeters) 210. 339841 cm 03/11/2017 5:50pm Height Method Stated 5:50pm Weight (Pounds) 304 pounds 03/11/2017 5:50pm Weight (Calculated Grams) 936858.082 gm 03/11/2017 5:50pm Weight (Calculated Kilograms) 137.89 2082 kilograms 03/11/2017 5:50pm Calculated BMI 0.00 02/21 5:50pm Weight Method Stated 5:50pm Capillary Refill Capillary Refill Less Than 3 Seconds 03/11/2017 5:50pm Vital Response Date/Time Temperature (Fahrenheit) 98.2 degree s F (97.6 - 99.5) 09/17/2017 3:42pm Temperature (Calculated Celsius) 36. 37981 degrees C (36.4 - 37.5) 09/17/2017 3:42pm [...] inches 09/17/2017 3:42pm Height (Calculated Centimeters) 182. 922337 cm 09/17/2017 3:42pm Height Method Stated 3:42pm Weight (Pounds) 296 pounds 09/17/2017 3:42pm Weight (Ounces) 0 oz 3:42pm Weight (Calculated Grams) 895659.34 gm 09/17/2017 3:42pm Weight (Calculated Kilograms) 134.26 3343 kilograms 09/17/2017 3:42pm Weight Method Stated 3:42pm Capillary Refill Capillary Refill Less Than 3 Seconds 09/17/2017 3:42pm Height 6 ft 0 in 018 3:42pm Weight 296 lb 09/17/2017 3:42pm Body Mass Index 40.1 kg/m^2 09/17/2017 3:42pm Vital Response Date/Time Temperature (Fahrenheit) 97.1 degree s F (97.6 - 99.5) 02/02/2018 10:15pm Temperature (Calculated Celsius) 36. 93042 degrees C (36.4 - 37.5) 02/02/2018 10:15pm [...] inches 02/02/2018 9:45pm Height (Calculated Centimeters) 182. 010310 cm 02/02/2018 9:45pm Height Method Stated 9:45pm Weight (Pounds) 290 pounds 02/02/2018 9:45pm Weight (Ounces) 0 oz 9:45pm Weight (Calculated Grams) 675280.79 gm 02/02/2018 9:45pm Weight (Calculated Kilograms) 131.54 1789 kilograms 02/02/2018 9:45pm Calculated BMI 0.00 01/20 9:45pm Weight Method Stated 9:45pm Capillary Refill Capillary Refill Less Than 3 Seconds 02/02/2018 9:45pm Vital Response Date/Time Temperature (Fahrenheit) 97.0 degree s F (97.6 - 99.5) 05/16/2018 9:46pm Temperature (Calculated Celsius) 36. 23483 degrees C (36.4 - 37.5) 05/16/2018 9:46pm [...] inches 05/16/2018 9:46pm Height (Calculated Centimeters) 182. 702320 cm 05/16/2018 9:46pm Height Method Stated 9:46pm Weight (Pounds) 308 pounds 05/16/2018 9:46pm Weight (Calculated Grams) 160887.45 gm 05/16/2018 9:46pm Weight (Calculated Kilograms) 139.70 6451 kilograms 05/16/2018 9:46pm Weight Method Stated 9:46pm Capillary Refill Capillary Refill Less Than 3 Seconds 05/16/2018 9:46pm Height 6 ft 0 in 019 9:46pm Weight 308 lb 05/16/2018 9:46pm Body Mass Index 41.8 kg/m^2 05/16/2018 9:46pm Vital Response Date/Time Temperature (Fahrenheit) 97.0 degree s F (97.6 - 99.5) 05/16/2018 10:19pm Temperature (Calculated Celsius) 36. 30467 degrees C (36.4 - 37.5) 05/16/2018 10:19pm [...] inches 05/16/2018 9:46pm Height (Calculated Centimeters) 182. 466340 cm 05/16/2018 9:46pm Height Method Stated 9:46pm Weight (Pounds) 308 pounds 05/16/2018 9:46pm Weight (Calculated Grams) 979696.45 gm 05/16/2018 9:46pm Weight (Calculated Kilograms) 139.70 6451 kilograms 05/16/2018 9:46pm Weight Method Stated 9:46pm Capillary Refill Capillary Refill Less Than 3 Seconds 05/16/2018 9:46pm Vital Response Date/Time Temperature (Fahrenheit) 97.7 degree s F (97.6 - 99.5) 07/04/2018 10:22pm Temperature (Calculated Celsius) 36. 13596 degrees C (36.4 - 37.5) 07/04/2018 10:22pm [...] inches 07/04/2018 9:15pm Height (Calculated Centimeters) 182. 634294 cm 07/04/2018 9:15pm Height Method Stated 9:15pm Weight (Pounds) 308 pounds 07/04/2018 9:15pm Weight (Calculated Grams) 443660.45 gm 07/04/2018 9:15pm Weight (Calculated Kilograms) 139.70 6451 kilograms 07/04/2018 9:15pm Weight Method Stated 9:15pm Capillary Refill Capillary Refill Less Than 3 Seconds 07/04/2018 9:15pm Height 6 ft 0 in 019 9:15pm Weight 308 lb 07/04/2018 9:15pm Body Mass Index 41.8 kg/m^2 07/04/2018 9:15pm Vital Response Date/Time Temperature (Fahrenheit) 97.7 degree s F (97.6 - 99.5) 07/04/2018 10:22pm Temperature (Calculated Celsius) 36. 88146 degrees C (36.4 - 37.5) 07/04/2018 10:22pm [...] inches 07/04/2018 9:15pm Height (Calculated Centimeters) 182. 923442 cm 07/04/2018 9:15pm Height Method Stated 9:15pm Weight (Pounds) 308 pounds 07/04/2018 9:15pm Weight (Calculated Grams) 077124.45 gm 07/04/2018 9:15pm Weight (Calculated Kilograms) 139.70 6451 kilograms 07/04/2018 9:15pm Weight Method Stated 9:15pm Capillary Refill Capillary Refill Less Than 3 Seconds 07/04/2018 9:15pm Functional Status The data below is from unstructured sources Query Response Date Ruperto rded Pasero Opioid-induced Sedation Scale (POSS) Awake and alert May 16, 2018 10:18pm Query Response Date Ruperto rded [place]ero Opioid-induced Sedation Scale (POSS) Awake and alert July 04, 2018 9:58pm Mental Status No Information Clinical Notes 2019-06-25 to 2019-07-20 Note Date & Note Facility Type 07-20-2019 ~[facility] ([facility] )~DISCHARGE I NSTRUCTIONS (ED) ~REPORT #: [facility] [id number] REPORT STATUS: Draft ~DATE: 0 07/20/19 TIME: 0653~ Center ([id number]) ~PATIENT: JESSICA BARKER UNIT #: [id number]~ ROOM/BED: ~: 69 A GE: 54 SEX: M ATTEND: Renée Lee MD ~ADM DT: AUTHOR: Renée Bui MD ~ ~* ALL edits or amendments must be made on the electronic/computer document *~ ~Current patient of record information for this document is:~JESSICA BARKER~PatID : [id number] Age: 54~ : 1965~ ~Report i ncluding patient information as it appeared at the time this document ~was generated and provided to the patient i s as follows below.~ ~ ~JESSICA MIRANDA~PatID: [id number] Age: 54~ : 1965~ Printed: 07/20/2019 6:53 AM~By: Renée Lee~ ~General Emergen cy Department Discharge Instructions~ ~The exam and treatment y ou received in the Emergency Department were for an~urgent problem and are not intended as complete care. It is import ant that you~follow up with a doctor, nurse practitioner, or physic gera neurosurgical physician assistant for ongoing~care. If your symptoms become w orse or you do not improve as expected and you~are unable to reach your usual health care provider, you should return to the~[facility]. We are available 24 hours a day. ~ ~You were t reated in the Emergency Department by: ~Primary Provider: Karey Lee MD~ ~Follow Up Information:~ ~Follow up with Your Phys ician Call as soon as possible to arrange.. Call as~soon as p ossible to arrange.~Although no dangerous cause of your chest pain has been found in the emergency~department today , it is very important that you followup within 72 hours with~your primary care physician, or referral doctor, for a reevaluation. Of ten~times, additional testing is needed after an emergency de partment visit to~further evaluate an episode of chest pain. If y our symptoms worsen, or you~develop new or different severe odilia st pain, shortness of breath, dizziness or~fainting, you shou ld return to the ER immediately. Until your followup, you~s hould rest and avoid strenuous activity. You may take over-t he-counter pain~relievers such as acetaminophen or Tylenol as nee ded for pain.~ ~ ~PATIENT'S NAME: JESSICA BARKER ACCOUNT NO: [id number]~ ~ ~ ~The Following Instructions Were Selected fo r You Today: Shortness of Breath,~Unclear Etiology~ ~Shortness of Breath, Unclear Etiology~ ~You have been seen today for shortness of breath, or difficulty breathing; but~we don't know the cause. ~ ~This means that after talking about your medical problems, do ing a physical~exam, and looking at the tests that were done, th ere is still not a clear~explanation as to why you are aurora rt of breath. You may need to go see your~doctor for another exam or more tests to find out why you are short of breath. .~ ~CAUTIO N: Even after a workup, including EKGs, lab tests, x-rays and e naren CAT~Scans (CT scans), it is still possible to have a serious problem that cannot be~detected at first.~ ~The doctor mary goel for you feels that the cause of your shortness of breath is~no t from a life-threatening problem.~ ~Some of the more dangerous m edical problems such as a heart attack, blood clot~in the lung (p ulmonary embolism), asthma, collapsed lung, heart failure, etc.~hav e been looked at, but are not felt to be the cause of your shortn ess of~breath.~ ~Shortness of breath is a serious symptom and must be handled carefully. It is~VERY IMPORTANT that you see your reg ular doctor and return for re-evaluation or~seek medical attention immediately if your symptoms become worse or change.~ ~YOU SHOULD SEEK MEDICAL ATTENTION IMMEDIATELY, EITHER HERE OR A T THE NEAREST~EMERGENCY DEPARTMENT, IF ANY OF THE FOLLOWING OCC URS:~ * Your shortness of breath returns.~ * You notice that your shortness of breath happens as you walk, go up stairs,~ or exert yourself.~ * If you develop chest pain, sweating, or nausea (feel sick to your stomach).~ * Rapid heartbeat.~ * You pickett ve any weakness, lightheadedness or you get so short of breath that~ you pass out.~ * It hurts to breathe.~ * Your leg swel ls.~ * Any other worsening symptoms or problems.~ * If you are lavern ble to sleep because of shortness of breath, or you wake in~ th e middle of the night short of breath.~ ~What To Do:~ ~ * Take this sheet with you when you go to your follow-up visit.~ * If you have any problem arranging the follow-up visit, contact the~ Emergency Department immediately.~ * Take all medications as directed.~ ~Add itional Information:~ ~PATIENT'S NAME: JESSICA BARKER CCOUNT NO: [id number]~ ~ ~ ~ ~ * There are occasions where addit ional lab tests return - such as a culture~ result or an X-ray o r EKG - is further reviewed after you are discharged.~ If a change in your diagnosis or treatment is indicated, we will attempt to~ contact you. It is critical that we have a current phone n umber for you.~ ~ * If you had X-rays done, we can provide you a C D with those X-rays for your~ review and follow-up.~ ~ * Cultur e results may take 2-3 days. We review many culture results an d will~ attempt to contact you if the results are significant or m ay change your~ treatment. ~ ~If side effects develop, such as a r britta, difficulty breathing, or a severe upset~stomach,~stop the med ication and call your doctor or the Emergency Department.~ ~[facility] Instructions:~ ~The care you received i n the emergency department has been done on an emergency~basis onl y and is not intended to be a substitute for regular medical care. If~your condition or symptoms persist or get worse at any ti me, you should return~to the emergency department if you're unab le to contact your own physician. ~Please understand that alth ough we may not have determined a specific cause of~your sym ptoms today, further evaluation may be necessary. It is impo rtant to~get a primary care provider (doctor, PA, or nurse practiti elisabeth) for follow up as~well as ongoing healthcare needs. ~ ~The nubia hurst information is provided for you as education regarding ~preventative health care and follow up from your emergency depar tment visit:~ ~Regular exercise, good diet and adequate fluid intake are very important for~general health maintenance. Please discuss these with your primary care doctor~to develop a plan s pecific to your needs. ~ ~Tobacco use is a risk factor for multi ple serious illnesses. If you use~tobacco, please contact the [employer] at 8-562-GDMEHCB ( ) or~www.[employer] to a ssist in your efforts to stop using tobacco products.~ ~During y our visit today your blood pressure may have been higher than norm al. ~If it was high you should have this rechecked. Follow up w ith your physician or~the referral provider for a recheck within 4 weeks. Hypertension is a common but~serious illness that should be monitored closely.~ ~If thoughts of increased anxiety and sadne ss prevent you from completing your~day to day activities a t home or work, please call our 12/09 assessment line at~[phone] to speak with an Regional Administrative Assistant. ~For deaf and he aring impaired, call .~For mental health and/o r substance use disorders you can call the Substance~Abuse and [facility] ([facility]) ~[facility] TTY for hearing impaired call ~ ~ ~PATIENT'S NAME: JESSICA CARVAJAL ACCOUNT NO: [id number]~ ~ ~ ~During ER visits many patients receive sedation or medications which may impai r~your judgment and or make driving, working or operating machinery or even~walking hazardous. Some of these medications include diphe nhydramine (Benadryl)~and medications for anxiety, nausea and steven n. Ask your nurse if you have~received any sedating medications. If you received any potentially sedating~medications, pleas e rest today and do not drive.~ ~I, JESSICA MJ, understand the instructions and will arrange for follow-up~care. ~ ~ 9~PATIENT/JET INSPECTOR SIGNAT URE~ ~ ~ ~STAFF SIGNATURE~ ~ ~ ~ ~ ~ ~ ~ ~ ~ ~ ~ ~ ~ ~ ~ ~ ~ ~ ~ ~ ~ ~ ~ ~ ~ ~ ~ ~ ~ ~ ~ ~ ~ ~ ~ ~ ~PATIENT'S NAME: JESSICA BARKER ACCOUNT NO: [id number] 07-20-2019 ~ [facility]~ [address] ~ [place], [place] [address]~ ~ [place] [facility] ~PATIENT'S NAME: JESSICA BARKER U NIT NO: [id number]~: Center (01[address]) 69 AGE: 54 SEX: M ACCOUNT NO: [id number]~ATTENDING PHYS: Dr. ANDREWS PT STATUS: REG ER ~REPORT NAM E: EKG REPORT ROOM NO: ~REPORT STATUS: Signed ~ ~DATE OF ADMIS LULA: 07/20/19~ ~ ~Test Reason : ANXIETY~Blood Pressure : /* mmHG~Vent. Rate : 089 BPM Atrial Rate : 089 BPM~ P-R Int : 16 6 ms QRS Dur : 082 ms~ QT Int : 330 ms P-R-T Axes : 060 011 066 d egrees~ QTc Int : 401 ms~ ~Confirmed by INTERPRETATION, ED PHYSIC GERA ([id number]), associate entertainment editor MARLENE PICKETT ([id number]) on~07/20/2019 6:26:47 AM~ ~R eferred By: SELF REFERRED Confirmed By:ED PHYSIC~ INTERPRETATION~ ~ ~ ~ ~ ~ ~ ~ ~PATIENT'S NAME: JESSICA BARKER ACCOUNT NO: [id number] 07-20-2019 [facility] ([facility]) ED WEST~E MERGENCY PROVIDER [facility] Note REPORT~REPORT#:[id number] REPORT STATUS: Draft~DATE:07/20/19 TIME: Center (20192) 06~ ~PATIENT: JESSICA BARKER UN IT #: [id number]~ ROOM/BED: [place] [address]~: [birth year] AGE: 54 SEX: PCP PHYS: No Primary or Family Physician~AD M DATE: 07/20/19 INI AUTH: Renée Lee MD~ED ADMIT DT: 0 LAST SIG:~REP SERV REP SERV TM: 0622~ * ALL edits or amendments must be made on the electronic/computer document *~ ~ ~ ~HPI GREET~ ~General~Initial Greet Date/Time 0454~ ~Clinical Note~Clinical Note~First Documented:~ R esult Date Time~ Pulse Ox 96 07/19 0452~ B/P 125/88 07/19 0452~ B /P Mean 100 07/19 0452~ O2 Delivery Room air 07/19 0452~ Temp 36.5 07/19 0452~ Pulse 101 07/19 0452~ Resp 18 07/19 0452~ ~Last D ocumented:~ Result Date Time~ Pulse Ox 96 07/19 0611~ B/P 121/7 7 07/19 0611~ B/P Mean 91 / 0611~ O2 Delivery Room air 07/19 0611~ Pulse 90 / 0611~ Resp 16 07/19 0611~ Temp 36.5 / 045 2~ ~CHIEF COMPLAINT: Shortness of air, anxiety~ ~HISTORY OF PRESENT ILLNESS: 54-year-old male with a history of hype rtension ~coming study, sleep apnea presents to the emergency d [facility] with a chief ~complaint of shortness of air on exert ion that occurred this morning when he ~woke up around 5 AM. N o associated chest pain. No associated diaphoresis, ~nausea, vomiti ng. No palpitations. States he thinks this might be anxiety ~howeve r this feels different than his typical anxiety attacks. He also pickett s ~sleep apnea but states this is a different type of shortness o f air. Patient ~reports a chronic cough but states that this is b een different over the past ~several weeks. No fevers or chills. Chelsie cuello has been traveling in his van. No~known Cobin 19 exposure.~ ~ Social History: Non-smoker~ ~REVIEW OF SYSTEMS:~A complete Review o f Systems was obtained and is negative except as stated in ~HPI~ ~ PHYSICAL EXAM:~Pulse oximetry as above. I have reviewed the pulse oximetry and my ~interpretation is that the oxygenation is normal.~General Appearance: The patient is alert, has n o immediate need for airway ~protection, and no current signs of si gnificant toxicity.~Eyes: Pupils equal and round no pallor or inj ection.~ENT, Mouth: Mucous membranes are moist.~Respiratory: There are no retractions, lungs are clear to auscultation.~Cardiovascul ar: Regular rhythm, tachycardic rate.~Gastrointestinal: Abd omen is soft and non tender, no masses, bowel sounds ~normal .~Neurological: Alert and oriented 4, GCS 15, no gross motor or s ensory deficits~Skin: Warm and dry, no rashes.~Musculoskeletal: Ne ck is supple non tender. Extremities are symmetrical, full ~rang e of motion.~ ~ASSESSMENT AND PLAN: ~54-year-old gentleman presen ts the emergency department with a chief complaint ~of shortness of air. He is tachycardic, not hypoxic, afebrile. Differential ~in cludes atypical ACS, PE, pneumonia, viral URI, anxiety. Work-up to include ~chest x-ray, EKG, CBC, BMP, delta troponin, d-dimer. We will continue to ~monitor and reassess. Final dispositio n pending.~ ~Data:~I reviewed labs~Independently reviewed im aging~ ~EKG interpretation:~time: 555~rate: 89~rhy thm: Sinus~axis: Normal~sandra: No signs of AV block~QT, an d QTc: Normal~qrs duration: No signs of bundle branch block~st segm ents: No elevation or depression to suggest ischemia~comparis on to prior: Not available~interpretation: Normal sinus EKG without evidence of acute ischemia or ~dysrhythmia~The EKG was interpreted by me contemporaneously. ~ ~ED course:~ ~Past Medical History~Stated Complaint ANXIETY~Allergies~Coded Aller gies:~No Known Allergies (07/16/19)~ ~Home Medications~Reported Medications~LISINOPRIL (ZESTRIL) ~FUROSEMIDE (LASIX) ~ ~ ~Past Medical History:~Reports: Hypertension. ~Additional Medical Histo ry~HTN~Additional Surgical History~Denies~Smoking status for patie nts 13 years old or older: Never Smoker~ ~COURSE~ ~Data~Diagnostic s~Laboratory Tests~ ~ ~ ~07/20/19 0555:~[Embedded Image Not Addie ilable]~Laboratory Tests:~ 07/19~ 554~ Chemistry~ Sodium (135 - 1 48 mmol/L) 139~ Potassium (3.5 - 5.3 mmol/L) [...] Glucose (70 - 99 mg/dL) 97~ Calcium (8. 5 - 10.1 mg/dL) 9.3~ Troponin I (< 0.07 ng/mL) < 0.02~ Coagu lation~ D-Dimer (< 500 ng/mL) < 215~ Hematology~ WBC (5.0 - 10 .0 k/cumm) 10.9 H~ RBC (4.00 - 6.00 m/cumm) 5.75~ Hgb (14.0 - 18.0 gm/dL) 16.4~ Hct (40.0 - 54.0 %) 50.0~ MCV (80.0 - 100.0 fl) 8 7.0~ MCH (27.0 - 33.0 pg) 28.5~ MCHC (32.0 - 37.0 g/dL) 32.8~ RDW (11.0 - 15.6 %) 14.1~ Plt Count (150 - 400 k/cumm) 418 H~ MPV (8. 5 - 10.9 fl) 9.5~ Immature Gran % (Auto) (0.0 - 0.6 %) 0.5~ Abs Im mat Gran (auto) (0.00 - 0.09 k/cumm) 0.05~ Lymphocytes % (20 - 30 %) 26.3~ Monocytes % (4 - 6 %) 12.4 H~ Eosinophils % (2 - 4 %) 1.7 L~ Basophils % (0 - 1 %) 0.5~ Nucleated RBC % (0.0 - 0.0 /100 WBC) 0.0~ Absolute Granulocytes (2.0 - 9.0 k/cumm) 6.4~ Se gmented Neutrophils (50 - 75 %) 58.6~ Absolute Lymphocytes (1.0 - 4.0 k/cumm) 2.9~ Absolute Monocytes (0.1 - 1.0 k/cumm) 1.4 H~ Abs olute Eosinophils (0.1 - 0.5 k/cumm) 0.2~ Absolute Basophils (0. 0 - 0.2 k/cumm) 0.1~ ~ ~ ~Med Data~Med Data~Medication(s) Ordere d:~Pharmaceutical Aids~ Sig/Monalisa Start time Last~ Medication Dos e Route Stop Time Status Admin~ Sodium Chloride See Dose X1ED ST A 07/19 0535 DC 07/19~ Insts (1) IV 07/19 0536 0603~ ~Dose Ins tructions:~(1)Sodium Chloride:~ 10 ML PER PORT~ ~ ~ ~Patient Discharge Departure~ ~Vital Signs/Condition~Vital Signs~Firs t Documented:~ Result Date Time~ Pulse Ox 96 07/192~ B/P 125/8 8 07/19 0452~ B/P Mean 100 07/19 045~ O2 Delivery Room air 07/20 451~ Temp 36.5 07/20 451~ Pulse 101 07/19 0452~ Resp 18 05/30 045 2~ ~Last Documented:~ Result Date Time~ Pulse Ox 96 07/19 061 1~ B/P 121/77 07/19 0611~ B/P Mean 91 07/19 0611~ O2 Delivery Henna m air 07/19 0611~ Pulse 90 07/19 0611~ Resp 16 07/19 0611~ Temp 36 .5 07/19 0452~ ~All vital signs available at the time of this ent ry have been reviewed.~ ~RPT #: [id number]~END OF REPORT~ 07-20-2019 [facility] ([facility] ED [facility]~E MERGENCY PROVIDER [place] [facility] REPORT~REPORT#:[id number] REPORT STATUS: Draft~DATE:07/20/19 TIME: Center () 621~ ~PATIENT: JESSICA BARKER UN IT #: [id number]~ ROOM/BED: [place] [address] [birth year] AGE: 54 SEX: PCP PHYS: No Primary or Family Physician~AD M DATE: 07/20/19 INI AUTH: Renée Lee MD~ED ADMIT DT: 0 LAST SIG: Renée Lee MD~REP SERV REP SERV TM: 0 622~ * ALL edits or amendments must be made on the electron ic/computer document *~ ~ ~ ~HPI GREET~ ~General~Initial Greet Date /Time 07/20/19 0454~ ~Clinical Note~Clinical Note~First Docu mented:~ Result Date Time~ Pulse Ox 96 07/19 0452~ B/P 125/88 05/3 0 0452~ B/P Mean 100 07/19 0452~ O2 Delivery Room air 07/19 0452~ Temp 36.5 / 0452~ Pulse 101 / 0452~ Resp 18 07/19 0452~ ~La st Documented:~ Result Date Time~ Pulse Ox 96 / 0611~ B/P 121/7 7 / 0611~ B/P Mean 91 07/19 0611~ O2 Delivery Room air 07/19 0611~ Pulse 90 07/19 0611~ Resp 16 07/19 0611~ Temp 36.5 07/19 045 2~ ~CHIEF COMPLAINT: Shortness of air, anxiety~ ~HISTORY OF PRESENT ILLNESS: 54-year-old male with a history of hype rtension ~coming study, sleep apnea presents to the emergency d [facility] with a chief ~complaint of shortness of air on exert ion that occurred this morning when he ~woke up around 5 AM. N o associated chest pain. No associated diaphoresis, ~nausea, vomiti ng. No palpitations. States he thinks this might be anxiety ~howeve r this feels different than his typical anxiety attacks. He also pickett s ~sleep apnea but states this is a different type of shortness o f air. Patient ~reports a chronic cough but states that this is b een different over the past ~several weeks. No fevers or chills. Chelsie cuello has been traveling in his van. No~known Cobin 19 exposure.~ ~ Social History: Non-smoker~ ~REVIEW OF SYSTEMS:~A complete Review o f Systems was obtained and is negative except as stated in ~HPI~ ~ PHYSICAL EXAM:~Pulse oximetry as above. I have reviewed the pulse oximetry and my ~interpretation is that the oxygenation is normal.~General Appearance: The patient is alert, has n o immediate need for airway ~protection, and no current signs of si gnificant toxicity.~Eyes: Pupils equal and round no pallor or inj ection.~ENT, Mouth: Mucous membranes are moist.~Respiratory: There are no retractions, lungs are clear to auscultation.~Cardiovascul ar: Regular rhythm, tachycardic rate.~Gastrointestinal: Abd omen is soft and non tender, no masses, bowel sounds ~normal .~Neurological: Alert and oriented 4, GCS 15, no gross motor or s ensory deficits~Skin: Warm and dry, no rashes.~Musculoskeletal: Ne ck is supple non tender. Extremities are symmetrical, full ~rang e of motion.~ ~ASSESSMENT AND PLAN: ~54-year-old gentleman presen ts the emergency department with a chief complaint ~of shortness of air. He is tachycardic, not hypoxic, afebrile. Differential ~in cludes atypical ACS, PE, pneumonia, viral URI, anxiety. Work-up to include ~chest x-ray, EKG, CBC, BMP, delta troponin, d-dimer. We will continue to ~monitor and reassess. Final dispositio n pending.~ ~Heart Score: 3 (age, risk factors)~ ~Data:~I reviewed labs~Independently reviewed imaging~ ~EKG interpretation:~time: 05 6~rate: 89~rhythm: Sinus~axis: Normal~sandra: No signs of AV block~QT, and QTc: Normal~qrs duration: No signs of bundle branch block~st segments: No elevation or depression to suggest i schemia~comparison to prior: Not available~interpretation: No rmal sinus EKG without evidence of acute ischemia or ~dysrhyth harjeet~The EKG was interpreted by me contemporaneously. ~ ~ED course:~ 624: EKG nonischemic, initial troponin negative, chest x-ray without focal ~consolidations or infiltrates. D-dimer negative.~ ~Past Medical History~Stated Complaint ANXIETY~Allerg ies~Coded Allergies:~No Known Allergies (07/16/19)~ ~Home Medic ations~Reported Medications~LISINOPRIL (ZESTRIL) ~FUROS EMIDE (LASIX) ~ ~ ~Past Medical History:~Reports: Hypertension. ~Additional Medical History~HTN~Additional Surgical History ~Denies~Smoking status for patients 13 years old or older: Never S moker~ ~COURSE~ ~Data~Diagnostics~Laboratory Tests~ ~ ~ ~07/20/19 0555:~[Embedded Image Not Available]~Laboratory Tests:~ 07/19~ 554~ Chemistry~ Sodium (135 - 148 mmol/L) 139~ Potassiu m (3.5 - 5.3 mmol/L) 4.1~ Chloride (98 - 110 mmol/L) 104~ Carbon Dioxide (21 - 32 mmol/L) 27~ Anion Gap (5 - 15 mmol/L) 8~ BUN (7 - 20 mg/dL) 12~ Creatinine (0.70 - 1.30 mg/dL) 1.11~ Estimated Cre at Clear (> 59 mL/min) > 60~ Estimated GFR (MDRD) (> 59 mL/min) > 60~ Glucose (70 - 99 mg/dL) 97~ Calcium (8.5 - 10.1 mg/dL) 9 .3~ Troponin I (< 0.07 ng/mL) < 0.02~ Coagulation~ D-Dimer (< 500 ng/mL) < 215~ Hematology~ WBC (5.0 - 10.0 k/cumm) 10. 9 H~ RBC (4.00 - 6.00 m/cumm) 5.75~ Hgb (14.0 - 18.0 gm/dL) 1 6.4~ Hct (40.0 - 54.0 %) 50.0~ MCV (80.0 - 100.0 fl) 87.0~ MCH ( 27.0 - 33.0 pg) 28.5~ MCHC (32.0 - 37.0 g/dL) 32.8~ RDW (11.0 - 15 .6 %) 14.1~ Plt Count (150 - 400 k/cumm) 418 H~ MPV (8.5 - 10.9 fl ) 9.5~ Immature Gran % (Auto) (0.0 - 0.6 %) 0.5~ Abs Immat Gra n (auto) (0.00 - 0.09 k/cumm) 0.05~ Lymphocytes % (20 - 30 %) 26.3~ Monocytes % (4 - 6 %) 12.4 H~ Eosinophils % (2 - 4 %) 1.7 L~ Basophils % (0 - 1 %) 0.5~ Nucleated RBC % (0.0 - 0.0 /100 WB C) 0.0~ Absolute Granulocytes (2.0 - 9.0 k/cumm) 6.4~ Se gmented Neutrophils (50 - 75 %) 58.6~ Absolute Lymphocytes (1.0 - 4.0 k/cumm) 2.9~ Absolute Monocytes (0.1 - 1.0 k/cumm) 1.4 H~ Abs olute Eosinophils (0.1 - 0.5 k/cumm) 0.2~ Absolute Basophils (0. 0 - 0.2 k/cumm) 0.1~ ~ ~ ~Med Data~Med Data~Medication(s) Ordere d:~Pharmaceutical Aids~ Sig/Monalisa Start time Last~ Medication Dos e Route Stop Time Status Admin~ Sodium Chloride See Dose X1ED ST A 07/19 0535 DC 07/19~ Insts (1) IV 07/19 05 0603~ ~Dose Ins tructions:~(1)Sodium Chloride:~ 10 ML PER PORT~ ~ ~ ~Patient Discharge Departure~ ~Vital Signs/Condition~Vital Signs~Firs t Documented:~ Result Date Time~ Pulse Ox 96 07/19 0452~ B/P 125/8 8 / 0452~ B/P Mean 100 07/19 0452~ O2 Delivery Room air 07/19 0452~ Temp 36.5 07/19 0452~ Pulse 101 / 0452~ Resp 18 07/19 045 2~ ~Last Documented:~ Result Date Time~ Pulse Ox 96 07/19 061 1~ B/P 121/77 07/19 0611~ B/P Mean 91 07/19 0611~ O2 Delivery Henna m air 07/19 0611~ Pulse 90 07/19 0611~ Resp 16 07/19 0611~ Temp 36 .5 07/19 0452~ ~All vital signs available at the time of this ent ry have been reviewed.~ ~RPT #: [id number]~END OF REPORT~ 07-20-2019 [facility] ([facility]~E MERGENCY PROVIDER [place] [facility] REPORT~REPORT#:[id number] REPORT STATUS: Draft~DATE:07/20/19 TIME: Center (03564) 06~ ~PATIENT: JESSICA BARKER UN IT #: [id number]~ ROOM/BED: [place] [address] 67 AGE: 54 SEX: PCP PHYS: No Primary or Family Physician~AD M DATE: 07/20/19 INI AUTH: Renée Lee MD~ED ADMIT DT: 0 LAST SIG: Renée Lee MD~REP SERV REP SERV TM: 0 622~ * ALL edits or amendments must be made on the electron ic/computer document *~ ~ ~ ~HPI GREET~ ~General~Initial Greet Date /Time 07/20/19 0454~ ~Clinical Note~Clinical Note~First Docu mented:~ Result Date Time~ Pulse Ox 96 07/19 0452~ B/P 125/88 05/3 0 0452~ B/P Mean 100 07/19 0452~ O2 Delivery Room air 07/19 0452~ Temp 36.5 07/19 0452~ Pulse 101 07/19 0452~ Resp 18 07/19 0452~ ~La st Documented:~ Result Date Time~ Pulse Ox 96 07/19 0611~ B/P 121/7 7 07/19 0611~ B/P Mean 91 07/19 0611~ O2 Delivery Room air 07/19 0611~ Pulse 90 07/19 0611~ Resp 16 07/19 0611~ Temp 36.5 07/19 045 2~ ~CHIEF COMPLAINT: Shortness of air, anxiety~ ~HISTORY OF PRESENT ILLNESS: 54-year-old male with a history of hype rtension ~coming study, sleep apnea presents to the emergency d epartment with a chief ~complaint of shortness of air on exert ion that occurred this morning when he ~woke up around 5 AM. N o associated chest pain. No associated diaphoresis, ~nausea, vomiti ng. No palpitations. States he thinks this might be anxiety ~howeve r this feels different than his typical anxiety attacks. He also pickett s ~sleep apnea but states this is a different type of shortness o f air. Patient ~reports a chronic cough but states that this is b een different over the past ~several weeks. No fevers or chills. Chelsie cuello has been traveling in his van. No~known Cobin 19 exposure.~ ~ Social History: Non-smoker~ ~REVIEW OF SYSTEMS:~A complete Review o f Systems was obtained and is negative except as stated in ~HPI~ ~ PHYSICAL EXAM:~Pulse oximetry as above. I have reviewed the pulse oximetry and my ~interpretation is that the oxygenation is normal.~General Appearance: The patient is alert, has n o immediate need for airway ~protection, and no current signs of si gnificant toxicity.~Eyes: Pupils equal and round no pallor or inj ection.~ENT, Mouth: Mucous membranes are moist.~Respiratory: There are no retractions, lungs are clear to auscultation.~Cardiovascul ar: Regular rhythm, tachycardic rate.~Gastrointestinal: Abd omen is soft and non tender, no masses, bowel sounds ~normal .~Neurological: Alert and oriented 4, GCS 15, no gross motor or s ensory deficits~Skin: Warm and dry, no rashes.~Musculoskeletal: Ne ck is supple non tender. Extremities are symmetrical, full ~rang e of motion.~ ~ASSESSMENT AND PLAN: ~54-year-old gentleman preskathy ts the emergency department with a chief complaint ~of shortness of air. He is tachycardic, not hypoxic, afebrile. Differential ~in cludes atypical ACS, PE, pneumonia, viral URI, anxiety. Work-up to include ~chest x-ray, EKG, CBC, BMP, delta troponin, d-dimer. We will continue to ~monitor and reassess. Final dispositio n pending.~ ~Heart Score: 3 (age, risk factors)~ ~Data:~I reviewed labs~Independently reviewed imaging~ ~EKG interpretation:~time: 055 6~rate: 89~rhythm: Sinus~axis: Normal~sandra: No signs of AV block~QT, and QTc: Normal~qrs duration: No signs of bundle branch block~st segments: No elevation or depression to suggest i schemia~comparison to prior: Not available~interpretation: No rmal sinus EKG without evidence of acute ischemia or ~dysrhyth harjeet~The EKG was interpreted by me contemporaneously. ~ ~ED course:~ 25: EKG nonischemic, initial troponin negative, chest x-ray without focal ~consolidations or infiltrates. D-dimer negative.~ ~0700: Patient signed out to oncoming shift. Repeat tr oponin due at 8 AM. ~Patient updated and aware of shift selena nge and pending lab results. Patient ~expressed understandi ng agree with plan. All questions answered to patient's ~satisf action.~ ~Past Medical History~Stated Complaint ANXIETY~Allerg ies~Coded Allergies:~No Known Allergies (07/16/19)~ ~Home Medic ations~Reported Medications~LISINOPRIL (ZESTRIL) ~FUROS EMIDE (LASIX) ~ ~ ~Past Medical History:~Reports: Hypertension. ~Additional Medical History~HTN~Additional Surgical History ~Denies~Smoking status for patients 13 years old or older: Never S moker~ ~COURSE~ ~Data~Diagnostics~Laboratory Tests~ ~ ~ ~07/20/19 0555:~[Embedded Image Not Available]~Laboratory Tests:~ 554~ Chemistry~ Sodium (135 - 148 mmol/L) 139~ Potassiu m (3.5 - 5.3 mmol/L) 4.1~ Chloride (98 - 110 mmol/L) 104~ Carbon Dioxide (21 - 32 mmol/L) 27~ Anion Gap (5 - 15 mmol/L) 8~ BUN (7 - 20 mg/dL) 12~ Creatinine (0.70 - 1.30 mg/dL) 1.11~ Estimated Cre at Clear (> 59 mL/min) > 60~ Estimated GFR (MDRD) (> 59 mL/min) > 60~ Glucose (70 - 99 mg/dL) 97~ Calcium (8.5 - 10.1 mg/dL) 9 .3~ Troponin I (< 0.07 ng/mL) < 0.02~ Coagulation~ D-Dimer (< 500 ng/mL) < 215~ Hematology~ WBC (5.0 - 10.0 k/cumm) 10. 9 H~ RBC (4.00 - 6.00 m/cumm) 5.75~ Hgb (14.0 - 18.0 gm/dL) 1 6.4~ Hct (40.0 - 54.0 %) 50.0~ MCV (80.0 - 100.0 fl) 87.0~ MCH ( 27.0 - 33.0 pg) 28.5~ MCHC (32.0 - 37.0 g/dL) 32.8~ RDW (11.0 - 15 .6 %) 14.1~ Plt Count (150 - 400 k/cumm) 418 H~ MPV (8.5 - 10.9 fl ) 9.5~ Immature Gran % (Auto) (0.0 - 0.6 %) 0.5~ Abs Immat Gra n (auto) (0.00 - 0.09 k/cumm) 0.05~ Lymphocytes % (20 - 30 %) 26.3~ Monocytes % (4 - 6 %) 12.4 H~ Eosinophils % (2 - 4 %) 1.7 L~ Basophils % (0 - 1 %) 0.5~ Nucleated RBC % (0.0 - 0.0 /100 WB C) 0.0~ Absolute Granulocytes (2.0 - 9.0 k/cumm) 6.4~ Se gmented Neutrophils (50 - 75 %) 58.6~ Absolute Lymphocytes (1.0 - 4.0 k/cumm) 2.9~ Absolute Monocytes (0.1 - 1.0 k/cumm) 1.4 H~ Abs olute Eosinophils (0.1 - 0.5 k/cumm) 0.2~ Absolute Basophils (0. 0 - 0.2 k/cumm) 0.1~ ~ ~ ~Med Data~Med Data~Medication(s) Ordere d:~Pharmaceutical Aids~ Sig/Monalisa Start time Last~ Medication Dos e Route Stop Time Status Admin~ Sodium Chloride See Dose X1ED ST A 07/19 0535 DC 07/19~ Insts (1) IV 07/19 0536 0603~ ~Dose Ins tructions:~(1)Sodium Chloride:~ 10 ML PER PORT~ ~ ~ ~Patient Discharge Departure~ ~Vital Signs/Condition~Vital Signs~Firs t Documented:~ Result Date Time~ Pulse Ox 96 / 0452~ B/P 125/8 8 / 0452~ B/P Mean 100 / 0452~ O2 Delivery Room air 07/19 0452~ Temp 36.5 / 0452~ Pulse 101 / 0452~ Resp 18 05/ 045 2~ ~Last Documented:~ Result Date Time~ Pulse Ox 96 05/ 061 1~ B/P 121/77 05/ 0611~ B/P Mean 91 / 0611~ O2 Delivery Henna m air / 0611~ Pulse 90 05/ 0611~ Resp 16 / 0611~ Temp 36 .5 / 0452~ ~All vital signs available at the time of this ent ry have been reviewed.~ ~ ~Clinical Impression~Clinical Impressio n~Primary Impression: Shortness of breath~ ~Discharge/Care Pl an~Counseled Regarding Diagnosis, Lab results, Imaging studies , Need for follow-up,~shift change~ ~Pt/Provider Handoff~ Shift Selena nge Note~This patient's care has been transferred to the [facility] physician. We discussed~: the patient's chief complai nt; labs and imaging that have been completed and ~those that are still pending; procedures that have been completed and those ~rem aining to be done; any treatment provided and the patient's re sponse to ~treatment; input from consultants (if any); the remainin g treatment plan. The ~incoming physician will follow up on a ll pending labs and imaging, make any ~necessary changes to the current impression and/or treatment plan and provide a ~fi nal disposition.~ ~RPT #: [id number]~END OF REPORT~ 07-20-2019 [facility] ([facility]~E MERGENCY PROVIDER [place] [facility] REPORT~REPORT#:[id number] REPORT STATUS: FSign~DATE:07/20/19 TIME: Center (97668) 621~ ~PATIENT: JESSICA BARKER UN IT #: [id number]~ [facility] AGE: 54 SEX: PCP PHYS: No Primary or Family Physician~ADM DATE : 07/20/19 INI AUTH: Renée Lee MD~ED ADMIT DT: 0 LAST SIG: Renée Lee MD~REP SERV REP SERV TM: 0 622~ * ALL edits or amendments must be made on the electron ic/computer document *~ ~ ~ ~HPI GREET~ ~General~Initial Greet Date /Time 07/20/19 0454~ ~Clinical Note~Clinical Note~First Docu mented:~ Result Date Time~ Pulse Ox 96 07/19 0452~ B/P 125/88 05/3 0 0452~ B/P Mean 100 07/19 0452~ O2 Delivery Room air 07/19 0452~ Temp 36.5 07/19 0452~ Pulse 101 07/19 0452~ Resp 18 07/19 0452~ ~La st Documented:~ Result Date Time~ Pulse Ox 97 07/19 0715~ B/P 115/7 2 07/19 0715~ B/P Mean 86 07/19 0715~ Pulse 92 07/19 0715~ Resp 1 6 07/19 0715~ O2 Delivery Room air 07/19 0611~ Temp 36.5 07/19 04 52~ ~CHIEF COMPLAINT: Shortness of air, anxiety~ ~HISTORY OF PRESENT ILLNESS: 54-year-old male with a history of hype rtension ~coming study, sleep apnea presents to the emergency d epartment with a chief ~complaint of shortness of air on exert ion that occurred this morning when he ~woke up around 5 AM. N o associated chest pain. No associated diaphoresis, ~nausea, vomiti ng. No palpitations. States he thinks this might be anxiety ~howbrenda r this feels different than his typical anxiety attacks. He also pickett s ~sleep apnea but states this is a different type of shortness o f air. Patient ~reports a chronic cough but states that this is b een different over the past ~several weeks. No fevers or chills. Chelsie kwantravis has been traveling in his van. No~known Cobin 19 exposure.~ ~ Social History: Non-smoker~ ~REVIEW OF SYSTEMS:~A complete Review o f Systems was obtained and is negative except as stated in ~HPI~ ~ PHYSICAL EXAM:~Pulse oximetry as above. I have reviewed the pulse oximetry and my ~interpretation is that the oxygenation is normal.~General Appearance: The patient is alert, has n o immediate need for airway ~protection, and no current signs of si gnificant toxicity.~Eyes: Pupils equal and round no pallor or inj ection.~ENT, Mouth: Mucous membranes are moist.~Respiratory: There are no retractions, lungs are clear to auscultation.~Cardiovascul ar: Regular rhythm, tachycardic rate.~Gastrointestinal: Abd omen is soft and non tender, no masses, bowel sounds ~normal .~Neurological: Alert and oriented 4, GCS 15, no gross motor or s ensory deficits~Skin: Warm and dry, no rashes.~Musculoskeletal: Ne ck is supple non tender. Extremities are symmetrical, full ~rang e of motion.~ ~ASSESSMENT AND PLAN: ~54-year-old gentleman presen ts the emergency department with a chief complaint ~of shortness of air. He is tachycardic, not hypoxic, afebrile. Differential ~in cludes atypical ACS, PE, pneumonia, viral URI, anxiety. Work-up to include ~chest x-ray, EKG, CBC, BMP, delta troponin, d-dimer. We will continue to ~monitor and reassess. Final dispositio n pending.~ ~Heart Score: 3 (age, risk factors)~ ~Data:~I reviewed labs~Independently reviewed imaging~ ~EKG interpretation:~time: 055 6~rate: 89~rhythm: Sinus~axis: Normal~sandra: No signs of AV block~QT, and QTc: Normal~qrs duration: No signs of bundle branch block~st segments: No elevation or depression to suggest i schemia~comparison to prior: Not available~interpretation: No rmal sinus EKG without evidence of acute ischemia or ~dysrhyth harjeet~The EKG was interpreted by me contemporaneously. ~ ~ED course:~ 06: EKG nonischemic, initial troponin negative, chest x-ray without focal ~consolidations or infiltrates. D-dimer negative.~ ~0700: Patient signed out to oncoming shift. Repeat tr oponin due at 8 AM. ~Patient updated and aware of shift selena nge and pending lab results. Patient ~expressed understandi ng agree with plan. All questions answered to patient's ~satisf action.~ ~Past Medical History~Stated Complaint ANXIETY~Allerg ies~Coded Allergies:~No Known Allergies (07/16/19)~ ~Home Medic ations~Reported Medications~LISINOPRIL (ZESTRIL) ~FUROS EMIDE (LASIX) ~ ~ ~Past Medical History:~Reports: Hypertension. ~Additional Medical History~HTN~Additional Surgical History ~Denies~Smoking status for patients 13 years old or older: Never S moker~ ~COURSE~ ~Data~Diagnostics~Laboratory Tests~ ~ ~ ~07/20/19 0555:~[Embedded Image Not Available]~Laboratory Tests:~ 07/19 07/19~ 0814 0555~ Chemistry~ Sodium (135 - 148 mmol/L) 13 9~ Potassium (3.5 - 5.3 mmol/L) 4.1~ Chloride (98 - 110 mmol/L) 104~ Carbon Dioxide (21 - 32 mmol/L) 27~ Anion Gap (5 - 15 mmol/L ) 8~ BUN (7 - 20 mg/dL) 12~ Creatinine (0.70 - 1.30 mg/dL) 1.11~ Es timated Creat Clear (> 59 mL/min) > 60~ Estimated GFR (MDRD) (> 5 9 mL/min) > 60~ Glucose (70 - 99 mg/dL) 97~ Calcium (8.5 - 10.1 mg/ dL) 9.3~ Troponin I (< 0.07 ng/mL) < 0.02 < 0.02~ Coagulation~ D-Di avinash (< 500 ng/mL) < 215~ Hematology~ WBC (5.0 - 10.0 k/cumm) 10. 9 H~ RBC (4.00 - 6.00 m/cumm) 5.75~ Hgb (14.0 - 18.0 gm/dL) 1 6.4~ Hct (40.0 - 54.0 %) 50.0~ MCV (80.0 - 100.0 fl) 87.0~ MCH ( 27.0 - 33.0 pg) 28.5~ MCHC (32.0 - 37.0 g/dL) 32.8~ RDW (11.0 - 15 .6 %) 14.1~ Plt Count (150 - 400 k/cumm) 418 H~ MPV (8.5 - 10.9 fl ) 9.5~ Immature Gran % (Auto) (0.0 - 0.6 %) 0.5~ Abs Immat Gra n (auto) (0.00 - 0.09 k/cumm) 0.05~ Lymphocytes % (20 - 30 %) 26.3~ Monocytes % (4 - 6 %) 12.4 H~ Eosinophils % (2 - 4 %) 1.7 L~ Basophils % (0 - 1 %) 0.5~ Nucleated RBC % (0.0 - 0.0 /100 WB C) 0.0~ Absolute Granulocytes (2.0 - 9.0 k/cumm) 6.4~ Se gmented Neutrophils (50 - 75 %) 58.6~ Absolute Lymphocytes (1.0 - 4.0 k/cumm) 2.9~ Absolute Monocytes (0.1 - 1.0 k/cumm) 1.4 H~ Abs olute Eosinophils (0.1 - 0.5 k/cumm) 0.2~ Absolute Basophils (0. 0 - 0.2 k/cumm) 0.1~ ~Recent Impressions:~DIAGNOSTIC RADIOLO GY - XR CHEST AP/PA LATERAL 07/19 0438~ Report Impression - Stat us: SIGNED Entered: 07/20/2019 0854~ ~IMPRESSION: ~No acute cardiopulmonary process.~ ~I have personally reviewed these image s and approved or corrected the~resident physician's interpretation .~ ~Impression By: EMILY GARCÍA MD~ ~ ~ ~Med Data~Med D gabo~Medication(s) Ordered:~Pharmaceutical Aids~ Sig/Monalisa S tart time Last~ Medication Dose Route Stop Time Status Admin~ Sodi um Chloride See Dose X1ED STA 07/19 0535 DC 07/19~ Insts (1) IV 0 07/19 0536 0603~ ~Dose Instructions:~(1)Sodium Chloride:~ 10 M L PER PORT~ ~ ~ ~Patient Discharge Departure~ ~Vital Signs/Condi tion~Vital Signs~First Documented:~ Result Date Time~ Pulse Ox 96 07/19 0452~ B/P 125/88 07/19 0452~ B/P Mean 100 07/19 0452~ O2 Delivery Room air 07/19 0452~ Temp 36.5 07/19 0452~ Pulse 101 0 07/19 0452~ Resp 18 07/19 0452~ ~Last Documented:~ Result Date Ti me~ Pulse Ox 97 07/19 0715~ B/P 115/72 07/19 0715~ B/P Mean 86 05/3 0 0715~ Pulse 92 07/19 0715~ Resp 16 07/19 0715~ O2 Delivery R oom air 07/19 0611~ Temp 36.5 07/19 0452~ ~All vital signs avail able at the time of this entry have been reviewed.~ ~ ~Clinical Impression~Clinical Impression~Primary Impression: Shortnes s of breath~ ~Discharge/Care Plan~Counseled Regardin g Diagnosis, Lab results, Imaging studies, Need for follow-up,~sh ift change~ ~Pt/Provider Handoff~ Shift Change Note~This patient 's care has been transferred to the incoming physician. We discussed~: the patient's chief complaint; labs and marty ging that have been completed and ~those that are still pen ding; procedures that have been completed and those ~remaining to be done; any treatment provided and the patient's respons e to ~treatment; input from consultants (if any); the remaining elan atment plan. The ~incoming physician will follow up on all pending labs and imaging, make any ~necessary changes to the current impre ssion and/or treatment plan and provide a ~final disposition.~ ~ ~E lectronically Signed by Renée Lee MD on 07/20/19 at 1829~ RPT #: [id number]~END OF REPORT~ 07-20-2019 [facility] ([facility]~E MERGENCY PROVIDER [place] [facility] Note REPORT~REPORT#:[id number] REPORT STATUS: Draft~DATE:07/20/19 TIME: Center (12833) 0622~ ~PATIENT: JESSICA BARKER UN IT #: [id number]~ [facility] AGE: 54 SEX: PCP PHYS: No Primary or Family Physician~ADM DATE : 07/20/19 INI AUTH: Renée Lee MD~ED ADMIT DT: 0 LAST SIG: Renée Lee MD~REP SERV REP SERV TM: 0 622~ * ALL edits or amendments must be made on the electron ic/computer document *~ ~ ~ ~HPI GREET~ ~General~Initial Greet Date /Time 07/20/19 0454~ ~Clinical Note~Clinical Note~First Docu mented:~ Result Date Time~ Pulse Ox 96 07/19 0452~ B/P 125/88 05/ 0 0452~ B/P Mean 100 07/19 0452~ O2 Delivery Room air 07/19 0452~ Temp 36.5 07/19 0452~ Pulse 101 07/19 0452~ Resp 18 07/19 0452~ ~La st Documented:~ Result Date Time~ Pulse Ox 97 07/19 0715~ B/P 115/7 2 07/19 0715~ B/P Mean 86 07/19 0715~ Pulse 92 07/19 0715~ Resp 1 6 07/19 0715~ O2 Delivery Room air 07/19 0611~ Temp 36.5 07/19 04 52~ ~CHIEF COMPLAINT: Shortness of air, anxiety~ ~HISTORY OF PRESENT ILLNESS: 54-year-old male with a history of hype rtension ~coming study, sleep ap[facility] chief ~complaint of shortness of air on exert ion that occurred this morning when he ~woke up around 5 AM. N o associated chest pain. No associated diaphoresis, ~nausea, vomiti ng. No palpitations. States he thinks this might be anxiety ~howbrenda r this feels different than his typical anxiety attacks. He also pickett s ~sleep apnea but states this is a different type of shortness o f air. Patient ~reports a chronic cough but states that this is b een different over the past ~several weeks. No fevers or chills. Chelsie cuello has been traveling in his van. No~known [place] [address] exposure.~ ~ Social History: Non-smoker~ ~REVIEW OF SYSTEMS:~A complete Review o f Systems was obtained and is negative except as stated in ~HPI~ ~ PHYSICAL EXAM:~Pulse oximetry as above. I have reviewed the pulse oximetry and my ~interpretation is that the oxygenation is normal.~General Appearance: The patient is alert, has n o immediate need for airway ~protection, and no current signs of si gnificant toxicity.~Eyes: Pupils equal and round no pallor or inj ection.~ENT, Mouth: Mucous membranes are moist.~Respiratory: There are no retractions, lungs are clear to auscultation.~Cardiovascul ar: Regular rhythm, tachycardic rate.~Gastrointestinal: Abd omen is soft and non tender, no masses, bowel sounds ~normal .~Neurological: Alert and oriented 4, GCS 15, no gross motor or s ensory deficits~Skin: Warm and dry, no rashes.~Musculoskeletal: Ne ck is supple non tender. Extremities are symmetrical, full ~rang e of motion.~ ~ASSESSMENT AND PLAN: ~54-year-old gentleman presen ts the emergency department with a chief complaint ~of shortness of air. He is tachycardic, not hypoxic, afebrile. Differential ~in cludes atypical ACS, PE, pneumonia, viral URI, anxiety. Work-up to include ~chest x-ray, EKG, CBC, BMP, delta troponin, d-dimer. We will continue to ~monitor and reassess. Final dispositio n pending.~ ~Heart Score: 3 (age, risk factors)~ ~Data:~I reviewed labs~Independently reviewed imaging~ ~EKG interpretation:~time: 055 6~rate: 89~rhythm: Sinus~axis: Normal~sandra: No signs of AV block~QT, and QTc: Normal~qrs duration: No signs of bundle branch block~st segments: No elevation or depression to suggest i schemia~comparison to prior: Not available~interpretation: No rmal sinus EKG without evidence of acute ischemia or ~dysrhyth harjeet~The EKG was interpreted by me contemporaneously. ~ ~ED course:~ 06: EKG nonischemic, initial troponin negative, chest x-ray without focal ~consolidations or infiltrates. D-dimer negative.~ ~0700: Patient signed out to oncoming shift. Repeat tr oponin due at 8 AM. ~Patient updated and aware of shift selena nge and pending lab results. Patient ~expressed understandi ng agree with plan. All questions answered to patient's ~satisf action.~ ~Past Medical History~Stated Complaint ANXIETY~Allerg ies~Coded Allergies:~No Known Allergies (07/16/19)~ ~Home Medic ations~Reported Medications~LISINOPRIL (ZESTRIL) ~FUROS EMIDE (LASIX) ~ ~ ~Past Medical History:~Reports: Hypertension. ~Additional Medical History~HTN~Additional Surgical History ~Denies~Smoking status for patients 13 years old or older: Never S moker~ ~COURSE~ ~Data~Diagnostics~Laboratory Tests~ ~ ~ ~07/20/19 0555:~[Embedded Image Not Available]~Laboratory Tests:~ 07/19 07/19~ 0814 0555~ Chemistry~ Sodium (135 - 148 mmol/L) 13 9~ Potassium (3.5 - 5.3 mmol/L) 4.1~ Chloride (98 - 110 mmol/L) 104~ Carbon Dioxide (21 - 32 mmol/L) 27~ Anion Gap (5 - 15 mmol/L ) 8~ BUN (7 - 20 mg/dL) 12~ Creatinine (0.70 - 1.30 mg/dL) 1.11~ Es timated Creat Clear (> 59 mL/min) > 60~ Estimated GFR (MDRD) (> 5 9 mL/min) > 60~ Glucose (70 - 99 mg/dL) 97~ Calcium (8.5 - 10.1 mg/ dL) 9.3~ Troponin I (< 0.07 ng/mL) < 0.02 < 0.02~ Coagulation~ D-Di avinash (< 500 ng/mL) < 215~ Hematology~ WBC (5.0 - 10.0 k/cumm) 10. 9 H~ RBC (4.00 - 6.00 m/cumm) 5.75~ Hgb (14.0 - 18.0 gm/dL) 1 6.4~ Hct (40.0 - 54.0 %) 50.0~ MCV (80.0 - 100.0 fl) 87.0~ MCH ( 27.0 - 33.0 pg) 28.5~ MCHC (32.0 - 37.0 g/dL) 32.8~ RDW (11.0 - 15 .6 %) 14.1~ Plt Count (150 - 400 k/cumm) 418 H~ MPV (8.5 - 10.9 fl ) 9.5~ Immature Gran % (Auto) (0.0 - 0.6 %) 0.5~ Abs Immat Gra n (auto) (0.00 - 0.09 k/cumm) 0.05~ Lymphocytes % (20 - 30 %) 26.3~ Monocytes % (4 - 6 %) 12.4 H~ Eosinophils % (2 - 4 %) 1.7 L~ Basophils % (0 - 1 %) 0.5~ Nucleated RBC % (0.0 - 0.0 /100 WB C) 0.0~ Absolute Granulocytes (2.0 - 9.0 k/cumm) 6.4~ Se gmented Neutrophils (50 - 75 %) 58.6~ Absolute Lymphocytes (1.0 - 4.0 k/cumm) 2.9~ Absolute Monocytes (0.1 - 1.0 k/cumm) 1.4 H~ Abs olute Eosinophils (0.1 - 0.5 k/cumm) 0.2~ Absolute Basophils (0. 0 - 0.2 k/cumm) 0.1~ ~Recent Impressions:~DIAGNOSTIC RADIOLO GY - XR CHEST AP/PA LATERAL 07/19 0538~ Report Impression - Stat us: SIGNED Entered: 07/20/2019 0854~ ~IMPRESSION: ~No acute cardiopulmonary process.~ ~I have personally reviewed these image s and approved or corrected the~resident physician's interpretation .~ ~Impression By: EMILY GARCÍA MD~ ~ ~ ~Med Data~Med D gabo~Medication(s) Ordered:~Pharmaceutical Aids~ Sig/Monalisa S tart time Last~ Medication Dose Route Stop Time Status Admin~ Sodi um Chloride See Dose X1ED STA 07/19 0535 DC 07/19~ Insts (1) IV 0 07/19 0536 0603~ ~Dose Instructions:~(1)Sodium Chloride:~ 10 M L PER PORT~ ~ ~ ~Patient Discharge Departure~ ~Vital Signs/Condi tion~Vital Signs~First Documented:~ Result Date Time~ Pulse Ox 96 07/19 0452~ B/P 125/88 07/19 0452~ B/P Mean 100 07/19 0452~ O2 Delivery Room air 07/19 0452~ Temp 36.5 07/19 0452~ Pulse 101 0 07/19 0452~ Resp 18 07/19 0452~ ~Last Documented:~ Result Date Ti me~ Pulse Ox 97 07/19 0715~ B/P 115/72 07/19 0715~ B/P Mean 86 05/3 0 0715~ Pulse 92 07/19 0715~ Resp 16 07/19 0715~ O2 Delivery R oom air 07/19 0611~ Temp 36.5 07/19 0452~ ~All vital signs avail able at the time of this entry have been reviewed.~ ~ ~Clinical Impression~Clinical Impression~Primary Impression: Shortnes s of breath~ ~Discharge/Care Plan~Counseled Regardin g Diagnosis, Lab results, Imaging studies, Need for follow-up,~sh ift change~ ~Pt/Provider Handoff~ Shift Change Note~This patient 's care has been transferred to the incoming physician. We discussed~: the patient's chief complaint; labs and marty ging that have been completed and ~those that are still pen ding; procedures that have been completed and those ~remaining to be done; any treatment provided and the patient's respons e to ~treatment; input from consultants (if any); the remaining elan atment plan. The ~incoming physician will follow up on all pending labs and imaging, make any ~necessary changes to the current impre ssion and/or treatment plan and provide a ~final disposition.~ ~RPT #: [id number]~END OF REPORT~ 07-15-2019 ~[facility] ([facility] )~DISCHARGE I NSTRUCTIONS (ED) ~REPORT #: [facility] [facility] Note [id number] REPORT STATUS: Draft ~DATE: 0 07/16/19 TIME: 35~ Center ([id number]) ~PATIENT: JESSICA BARKER UNIT #: [id number]~ ROOM/BED: ~: 69 A GE: 54 SEX: M ATTEND: Moses Price MD ~ADM DT: AUTHOR: Moses Casillas MD ~ ~* ALL edits or amendments must be made on the elect ronic/computer document *~ ~Current patient of record information for this document is:~JESSICA BARKER~PatID: [id number] Age: 54~ : 1965~ ~Report i ncluding patient information as it appeared at the time this document ~was generated and provided to the patient i s as follows below.~ ~ ~JESSICA MIRANDA~PatID: [id number] Age: 54~ : 1965~ Printed: 07/16/2019 12:36 AM~By: Moses Price~ ~General Emergency Department Discharge Instructions~ ~The exam and treatment y ou received in the Emergency Department were for an~urgent problem and are not intended as complete care. It is import ant that you~follow up with a doctor, nurse practitioner, or physic gera neurosurgical physician assistant for ongoing~care. If your symptoms become w orse or you do not improve as expected and you~are unable to reach your usual health care provider, you should return to the~[facility]. We are available 24 hours a day. ~ ~You were t reated in the Emergency Department by: ~Primary Provider: Moses Price M.D.~ ~The Following Instructions Were Selected fo r You Today: Anxiety, Panic, Elevated~Blood Pressure~ ~Anxiet y, --I believe this is playing a strong role in some of your e levated~blood pressure readings~ ~You have been diagnosed with an anxiety attack.~ ~You seem to have had an anxiety attack. The re are many conditions that can~cause symptoms like these. If this is the first time this has happened,~follow-up with your regular d octor. You may need more testing to be sure there~isn't another cause for your symptoms.~ ~Anxiety causes very strong feelings of worry and fear. It may also cause chest~ ~PATIENT'S NAME: JESSICA CARVAJAL ACCOUNT NO: [id number]~ ~ ~ ~pain or shortnes s of breath. You may feel like you have palpitations (a racing~he art). You might feel numbness (like parts of your body are " asleep"),~especially around the mouth and in the hands or feet.~ ~F ollow up with your counselor and family doctor. If you do not have an~appointment in the next 2-3 days, call and make one. I t is VERY IMPORTANT for~your counselor and family doctor to know if you get worse.~ ~YOU SHOULD SEEK MEDICAL ATTENTION IMME DIATELY, EITHER HERE OR AT THE NEAREST~EMERGENCY DEPARTMENT, IF AN Y OF THE FOLLOWING OCCURS:~ * You have symptoms that you normally d on't have with your anxiety attacks.~ * You think of harming yourse lf (suicidal thoughts) or harming someone else.~ * You have sympt oms you normally don't have and they last longer than normal~ or yo ur medicine doesn't help. These include chest pain, passing out,~ feeling that your heart is racing or shortness of breath.~ * You h ave a fever (temperature higher than 100.4 F / 38 C).~ ~Elevated Blood Pressure - no ibuprofen, motrin or anti-inflammatorie s/ no~decongestants/ no energy drinks or stimulants; no alcohol -- all of these can~raise your blood pressure~ ~During your visit today your blood pressure was higher than normal.~ ~Check your bl ood pressure several times over the next several days, then follow ~up with your regular doctor. If you do not have a doctor, as k the medical staff~to refer you to one.~ ~You may need medica tion for your blood pressure if it stays high. Untreated~hi gh blood pressure can cause damage to your heart and kidneys and ma y lead to a~heart attack or stroke. It is VERY IMPORTANT to follow up with your doctor.~ * Check your blood pressure daily and fol low up with your doctor.~ * A doctor will diagnose high blood press ure only if your blood pressure is~ high for several days. Man y pharmacies have machines that let you check~ your own blood pres sure. You can also check with a fire station to see~ whether a p aramedic will take your blood pressure. Another option is to~ p urchase a blood pressure monitor to use at home. These are avail able at~ most pharmacies. ~ ~YOU SHOULD SEEK MEDICAL ATTENTION IMME DIATELY, EITHER HERE OR AT THE NEAREST~EMERGENCY DEPARTMENT, IF AN Y OF THE FOLLOWING OCCURS:~ * You have a sudden or severe headache. ~ * You are numb, tingly, or weak on one side of your body, half of your face~ droops, or you have trouble speaking.~ * You have chest pain.~ * You are short of breath.~ ~What To Do:~ ~ * Michaela e this sheet with you when you go to your follow-up visit.~ * If y ou have any problem arranging the follow-up visit, contact the~ Emergency Department immediately.~ * Take all medications as directed.~ ~PATIENT'S NAME: JESSICA BARKER ACCOUNT NO: [id number]~ ~ ~ ~ ~You Were Given The Following Excuses and Li mitations:~JESSICA BARKER was seen on 07/16/2019 and is excused f rom Work from 07/16/2019~through 07/17/2019~ ~Additio nal Information:~ ~ * There are occasions where additional lab test s return - such as a culture~ result or an X-ray or EKG - is further reviewed after you are discharged.~ If a change in your di agnosis or treatment is indicated, we will attempt to~ contact you. It is critical that we have a current phone number for you.~ ~ * If you had X-rays done, we can provide you a CD with those X-ra ys for your~ review and follow-up.~ ~ * Culture results may michaela e 2-3 days. We review many culture results and will~ attempt to co ntact you if the results are significant or may change your~ elan atment. ~ ~If side effects develop, such as a rash, difficulty berkley athing, or a severe upset~stomach,~stop the medication and call your doctor or the Emergency Department.~ ~Preventative He alth Instructions:~ ~The care you received in the emergency depa rtment has been done on an emergency~basis only and is not intende d to be a substitute for regular medical care. If~your condition or symptoms persist or get worse at any time, you should return~to the emergency department if you're unable to contact your own ph ysician. ~Please understand that although we may not have determine d a specific cause of~your symptoms today, further evaluation may be necessary. It is important to~get a primary care provide r (doctor, PA, or nurse practitioner) for follow up as~well as ongoing healthcare needs. ~ ~The following information is provided for you as education regarding~preventative health care and follow up from your emergency department visit:~ ~Regular e xercise, good diet and adequate fluid intake are very importan t for~general health maintenance. Please discuss these with your primary care doctor~to develop a plan specific to your needs. ~ ~Tobacco use is a risk factor for multiple serious illnesses. If you use~tobacco, please contact the [employer]uit[employer] at 0-623-XZJAGBR ( ) or~www.[employer].org to assist in your eff orts to stop using tobacco products.~ ~During your visit today you r blood pressure may have been higher than normal. ~If it was hig h you should have this rechecked. Follow up with your physicia n or~the referral provider for a recheck within 4 weeks. Hypertens ion is a common but~serious illness that should be monitored closel y.~ ~If thoughts of increased anxiety and sadness prevent y ou from completing your~day to day activities at home or work, plea se call our 12/09 assessment line at~ ~PATIENT'S NAME: RY BARKER ACCOUNT NO: [id number]~ ~ ~ ~[phone] to speak with an Regional Administrative Assistant. ~For deaf and he aring impaired, call .~For mental health and/o r substance use disorders you can call the [facility] ([facility]) ~[facility] TTY for hearing impaired call ~ ~During ER visits many patients receive sedation or medications which may impair~your ju dgment and or make driving, working or operating machinery or even~ walking hazardous. Some of these medications include diphenhydrami ne (Benadryl)~and medications for anxiety, nausea and steven n. Ask your nurse if you have~received any sedating medications. If you received any potentially sedating~medications, pleas e rest today and do not drive.~ ~I, JESSICA BARKER, understand the instructions and will arrange for follow-up~care. ~ ~ 9~PATIENT/JET INSPECTOR SIGNAT URE~ ~ ~ ~STAFF SIGNATURE~ ~ ~ ~ ~ ~ ~ ~ ~ ~ ~ ~ ~ ~ ~ ~ ~ ~ ~ ~ ~ ~ ~ ~ ~ ~ ~ ~ ~ ~ ~ ~PATIENT'S NAME: RY BARKER ACCOUNT NO: [id number] 07-15-2019 [facility] ([facility]) JEMAL NOLASCO~E MERGENCY PROVIDER [facility] Note REPORT~REPORT#:[id number] REPORT STATUS: Draft~DATE:07/16/19 TIME: [place] (31689) 6431~ ~PATIENT: TATIANNA BARKERNETH JOSE ANTONIO IT #: [id number]~ ROOM/BED: [place] [address]~: [birth year] AGE: 54 SEX: PCP PHYS: No Primary or Family Physician~AD M DATE: IN AUTH: Moses Price MD~ED ADMIT LAST SIG:~REP SERV REP SERV TM: 0015~ * ALL edits or amendments must be made on the electronic/computer document *~ ~ ~ ~HPI-General Illness~ ~General~Initial Greet Date/Time 001~ ~Presentation~Chief Complaint __ (eleva chelsea BP)~ ~Past Medical History - Adult~Stated Complaint HIGH B P~Allergies~Coded Allergies:~No Known Allergies (06/25/19 )~ ~Home Medications~Reported Medications~LISINO PRIL (ZESTRIL) ~FUROSEMIDE (LASIX) ~ ~ ~ ~Patient Discharge Depart ure~ ~Vital Signs/Condition~Vital Signs~All vital s igns available at the time of this entry have been reviewed.~ ~ ~D ischarge/Care Plan~Referrals~No Primary or Family Phy sician (PCP)~ ~RPT #: [id number]~END OF REPORT~ 07-15-2019 [facility]~E MERGENCY PROVIDER [place] [facility] Note REPORT~REPORT#:[id number] REPORT STATUS: Draft~DATE:07/16/19 TIME: Center (50663) 0015~ ~PATIENT: JESSICA BARKER IT #: [id number]~ ROOM/BED: [place] [address]~: [birth year] AGE: 54 SEX: PCP PHYS: No Primary or Family Physician~AD M DATE: 07/16/19 INI AUTH: Moses Price MD~ED ADMIT LAST SIG: Moses Price MD~REP SERV REP SERV TM: 0 015~ * ALL edits or amendments must be made on the electron ic/computer document *~ ~ ~ ~HPI-General Illness~ ~General~Initial Greet Date/Time 07/16/19 0015~ ~Presentation~Chief Complaint __ (elevated BP)~ ~Context~Additional Context~pt has hype rtension/also has anxiety/~here last night/ big work-up a ll normal/ sent home on BP meds/ woke up and took ~BP ; it was 170 --while he knows this number is not immediately dangerous; he is ~worried about it and that it will be as high or higher tomor row/ ~ ~this is asymptomatic ~ ~Review of Systems~ ~ROS Statements~All systems rev neg except as marked.~ ~Review of Syste ms~Constitutional~Denies: Fever. ~ ~Past Medical History - Adult~ Stated Complaint HIGH BP~Allergies~Coded Allergies:~No Known Allergies (07/16/19)~ ~Home Medications~Reported Medications~LISINO PRIL (ZESTRIL) ~FUROSEMIDE (LASIX) ~ ~ ~Review of Nursing Notes Re v avail, and agree~Additional Medical History~HTN~ ~ Physical Exam~ ~Vital Signs~Vital Signs~First Documented:~ Re sult Date Time~ Pulse Ox 99 07/15 0015~ B/P 161/80 07/15 0015~ B/P Mean 107 07/15 0015~ O2 Delivery Room air 07/15 0015~ Temp 36.2 07/15 0015~ Pulse 86 07/15 0015~ Resp 18 07/15 0015~ ~Last Documen chelsea:~ Result Date Time~ Pulse Ox 99 / 0015~ B/P 161/80 05/2 6 0015~ B/P Mean 107 07/15 0015~ O2 Delivery Room air 07/15 0015~ Temp 36.2 07/15 0015~ Pulse 86 07/15 0015~ Resp 18 07/15 0015~ ~ ~R eview of Vital Signs Reviewed~ ~Basic Physical Exam~Basic PE GEN: Well appearing/NAD, HEAD: Atraumatic/NC, EYES: PERRL, conj clear, ~ENT: Membranes moist, NECK: Supple, RESP: No resp dist ress, CV: Reg rate ~rhythm, EXT: No gross abnormality, SKIN: No himanshu hes, warm/dry, NEURO: alert ~oriented, NEURO: gross movement NL, PS YCH: NL thought content~ ~Free Text PE Notes~Free Text PE Notes~ obese~ ~initial BP = 160/80~ ~Interpretation Diagnostics~ ~P oint of Care Testing~Pulse Oximetry~ Pulse Ox % 97~ On: Room air~ Interpretation Interpreted by me, Pulse oximetry normal~ ~Re-Evalu ation MDM~ ~Free Text MDM Notes~Additional Text~discussed hyperte nsion the disease vs vconditional elevation of BP and how he ~has both~ ~We are leaving him alone for 20-30 min and see what pickett ppens after reassurance ~and sitting still~ ~if systolic trends down below 140-150; I will leave meds alone~ ~if BP sysdtoloic rem ains > 160; I may increase dose at least until he can have ~PCP fo llow-up~ ~either way, I will discourage NSAIDS/ decongestants/ wrt loss products/ energy ~dfrinks etc.~ ~Patient Discharge Depar ture~ ~Vital Signs/Condition~Vital Signs~First Docum ented:~ Result Date Time~ Pulse Ox 99 07/15 0015~ B/P 161/80 05/2 6 0015~ B/P Mean 107 07/15 0015~ O2 Delivery Room air 07/15 0015~ Temp 36.2 07/15 0015~ Pulse 86 07/15 0015~ Resp 18 07/15 0015~ ~Las t Documented:~ Result Date Time~ Pulse Ox 99 07/15 0015~ B/P 161/8 0 07/15 0015~ B/P Mean 107 07/15 0015~ O2 Delivery Room air 07/15 0015~ Temp 36.2 07/15 0015~ Pulse 86 07/15 0015~ Resp 18 07/15 0015 ~ ~All vital signs available at the time of this entry hav e been reviewed.~ ~ ~Discharge/Care Plan~Referrals~No Prima ry or Family Physician (PCP)~ ~RPT #: [id number]~END OF REPO RT~ 07-15-2019 [facility] ([facility]~E MERGENCY PROVIDER [place] [facility] REPORT~REPORT#:[id number] REPORT STATUS: Draft~DATE:07/16/19 TIME: Center (96218) 0015~ ~PATIENT: JESSICA BARKER UN IT #: [id number]~ ROOM/BED: [place] [address]~: [birth year] AGE: 54 SEX: PCP PHYS: No Primary or Family Physician~AD M DATE: 07/16/19 INI AUTH: Moses Price MD~ED ADMIT LAST SIG: Moses Price MD~REP SERV REP SERV TM: 0 015~ * ALL edits or amendments must be made on the electron ic/computer document *~ ~ ~ ~HPI-General Illness~ ~General~Initial Greet Date/Time 07/16/19 0015~ ~Presentation~Chief Complaint __ (elevated BP)~ ~Context~Additional Context~pt has hype rtension/also has anxiety/~here last night/ big work-up a ll normal/ sent home on BP meds/ woke up and took ~BP ; it was 170 --while he knows this number is not immediately dangerous; he is ~worried about it and that it will be as high or higher tomor lopez/ ~ ~this is the 4th visit this month for the same thing.~ ~ this is asymptomatic ~ ~Review of Systems~ ~ROS Statements~All systems rev neg except as marked.~ ~Review of Systems~Constitutio nal~Denies: Fever. ~ ~Past Medical History - Adult~Stated Complain t HIGH BP~Allergies~Coded Allergies:~No Known Allergies (07/16/19 )~ ~Home Medications~Reported Medications~LISINO PRIL (ZESTRIL) ~FUROSEMIDE (LASIX) ~ ~ ~Review of Nursing Notes Re v avail, and agree~Additional Medical History~HTN~ ~ Physical Exam~ ~Vital Signs~Vital Signs~First Documented:~ Re sult Date Time~ Pulse Ox 99 07/15 0015~ B/P 161/80 07/15 0015~ B/P Mean 107 07/15 0015~ O2 Delivery Room air 07/15 0015~ Temp 36.2 07/15 0015~ Pulse 86 07/15 0015~ Resp 18 07/15 0015~ ~Last Documen chelsea:~ Result Date Time~ Pulse Ox 99 07/15 0015~ B/P 161/80 05/2 6 0015~ B/P Mean 107 07/15 0015~ O2 Delivery Room air 07/15 0015~ Temp 36.2 07/15 0015~ Pulse 86 07/15 0015~ Resp 18 07/15 001~ ~ ~R eview of Vital Signs Reviewed~ ~Basic Physical Exam~Basic PE GEN: Well appearing/NAD, HEAD: Atraumatic/NC, EYES: PERRL, conj clear, ~ENT: Membranes moist, NECK: Supple, RESP: No resp dist ress, CV: Reg rate ~rhythm, EXT: No gross abnormality, SKIN: No himanshu hes, warm/dry, NEURO: alert ~oriented, NEURO: gross movement NL, PS YCH: NL thought content~ ~Free Text PE Notes~Free Text PE Notes~ obese~ ~initial BP = 160/80~ ~Interpretation Diagnostics~ ~P oint of Care Testing~Pulse Oximetry~ Pulse Ox % 97~ On: Room air~ Interpretation Interpreted by me, Pulse oximetry normal~ ~Re-Evalu ation MDM~ ~Free Text MDM Notes~Free Text MDM Notes~I believe the pandemic has greatly enhanced his anxiety and this is being ~perservered upon as his blood pressure. I believe his BP which each time trends ~down nicely before treatment is seconday.~ ~ I believe his primary disorder is anxiety~Additional Text~dis cussed hypertension the disease vs vconditional elevation of BP and how he ~has both~ ~We are leaving him alone for 20-30 min and see what happens after reassurance ~and sitting still~ ~if sys tolic trends down below 140-150; I will leave meds alone~ ~if B P sysdtoloic remains > 160; I may increase dose at least until he c an have ~PCP follow-up~ ~either way, I will discourage NSAIDS/ decongestants/ wrt loss products/ energy ~dfrinks etc.~ ~Patien t Discharge Departure~ ~Vital Signs/Condition~Vital Signs~Firs t Documented:~ Result Date Time~ Pulse Ox 99 07/15 0015~ B/P 161/8 0 07/15 0015~ B/P Mean 107 07/15 001~ O2 Delivery Room air 07/15 0015~ Temp 36.2 07/15 0015~ Pulse 86 07/15 0015~ Resp 18 07/15 14 ~ ~Last Documented:~ Result Date Time~ Pulse Ox 99 07/15 0015~ B/P 161/80 05/26 0015~ B/P Mean 107 07/15 14~ O2 Delivery Room air 14~ Temp 36.2 07/15 14~ Pulse 86 07/15 14~ Resp 18 06/21~ ~All vital signs available at the time of this entry hav e been reviewed.~ ~ ~Clinical Impression~Clinical Impressio n~Primary Impression: ANXIETY~Secondary Impressions: HYPERTEN LULA~ ~Discharge/Care Plan~Referrals~No Primary or Family Phy sician (PCP)~ ~RPT #: [id number]~END OF REPORT~ 07-15-2019 [facility] ([facility]~E MERGENCY PROVIDER [place] [facility] REPORT~REPORT#:[id number] REPORT STATUS: Draft~DATE:07/16/19 TIME: Center () 14~ ~PATIENT: JESSICA BARKER UN IT #: [id number]~ ROOM/BED: [place] [address]~: [birth year] AGE: 54 SEX: PCP PHYS: No Primary or Family Physician~AD M DATE: 07/16/19 INI AUTH: Moses Price MD~ED ADMIT LAST SIG: Moses Price MD~REP SERV REP SERV TM: 0 015~ * ALL edits or amendments must be made on the electron ic/computer document *~ ~ ~ ~HPI-General Illness~ ~General~Initial Greet Date/Time 07/16/1914~ ~Presentation~Chief Complaint __ (elevated BP)~ ~Context~Additional Context~pt has hype rtension/also has anxiety/~here last night/ big work-up a ll normal/ sent home on BP meds/ woke up and took ~BP ; it was 170 --while he knows this number is not immediately dangerous; he is ~worried about it and that it will be as high or higher shree marroquin/ ~ ~this is the 4th visit this month for the same thing.~ ~ this is asymptomatic ~ ~Review of Systems~ ~ROS Statements~All systems rev neg except as marked.~ ~Review of Systems~Constitutio nal~Denies: Fever. ~ ~Past Medical History - Adult~Stated Complain t HIGH BP~Allergies~Coded Allergies:~No Known Allergies (07/16/19 )~ ~Home Medications~Reported Medications~LISINO PRIL (ZESTRIL) ~FUROSEMIDE (LASIX) ~ ~ ~Review of Nursing Notes Re v avail, and agree~Additional Medical History~HTN~ ~ Physical Exam~ ~Vital Signs~Vital Signs~First Documented:~ Re sult Date Time~ Pulse Ox 99 07/15 0015~ B/P 161/80 07/15 0015~ B/P Mean 107 07/15 0015~ O2 Delivery Room air 07/15 0015~ Temp 36.2 07/15 0015~ Pulse 86 07/15 0015~ Resp 18 07/15 0015~ ~Last Documen [place]:~ Result Date Time~ Pulse Ox 99 07/15 0015~ B/P 161/80 05/2 6 0015~ B/P Mean 107 07/15 0015~ O2 Delivery Room air 07/15 0015~ Temp 36.2 07/15 0015~ Pulse 86 07/15 0015~ Resp 18 07/15 0015~ ~ ~R eview of Vital Signs Reviewed~ ~Basic Physical Exam~Basic PE GEN: Well appearing/NAD, HEAD: Atraumatic/NC, EYES: PERRL, conj clear, ~ENT: Membranes moist, NECK: Supple, RESP: No resp dist ress, CV: Reg rate ~rhythm, EXT: No gross abnormality, SKIN: No himanshu hes, warm/dry, NEURO: alert ~oriented, NEURO: gross movement NL, PS YCH: NL thought content~ ~Free Text PE Notes~Free Text PE Notes~ obese~ ~initial BP = 160/80~ ~Interpretation Diagnostics~ ~P oint of Care Testing~Pulse Oximetry~ Pulse Ox % 97~ On: Room air~ Interpretation Interpreted by me, Pulse oximetry normal~ ~Re-Evalu ation MDM~ ~Free Text MDM Notes~Free Text MDM Notes~I believe the pandemic has greatly enhanced his anxiety and this is being ~perservered upon as his blood pressure. I believe his BP which each time trends ~down nicely before treatment is seconday.~ ~ I believe his primary disorder is anxiety~Additional Text~dis cussed hypertension the disease vs vconditional elevation of BP and how he ~has both~ ~We are leaving him alone for 20-30 min and see what happens after reassurance ~and sitting still~ ~if sys tolic trends down below 140-150; I will leave meds alone~ ~if B P sysdtoloic remains > 160; I may increase dose at least until he c an have ~PCP follow-up~ ~either way, I will discourage NSAIDS/ decongestants/ wrt loss products/ energy ~dfrinks etc.~ ~he is on lisinipril~ ~amlodipine 2.5mg started yesterday~ ~Patient Disch arge Departure~ ~Vital Signs/Condition~Vital Signs~First Docum ented:~ Result Date Time~ Pulse Ox 99 07/15 0015~ B/P 161/80 05/2 6 0015~ B/P Mean 107 07/15 0015~ O2 Delivery Room air 07/15 0015~ Temp 36.2 07/15 0015~ Pulse 86 07/15 0015~ Resp 18 07/15 0015~ ~Las t Documented:~ Result Date Time~ Pulse Ox 99 07/15 0015~ B/P 161/8 0 07/15 0015~ B/P Mean 107 07/15 0015~ O2 Delivery Room air 07/15 0015~ Temp 36.2 07/15 0015~ Pulse 86 07/15 0015~ Resp 18 07/15 0015 ~ ~All vital signs available at the time of this entry hav e been reviewed.~ ~ ~Clinical Impression~Clinical Impressio n~Primary Impression: ANXIETY~Secondary Impressions: HYPERTEN LULA~ ~Discharge/Care Plan~Referrals~No Primary or Family Gilda thayer (PCP)~ ~RPT #: [id number]~END OF REPORT~ 07-15-2019 [facility] ([facility]) [facility] [place]~E MERGENCY PROVIDER [place] [facility] REPORT~REPORT#:[id number] REPORT STATUS: FSign~DATE:07/16/19 TIME: Center (65114) 14~ ~PATIENT: JESSICA BARKER UN IT #: [id number]~ ROOM/BED: [facility]~: [birth year]20 AGE: 54 SEX: PCP PHYS: No Primary or Family Physician~ADM DATE : 07/16/19 INI AUTH: Moses Price MD~ED ADMIT LAST SIG: Moses Price MD~REP SERV REP SERV TM: 0 015~ * ALL edits or amendments must be made on the electron ic/computer document *~ ~ ~ ~HPI-General Illness~ ~General~Initial Greet Date/Time 07/16/19 0015~ ~Presentation~Chief Complaint __ (elevated BP)~ ~Context~Additional Context~pt has hype rtension/also has anxiety/~here last night/ big work-up a ll normal/ sent home on BP meds/ woke up and took ~BP ; it was 170 --while he knows this number is not immediately dangerous; he is ~worried about it and that it will be as high or higher tomor lopez/ ~ ~this is the 4th visit this month for the same thing.~ ~ this is asymptomatic ~ ~Review of Systems~ ~ROS Statements~All systems rev neg except as marked.~ ~Review of Systems~Constitutio nal~Denies: Fever. ~ ~Past Medical History - Adult~Stated Complain t HIGH BP~Allergies~Coded Allergies:~No Known Allergies (07/16/19 )~ ~Home Medications~Reported Medications~LISINO PRIL (ZESTRIL) ~FUROSEMIDE (LASIX) ~ ~ ~Review of Nursing Notes Re v avail, and agree~Additional Medical History~HTN~ ~ Physical Exam~ ~Vital Signs~Vital Signs~First Documented:~ Re sult Date Time~ Pulse Ox 99 07/15 0015~ B/P 161/80 07/15 0015~ B/P Mean 107 07/15 0015~ O2 Delivery Room air 07/15 0015~ Temp 36.2 07/15 0015~ Pulse 86 07/15 0015~ Resp 18 07/15 0015~ ~Last Documen [place]sea:~ Result Date Time~ Pulse Ox 98 07/15 0050~ B/P 114/45 05/2 6 0050~ B/P Mean 68 07/15 0050~ O2 Delivery Room air 07/15 0050~ Pulse 78 07/15 0050~ Resp 18 07/15 0050~ Temp 36.2 07/15 0015~ ~ ~Review of Vital Signs Reviewed~ ~Basic Physical Exam~Basic PE GEN: Well appearing/NAD, HEAD: Atraumatic/NC, EYES: PERRL, conj clear, ~ENT: Membranes moist, NECK: Supple, RESP: No resp dist ress, CV: Reg rate ~rhythm, EXT: No gross abnormality, SKIN: No himanshu hes, warm/dry, NEURO: alert ~oriented, NEURO: gross movement NL, PS YCH: NL thought content~ ~Free Text PE Notes~Free Text PE Notes~ obese~ ~initial BP = 160/80~ ~Interpretation Diagnostics~ ~P oint of Care Testing~Pulse Oximetry~ Pulse Ox % 97~ On: Room air~ Interpretation Interpreted by me, Pulse oximetry normal~ ~Re-Evalu ation MDM~ ~Free Text MDM Notes~Free Text MDM Notes~I believe the pandemic has greatly enhanced his anxiety and this is being ~perservered upon as his blood pressure. I believe his BP which each time trends ~down nicely before treatment is seconday.~ ~ I believe his primary disorder is anxiety~Additional Text~dis cussed hypertension the disease vs vconditional elevation of BP and how he ~has both~ ~We are leaving him alone for 20-30 min and see what happens after reassurance ~and sitting still~ ~if sys tolic trends down below 140-150; I will leave meds alone~ ~if B P sysdtoloic remains > 160; I may increase dose at least until he c an have ~PCP follow-up~ ~either way, I will discourage NSAIDS/ decongestants/ wrt loss products/ energy ~dfrinks etc.~ ~he is on lisinipril~ ~amlodipine 2.5mg started yesterday~ ~BP down to 11 4 with NO intervention~ ~Patient Discharge Departure~ ~Vital Si gns/Condition~Vital Signs~First Documented:~ Result Date Ti me~ Pulse Ox 99 07/15 0015~ B/P 161/80 07/15 0015~ B/P Mean 107 0015~ O2 Delivery Room air 07/15 0015~ Temp 36.2 07/15 0015~ P ulse 86 07/15 0015~ Resp 18 07/15 0015~ ~Last Documented:~ Result D ate Time~ Pulse Ox 98 07/15 0050~ B/P 114/45 07/15 0050~ B/P Mean 6 8 05/26 0050~ O2 Delivery Room air 07/15 0050~ Pulse 78 07/15 005 0~ Resp 18 07/15 0050~ Temp 36.2 07/15 0015~ ~All vital signs avail able at the time of this entry have been reviewed.~ ~ ~Clinical Impression~Clinical Impression~Primary Impression: ANXIETY~ Secondary Impressions: HYPERTENSION~ ~Discharge/Care Plan~Refe rrals~No Primary or Family Physician (PCP)~ ~ ~Electronically Sign ed by Moses Price MD on 07/16/19 at 0145~RPT #: [id number]~EN D OF REPORT~ 07-15-2019 [facility]~E MERGENCY PROVIDER [place] [facility] Note REPORT~REPORT#:[id number] REPORT STATUS: Draft~DATE:07/16/19 TIME: Center (01661) 14~ ~PATIENT: JESSICA BARKER UN IT #: [id number]~ ROOM/BED: [facility]~: [birth year]20 AGE: 54 SEX: PCP PHYS: No Primary or Family Physician~ADM DATE : 07/16/19 INI AUTH: Moses Price MD~ED ADMIT LAST SIG: Moses Price MD~REP SERV REP SERV TM: 0 015~ * ALL edits or amendments must be made on the electron ic/computer document *~ ~ ~ ~HPI-General Illness~ ~General~Initial Greet Date/Time 07/16/1914~ ~Presentation~Chief Complaint __ (elevated BP)~ ~Context~Additional Context~pt has hype rtension/also has anxiety/~here last night/ big work-up a ll normal/ sent home on BP meds/ woke up and took ~BP ; it was 170 --while he knows this number is not immediately dangerous; he is ~worried about it and that it will be as high or higher tomor row/ ~ ~this is the 4th visit this month for the same thing.~ ~ this is asymptomatic ~ ~Review of Systems~ ~ROS Statements~All systems rev neg except as marked.~ ~Review of Systems~Constitutio nal~Denies: Fever. ~ ~Past Medical History - Adult~Stated Complain t HIGH BP~Allergies~Coded Allergies:~No Known Allergies (07/16/19 )~ ~Home Medications~Reported Medications~LISINO PRIL (ZESTRIL) ~FUROSEMIDE (LASIX) ~ ~ ~Review of Nursing Notes Re v avail, and agree~Additional Medical History~HTN~ ~ Physical Exam~ ~Vital Signs~Vital Signs~First Documented:~ Re sult Date Time~ Pulse Ox 99 07/15 0015~ B/P 161/80 07/15 0015~ B/P Mean 107 07/15 0015~ O2 Delivery Room air 07/15 0015~ Temp 36.2 07/15 0015~ Pulse 86 07/15 0015~ Resp 18 07/15 0015~ ~Last Documen [place]:~ Result Date Time~ Pulse Ox 98 07/15 0050~ B/P 114/45 05/2 6 0050~ B/P Mean 68 07/15 0050~ O2 Delivery Room air 07/15 0050~ Pulse 78 07/15 0050~ Resp 18 07/15 0050~ Temp 36.2 07/15 0015~ ~ ~Review of Vital Signs Reviewed~ ~Basic Physical Exam~Basic PE GEN: Well appearing/NAD, HEAD: Atraumatic/NC, EYES: PERRL, conj clear, ~ENT: Membranes moist, NECK: Supple, RESP: No resp dist ress, CV: Reg rate ~rhythm, EXT: No gross abnormality, SKIN: No himanshu hes, warm/dry, NEURO: alert ~oriented, NEURO: gross movement NL, PS YCH: NL thought content~ ~Free Text PE Notes~Free Text PE Notes~ obese~ ~initial BP = 160/80~ ~Interpretation Diagnostics~ ~P oint of Care Testing~Pulse Oximetry~ Pulse Ox % 97~ On: Room air~ Interpretation Interpreted by me, Pulse oximetry normal~ ~Re-Evalu ation MDM~ ~Free Text MDM Notes~Free Text MDM Notes~I believe the pandemic has greatly enhanced his anxiety and this is being ~perservered upon as his blood pressure. I believe his BP which each time trends ~down nicely before treatment is seconday.~ ~ I believe his primary disorder is anxiety~Additional Text~dis cussed hypertension the disease vs vconditional elevation of BP and how he ~has both~ ~We are leaving him alone for 20-30 min and see what happens after reassurance ~and sitting still~ ~if sys tolic trends down below 140-150; I will leave meds alone~ ~if B P sysdtoloic remains > 160; I may increase dose at least until he c an have ~PCP follow-up~ ~either way, I will discourage NSAIDS/ decongestants/ wrt loss products/ energy ~dfrinks etc.~ ~he is on lisinipril~ ~amlodipine 2.5mg started yesterday~ ~BP down to 11 with NO intervention~ ~Patient Discharge Departure~ ~Vital Si gns/Condition~Vital Signs~First Documented:~ Result Date Ti me~ Pulse Ox 99 07/15 0015~ B/P 161/80 07/15 0015~ B/P Mean 107 0015~ O2 Delivery Room air 07/15 0015~ Temp 36.2 07/15 0015~ P ulse 86 07/15 0015~ Resp 18 07/15 0015~ ~Last Documented:~ Result D ate Time~ Pulse Ox 98 07/15 0050~ B/P 114/45 07/15 0050~ B/P Mean 6 8 07/15 0050~ O2 Delivery Room air 07/15 0050~ Pulse 78 07/15 005 0~ Resp 18 07/15 0050~ Temp 36.2 07/15 0015~ ~All vital signs avail able at the time of this entry have been reviewed.~ ~ ~Clinical Impression~Clinical Impression~Primary Impression: ANXIETY~ Secondary Impressions: HYPERTENSION~ ~Discharge/Care Plan~Refe rrals~No Primary or Family Physician (PCP)~ ~RPT #: [id number]~E ND OF REPORT~ 07-15-2019 ~ [facility]~ [address] ~ [place], [place] [address]~ ~ [facility] Note ~PATIENT'S NAME: JESSICA BARKER NIT NO: [id number]~: Center ([address]) [birth year] AGE: 54 SEX: M ACCOUNT NO: [id number]~ATTENDING PHYS: Dr. COBURN PT STATUS: DEP ER ~REPORT N NAN: EKG REPORT ROOM NO: ~REPORT STATUS: Signed ~ ~DATE OF ADMIS LULA: 07/14/19~ ~ ~Test Reason : HTN~Blood Pressure : / m mHG~Vent. Rate : 091 BPM Atrial Rate : 091 BPM~ P-R Int : 176 ms QRS Dur : 078 ms~ QT Int : 330 ms P-R-T Axes : 038 016 062 degrees ~ QTc Int : 405 ms~ ~Confirmed by INTERPRETATION, ED PHYSIC GERA ([id number]), associate entertainment editor ALYSHA SOTO ([id number]) on~07/15/2019 9:24:34 AM~ ~ Referred By: SELF Confirmed By:ED PHYSIC~ INTERPRETATION~ ~ ~ ~ ~ ~ ~ ~ ~PATIENT'S NAME: JESSICA BARKER ACCOUNT NO: [id number] 07-14-2019 ~[facility] ([facility] )~DISCHARGE I NSTRUCTIONS (ED) ~REPORT #: [facility] [facility] [id number] REPORT STATUS: Draft ~DATE: 0 07/15/19 TIME: 23~ Center (20011) ~PATIENT: JESSICA BARKER UNIT #: [id number]~ ROOM/BED: ~: 69 A GE: 54 SEX: M ATTEND: Darlene Wolf MD ~ADM DT: AUTHOR: Darlene Wolf MD ~ ~* ALL edits or amendments must be made on the electronic/computer document *~ ~Current patient of record information for this document is:~JESSICA BARKER~PatID : [id number] Age: 54~ : 1965~ ~Report i ncluding patient information as it appeared at the time this document ~was generated and provided to the patient i s as follows below.~ ~ ~JESSICA MIRANDA~PatID: [id number] Age: 54~ : 1965~ Printed: 07/15/2019 12:24 AM~By: Darlene Wolf~ ~General [facility] Discharge Instructions~ ~The exam and treatment y ou received in the Emergency Department were for an~urgent problem and are not intended as complete care. It is import ant that you~follow up with a doctor, nurse practitioner, or physic gera neurosurgical physician assistant for ongoing~care. If your symptoms become w orse or you do not improve as expected and you~are unable to reach your usual health care provider, you should return to the~[facility]. We are available 24 hours a day. ~ ~You were t reated in the Emergency Department by: ~Primary Provider: Chao Wolf M.D.~ ~Follow Up Information:~ ~Follow up with Your P zekean in 10-12 days. Call as soon as possible to~arrange.~ ~ Your Provider has typed these Special Instructions for you:~You r lab was normal for your kidney function and you are not anemic. Your EKG~was normal.~ ~Prescriptions Written:~Amlodipine (Nor vasc) 2.5 mg Tablet, Take one (1) tablet by mouth one time per~da y~[facility] (14).~Prescriber: Darlene Wolf~ ~Denilson SEGURA'S NAME: JESSICA BARKER ACCOUNT NO: [id number]~ ~ ~ ~Paper Prescription given to patient~ ~[facility] Instructions Were Selected for You Today: Hypertension~ ~ Hypertension~ ~You have been diagnosed with elevated blood pres sure.~ ~The medical term for high blood pressure is hypertension . Many people feel~anxious or uncomfortable about being at the [facility]. If you feel anxious~today, this could make your blo od pressure appear high, even if your blood~pressure is usually normal. Check your blood pressure several more times when~you ar e not feeling stress. Keep a record of these readings and give thi s~information to your regular doctor. He or she will decide w hether you have~hypertension that requires medical treatment.~ ~If your blood pressure becomes extremely high all of a sudden, you will probably~notice symptoms. In fact, very high blood pressure is a medical emergency. ~Most people with hy pertension have blood pressure that is only a little too~high . Mild high blood pressure does not cause specific symptoms. Inste ad, the~effects of hypertension develop slowly over time. Untreated hypertension can~affect the heart, brain, kidneys, e yes, and blood vessels. Unfortunately, by~the time side-effects become noticeable, the body has already been damaged. ~This is why hypertension is called "the silent killer!"~ ~The physician tr eating you today decided to start you on a blood pressure~medicine. It is VERY IMPORTANT that you follow up with your regular doctor so~he or she can follow your progress and adjust the blood pres sure medications.~ ~It is important to follow up with your regula r doctor. Check your blood~pressure several times in the nex t 1 to 2 weeks and tell your doctor about the~results. It may b e helpful to keep a log or a journal where you can write down~your blood pressures. Note the time of day and the activity you were d oing when~the reading was taken.~ ~YOU SHOULD SEEK MEDICAL ATTENT ION IMMEDIATELY, EITHER HERE OR AT THE NEAREST~EMERGENCY DEPART MENT, IF ANY OF THE FOLLOWING OCCURS:~ * You have a headach e.~ * You have chest pain.~ * You are short of breath or have troub le breathing. ~ * You feel weak, especially on only one side of th e body.~ * Your symptoms get worse or you have other concerns.~ ~Continue your Lisinopril. Monitor your pressure 3 times per day. If you~consistenly have systolic(the first number) over 140, yo u can take one~Amlodipine tablet per day. [facility] ~ ~Medication Instructions : Amlodipine (Norvasc) 2.5 mg Tablet~ ~Amlodipine (Norvasc) 2.5 mg Tablet~You have been given an antihypertensive medication.~ ~LEIGHTON ROBLES'S NAME: JESSICA BARKER ACCOUNT NO: [id number]~ ~ ~ ~ * This medication is used to treat high blood pressure, heart failur e and~ other cardiac conditions. It belongs to a group of me dicines called~ calcium channel blockers.~ * DO NOT take this m edication if you have an unusual or allergic reaction to~ it, or to other medicines like this one. DO NOT take this medication i f~ you are or currently trying to get , or if you are breast~ feeding.~ * Tell your doctor about all other medi cines you are taking, including~ non-prescription medicines, nutritional supplements, or herbal products. ~ This will allow your doctor to make a good decision about which medication~ is bes t for you. Also tell your doctor if you have asthma.~ * If you de velop the following side-effects, you should report them to your~ doctor as soon as possible and immediately STOP taking th e medication: ~ Changes in blood sugar, cold hands or feet, diffic ulty breathing, wheezing,~ difficulty sleeping, nightmares, dizzin ess or fainting spells,~ hallucinations.~ * You may feel dizzy o r lightheaded. DO NOT drive, use machinery, or do~ anything t hat needs mental alertness until you know how the medication will~ affect you. To reduce the risk of dizzy or fainting spells, do no t sit or~ stand up quickly, especially if you are elderly.~ * Keep this medication out of the reach of children. Always keep this~ me dication in child-proof containers. DO NOT give your medication to~ anyone else.~ ~THESE INSTRUCTIONS ARE NOT COMPREHENSIVE (com plete): Ask your pharmacist for~additional information and precauti ons for this medication.~ ~What To Do:~ ~ * Take this sheet with you when you go to your follow-up visit.~ * If you have any pro blem arranging the follow-up visit, contact the~ Emergency Department immediately.~ * Take all medications as directed.~ ~Add itional Information:~ ~ * There are occasions where additional la b tests return - such as a culture~ result or an X-ray or EKG - is further reviewed after you are discharged.~ If a change in your di agnosis or treatment is indicated, we will attempt to~ contact you. It is critical that we have a current phone number for you.~ ~ * If you had X-rays done, we can provide you a CD with those X-ra ys for your~ review and follow-up.~ ~ * Culture results may michaela e 2-3 days. We review many culture results and will~ attempt to co ntact you if the results are significant or may change your~ elan atment. ~ ~If side effects develop, such as a rash, difficulty berkley athing, or a severe upset~stomach,~stop the medication and call your doctor or the Emergency Department.~ ~ ~PATIENT'S NAM E: JESSICA BARKER ACCOUNT NO: [id number]~ ~ ~ ~Preventa tive Health Instructions:~ ~The care you received in the emergency department has been done on an emergency~basis only and is not i ntended to be a substitute for regular medical care. If~your condi tion or symptoms persist or get worse at any time, you should retur n~to the emergency department if you're unable to contact your own physician. ~Please understand that although we may not hav e determined a specific cause of~your symptoms today, further e valuation may be necessary. It is important to~get a primary care p [place] (doctor, PA, or nurse practitioner) for follow up as~we ll as ongoing healthcare needs. ~ ~The following information is provided for you as education regarding~preventative health care and follow up from your emergency department visit:~ ~Regu lar exercise, good diet and adequate fluid intake are very importan t for~general health maintenance. Please discuss these with your primary care doctor~to develop a plan specific to your needs. ~ ~Tobacco use is a risk factor for multiple serious illnesses. If you use~tobacco, please contact the [employer] at 2-400-KBYWHZJ ( ) or~www.[employer].org to assist in your eff orts to stop using tobacco products.~ ~During your visit today you r blood pressure may have been higher than normal. ~If it was hig h you should have this rechecked. Follow up with your physicia n or~the referral provider for a recheck within 4 weeks. Hypertens ion is a common but~serious illness that should be monitored closel y.~ ~If thoughts of increased anxiety and sadness prevent y ou from completing your~day to day activities at home or work, plea se call our 12/09 assessment line at~[phone] to speak w ith an Regional Administrative Assistant. ~For deaf and hearing impai red, call .~For mental health and/o r substance use disorders you can call the Substance~Abuse and [facility] ([facility]) ~[facility] TTY for hearing impaired call ~ ~During ER visits many patients receive sedation or medications which may impair~your ju dgment and or make driving, working or operating machinery or even~ walking hazardous. Some of these medications include diphenhydrami ne (Benadryl)~and medications for anxiety, nausea and steven n. Ask your nurse if you have~received any sedating medications. If you received any potentially sedating~medications, pleas e rest today and do not drive.~ ~IJESSICA, understand the instructions and will arrange for follow-up~care. ~ ~ 9~PATIENT/JET INSPECTOR SIGNAT URE~ ~ ~ ~STAFF SIGNATURE~ ~ ~PATIENT'S NAME: GLORIA BARKER MIGUEL ANGELNI BRADY ACCOUNT NO: [id number] 07-14-2019 [facility] ([facility]~E MERGENCY PROVIDER [facility] Note REPORT~REPORT#:[id number] REPORT STATUS: Draft~DATE:07/14/19 TIME: [place] (14356) 3373~ ~PATIENT: JESSICA BARKER UN IT #: [id number]~ ROOM/BED: [address].ED[address] - [address]~: 69 AGE: 54 SEX: PCP PHYS: No Primary or Family Physician~AD M DATE: 07/14/19 INI AUTH: Darlene Wolf MD~ED ADMIT DT: 06/21 06/09 LAST SIG:~REP SERV REP SERV TM: 2340~ * ALL edits or amendments must be made on the electronic/computer document *~ ~ ~ ~HPI GREET~ ~General~Initial Greet Date/Time 2326~ ~Clinical Note~Clinical Note~First Documented:~ R esult Date Time~ Pulse Ox 97 07/13 2333~ B/P 180/92 07/13 2333~ B /P Mean 121 07/13 2333~ O2 Delivery Room air 07/13 2333~ Temp 98.8 07/13 2333~ Pulse 97 07/13 2333~ Resp 16 07/13 2333~ ~Last Documen [place]:~ Result Date Time~ Pulse Ox 97 07/13 2333~ B/P 180/92 06/213~ B/P Mean 121 07/13 2333~ O2 Delivery Room air 07/13 2333~ Temp 98.8 07/13 2333~ Pulse 97 07/13 2333~ Resp 16 07/13 2333~ ~Chi ef Complaint:~[He is here because his blood pressure is elevated] ~ ~HPI:~[This patient was seen at the [facility] earlier today . His blood pressure ~was elevated then and it has remained eleva [place]. He states his been 180 ~systolic. He is on lisinopril he t too k a second dose before coming in. Does ~have a blood pressure monitor at home and did get an oxygen saturation monitor ~recently because he was worried about COVID. He does have known anxiety . He ~states this is not an anxiety attack. He has had a slight cou gh, nonproductive.~ He does have nasal drainage. He states he had a feeling like there something ~popped in his right eye and has had some redness since that occurred this ~morning. He is not having any visual changes he is not having any pain in his ~eyes. His right upper eyelid is painful when he touches it. He denies a lcohol ~use, does drink a lot of caffeine, does not watch his loida t intake. He states he~is tried multiple blood pressure medicines but only lisinopril has been ~tolerated. He does have Lasix but he takes it as needed he has not had any ~peripheral edema recen tly. He is obese.]~ ~ROS:~Constitutional: [No fever, no chi lls.]~Eyes: [No discharge. Pain in the right upper eyelid]~ENT: [N o sore throat.]~Cardiovascular: [No chest pain , no palpitations.]~Respiratory: [Persistent cough, no shortness of breath.]~Gastrointestinal: [No abdomina l pain, no vomiting.]~Genitourinary: [No hematuria . Dysuria]~Musculoskeletal: [No back pain.]~Skin: [No rashes.]~Neur ological: [No headache. No visual changes no difficulty with his s peech she~has no focal weakness. No confusion.]~ ~Exam:~Genera l Appearance: [ alert, has no immediate need for airway protection , and no~current signs of significant toxicity.] [He is speaking rapidly but is not ~having any respiratory distress.]~Eyes: [pupil s equal and round no pallor or injection. The mucosa of the inner ~ upper right eyelid is erythematous medially. Tenderness with eversion of the ~lid. There is no abnormality on the eye. There is no conjunctival redness no ~injected vessels. His pupil is equal t o the left it is round is reactive. ~Funduscopic exam does not re veal any abnormalities. He has intact extraocular ~movements.]~ENT , Mouth: [Mask is in place. He states this is irritating him and he feels ~like it is hard to breathe with the mask on. He continues to converse with the ~mask in place. Oxygen saturation is 96% on r oom air.]~Respiratory: [There are no retractions, lungs are cl ear to auscultation.]~Cardiovascular: [ rapid rate ,98 beats a minute and rhythm is regular] [ ]~Gastrointestinal : [Abdomen is soft , morbidly obese and non tender, no ngozi s, ~bowel sounds normal.]~Neurological: [awake, alert, o riented. moves all extremities ]~Skin: [warm and dry, no r ashes.]~Musculoskeletal: [Neck is supple non tender. ] [Extremit ies are symmetrical, ~full range of motion.]~ ~Reevaluation:~[]~ ~ Reevaluation:~[]~ ~Data:~[I reviewed labs][I independently viewed x -ray]~ ~Medical Decision Making:~[ After history and physical ex am differential diagnosis was considered for] [ ]~ ~Past Medical History~Stated Complaint HIGH BP~Allergies~Coded Allergies:~No K nown Allergies (06/25/19)~ ~Past Medical History:~Reports: Hyperte nsion. ~Additional Medical History~Anxiety~Additional Surgical His tory~Denies~Smoking status for patients 13 years old or older: Nev er Smoker~ ~COURSE~ ~Med Data~Med Data~Medication(s) Ordered:~Ca rdiovascular Drugs~ Sig/Monalisa Start time Last~ Medication Dose Route Stop Time Status Admin~ Labetalol HCl 20 MG X1ED STA 07/13 2333 DC~ IV 07/13 2334~ ~ ~ ~Patient Discharge Departure~ ~Vital Si gns/Condition~Vital Signs~First Documented:~ Result Date Ti me~ Pulse Ox 97 07/13 2333~ B/P 180/92 07/133~ B/P Mean 121 3~ O2 Delivery Room air 07/13 233~ Temp 98.8 07/13 2333~ P ulse 97 07/13 2333~ Resp 16 07/13 2332~ ~Last Documented:~ Result D ate Time~ Pulse Ox 97 07/13 2333~ B/P 180/92 07/13 2333~ B/P Mean 1 21 07/13 2332~ O2 Delivery Room air 07/13 233~ Temp 98.8 07/13 22 33~ Pulse 97 07/13 2333~ Resp 16 07/13 2332~ ~All vital signs av ailable at the time of this entry have been reviewed.~ ~RPT #: [id number]~END OF REPORT~ 07-14-2019 [facility] ([facility]) ED WEST~E MERGENCY PROVIDER [place] [facility] Note REPORT~REPORT#:[id number] REPORT STATUS: Draft~DATE:07/14/19 TIME: [place] (53512) 2340~ ~PATIENT: JESSICA BARKER UN IT #: [id number]~ ROOM/BED: [place] [address]~: 67 AGE: 54 SEX: PCP PHYS: No Primary or Family Physician~AD M DATE: 07/14/19 INI AUTH: Darlene Wolf MD~ED ADMIT DT: 06/21 06/09 LAST SIG: Darlene Wolf MD~REP SERV DT: 06/21 06/09 REP SERV TM: 2340~ * ALL edits or amendments must be made on the electronic/computer document *~ ~ ~ ~HPI GREET~ ~General~In itial Greet Date/Time 07/14/192326~ ~Clinical Note~Clinical Note~First Documented:~ Result Date Time~ Pulse Ox 97 07/13 233 3~ B/P 180/92 07/13 2333~ B/P Mean 121 07/13 2333~ O2 Delivery Ro om air 07/13 2333~ Temp 98.8 07/13 2333~ Pulse 97 07/13 2333~ R nikole 16 07/13 2333~ ~Last Documented:~ Result Date Time~ Pulse Ox 97 07/13 2333~ B/P 180/92 07/13 2333~ B/P Mean 121 07/13 2333~ O2 Delivery Room air 07/13 2333~ Temp 98.8 07/13 2333~ Pulse 97 2333~ Resp 16 07/13 2333~ ~Chief Complaint:~[He is here bec ause his blood pressure is elevated]~ ~HPI:~[This patient was seen at the [facility] earlier today. His blood pressure ~was elevated then and it has remained elevated. He states his been 1 80 ~systolic. He is on lisinopril he t took a second dose befo re coming in. Does ~have a blood pressure monitor at home and did get an oxygen saturation monitor ~recently because he was worrie d about COVID. He does have known anxiety. He ~states this is not a n anxiety attack. He has had a slight cough, nonproductive.~ He does have nasal drainage. He states he had a feeling like there s omething ~popped in his right eye and has had some redness sinc e that occurred this ~morning. He is not having any visual c hanges he is not having any pain in his ~eyes. His right upper eyel id is painful when he touches it. He denies alcohol ~use, tellez s drink a lot of caffeine, does not watch his salt intake. He stat es he~is tried multiple blood pressure medicines but only lisin opril has been ~tolerated. He does have Lasix but he takes it as n eeded he has not had any ~peripheral edema recently. He is obese .]~ ~ROS:~Constitutional: [No fever, no chills.]~Eyes: [No discha rge. Pain in the right upper eyelid]~ENT: [No sore throat.]~Ca rdiovascular: [No chest pain, no palpitations.]~Respiratory: [P ersistent cough, no shortness of breath.]~Gastrointestinal: [No abdominal pain, no vomiting.]~Genitourinary: [No hematuria . Dysuria]~Musculoskeletal: [No back pain.]~Skin: [No rashes.]~Neur ological: [No headache. No visual changes no difficulty with his s peech she~has no focal weakness. No confusion.]~ ~Exam:~Genera l Appearance: [ alert, has no immediate need for airway protection , and no~current signs of significant toxicity.] [He is speaking rapidly but is not ~having any respiratory distress.]~Eyes: [pupil s equal and round no pallor or injection. The mucosa of the inner ~ upper right eyelid is erythematous medially. Tenderness with eversion of the ~lid. There is no abnormality on the eye. There is no conjunctival redness no ~injected vessels. His pupil is equal t o the left it is round is reactive. ~Funduscopic exam does not re veal any abnormalities. He has intact extraocular ~movements.]~ENT , Mouth: [Mask is in place. He states this is irritating him and he feels ~like it is hard to breathe with the mask on. He continues to converse with the ~mask in place. Oxygen saturation is 96% on r oom air.]~Respiratory: [There are no retractions, lungs are cl ear to auscultation.]~Cardiovascular: [ rapid rate ,98 beats a minute and rhythm is regular] [ ]~Gastrointestinal : [Abdomen is soft , morbidly obese and non tender, no ngozi s, ~bowel sounds normal.]~Neurological: [awake, alert, o riented. moves all extremities ]~Skin: [warm and dry, no r ashes.]~Musculoskeletal: [Neck is supple non tender. ] [Extremit ies are symmetrical, ~full range of motion.]~ ~Reevaluation:~[]~ ~ Reevaluation:~[]~ ~Data:~[I reviewed labs][I independently viewed x -ray]~ ~Medical Decision Making:~[ After history and physical ex am differential diagnosis was considered for] [ ]~ ~Past Medical History~Stated Complaint HIGH BP~Allergies~Coded Allergies:~No K nown Allergies (06/25/19)~ ~Past Medical History:~Reports: Hyperte nsion. ~Additional Medical History~Anxiety~Additional Surgical His tory~Denies~Smoking status for patients 13 years old or older: Nev er Smoker~ ~COURSE~ ~Med Data~Med Data~Medication(s) Ordered:~Ca rdiovascular Drugs~ Sig/Monalisa Start time Last~ Medication Dose Route Stop Time Status Admin~ Labetalol HCl 20 MG X1ED STA 07/13 233 DC 07/13~ IV 07/13~ ~ ~ ~Full Procedures~ ~Free Text Proc Notes~Free Text Proc Notes~EKG-normal sinus rhythm there are no ectopic beats there were no sign of any ~ischemic changes n o ST elevation. 91 bpm QT interval is normal HI interval is ~norm al.~ ~Patient Discharge Departure~ ~Vital Signs/Condition~Vital Signs~First Documented:~ Result Date Time~ Pulse Ox 97 07/13 233 3~ B/P 180/07/13~ B/P Mean 121 07/13 2332~ O2 Delivery Ro om air 07/13 2332~ Temp 98.8 07/13 2332~ Pulse 97 07/13 2332~ R nikole 07/13~ ~Last Documented:~ Result Date Time~ Pulse Ox 97 07/13 2332~ B/P 180/92 07/13 2332~ B/P Mean 121 07/13 2332~ O2 Delivery Room air 07/13 2332~ Temp 98.8 07/13 2332~ Pulse 97 2332~ Resp 16 07/13 2332~ ~All vital signs available at the time of this entry have been reviewed.~ ~RPT #: [id number]~EN D OF REPORT~ 07-14-2019 [facility] ([facility] ED [facility]~E MERGENCY PROVIDER [place] [facility] Note REPORT~REPORT#:[id number] REPORT STATUS: Draft~DATE:07/14/19 TIME: [place] ([id number]) 2340~ ~PATIENT: JESSICA BARKER UN IT #: [id number]~ ROOM/BED: [place] [address]~: 67 AGE: 54 SEX: PCP PHYS: No Primary or Family Physician~AD M DATE: 07/14/19 INI AUTH: Darlene Wolf MD~ED ADMIT DT: 06/21 06/09 LAST SIG: Darlene Wolf MD~REP SERV DT: 06/21 06/09 REP SERV TM: 2340~ * ALL edits or amendments must be made on the electronic/computer document *~ ~ ~ ~HPI GREET~ ~General~In itial Greet Date/Time 07/14/192326~ ~Clinical Note~Clinical Note~First Documented:~ Result Date Time~ Pulse Ox 97 07/13 233 3~ B/P 180/92 07/133~ B/P Mean 121 07/13 2332~ O2 Delivery Ro om air 07/13 2332~ Temp 98.8 07/13 2332~ Pulse 97 07/13 233~ R nikole 16 07/13 2332~ ~Last Documented:~ Result Date Time~ Pulse Ox 95 07/14 0000~ B/P 127/76 07/14 0000~ B/P Mean 93 07/14 0000~ O2 Delivery Room air 07/14 0000~ Pulse 79 07/14 0000~ Resp 18 / 5 0000~ Temp 98.8 07/13 2332~ ~Chief Complaint:~[He is here bec ause his blood pressure is elevated]~ ~HPI:~[This patient was seen at the [facility] earlier today. His blood pressure ~was elevated then and it has remained elevated. He states his been 1 80 ~systolic. He is on lisinopril he t took a second dose befo re coming in. Does ~have a blood pressure monitor at home and did get an oxygen saturation monitor ~recently because he was worrie d about COVID. He does have known anxiety. He ~states this is not a n anxiety attack. He has had a slight cough, nonproductive.~ He does have nasal drainage. He states he had a feeling like there s omething ~popped in his right eye and has had some redness sinc e that occurred this ~morning. He is not having any visual c hanges he is not having any pain in his ~eyes. His right upper eyel id is painful when he touches it. He denies alcohol ~use, tellez s drink a lot of caffeine, does not watch his salt intake. He stat es he~is tried multiple blood pressure medicines but only lisin opril has been ~tolerated. He does have Lasix but he takes it as n eeded he has not had any ~peripheral edema recently. He is obese .]~ ~ROS:~Constitutional: [No fever, no chills.]~Eyes: [No discha rge. Pain in the right upper eyelid]~ENT: [No sore throat.]~Ca rdiovascular: [No chest pain, no palpitations.]~Respiratory: [P ersistent cough, no shortness of breath.]~Gastrointestinal: [No abdominal pain, no vomiting.]~Genitourinary: [No hematuria . Dysuria]~Musculoskeletal: [No back pain.]~Skin: [No rashes.]~Neur ological: [No headache. No visual changes no difficulty with his s peech she~has no focal weakness. No confusion.]~ ~Exam:~Genera l Appearance: [ alert, has no immediate need for airway protection , and no~current signs of significant toxicity.] [He is speaking rapidly but is not ~having any respiratory distress.]~Eyes: [pupil s equal and round no pallor or injection. The mucosa of the inner ~ upper right eyelid is erythematous medially. Tenderness with eversion of the ~lid. There is no abnormality on the eye. There is no conjunctival redness no ~injected vessels. His pupil is equal t o the left it is round is reactive. ~Funduscopic exam does not re veal any abnormalities. He has intact extraocular ~movements.]~ENT , Mouth: [Mask is in place. He states this is irritating him and he feels ~like it is hard to breathe with the mask on. He continues to converse with the ~mask in place. Oxygen saturation is 96% on r oom air.]~Respiratory: [There are no retractions, lungs are cl ear to auscultation.]~Cardiovascular: [ rapid rate ,98 beats a minute and rhythm is regular] [ ]~Gastrointestinal : [Abdomen is soft , morbidly obese and non tender, no ngozi s, ~bowel sounds normal.]~Neurological: [awake, alert, o riented. moves all extremities ]~Skin: [warm and dry, no r ashes.]~Musculoskeletal: [Neck is supple non tender. ] [Extremit ies are symmetrical, ~full range of motion.]~ ~Reevaluation:~[0012 -BP was 148/62 prior to any medication. After the labetalol his pre ssure is~119/72.~Lab showed a normal creatinine. WBC normal. Hgb wi thin normal limits.]~ ~Reevaluation:~[]~ ~Data:~[I reviewed l abs][I independently viewed x-ray]~ ~Medical Decision Making:~[ Aft er history and physical exam differential diagnosis was conside red for] [ ]~ ~Past Medical History~Stated Complaint HIGH BP~Allerg ies~Coded Allergies:~No Known Allergies (06/25/19)~ ~Home Medic ations~Reported Medications~LISINOPRIL (ZESTRIL) ~FUROS EMIDE (LASIX) ~ ~ ~Past Medical History:~Reports: Hypertension. ~Additional Medical History~Anxiety~Additional Surgical His tory~Denies~Smoking status for patients 13 years old or older: [facility] er Smoker~ ~COURSE~ ~Data~Diagnostics~Laboratory Tests~ ~ ~ ~07/14/192346:~[Embedded Image Not Available]~Laboratory Tests:~ 2346~ Chemistry~ Sodium (135 - 148 mmol/L) 136~ Potassiu m (3.5 - 5.3 mmol/L) 4.0~ Chloride (98 - 110 mmol/L) 100~ Carbon Dioxide (21 - 32 mmol/L) 29~ Anion Gap (5 - 15 mmol/L) 7~ BUN (7 - 20 mg/dL) 11~ Creatinine (0.70 - 1.30 mg/dL) 1.09~ Estimated Cre at Clear (> 59 mL/min) > 60~ Estimated GFR (MDRD) (> 59 mL/min) > 60~ Glucose (70 - 99 mg/dL) 126 H~ Calcium (8.5 - 10.1 mg/dL ) 9.1~ Hematology~ WBC (5.0 - 10.0 k/cumm) 10.2 H~ RBC (4.00 - 6.00 m/cumm) 5.52~ Hgb (14.0 - 18.0 gm/dL) 15.7~ Hct (40.0 - 54.0 %) 4 7.4~ MCV (80.0 - 100.0 fl) 85.9~ MCH (27.0 - 33.0 pg) 28.4~ MCHC ( 32.0 - 37.0 g/dL) 33.1~ RDW (11.0 - 15.6 %) 14.0~ Plt Count (150 - 400 k/cumm) 392~ MPV (8.5 - 10.9 fl) 9.4~ Immature Gran % (Auto) (0 .0 - 0.6 %) 0.3~ Abs Immat Gran (auto) (0.00 - 0.09 k/cumm) 0.03~ Lymphocytes % (20 - 30 %) 28.3~ Monocytes % (4 - 6 %) 9.8 H~ Eosi nophils % (2 - 4 %) 1.6 L~ Basophils % (0 - 1 %) 0.5~ Nucleated RB C % (0.0 - 0.0 /100 WBC) 0.0~ Absolute Granulocytes (2.0 - 9.0 k /cumm) 6.0~ Segmented Neutrophils (50 - 75 %) 59.5~ Absolute Lymphocytes (1.0 - 4.0 k/cumm) 2.9~ Absolute Monocytes (0.1 - 1.0 k/cumm) 1.0~ Absolute Eosinophils (0.1 - 0.5 k/cumm) 0.2~ Abs olute Basophils (0.0 - 0.2 k/cumm) 0.1~ ~ ~ ~Med Data~Med Data~Med ication(s) Ordered:~Cardiovascular Drugs~ Sig/Monalisa Start time Last~ Medication Dose Route Stop Time Status Admin~ Labe talol HCl 20 MG X1ED STA 07/13 2334 DC 07/13~ IV 07/13 ~ ~ ~ ~Full Procedures~ ~Free Text Proc Notes~Free Text Proc No lia~EKG-normal sinus rhythm there are no ectopic beats there were n o sign of any ~ischemic changes no ST elevation. 91 bpm QT inte rval is normal HI interval is ~normal.~ ~Patient Discharge Departu re~ ~Vital Signs/Condition~Vital Signs~First Docum ented:~ Result Date Time~ Pulse Ox 97 07/13 2332~ B/P 180/92 05/ 4 2333~ B/P Mean 121 07/13 2332~ O2 Delivery Room air 07/13 2332~ Temp 98.8 07/13 2332~ Pulse 97 07/13 2332~ Resp 16 07/13 2332~ ~Las t Documented:~ Result Date Time~ Pulse Ox 95 07/14 0000~ B/P 127/7 6 07/14 0000~ B/P Mean 93 07/14 0000~ O2 Delivery Room air 07/14 0000~ Pulse 79 07/14 0000~ Resp 18 07/14 0000~ Temp 98.8 07/13 233 3~ ~All vital signs available at the time of this entry hav e been reviewed.~ ~RPT #: [id number]~END OF REPORT~ 07-14-2019 [facility]~E MERGENCY PROVIDER [facility] Note REPORT~REPORT#:[id number] REPORT STATUS: Draft~DATE:07/14/19 TIME: [place] () 2339~ ~PATIENT: JESSICA BARKER UN IT #: [id number]~ ROOM/BED: [place] [address]~: 67 AGE: 54 SEX: PCP PHYS: No Primary or Family Physician~AD M DATE: 07/14/19 INI AUTH: Darlene Wolf MD~ED ADMIT DT: 06/21 06/09 LAST SIG: Darlene Wolf MD~REP SERV DT: 06/21 06/09 REP SERV TM: 234~ * ALL edits or amendments must be made on the electronic/computer document *~ ~ ~ ~HPI GREET~ ~General~In itial Greet Date/Time 07/14/192326~ ~Clinical Note~Clinical Note~First Documented:~ Result Date Time~ Pulse Ox 97 07/13 233 3~ B/P 180/92 07/13 2332~ B/P Mean 121 07/13 2332~ O2 Delivery Ro om air 07/13 2332~ Temp 98.8 07/13 2332~ Pulse 97 07/13 2332~ R nikole 16 07/13 2332~ ~Last Documented:~ Result Date Time~ Pulse Ox 94 07/14 0015~ B/P 123/75 07/14 0015~ B/P Mean 91 07/14 0015~ O2 Delivery Room air 07/14 0015~ Pulse 80 07/14 0015~ Resp 18 05/ 5 0015~ Temp 98.8 07/13 2332~ ~Chief Complaint:~[He is here bec ause his blood pressure is elevated]~ ~HPI:~[This patient was seen at the [facility] earlier today. His blood pressure ~was elevated then and it has remained elevated. He states his been 1 80 ~systolic. He is on lisinopril he t took a second dose befo re coming in. Does ~have a blood pressure monitor at home and did get an oxygen saturation monitor ~recently because he was worrie d about COVID. He does have known anxiety. He ~states this is not a n anxiety attack. He has had a slight cough, nonproductive.~ He does have nasal drainage. He states he had a feeling like there s omething ~popped in his right eye and has had some redness sinc e that occurred this ~morning. He is not having any visual c hanges he is not having any pain in his ~eyes. His right upper eyel id is painful when he touches it. He denies alcohol ~use, tellez s drink a lot of caffeine, does not watch his salt intake. He stat es he~is tried multiple blood pressure medicines but only lisin opril has been ~tolerated. He does have Lasix but he takes it as n eeded he has not had any ~peripheral edema recently. He is obese .]~ ~ROS:~Constitutional: [No fever, no chills.]~Eyes: [No discha rge. Pain in the right upper eyelid]~ENT: [No sore throat.]~Ca rdiovascular: [No chest pain, no palpitations.]~Respiratory: [P ersistent cough, no shortness of breath.]~Gastrointestinal: [No abdominal pain, no vomiting.]~Genitourinary: [No hematuria . Dysuria]~Musculoskeletal: [No back pain.]~Skin: [No rashes.]~Neur ological: [No headache. No visual changes no difficulty with his s peech she~has no focal weakness. No confusion.]~ ~Exam:~Genera l Appearance: [ alert, has no immediate need for airway protection , and no~current signs of significant toxicity.] [He is speaking rapidly but is not ~having any respiratory distress.]~Eyes: [pupil s equal and round no pallor or injection. The mucosa of the inner ~ upper right eyelid is erythematous medially. Tenderness with eversion of the ~lid. There is no abnormality on the eye. There is no conjunctival redness no ~injected vessels. His pupil is equal t o the left it is round is reactive. ~Funduscopic exam does not re veal any abnormalities. He has intact extraocular ~movements.]~ENT , Mouth: [Mask is in place. He states this is irritating him and he feels ~like it is hard to breathe with the mask on. He continues to converse with the ~mask in place. Oxygen saturation is 96% on r oom air.]~Respiratory: [There are no retractions, lungs are cl ear to auscultation.]~Cardiovascular: [ rapid rate ,98 beats a minute and rhythm is regular] [ ]~Gastrointestinal : [Abdomen is soft , morbidly obese and non tender, no ngozi s, ~bowel sounds normal.]~Neurological: [awake, alert, o riented. moves all extremities ]~Skin: [warm and dry, no r ashes.]~Musculoskeletal: [Neck is supple non tender. ] [Extremit ies are symmetrical, ~full range of motion.]~ ~Reevaluation:~[0012 -BP was 148/62 prior to any medication. After the labetalol his pre ssure is~119/72.~Lab showed a normal creatinine. WBC normal. Hgb wi thin normal limits.]~ ~Reevaluation:~[0022 Systolic 122. He h as taken a beta mayda in the past. He says it gave him~plapitati ons. ]~ ~Data:~[I reviewed labs][I independently viewed x-ray]~ ~M edical Decision Making:~[ After history and physical exam hardeepe josé miguel diagnosis was considered for] [ ]~ ~Past Medical Hist ory~Stated Complaint HIGH BP~Allergies~Coded Allergies:~No Known Allergies (06/25/19)~ ~Home Medications~Reported Medications~LISINO PRIL (ZESTRIL) ~FUROSEMIDE (LASIX) ~ ~ ~Past Medical History:~Repo rts: Hypertension. ~Additional Medical History~Anxiety~Add itional Surgical History~Denies~Smoking status for patie nts 13 years old or older: Never Smoker~ ~COURSE~ ~Data~Diagnostic s~Laboratory Tests~ ~ ~ ~07/14/192346:~[Embedded Image Not Addie ilable]~Laboratory Tests:~ 07/13~ 2346~ Chemistry~ Sodium (135 - 1 48 mmol/L) 136~ Potassium (3.5 - 5.3 mmol/L) 4.0~ Chloride (98 - 110 mmol/L) 100~ Carbon Dioxide (21 - 32 mmol/L) 29~ Anion Gap (5 - 15 mmol/L) 7~ BUN (7 - 20 mg/dL) 11~ Creatinine (0.70 - 1.30 m g/dL) 1.09~ Estimated Creat Clear (> 59 mL/min) > 60~ Estimated GFR (MDRD) (> 59 mL/min) > 60~ Glucose (70 - 99 mg/dL) 126 H~ Calcium (8.5 - 10.1 mg/dL) 9.1~ Hematology~ WBC (5.0 - 10.0 k/cumm) 10. 2 H~ RBC (4.00 - 6.00 m/cumm) 5.52~ Hgb (14.0 - 18.0 gm/dL) 1 5.7~ Hct (40.0 - 54.0 %) 47.4~ MCV (80.0 - 100.0 fl) 85.9~ MCH ( 27.0 - 33.0 pg) 28.4~ MCHC (32.0 - 37.0 g/dL) 33.1~ RDW (11.0 - 15 .6 %) 14.0~ Plt Count (150 - 400 k/cumm) 392~ MPV (8.5 - 10.9 fl) 9.4~ Immature Gran % (Auto) (0.0 - 0.6 %) 0.3~ Abs Immat Gran (auto ) (0.00 - 0.09 k/cumm) 0.03~ Lymphocytes % (20 - 30 %) 28.3~ M onocytes % (4 - 6 %) 9.8 H~ Eosinophils % (2 - 4 %) 1.6 L~ Basophil s % (0 - 1 %) 0.5~ Nucleated RBC % (0.0 - 0.0 /100 WBC) 0. 0~ Absolute Granulocytes (2.0 - 9.0 k/cumm) 6.0~ Segmented Neutr ophils (50 - 75 %) 59.5~ Absolute Lymphocytes (1.0 - 4.0 k/cumm) 2.9~ Absolute Monocytes (0.1 - 1.0 k/cumm) 1.0~ Absolute Eosino phils (0.1 - 0.5 k/cumm) 0.2~ Absolute Basophils (0.0 - 0.2 k/cu mm) 0.1~ ~ ~ ~Med Data~Med Data~Medication(s) Ordered:~Cardiovascu lar Drugs~ Sig/Monalisa Start time Last~ Medication Dose Route Stop T jay Status Admin~ Labetalol HCl 20 MG X1ED STA 07/13 2333 DC 07/13~ IV 07/13~ ~ ~ ~Full Procedures~ ~Free Text Proc Notes ~Free Text Proc Notes~EKG-normal sinus rhythm there are no ectopic beats there were no sign of any ~ischemic changes n o ST elevation. 91 bpm QT interval is normal HI interval is ~norm al.~ ~Patient Discharge Departure~ ~Vital Signs/Condition~Vital Signs~First Documented:~ Result Date Time~ Pulse Ox 97 07/13 233 3~ B/P 180/92 07/13 2332~ B/P Mean 121 07/13 2332~ O2 Delivery Ro om air 07/13 2332~ Temp 98.8 07/13 2332~ Pulse 97 07/13 2332~ R nikole 16 07/13 2332~ ~Last Documented:~ Result Date Time~ Pulse Ox 94 07/14 0015~ B/P 123/75 07/14 0015~ B/P Mean 91 07/14 0015~ O2 Delivery Room air 07/14 0015~ Pulse 80 07/14 0015~ Resp 18 06/21 5 0015~ Temp 98.8 07/13 2333~ ~All vital signs available at the time of this entry have been reviewed.~ ~Condition Stable~ ~Cli nical Impression~Clinical Impression~Primary Impression: Hyperten lula~ ~Disposition Decision~Discharge~ )( Discharged to me Yes~ )( Time 0020~ )( Date 07/15/19~ ~Discharge/Care Plan~Cou nseled Regarding Diagnosis, Lab results, Need for follow-up, When t o return ~to ED~Prescriptions~amlodipine 2.5mg~ Disc harge Note~I have spoken with the patient and/or caregivers. I h ave explained the patient's~condition, diagnoses and anisa tment plan based on the information available to me~at this ana laura e. I have answered the patient's and/or caregiver's questions and ~addressed any concerns. The patient and/or caregivers have as good an ~understanding of the patient's diagnos is, condition and treatment plan as can be~expected at this point. The vital signs have been stable. The patient's ~condition is sta ble and appropriate for discharge from the emergency department .~ ~ ~The patient will pursue further outpatient evaluation wi th the primary care ~physician or other designated or consu lting physician as outlined in the ~discharge instructions. The pat ient and/or caregivers are agreeable to this plan~of care and foll ow-up instructions have been explained in detail. The patient ~ and/or caregivers have received these instructions in written format and have ~expressed an understanding of the discharge instr uctions. The patient and/or ~caregivers are aware that any signific ant change in condition or worsening of ~symptoms should prompt an immediate return to this or the closest emergency ~department or a call to 911.~ ~RPT #: [id number]~END OF REPORT~ 07-14-2019 [facility] ([facility]) ED WEST~E MERGENCY PROVIDER [place] [facility] Note REPORT~REPORT#:[id number] REPORT STATUS: FSign~DATE:07/14/19 TIME: Center (64767) 2340~ ~PATIENT: JESSICA BARKER UN IT #: [id number]~ ROOM/BED: [facility]~: 05[facility] AGE: 54 SEX: PCP PHYS: No Primary or Family Physician~ADM DATE : 07/14/19 INI AUTH: Darlene Wolf MD~ED ADMIT DT: 06/21 06/09 LAST SIG: Darlene Wolf MD~REP SERV DT: 06/21 06/09 REP SERV TM: 2340~ * ALL edits or amendments must be made on the electronic/computer document *~ ~ ~ ~HPI GREET~ ~General~In itial Greet Date/Time 07/14/192326~ ~Clinical Note~Clinical Note~First Documented:~ Result Date Time~ Pulse Ox 97 07/13 233 3~ B/P 180/92 07/13 2333~ B/P Mean 121 07/13 233~ O2 Delivery Ro om air 07/13 233~ Temp 98.8 07/13 233~ Pulse 97 07/13 2333~ R nikole 16 07/13 2332~ ~Last Documented:~ Result Date Time~ Pulse Ox 94 07/14 0015~ B/P 123/75 07/14 0015~ B/P Mean 91 07/14 0015~ O2 Delivery Room air 07/14 0015~ Pulse 80 07/14 0015~ Resp 18 06/21 5 0015~ Temp 98.8 07/13 2332~ ~Chief Complaint:~[He is here bec ause his blood pressure is elevated]~ ~HPI:~[This patient was seen at the [facility] earlier today. His blood pressure ~was elevated then and it has remained elevated. He states his been 1 80 ~systolic. He is on lisinopril he t took a second dose befo re coming in. Does ~have a blood pressure monitor at home and did get an oxygen saturation monitor ~recently because he was worrie d about COVID. He does have known anxiety. He ~states this is not a n anxiety attack. He has had a slight cough, nonproductive.~ He does have nasal drainage. He states he had a feeling like there s omething ~popped in his right eye and has had some redness sinc e that occurred this ~morning. He is not having any visual c hanges he is not having any pain in his ~eyes. His right upper eyel id is painful when he touches it. He denies alcohol ~use, tellez s drink a lot of caffeine, does not watch his salt intake. He stat es he~is tried multiple blood pressure medicines but only lisin opril has been ~tolerated. He does have Lasix but he takes it as n eeded he has not had any ~peripheral edema recently. He is obese .]~ ~ROS:~Constitutional: [No fever, no chills.]~Eyes: [No discha rge. Pain in the right upper eyelid]~ENT: [No sore throat.]~Ca rdiovascular: [No chest pain, no palpitations.]~Respiratory: [P ersistent cough, no shortness of breath.]~Gastrointestinal: [No abdominal pain, no vomiting.]~Genitourinary: [No hematuria . Dysuria]~Musculoskeletal: [No back pain.]~Skin: [No rashes.]~Neur ological: [No headache. No visual changes no difficulty with his s peech she~has no focal weakness. No confusion.]~ ~Exam:~Genera l Appearance: [ alert, has no immediate need for airway protection , and no~current signs of significant toxicity.] [He is speaking rapidly but is not ~having any respiratory distress.]~Eyes: [pupil s equal and round no pallor or injection. The mucosa of the inner ~ upper right eyelid is erythematous medially. Tenderness with eversion of the ~lid. There is no abnormality on the eye. There is no conjunctival redness no ~injected vessels. His pupil is equal t o the left it is round is reactive. ~Funduscopic exam does not re veal any abnormalities. He has intact extraocular ~movements.]~ENT , Mouth: [Mask is in place. He states this is irritating him and he feels ~like it is hard to breathe with the mask on. He continues to converse with the ~mask in place. Oxygen saturation is 96% on r oom air.]~Respiratory: [There are no retractions, lungs are cl ear to auscultation.]~Cardiovascular: [ rapid rate ,98 beats a minute and rhythm is regular] [ ]~Gastrointestinal : [Abdomen is soft , morbidly obese and non tender, no gnozi s, ~bowel sounds normal.]~Neurological: [awake, alert, o riented. moves all extremities ]~Skin: [warm and dry, no r ashes.]~Musculoskeletal: [Neck is supple non tender. ] [Extremit ies are symmetrical, ~full range of motion.]~ ~Reevaluation:~[0012 -BP was 148/62 prior to any medication. After the labetalol his pre ssure is~119/72.~Lab showed a normal creatinine. WBC normal. Hgb wi thin normal limits.]~ ~Reevaluation:~[0022 Systolic 122. He h as taken a beta mayda in the past. He says it gave him~plapitati ons. ]~ ~Data:~[I reviewed labs][I independently viewed x-ray]~ ~M edical Decision Making:~[ After history and physical exam differe ntial diagnosis was considered for] [ ]~ ~Past Medical Hist ory~Stated Complaint HIGH BP~Allergies~Coded Allergies:~No Known Allergies (06/25/19)~ ~Home Medications~Reported Medications~LISINO PRIL (ZESTRIL) ~FUROSEMIDE (LASIX) ~ ~ ~Past Medical History:~Repo rts: Hypertension. ~Additional Medical History~Anxiety~Add itional Surgical History~Denies~Smoking status for patie nts 13 years old or older: Never Smoker~ ~COURSE~ ~Data~Diagnostic s~Laboratory Tests~ ~ ~ ~07/14/192346:~[Embedded Image Not Addie ilable]~Laboratory Tests:~ 07/13~ 2346~ Chemistry~ Sodium (135 - 1 48 mmol/L) 136~ Potassium (3.5 - 5.3 mmol/L) 4.0~ Chloride (98 - 110 mmol/L) 100~ Carbon Dioxide (21 - 32 mmol/L) 29~ Anion Gap (5 - 15 mmol/L) 7~ BUN (7 - 20 mg/dL) 11~ Creatinine (0.70 - 1.30 m g/dL) 1.09~ Estimated Creat Clear (> 59 mL/min) > 60~ Estimated GFR (MDRD) (> 59 mL/min) > 60~ Glucose (70 - 99 mg/dL) 126 H~ Calcium (8.5 - 10.1 mg/dL) 9.1~ Hematology~ WBC (5.0 - 10.0 k/cumm) 10. 2 H~ RBC (4.00 - 6.00 m/cumm) 5.52~ Hgb (14.0 - 18.0 gm/dL) 1 5.7~ Hct (40.0 - 54.0 %) 47.4~ MCV (80.0 - 100.0 fl) 85.9~ MCH ( 27.0 - 33.0 pg) 28.4~ MCHC (32.0 - 37.0 g/dL) 33.1~ RDW (11.0 - 15 .6 %) 14.0~ Plt Count (150 - 400 k/cumm) 392~ MPV (8.5 - 10.9 fl) 9.4~ Immature Gran % (Auto) (0.0 - 0.6 %) 0.3~ Abs Immat Gran (auto ) (0.00 - 0.09 k/cumm) 0.03~ Lymphocytes % (20 - 30 %) 28.3~ M onocytes % (4 - 6 %) 9.8 H~ Eosinophils % (2 - 4 %) 1.6 L~ Basophil s % (0 - 1 %) 0.5~ Nucleated RBC % (0.0 - 0.0 /100 WBC) 0. 0~ Absolute Granulocytes (2.0 - 9.0 k/cumm) 6.0~ Segmented Neutr ophils (50 - 75 %) 59.5~ Absolute Lymphocytes (1.0 - 4.0 k/cumm) 2.9~ Absolute Monocytes (0.1 - 1.0 k/cumm) 1.0~ Absolute Eosino phils (0.1 - 0.5 k/cumm) 0.2~ Absolute Basophils (0.0 - 0.2 k/cu mm) 0.1~ ~ ~ ~Med Data~Med Data~Medication(s) Ordered:~Cardiovascu lar Drugs~ Sig/Monalisa Start time Last~ Medication Dose Route Stop T jay Status Admin~ Labetalol HCl 20 MG X1ED STA 07/13 2333 DC 07/13~ IV 07/13 2334 2347~ ~ ~ ~Full Procedures~ ~Free Text Proc Notes ~Free Text Proc Notes~EKG-normal sinus rhythm there are no ectopic beats there were no sign of any ~ischemic changes n o ST elevation. 91 bpm QT interval is normal HI interval is ~norm al.~ ~Patient Discharge Departure~ ~Vital Signs/Condition~Vital Signs~First Documented:~ Result Date Time~ Pulse Ox 97 07/13 233 3~ B/P 180/92 07/13 2332~ B/P Mean 121 07/13 2332~ O2 Delivery Ro om air 07/13 2332~ Temp 98.8 07/13 2332~ Pulse 97 07/13 2332~ R nikole 16 07/13 2332~ ~Last Documented:~ Result Date Time~ Pulse Ox 94 07/14 0015~ B/P 123/75 07/14 0015~ B/P Mean 91 07/14 0015~ O2 Delivery Room air 07/14 0015~ Pulse 80 07/14 0015~ Resp 18 05/ 5 0015~ Temp 98.8 07/13 2332~ ~All vital signs available at the time of this entry have been reviewed.~ ~Condition Stable~ ~Cli nical Impression~Clinical Impression~Primary Impression: Hyperten lula~ ~Disposition Decision~Discharge~ )( Discharged to me Yes~ )( Time 0020~ )( Date 07/15/19~ ~Discharge/Care Plan~Cou nseled Regarding Diagnosis, Lab results, Need for follow-up, When t o return ~to ED~Prescriptions~amlodipine 2.5mg~ Disc harge Note~I have spoken with the patient and/or caregivers. I h ave explained the patient's~condition, diagnoses and anisa tment plan based on the information available to me~at this ana laura e. I have answered the patient's and/or caregiver's questions and ~addressed any concerns. The patient and/or caregivers have as good an ~understanding of the patient's diagnos is, condition and treatment plan as can be~expected at this point. The vital signs have been stable. The patient's ~condition is sta ble and appropriate for discharge from the emergency department .~ ~ ~The patient will pursue further outpatient evaluation wi th the primary care ~physician or other designated or consu lting physician as outlined in the ~discharge instructions. The pat ient and/or caregivers are agreeable to this plan~of care and foll ow-up instructions have been explained in detail. The patient ~ and/or caregivers have received these instructions in written format and have ~expressed an understanding of the discharge instr uctions. The patient and/or ~caregivers are aware that any signific ant change in condition or worsening of ~symptoms should prompt an immediate return to this or the closest emergency ~department or a call to 911.~ ~ ~ at 0655~RPT #: [id number]~END OF REPORT* ~ 07-14-2019 ~[facility] ([facility] )~DISCHARGE I NSTRUCTIONS (ED) ~REPORT #: [facility] Note [id number] REPORT STATUS: Draft ~DATE: 07/14/19 TIME: 439~ Center ([id number]) ~PATIENT: JESSICA BARKER UNIT #: [id number]~ ROOM/BED: ~: 69 A GE: 54 SEX: M ATTEND: Kojo Sears DO ~ADM DT: AUTHOR: Kojo Golden DO ~ ~* ALL edits or amendments must be made on the elect ronic/computer document *~ ~Current patient of record information for this document is:~JESSICA BARKER~PatID: [id number] Age: 54~ : 1965~ ~Report i ncluding patient information as it appeared at the time this document ~was generated and provided to the patient i s as follows below.~ ~ ~JESSICA MIRANDA~PatID: [id number] Age: 54~ : 1965~ Printed: 07/14/2019 4:40 AM~By: Krish Fortune~ ~[facility]~ ~The exam and treatment y ou received in the Emergency Department were for an~urgent problem and are not intended as complete care. It is import ant that you~follow up with a doctor, nurse practitioner, or physic gera neurosurgical physician assistant for ongoing~care. If your symptoms become w orse or you do not improve as expected and you~are unable to reach your usual health care provider, [facility] We are available 24 hours a day. ~ ~You were t reated in the Emergency Department by: ~Primary Provider: Bria Fortune, ~ ~Follow Up Information:~ ~Follow up with Your Phys ician in 1-3 days. Call as soon as possible to arrange.~ ~The Foll owing Instructions Were Selected for You Today: Anxiety, Panic~ ~Anxiety, Panic~ ~You have been diagnosed with an anxiety attack.~ ~You seem to have had an anxiety attack. There are many conditio ns that can~cause symptoms like these. If this is the first time t his has happened,~follow-up with your regular doctor. You may need more testing to be sure there~isn't another cause for your symp toms.~ ~PATIENT'S NAME: JESSICA BARKER ACCOUNT NO: [id number]~ ~ ~ ~ ~Anxiety causes very strong feelings of worry an d fear. It may also cause chest~pain or shortness of breath. You may feel like you have palpitations (a racing~heart). You migh t feel numbness (like parts of your body are "asleep"),~especially around the mouth and in the hands or feet.~ ~Follow up with your co unselor and family doctor. If you do not have an~appointment in e next 2-3 days, call and make one. It is VERY IMPORTANT for~your counselor and family doctor to know if you get worse.~ ~YOU SHOULD SEEK MEDICAL ATTENTION IMMEDIATELY, EITHER HERE OR A T THE NEAREST~EMERGENCY DEPARTMENT, IF ANY OF THE FOLLOWING OCC URS:~ * You have symptoms that you normally don't have with your anxiety attacks.~ * You think of harming yourself (suicidal tho ughts) or harming someone else.~ * You have symptoms you normally don't have and they last longer than normal~ or your medicine do esn't help. These include chest pain, passing out,~ feeling that your heart is racing or shortness of breath.~ * You have a feve r (temperature higher than 100.4 F / 38 C).~ ~What To Do:~ ~ * Michaela e this sheet with you when you go to your follow-up visit.~ * If y ou have any problem arranging the follow-up visit, contact the~ Emergency Department immediately.~ * Take all medications as directed.~ ~Additional Information:~ ~ * There are occasions w here additional lab tests return - such as a culture~ result or a n X-ray or EKG - is further reviewed after you are discharged.~ If a change in your diagnosis or treatment is indicated, we will atte mpt to~ contact you. It is critical that we have a current phone n umber for you.~ ~ * If you had X-rays done, we can provide you a C D with those X-rays for your~ review and follow-up.~ ~ * Cultur e results may take 2-3 days. We review many culture results an d will~ attempt to contact you if the results are significant or m ay change your~ treatment. ~ ~If side effects develop, such as a r britta, difficulty breathing, or a severe upset~stomach,~stop the med ication and call your doctor or the Emergency Department.~ ~[facility] Instructions:~ ~The care you received i n the emergency department has been done on an emergency~basis onl y and is not intended to be a substitute for regular medical care. If~your condition or symptoms persist or get worse at any ti me, you should return~to the emergency department if you're unab le to contact your own physician. ~Please understand that alth ough we may not have determined a specific cause of~your sym ptoms today, further evaluation may be necessary. It is impo rtant to~ ~PATIENT'S NAME: JESSICA BARKER ACCOUNT NO: [id number]~ ~ ~ ~get a primary care provider (doctor, PA, or nurse pra ctitioner) for follow up as~well as ongoing healthcare needs. ~ ~The following information is provided for you as education regard ing~preventative health care and follow up from your emergency department visit:~ ~Regular exercise, good diet and adequate fluid intake are very important for~general health maintenance. Please discuss these with your primary care doctor~to develop a plan s pecific to your needs. ~ ~Tobacco use is a risk factor for multi ple serious illnesses. If you use~tobacco, please contact the [employer] [facility] at 6-334-AKDXWOI ( ) or~[email or web address]Yoom[employer] to a ssist in your efforts to stop using tobacco products.~ ~During y our visit today your blood pressure may have been higher than norm al. ~If it was high you should have this rechecked. Follow up w ith your physician or~the referral provider for a recheck within 4 weeks. Hypertension is a common but~serious illness that should be monitored closely.~ ~If thoughts of increased anxiety and sadne ss prevent you from completing your~day to day activities a t home or work, please call our 12/09 assessment line at~[phone] to speak with an Regional Administrative Assistant. ~For deaf and he aring impaired, call .~For mental health and/o r substance use disorders you can call the Substance~Abuse and [facility] ([facility]) ~[facility] TTY for hearing impaired call ~ ~During ER visits many patients receive sedation or medications which may impair~your ju dgment and or make driving, working or operating machinery or even~ walking hazardous. Some of these medications include diphenhydrami ne (Benadryl)~and medications for anxiety, nausea and steven n. Ask your nurse if you have~received any sedating medications. If you received any potentially sedating~medications, pleas e rest today and do not drive.~ ~I, JESSICA BARKER, understand the instructions and will arrange for follow-up~care. ~ ~ 9~PATIENT/JET INSPECTOR SIGNAT URE~ ~ ~ ~STAFF SIGNATURE~ ~ ~ ~ ~ ~ ~ ~ ~ ~ ~PATIENT'S NAME: JESSICA BARKER ACCOUNT NO: [id number] 07-14-2019 [facility]~E MERGENCY PROVIDER [facility] Note REPORT~REPORT#:[id number] REPORT STATUS: Draft~DATE:07/14/19 TIME: Center (47812) 0440~ ~PATIENT: JESSICA BARKER UN IT #: [id number]~ ROOM/BED: [place] [id number]~: [birth year] AGE: 54 SEX: PCP PHYS: No Primary or Family Physician~AD M DATE: 07/14/19 IN AUTH: Kojo Sears DO~ED ADMIT LAST SIG:~REP SERV REP SERV TM: 0440~ * ALL edits or amendments must be made on the electronic/computer document *~ ~ ~ ~HPI GREET~ ~General~Initial Greet Date/Time 413~ ~Clinical Note~Clinical Note~First Documented:~ R esult Date Time~ Pulse Ox 95 07/13 0214~ B/P 158/82 07/13 0214~ B /P Mean 107 07/13 0214~ O2 Delivery Room air 07/13 021~ Temp 98.5 07/13 0214~ Pulse 76 07/13 0214~ Resp 18 07/13 0214~ ~Last Documen chelsea:~ Result Date Time~ Pulse Ox 99 07/13 0409~ B/P 191/97 05/2 4 0409~ B/P Mean 128 05/24 0409~ O2 Delivery Room air 07/13 408~ Temp 98.1 07/13 408~ Pulse 82 07/13 408~ Resp 16 07/13 408~ ~CHI EF COMPLAINT-~Low oxygen level and anxiety~ ~HPI-(Onset,Timing,Context,Location,Master lity,Severity,MF,)-~Leighton robles is recently purchased a new blood pr essure cuff as well as an O2 ~saturation monitor. The patient is concerned about having COVID and states his ~oxygen saturation was 91% while laying down. Has had no cough no fever and no ~swell ing. Denies chest pain. Does have a history of sleep apnea and does not ~wear his CPAP as he cannot afford the unit he states he does have a history of ~hypertension continues lisinopril~ ~ ~ REVIEW OF SYSTEMS-~ ~Constitutional: No fever. No chills. L ow oxygen saturation~Eyes: No vision change.~ENT: No sore throat.~ Cardiovascular: No chest pain.~Respiratory: No cough.shortness o f breath.~Gastrointestinal: No abdominal pain. No vomiting.~Genitou rinary: No hematuria.~Musculoskeletal: No back steven n.~Skin: No rashes.~Neurological: No headache.~All systems reviewed and negative except as indicated above or i n HPI~ ~ ~PHYSICAL EXAM- ~ ~ All available vital signs were review ed: Blood pressure slightly elevated O2~sat 99%~ ~Gen: Awake, alert , and in no acute distress. Anxious male~Eyes: PERRL. EOMI.~Neck: S upple. No lymphadenopathy.~Ears/Nose/Throat: Mois t mucous membranes.~Cardiac: Regular rate and rh ythm. No murmurs, rubs, or gallops.~Pulmonary: Clear to auscultati on bilaterally. No wheezes, rales, or rhonchi.~Abdominal: Soft. Non tender. No distention. No masses. Bowel sounds positive.~Extremit ies: No edema. Pulses palpable.~Skin: No rashes or jaundice.~ Neuro: Alert and oriented 3. Normal speech. Normal motor function .~ ~ ~ ~---DATA INTERPRETATION--- ~ ~Imaging reviewed b dora somers and interpreted by the radiologist:~ ~ ~Lab work reviewed and interpreted by me:~ ~ ~Medical Decision Making/Differential D iagnosis/ED Course/Disposition: If ~applicable, all available laboratory and radiographic studies have been reviewed ~and considered in the medical decision making, including anisa tement plan, diff. ~diagnosis and disposition.~Jackelindiana gomes t definitely need follow-up to discuss anxiety related issues with ~his PCP as well as continuing his lisinopril. Also recomme nd calling family to ~see if they can help him purchase his new C PAP unit. Did recommend that if he ~is prescribed anxiety lytic medications that he should avoid central depressing ~meds~ ~ ~Reev aluation/Time: ~ ~ ~ ~Prescriptions:~ ~ ~ ~ ~I, Dr. Krish Sears, am the primary provider of this patient.~ ~Past Medica l History~Stated Complaint LOW O2- " FALLS TO 91%"~Allergies~Coded Allergies:~No Known Allergies (06/25/19)~ ~Past Medical His tory:~Reports: Hypertension. ~Additional Medical Histo ry~Anxiety~Additional Surgical History~Denies~Smoking status for patients 13 years old or older: Never Smoker~ ~Patient Discha rge Departure~ ~Vital Signs/Condition~Vital Signs~First Docum ented:~ Result Date Time~ Pulse Ox 95 07/13 0214~ B/P 158/82 05/2 4 0214~ B/P Mean 107 07/13 0214~ O2 Delivery Room air 07/13 0214~ Temp 98.5 07/13 0214~ Pulse 76 07/13 0214~ Resp 18 07/13 0214~ ~Las t Documented:~ Result Date Time~ Pulse Ox 99 07/13 0409~ B/P 191/9 7 07/13 0409~ B/P Mean 128 07/13 0409~ O2 Delivery Room air 07/13 0409~ Temp 98.1 07/13 0409~ Pulse 82 07/13 0409~ Resp 16 07/13 0409 ~ ~All vital signs available at the time of this entry hav e been reviewed.~ ~ ~Clinical Impression~Clinical Impressio n~Primary Impression: Anxiety reaction~Secondary Impressions: Obesity~ ~Disposition Decision~Discharge~ )( Discharged to [facility] Yes~ )( Time 0444~ )( Date 07/14/19~ ~Discharge/Care Plan~ Alvina navarro Note~I have spoken with the patient and/or caregivers. I abbey gray explained the patient's~condition, diagnoses and anisa tment plan based on the information available to me~at this ana laura e. I have answered the patient's and/or caregiver's questions and ~addressed any concerns. The patient and/or caregivers have as good an ~understanding of the patient's diagnos is, condition and treatment plan as can be~expected at this point. The vital signs have been stable. The patient's ~condition is sta ble and appropriate for discharge from the emergency department .~ ~ ~The patient will pursue further outpatient evaluation wi th the primary care ~physician or other designated or consu lting physician as outlined in the ~discharge instructions. The pat ient and/or caregivers are agreeable to this plan~of care and foll ow-up instructions have been explained in detail. The patient ~ and/or caregivers have received these instructions in written format and have ~expressed an understanding of the discharge instr uctions. The patient and/or ~caregivers are aware that any signific ant change in condition or worsening of ~symptoms should prompt an immediate return to this or the closest emergency ~department or a call to 911.~ ~RPT #: [id number]~END OF REPORT~ 07-14-2019 [facility] ([facility]) ED [facility]~E MERGENCY PROVIDER [place] [facility] Note REPORT~REPORT#:[id number] REPORT STATUS: FSign~DATE:07/14/19 TIME: Center (36822) 0440~ ~PATIENT: JESSICA BARKER UN IT #: [id number]~ ROOM/BED: [facility]~: 05/20 AGE: 54 SEX: PCP PHYS: No Primary or Family Physician~ADM DATE : 07/14/19 INI AUTH: Kojo Sears DO~ED ADMIT LAST SIG: Kojo Sears DO~REP SERV REP SERV TM: 0 440~ * ALL edits or amendments must be made on the electron ic/computer document *~ ~ ~ ~HPI GREET~ ~General~Initial Greet Date /Time 07/14/19 9131~ ~Clinical Note~Clinical Note~First Docu mented:~ Result Date Time~ Pulse Ox 95 07/13 0214~ B/P 158/82 05/2 4 0214~ B/P Mean 107 07/13 213~ O2 Delivery Room air 07/13 213~ Temp 98.5 07/13 213~ Pulse 76 07/13 0214~ Resp 18 07/134~ ~Las t Documented:~ Result Date Time~ Pulse Ox 99 07/13 408~ B/P 191/9 7 07/13 408~ B/P Mean 128 07/13 040~ O2 Delivery Room air 07/13 408~ Temp 98.1 07/13 408~ Pulse 82 07/13 040~ Resp 16 07/13 408 ~ ~CHIEF COMPLAINT-~Low oxygen level and anxiety~ ~HPI-(Onset,Timing,Context,Location,Master lity,Severity,MF,)-~Leighton robles is recently purchased a new blood pr essure cuff as well as an O2 ~saturation monitor. The patient is concerned about having COVID and states his ~oxygen saturation was 91% while laying down. Has had no cough no fever and no ~swell ing. Denies chest pain. Does have a history of sleep apnea and does not ~wear his CPAP as he cannot afford the unit he states he does have a history of ~hypertension continues lisinopril~ ~ ~ REVIEW OF SYSTEMS-~ ~Constitutional: No fever. No chills. L ow oxygen saturation~Eyes: No vision change.~ENT: No sore throat.~ Cardiovascular: No chest pain.~Respiratory: No cough.shortness o f breath.~Gastrointestinal: No abdominal pain. No vomiting.~Genitou rinary: No hematuria.~Musculoskeletal: No back steven n.~Skin: No rashes.~Neurological: No headache.~All systems reviewed and negative except as indicated above or i n HPI~ ~ ~PHYSICAL EXAM- ~ ~ All available vital signs were review ed: Blood pressure slightly elevated O2~sat 99%~ ~Gen: Awake, alert , and in no acute distress. Anxious male~Eyes: PERRL. EOMI.~Neck: S upple. No lymphadenopathy.~Ears/Nose/Throat: Mois t mucous membranes.~Cardiac: Regular rate and rh ythm. No murmurs, rubs, or gallops.~Pulmonary: Clear to auscultati on bilaterally. No wheezes, rales, or rhonchi.~Abdominal: Soft. Non tender. No distention. No masses. Bowel sounds positive.~Extremit ies: No edema. Pulses palpable.~Skin: No rashes or jaundice.~ Neuro: Alert and oriented 3. Normal speech. Normal motor function .~ ~ ~ ~---DATA INTERPRETATION--- ~ ~Imaging reviewed b y me and interpreted by the radiologist:~ ~ ~Lab work reviewed and interpreted by me:~ ~ ~Medical Decision Making/Differential D iagnosis/ED Course/Disposition: If ~applicable, all available laboratory and radiographic studies have been reviewed ~and considered in the medical decision making, including anisa tement plan, diff. ~diagnosis and disposition.~Swapna gomes t definitely need follow-up to discuss anxiety related issues with ~his PCP as well as continuing his lisinopril. Also recomme nd calling family to ~see if they can help him purchase his new C PAP unit. Did recommend that if he ~is prescribed anxiety lytic medications that he should avoid central depressing ~meds~ ~ ~Reev aluation/Time: ~ ~ ~ ~Prescriptions:~ ~ ~ ~ ~I, Dr. Krish Sears, am the primary provider of this patient.~ ~Past Medica l History~Stated Complaint LOW O2- " FALLS TO 91%"~Allergies~Coded Allergies:~No Known Allergies (06/25/19)~ ~Past Medical His tory:~Reports: Hypertension. ~Additional Medical Histo ry~Anxiety~Additional Surgical History~Denies~Smoking status for patients 13 years old or older: Never Smoker~ ~Patient Discha rge Departure~ ~Vital Signs/Condition~Vital Signs~First Docum ented:~ Result Date Time~ Pulse Ox 95 07/13 0214~ B/P 158/82 05/2 4 0214~ B/P Mean 107 07/13 0214~ O2 Delivery Room air 07/13 0214~ Temp 98.5 07/13 0214~ Pulse 76 07/13 0214~ Resp 18 07/134~ ~Las t Documented:~ Result Date Time~ Pulse Ox 99 07/13 0409~ B/P 191/9 7 07/13 0409~ B/P Mean 128 05/24 0409~ O2 Delivery Room air 07/13 408~ Temp 98.1 07/13 408~ Pulse 82 07/13 408~ Resp 16 07/13 408 ~ ~All vital signs available at the time of this entry hav e been reviewed.~ ~ ~Clinical Impression~Clinical Impressio n~Primary Impression: Anxiety reaction~Secondary Impressions: Obesity~ ~Disposition Decision~Discharge~ )( Discharged to me Yes~ )( Time 0444~ )( Date 07/14/19~ ~Discharge/Care Plan~ Alvina navarro Note~I have spoken with the patient and/or caregivers. I h ave explained the patient's~condition, diagnoses and anisa tment plan based on the information available to me~at this ana laura e. I have answered the patient's and/or caregiver's questions and ~addressed any concerns. The patient and/or caregivers have as good an ~understanding of the patient's diagnos is, condition and treatment plan as can be~expected at this point. The vital signs have been stable. The patient's ~condition is sta ble and appropriate for discharge from the emergency department .~ ~ ~The patient will pursue further outpatient evaluation wi th the primary care ~physician or other designated or consu lting physician as outlined in the ~discharge instructions. The pat ient and/or caregivers are agreeable to this plan~of care and foll ow-up instructions have been explained in detail. The patient ~ and/or caregivers have received these instructions in written format and have ~expressed an understanding of the discharge instr uctions. The patient and/or ~caregivers are aware that any signific ant change in condition or worsening of ~symptoms should prompt an immediate return to this or the closest emergency ~department or a call to 911.~ ~ ~ at 0556~RPT #: [id number]~END OF REPORT~ 06-25-2019 ~[facility] ([facility] )~DISCHARGE I NSTRUCTIONS (ED) ~REPORT #: [facility] [id number] REPORT STATUS: Draft ~DATE: 0 06/25/19 TIME: 1347~ Center ([id number]) ~PATIENT: VEGA BARKERAnnika UNIT #: [id number]~ ROOM/BED: ~: 69 A GE: 54 SEX: M ATTEND: Darlene Wolf MD ~ADM DT: AUTHOR: Darlene Wolf MD ~ ~* ALL edits or amendments must be made on the electronic/computer document *~ ~Current patient of record information for this document is:~VEGA BARKER~PatID: [id number] Age: 54~ : 1965~ ~Report i ncluding patient information as it appeared at the time this document ~was generated and provided to the patient i s as follows below.~ ~ ~VEGA BARKER~ PatID: [id number] Age: 54~ : 1965~ Printed: 06/25/2019 1:47 PM~By: Darlene Wolf~ ~General [facility] Department Discharge Instructions~ ~The exam and treatment y ou received in the Emergency Department were for an~urgent problem and are not intended as complete care. It is import ant that you~follow up with a doctor, nurse practitioner, or physic gera neurosurgical physician assistant for ongoing~care. If your symptoms become w orse or you do not improve as expected and you~are unable to reach your usual health care provider, you should return to the~[facility] Department. We are available 24 hours a day. ~ ~You were t reated in the Emergency Department by: ~Primary Provider: Chao Wolf M.D.~ ~Follow Up Information:~ ~Follow up with Your P hysician if not improving. ~ ~Your Provider has typed these Specia l Instructions for you:~Take your regular medications. Joseph y music for stress relief.~ ~The Following Instructions Were Select ed for You Today: Anxiety, Panic~ ~Anxiety, Panic~ ~Anxiety causes very strong feelings of worry and fear. It may also cause chest ~pain or shortness of breath. You may feel like you have palp itations (a racing~heart). You might feel numbness (like parts of your body are "asleep"),~ ~PATIENT'S NAME: VEGA BARKER ACCOUNT NO: [id number]~ ~ ~ ~especially around the mouth and in the hands or feet.~ ~YOU SHOULD SEEK MEDICAL ATTENTION IMMEDIATE LY, EITHER HERE OR AT THE NEAREST~EMERGENCY DEPARTMENT, IF ANY OF THE FOLLOWING OCCURS:~ * You have symptoms that you normally don 't have with your anxiety attacks.~ * You think of harming yourse lf (suicidal thoughts) or harming someone else.~ * You have sympt oms you normally don't have and they last longer than normal~ or yo ur medicine doesn't help. These include chest pain, passing out,~ feeling that your heart is racing or shortness of breath.~ * You h ave a fever (temperature higher than 100.4 F / 38 C).~ ~What To Do:~ ~ * Take this sheet with you when you go to your follow-up visit.~ * If you have any problem arranging the follow-up visit, contact the~ Emergency Department immediately.~ * Take all med ications as directed.~ ~Additional Information:~ ~ * There are occasions where additional lab tests return - such as a culture~ r esult or an X-ray or EKG - is further reviewed after you are disch arged.~ If a change in your diagnosis or treatment is indicated, we will attempt to~ contact you. It is critical that we have a [employer] phone number for you.~ ~ * If you had X-rays done, we can prov kera you a CD with those X-rays for your~ review and follow-up.~ ~ * Culture results may take 2-3 days. We review many culture r esults and will~ attempt to contact you if the results are signific ant or may change your~ treatment. ~ ~If side effects develop, such as a rash, difficulty breathing, or a severe upset~stomach,~s top the medication and call your doctor or the Emergency Department .~ ~Preventative Health Instructions:~ ~The care you received i n the emergency department has been done on an emergency~basis onl y and is not intended to be a substitute for regular medical care. If~your condition or symptoms persist or get worse at any ti me, you should return~to the emergency department if you're unab le to contact your own physician. ~Please understand that alth ough we may not have determined a specific cause of~your sym ptoms today, further evaluation may be necessary. It is impo rtant to~get a primary care provider (doctor, PA, or nurse practiti elisabeth) for follow up as~well as ongoing healthcare needs. ~ ~The nubia hurst information is provided for you as education regarding ~preventative health care and follow up from your emergency depar tment visit:~ ~Regular exercise, good diet and adequate fluid intake are very important for~general health maintenance. Please discuss these with your primary care doctor~ ~PATIENT'S NAME: VEGA WIGGINS ACCOUNT NO: [id number]~ ~ ~ ~to develop a joseph n specific to your needs. ~ ~Tobacco use is a risk factor for multi ple serious illnesses. If you use~tobacco, please contact the [employer] [facility] at 5-787-XXSKRIV ( ) or~[email or web address] to a ssist in your efforts to stop using tobacco products.~ ~During y our visit today your blood pressure may have been higher than norm al. ~If it was high you should have this rechecked. Follow up w ith your physician or~the referral provider for a recheck within 4 weeks. Hypertension is a common but~serious illness that should be monitored closely.~ ~If thoughts of increased anxiety and sadne ss prevent you from completing your~day to day activities a t home or work, please call our 12/09 assessment line at~[phone] to speak with an Regional Administrative Assistant. ~For deaf and he aring impaired, call .~For mental health and/o r substance use disorders you can call the Substance~Abuse and [facility] ([facility]) ~[facility] TTY for hearing impaired call ~ ~During ER visits many patients receive sedation or medications which may impair~your ju dgment and or make driving, working or operating machinery or even~ walking hazardous. Some of these medications include diphenhydrami ne (Benadryl)~and medications for anxiety, nausea and steven n. Ask your nurse if you have~received any sedating medications. If you received any potentially sedating~medications, pleas e rest today and do not drive.~ ~I, VEGA BARKER, understand th e instructions and will arrange for follow-up~care. ~ ~ 9~PATIENT/JET INSPECTOR SIGNAT URE~ ~ ~ ~STAFF SIGNATURE~ ~ ~ ~ ~ ~ ~ ~ ~ ~ ~ ~ ~ ~ ~ ~ ~ ~ ~PATIENT'S NAME: VEGA BARKER ACCOUNT NO: [id number] 06-25-2019 [facility]~ EMERGENCY PROVIDER [place] [facility] Note REPORT~REPORT#:[id number] REPORT STATUS: FSign~DATE:06/25/19 TIME: Center (65060) 5528~ ~PATIENT: VEGA BARKER DIVYA UNIT #: [id number]~ ROOM/BED: [place] [address]~: 0 [birth year] AGE: 54 SEX: PCP PHYS:~ADM DATE: INI AUTH: Rodolfo Wolf cie, MD~ED ADMIT LAST SIG: Darlene Wolf~REP SERV REP SERV TM: 1347~ * ALL edits or amendment s must be made on the electronic/computer document *~ ~ ~ ~HP I GREET~ ~General~Initial Greet Date/Time 06/25/19 1340~ ~Clinica l Note~Clinical Note~First Documented:~ Result Date Time~ Pulse Ox 96 06/24 1107~ B/P 192/88 06/24 1107~ B/P Mean 122 06/24 1107~ O2 Delivery Room air 06/24 1107~ Temp 97.9 06/24 1107~ Pulse 89 1107~ Resp 20 06/24 1107~ ~Last Documented:~ Result Date Ti me~ Pulse Ox 97 06/24 1329~ B/P 149/68 06/24 1329~ B/P Mean 95 05/0 5 1329~ O2 Delivery Room air 06/24 1329~ Pulse 80 06/24 1329~ Te mp 98.3 06/24 1316~ Resp 15 06/24 1316~ ~Chief Complaint:~[Low oxyg en saturation on a home monitor]~ ~HPI:~This patient has known anxiety disorder. He states that he has been concerned ~about COVID . He took did an O2 sat today and found it in the 70s. He did n ot ~have any shortness of air he did not have a cough that was pr oductive. He does ~have a chronic cough from taking lisinopril. H e states that coughing with that ~medication may be part of his anx iety as well. He has not had a fever he has ~not been short of a ir. He also acknowledges that he has high blood pressure ~whenev er he seen by . He did wait in the waiting room for 2 hours. T he time ~that I saw him his blood pressure had stabilized at 148 sy stolic. He was very ~calm.]~ ~ROS:~Constitutional: [No feve r, no chills~ENT: [No sore throat.]~Cardiovascular: [No chest pain , no palpitations.]~Respiratory: [Chronic co ugh, no shortness of breath.]~Gastrointestinal: [No abdomina l pain, no vomiting.]~ ~Musculoskeletal: [No back pain.]~Skin: [No rashes.]~Neurological: [No headache.]~The rest of the 10 point review of systems is negative~ ~Exam:~General Appearance: [ alert, has no immediate need for airway protection, and no~curr ent signs of significant toxicity.] [ ]~Eyes: [pupils equal and round no pallor or injection.]~ENT, Mouth: [Mask in place] ~Respiratory: [There are no retractions, lungs are clear to auscult ation in all ~bates. There is no wheezing and there are no coarse breath sounds or rhonchi.]~Cardiovascular: [Regular rate and rhythm.] [ ]~Gastrointestinal: [Abdomen obese, and is soft and non tender, no masses, bowel ~sounds normal.]~Neurolog ical: [awake, alert, oriented. moves all extremities ]~Skin: [warm and dry, no rashes.]~Musculoskeletal: [Neck is supp le non tender. ] [Extremities are symmetrical, ~full ran ge of motion.]~ ~Reevaluation:~[]~ ~Reevaluation:~[]~ ~ Data:~[I reviewed labs][I independently viewed x-ray]~ ~Medical D ecision Making:~[ After history and physical exam differential diagnosis was considered for] [~anxiety versus viral illness jared dejah cough from lisinopril. I was able to ~discuss stress relief wi th this patient. 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 He has opted not to take any benzodiazepines. He ~has stopped all alcohol and marijuana. He manages his anxiety w ell, this care ~of COVID has just been somewhat overwhelming.]~ ~Past Medical History~Stated Complaint "BP IS OFF"~Jerrod sorensen~Coded Allergies:~No Known Allergies (06/25/19)~ ~Smoking st atus for patients 13 years old or older: Never Smoker~ ~[facility]~ ~Vital Signs/Condition~Vital Signs~First Docum ented:~ Result Date Time~ Pulse Ox 96 06/24 1107~ B/P 192/88 05/0 5 1107~ B/P Mean 122 06/24 1107~ O2 Delivery Room air 06/24 1107~ Temp 97.9 06/24 1107~ Pulse 89 06/24 1107~ Resp 20 06/24 1107~ ~Las t Documented:~ Result Date Time~ Pulse Ox 97 06/24 1329~ B/P 149/6 8 06/24 1329~ B/P Mean 95 06/24 1329~ O2 Delivery Room air 06/24 1329~ Pulse 80 06/24 1329~ Temp 98.3 06/24 1316~ Resp 15 06/24 131 6~ ~All vital signs available at the time of this entry hav e been reviewed.~ ~Condition Stable~ ~Clinical Impression ~Clinical Impression~Primary Impression: Anxiety~ Secondary Impressions: Cough due to RYAN inhibitor~ ~Dispositio n Decision~Discharge~ )( Discharged to Home Yes~ )( Time 1353~ ) ( Date 06/25/19~ ~Discharge/Care Plan~Counseled Regardin g Diagnosis, Need for follow-up, When to return to ED~Prescri ptions~Patient prefers no treatment for anxiety.~ Discharge Note~ I have spoken with the patient and/or caregivers. I have expla ined the patient's~condition, diagnoses and anisa tment plan based on the information available to me~at this ana laura e. I have answered the patient's and/or caregiver's questions and ~addressed any concerns. The patient and/or caregivers have as good an ~understanding of the patient's diagnos is, condition and treatment plan as can be~expected at this point. The vital signs have been stable. The patient's ~condition is sta ble and appropriate for discharge from the emergency department .~ ~ ~The patient will pursue further outpatient evaluation wi th the primary care ~physician or other designated or consu lting physician as outlined in the ~discharge instructions. The pat ient and/or caregivers are agreeable to this plan~of care and foll ow-up instructions have been explained in detail. The patient ~ and/or caregivers have received these instructions in written format and have ~expressed an understanding of the discharge instr uctions. The patient and/or ~caregivers are aware that any signific ant change in condition or worsening of ~symptoms should prompt an immediate return to this or the closest emergency ~department or a call to 911.~ ~ ~ at 1353~RPT #: [id number]~END OF REPORT* ~ 06-25-2019 [facility] ([facility] ED [facility]~ EMERGENCY PROVIDER [place] [facility] Note REPORT~REPORT#:[id number] REPORT STATUS: Draft~DATE:06/25/19 TIME: Center (18816) 134~ ~PATIENT: VEGA BARKER UNIT #: [id number]~ ROOM/BED: [facility] - 9~: 0 67 AGE: 54 SEX: PCP PHYS:~ADM DATE: IN AUTH: Rodolfo Wolf cie, MD~ED ADMIT LAST SIG:~REP SERV DT: 0 REP SERV TM: 1347~ * ALL edits or amendments must be made on the electronic/computer document *~ ~ ~ ~HPI GREET~ ~General~In itial Greet Date/Time 06/25/19 1340~ ~Clinical Note~Clinical Note~First Documented:~ Result Date Time~ Pulse Ox 96 06/24 110 7~ B/P 192/88 06/24 1107~ B/P Mean 122 06/24 1107~ O2 Delivery Ro om air 06/24 1107~ Temp 97.9 06/24 1107~ Pulse 89 / 1107~ R nikole 20 06/24 1107~ ~Last Documented:~ Result Date Time~ Pulse Ox 97 06/24 1329~ B/P 149/68 06/24 1329~ B/P Mean 95 / 1329~ O2 Delivery Room air 06/24 1329~ Pulse 80 / 1329~ Temp 98.3 1316~ Resp 15 06/24 1316~ ~Chief Complaint:~[Low oxygen sat uration on a home monitor]~ ~HPI:~This patient has known anxiety di sorder. He states that he has been concerned ~about COVID. He too k did an O2 sat today and found it in the 70s. He did not ~have a ny shortness of air he did not have a cough that was productive. Abbey gambino does ~have a chronic cough from taking lisinopril. He states that coughing with that ~medication may be part of his anxiety as well. He has not had a fever he has ~not been short of air. He also acknowledges that he has high blood pressure ~whenever he se en by . He did wait in the waiting room for 2 hours. The time ~that I saw him his blood pressure had stabilized at 148 systolic . He was very ~calm.]~ ~ROS:~Constitutional: [No fever, no chi lls~ENT: [No sore throat.]~Cardiovascular: [No chest pain , no palpitations.]~Respiratory: [Chronic co ugh, no shortness of breath.]~Gastrointestinal: [No abdomina l pain, no vomiting.]~ ~Musculoskeletal: [No back pain.]~Skin: [No rashes.]~Neurological: [No headache.]~The rest of the 10 point review of systems is negative~ ~Exam:~General Appearance: [ alert, has no immediate need for airway protection, and no~curr ent signs of significant toxicity.] [ ]~Eyes: [pupils equal and round no pallor or injection.]~ENT, Mouth: [Mask in place] ~Respiratory: [There are no retractions, lungs are clear to auscult ation in all ~bates. There is no wheezing and there are no coarse breath sounds or rhonchi.]~Cardiovascular: [Regular rate and rhythm.] [ ]~Gastrointestinal: [Abdomen obese, and is soft and non tender, no masses, bowel ~sounds normal.]~Neurolog ical: [awake, alert, oriented. moves all extremities ]~Skin: [warm and dry, no rashes.]~Musculoskeletal: [Neck is supp le non tender. ] [Extremities are symmetrical, ~full ran ge of motion.]~ ~Reevaluation:~[]~ ~Reevaluation:~[]~ ~ Data:~[I reviewed labs][I independently viewed x-ray]~ ~Medical D ecision Making:~[ After history and physical exam differential diagnosis was considered for] [~anxiety versus viral illness jared dejah cough from lisinopril. I was able to ~discuss stress relief wi th this patient. 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 He has opted not to take any benzodiazepines. He ~has stopped all alcohol and marijuana. He manages his anxiety w ell, this care ~of COVID has just been somewhat overwhelming.]~ ~Past Medical History~Stated Complaint "BP IS OFF"~Jerrod sorensen~Coded Allergies:~No Known Allergies (05/05/20)~ ~Smoking st atus for patients 13 years old or older: Never Smoker~ ~Patient Di scharge Departure~ ~Vital Signs/Condition~Vital Signs~First Docum ented:~ Result Date Time~ Pulse Ox 96 05/ 1107~ B/P 192/88 05/0 5 1107~ B/P Mean 122 05/05 1107~ O2 Delivery Room air 05 1107~ Temp 97.9 /05 1107~ Pulse 89 05/05 1107~ Resp 20 05 1107~ ~Las t Documented:~ Result Date Time~ Pulse Ox 97 / 1329~ B/P 149/6 8 / 1329~ B/P Mean 95 /05 1329~ O2 Delivery Room air 06/24 1329~ Pulse 80 /05 1329~ Temp 98.3 06/24 1316~ Resp 15 05 131 6~ ~All vital signs available at the time of this entry hav e been reviewed.~ ~RPT #: [id number]~END OF REPORT~ History general Narrative - Reported Type Medical chronic pain to back and ri ght shoulder from work related injury History 2010 Medical coronary artery disease History Medical sleep apnea History Medical anxiety History Medical myocardial infarction 2011 (nuclear stress test done) History Medical hypertension History Medical gout History Surgical No Surgical history informa tion History [facility] 12/2011 n History [facility] ([id number]) Summary Purpose eClinicalWorks SubmissioneClinicalWorks SubmissioneClinicalWorks SubmissioneClinicalWorks SubmissioneClinicalWorks Submission Advance Directives Directive Response Recor ded Date/Time Advance Directives No 10:07pm Health Care Power of Plastic Fabricator No 01/09/16 10:07pm Organ Donor Yes 01/09/16 10:07pm Resuscitation Status Full Code 01/09/16 10:07pm Directive Response Recor ded Date/Time Advance Directives No 10:55pm Health Care Power of Plastic Fabricator No 05/26/15 10:55pm Organ Donor Yes 05/26/15 10:55pm Resuscitation Status Full Code 05/26/15 10:55pm Directive Response Recor ded Date/Time Advance Directives No 5:25pm Health Care Power of Plastic Fabricator No 03/03/15 5:25pm Organ Donor Yes 03/03/15 5:25pm Resuscitation Status Full Code 03/03/15 5:25pm Directive Response Recor ded Date/Time Advance Directives No 5:35pm Health Care Power of Plastic Fabricator No 07/26/15 5:35pm Organ Donor Yes 07/26/15 5:35pm Resuscitation Status Full Code 07/26/15 5:35pm Directive Response Recor ded Date/Time Advance Directives No 8:09am Health Care Power of Plastic Fabricator No 11/27/14 8:09am Organ Donor Yes 11/27/14 8:09am Resuscitation Status Full Code 11/27/14 8:09am Directive Response Recor ded Date/Time Advance Directives No 5:24pm Health Care Power of Plastic Fabricator No 08/23/14 5:24pm Organ Donor Yes 08/23/14 5:24pm Resuscitation Status Full Code 08/23/14 5:24pm Directive Response Recor ded Date Advance Directives N 01/02 4:15pm Health Care Power of Plastic Fabricator N 10/31/12 4:15pm Organ Donor Y 10/31/12 4 :15pm Directive Response Recor ded Date Advance Directives N 9:20am Health Care Power of Plastic Fabricator N 07/07/12 9:20am Organ Donor Y 07/07/12 9 :20am Directive Response Recor ded Date Advance Directives N 01/02 9:05am Health Care Power of Plastic Fabricator N 06/30/12 9:05am Organ Donor Y 06/30/12 9 :05am Directive Response Recor ded Date/Time Advance Directives No 12:46am Health Care Power of Plastic Fabricator No 10/18/14 12:46am Organ Donor Yes 10/18/14 12:46am Directive Response Recor ded Date/Time Advance Directives No 5:51am Health Care Power of Plastic Fabricator No 01/28/14 5:51am Organ Donor Yes 01/28/14 5:51am Resuscitation Status Full Code 01/28/14 5:51am Directive Response Recor ded Date Advance Directives N 1:41pm Health Care Power of Plastic Fabricator N 11/10/12 1:41pm Organ Donor Y 11/10/12 1 :41pm Directive Response Recor ded Date/Time Advance Directives No 12:46am Health Care Power of Plastic Fabricator No 10/18/14 12:46am Organ Donor Yes 10/18/14 12:46am Resuscitation Status Full Code 10/18/14 12:46am Directive Response Recor ded Date/Time Advance Directives No 5:59pm Health Care Power of Plastic Fabricator No 03/11/17 5:59pm Organ Donor Yes 03/11/17 5:59pm Resuscitation Status Full Code 03/11/17 5:59pm Directive Response Recor ded Date/Time Advance Directives No 3:42pm Health Care Power of Plastic Fabricator No 09/17/17 3:42pm Organ Donor Yes 09/17/17 3:42pm Resuscitation Status Full Code 09/17/17 3:42pm Directive Response Recor ded Date/Time Advance Directives No 9:45pm Health Care Power of Plastic Fabricator No 02/02/18 9:45pm Organ Donor Yes 02/02/18 9:45pm Resuscitation Status Full Code 02/02/18 9:45pm Directive Response Recor ded Date/Time Advance Directives No 9:46pm Health Care Power of Plastic Fabricator No 05/16/18 9:46pm Organ Donor Yes 05/16/18 9:46pm Resuscitation Status Full Code 05/16/18 9:46pm Directive Response Recor ded Date/Time Advance Directives No 9:46pm Health Care Power of Plastic Fabricator No 05/16/18 9:46pm Organ Donor Yes 05/16/18 9:46pm Directive Response Recor ded Date/Time Advance Directives No 9:15pm Health Care Power of Plastic Fabricator No 05/16/18 9:46pm Organ Donor Yes 05/16/18 9:46pm Resuscitation Status Full Code 07/04/18 9:15pm Directive Response Recor ded Date/Time Advance Directives No 9:15pm Health Care Power of Plastic Fabricator No 05/16/18 9:46pm Organ Donor Yes 05/16/18 [...] This clinical document has been generated using [employer] software that has been certified by the Office of the National Coordinator for Health Information Technology (ONC 15.99.04.3023.[id number]) and the National Committee for Bullet Maker (NCQA, as an eMeasure certified technology). FOR [...] BASED ON T HE PRIMARY CLINICAL RECORDS. [employer] provides no warranty or guara ntee of the accuracy or completeness of information in this document.The followi ng information is based on time limited clinical information UNRECOGNIZED CONTENT PROVIDED BELOW FOR UNRECOGNIZED SECTION REASON FOR VISIT [id number] (walk-in)lab results
--- OUTSIDE RECORDS SUMMARY | 2019-08-30 17:32 | XMS REPORT | Continuity of Care Document ---
Author Organization Unknown Address Unknown Phone Unavailable Allergies Active Description Code Type Severity Reaction Onset Reported/Identified Relationship to Patient Clinical Status Yes OXYCODONE [id number] Drug Allergy Moderate N/A Yes PAIN MEDS PAIN MEDS Unknown N/A 01/28/2014 Yes No Known Drug Allergies [id number] Drug Allergy Unknown N/A 05/26/2015 Yes No [...] DRISCOLL DO Ot 401.9 08/23/2014 DACIA CAMPOS STONE AND PLATE PREPARER APPRENTICE Ot 959 .5 FINGER INJURY NOS 08/23/2014 DACIA CAMPOS STONE AND PLATE PREPARER APPRENTICE Ot E000.8 OTHER EXTERNAL CAUSE STATUS 08/23/2014 DACIA CAMPOS STONE AND PLATE PREPARER APPRENTICE Ot E849.0 ACCIDENT IN HOME 08/23/2014 DACIA CAMPOS STONE AND PLATE PREPARER APPRENTICE Ot E91 8 CAUGHT BETWEEN OBJECTS 10/18/2014 [...] 07/18/2016 MICHEL CANO MD Ot Z79.899 OTHER CARE HOME (CURRENT) DRUG THERAPY 07/18/2016 MICHEL CANO MD [...] E78.00 PURE HYPERCHOLESTEROLEMIA, UNSPECIFIED 03/22/2017 DACIA CAMPOS STONE AND PLATE PREPARER APPRENTICE Ot F41 .9 ANXIETY DISORDER, UNSPECIFIED 03/22/2017 DACIA CAMPOS STONE AND PLATE PREPARER APPRENTICE Ot I10 ESSENTIAL (PRIMARY) HYPERTENSION 03/22/2017 DACIA [...] HISTORY OF NICOTINE DEPENDENCE 09/17/2017 DACIA CAMPOS STONE AND PLATE PREPARER APPRENTICE Ot E78.00 PURE HYPERCHOLESTEROLEMIA, UNSPECIFIED 09/17/2017 DACIA CAMPOS STONE AND PLATE PREPARER APPRENTICE Ot F41 .9 ANXIETY DISORDER, UNSPECIFIED 09/17/2017 DACIA CAMPOS STONE AND PLATE PREPARER APPRENTICE Ot I10 ESSENTIAL (PRIMARY) HYPERTENSION 09/17/2017 DACIA CAMPOS STONE AND PLATE PREPARER APPRENTICE Ot K21 .9 GASTRO-ESOPHAGEAL REFLUX DISEASE WITHOUT 09/17/2017 DACIA CAMPOS APRN Ot M10 .9 GOUT, UNSPECIFIED 09/17/2017 DACIA CAMPOS STONE AND PLATE PREPARER APPRENTICE Ot Z79.52 CARE HOME (CURRENT) USE OF SYSTEMIC STER 09/17/2017 DACIA CAMPOS STONE AND PLATE PREPARER APPRENTICE Ot Z87.891 PERSONAL HISTORY OF NICOTINE DEPENDENCE 09/19/2017 DACIA CAMPOS APRN Ot E78.00 PURE HYPERCHOLESTEROLEMIA, UNSPECIFIED 09/19/2017 DACIA CAMPOS STONE AND PLATE PREPARER APPRENTICE Ot F41 .9 ANXIETY DISORDER, UNSPECIFIED 09/19/2017 DACIA CAMPOS STONE AND PLATE PREPARER APPRENTICE Ot I10 ESSENTIAL (PRIMARY) HYPERTENSION 09/19/2017 DACIA CAMPOS STONE AND PLATE PREPARER APPRENTICE Ot K21 .9 GASTRO-ESOPHAGEAL REFLUX DISEASE WITHOUT 09/19/2017 DACIA CAMPOS STONE AND PLATE PREPARER APPRENTICE Ot M10 .9 GOUT, UNSPECIFIED 09/19/2017 DACIA CAMPOS STONE AND PLATE PREPARER APPRENTICE Ot Z79.52 CARE HOME (CURRENT) USE OF SYSTEMIC STER 09/19/2017 DACIA CAMPOS STONE AND PLATE PREPARER APPRENTICE Ot Z87.891 PERSONAL HISTORY OF NICOTINE DEPENDENCE [...] CHERELLE PADILLA MD J Ot Z79. 52 COBOL APPLICATION DEVELOPER (CURRENT) USE OF SYSTEMIC STER 11/05/2017 CHERELLE [...] 11/07/2017 CHERELLE PADILLA MD Ot Z79. 52 COBOL APPLICATION DEVELOPER (CURRENT) USE OF SYSTEMIC STER 11/07/2017 CHERELLE [...] RIGHT FOOT 02/02/2018 NEIL WHITE Ot Z79.52 COBOL APPLICATION DEVELOPER (CURRENT) USE OF SYSTEMIC STER 02/02/2018 NEIL [...] FOOT 06/11/2018 NAHOMY ROBERTS MD Ot Z79.52 COBOL APPLICATION DEVELOPER (CURRENT) USE OF SYSTEMIC STER 06/11/2018 NAHOMY [...] FOOT 06/14/2018 NAHOMY ROBERTS MD Ot Z79.52 COBOL APPLICATION DEVELOPER (CURRENT) USE OF SYSTEMIC STER 06/14/2018 NAHOMY [...] SHOULDER 07/04/2018 BERNOT, JORGE L Ot Z79.52 COBOL APPLICATION DEVELOPER (CURRENT) USE OF SYSTEMIC STER 07/04/2018 BERNOT, [...] RIGHT SHOULDER 07/06/2018 KEILA MASONIS Ot Z79.52 COBOL APPLICATION DEVELOPER (CURRENT) USE OF SYSTEMIC STER 07/06/2018 JORGE L MASON Ot Z87.891 PERSONAL HISTORY OF NICOTINE DEPENDENCE 07/16/2018 LIONEL DO, LORIE K Ot E66.9 OBESITY, UNSPECIFIED 07/16/2018 LIONEL DO, LORIE K Ot E78.00 PURE HYPERCHOLESTEROLEMIA, UNSPECIFIED 07/16/2018 LIONEL DO, LORIE K Ot F41.0 PANIC DISORDER [EPISODIC PAROXYSMAL ANXI 07/16/2018 LIONEL DO LORIE K Ot F41.9 ANXIETY DISORDER, UNSPECIFIED 07/16/2018 LIONEL DO, LOREI K Ot I10 ESSENTIAL (PRIMARY) HYPERTENSION 07/16/2018 LIONEL DO LORIE K Ot I25.10 ATHSCL HEART DISEASE OF [place] CORONARY 07/16/2018 LIONEL DO, LORIE K Ot I25.2 OLD MYOCARDIAL INFARCTION 07/16/2018 LIONEL DO, LORIE K Ot K21.9 GASTRO-ESOPHAGEAL REFLUX DISEASE WITHOUT 07/16/2018 LIONEL DO, LORIE K Ot M10.071 IDIOPATHIC GOUT, RIGHT ANKLE AND FOOT 07/16/2018 LIONEL DO LORIE K Ot Z79.52 COBOL APPLICATION DEVELOPER (CURRENT) USE OF SYSTEMIC STER 07/16/2018 LIONEL [...] MD Ot I25.10 ATHSCL HEART DISEASE OF [place] CORONARY 08/01/2018 DEMETRIA BUSBY MD Ot I25.2 [...] MD Ot I25.10 ATHSCL HEART DISEASE OF [place] CORONARY 08/03/2018 DEMETRIA BUSBY MD Ot I25.2 [...] HISTORY OF NICOTINE DEPENDENCE 08/03/2018 KEHINDE LEVI, DEMERTIA Bradford Ot Z95.9 PRESENCE OF CARDIAC AND VASCULAR IMPLANT 08/07/2018 KEHINDE LEVI, DEMETRIA Bradford Ot E78.00 PURE HYPERCHOLESTEROLEMIA, UNSPECIFIED 08/07/2018 DEMETRIA BUSBY MD Ot F41.9 ANXIETY DISORDER, UNSPECIFIED 08/07/2018 DEMETRIA BUSBY MD Ot I10 ESSENTIAL (PRIMARY) HYPERTENSION 08/07/2018 DEMETRIA BUSBY MD Ot I25.10 ATHSCL HEART DISEASE OF [place] CORONARY 08/07/2018 DEMETRIA BUSBY MD Ot I25.2 [...] malignant neoplasm of prostate 01/29/2019 ANNY KULKARNI [id number] Encounter for screening for lipoid disorders 08/13/2019 [...] 2 SHORTNESS OF BREATH 08/19/2019 FLORES, ANNY BUSINESS SERVICES CLERK Ot F41.9 ANXIETY DISORDER, UNSPECIFIED 08/19/2019 FLORES, ANNY BUSINESS SERVICES CLERK Ot G47.30 SLEEP APNEA, UNSPECIFIED 08/19/2019 FLORES, ANNY BUSINESS SERVICES CLERK Ot I10 ESSENTIAL (PRIMARY) HYPERTENSION 08/19/2019 FLORES, ANNY BUSINESS SERVICES CLERK Ot I25.2 OLD MYOCARDIAL INFARCTION 08/19/2019 FLORES, ANNY BUSINESS SERVICES CLERK Ot J06.9 ACUTE UPPER RESPIRATORY INFECTION, UNSPE 08/19/2019 FLORES, ANNY BUSINESS SERVICES CLERK Ot M10.9 GOUT, UNSPECIFIED 08/19/2019 FLORES, ANNY BUSINESS SERVICES CLERK Ot R06.02 SHORTNESS OF BREATH 08/19/2019 FLORES, ANNY BUSINESS SERVICES CLERK Ot Z20.828 CONTACT W AND EXPOSURE TO OTH VIRAL COMM 08/19/2019 FLORES, ANNY BUSINESS SERVICES CLERK Ot Z87.891 PERSONAL HISTORY OF NICOTINE DEPENDENCE 08/19/2019 FLORES, ANNY BUSINESS SERVICES CLERK Ot Z91.19 PATIENT'S NONCOMPLIANCE W OTH MEDICAL TR 08/27/2019 LIONEL DO LORIE K Ot E78.00 PURE HYPERCHOLESTEROLEMIA, UNSPECIFIED 08/27/2019 LIONEL DO, LORIE K Ot F41.9 ANXIETY DISORDER, UNSPECIFIED 08/27/2019 LIONEL DO LORIE K Ot G47.30 SLEEP APNEA, UNSPECIFIED 08/27/2019 LIONEL DO, LORIE K Ot I10 ESSENTIAL (PRIMARY) HYPERTENSION 08/27/2019 LIONEL DO, LORIE K Ot I25.10 ATHSCL HEART DISEASE OF [place] CORONARY 08/27/2019 LIONEL DO LORIE K Ot I25.2 OLD MYOCARDIAL INFARCTION 08/27/2019 LIONEL DO, LORIE K Ot J44.9 CHRONIC OBSTRUCTIVE PULMONARY DISEASE, U 08/27/2019 LIONEL DO LORIE K Ot K21.9 GASTRO-ESOPHAGEAL REFLUX DISEASE WITHOUT 08/27/2019 LIONEL DO LORIE K Ot M10.9 GOUT, UNSPECIFIED 08/27/2019 LORIE FLOWERS DO Ot M54.9 DORSALGIA, UNSPECIFIED 08/27/2019 LORIE FLOWERS DO Ot Z79.899 OTHER COBOL APPLICATION DEVELOPER (CURRENT) DRUG THERAPY 08/27/2019 LORIE FLOWERS DO Ot Z87.891 PERSONAL HISTORY OF NICOTINE DEPENDENCE [...] 7-25 CREATININE 0.81 mg/dL 0.70-1.33 eGFR NON-AFR. [place] 103 mL/min/1.73m2 > OR = 60 eGFR [...] Coronavirus Ab [Units/volume] in Serum Negative Negative Complete blood count (CBC) with automate d white blood cell (WBC) differential - 08/30/19 14:15 Blood leukocytes automated count (number/volume) 14.1 10*3/uL 4.3-11.0 Blood erythrocytes automated count (number/volume) 5.17 10*6/uL 4.35-5.85 Venous blood hemoglobin measurement (mass/volume) 15.1 g/dL 13.3-17.7 Blood hematocrit (volume fraction) 45 % 40-54 Automated erythrocyte mean corpuscular volume 87 [ foz_us] 80-99 Automated erythrocyte mean corpuscular h emoglobin (mass per erythrocyte) 29 pg 25-34 Automated erythrocyte mean corpuscular h emoglobin concentration measurement (mass/volume) 34 g/dL 32-36 Automated erythrocyte distribution width ratio 14. 8 % 10.0- 14.5 Automated blood platelet count (count/volume) 402 10*3/uL 130-400 Automated blood platelet mean volume measurement 9.6 [foz_us] 7.4-10.4 Automated blood neutrophils/100 leukocytes 73 % 42-75 Automated blood lymphocytes/100 leukocytes 19 % 12-44 Blood monocytes/100 leukocytes 7 % 0-12 Automated blood eosinophils/100 leukocytes 2 % 0-10 Automated blood basophils/100 leukocytes 0 % 0-10 Blood neutrophils automated count (number/volume) 10.2 10*3 1.8-7.8 Blood lymphocytes automated count (number/volume) 2.6 10*3 1.0-4.0 Blood monocytes automated count (number/volume) 1. 0 10*3 0.0-1.0 Automated eosinophil count 0.2 10*3/uL 0 .0-0.3 Automated blood basophil count (count/volume) 0.0 10*3/uL 0.0-0.1 Comprehensive metabolic panel - 08/30/19 14:15 Serum or plasma sodium measurement (moles/volume) 138 mmol/L 135-145 Serum or plasma potassium measurement (moles/volume) 3.9 mmol/L 3.6-5.0 Serum or plasma chloride measurement (moles/volume) 105 mmol/L 98-107 Carbon dioxide 23 mmol/L 21-32 Serum or plasma anion gap determination (moles/volume) 10 mmol/L 5-14 Serum or plasma urea nitrogen measurement (mass/volume ) 11 mg/dL 7-18 Serum or plasma creatinine measurement (mass/volume) 0.88 mg/dL 0.60-1.30 Serum or plasma urea nitrogen/creatinine mass ratio 13 NRG Serum or plasma creatinine measurement w ith calculation of estimated glomerular filtration rate > NRG Serum or plasma glucose measurement (mass/volume) 116 mg/dL 70-105 Serum or plasma calcium measurement (mass/volume) 8.9 mg/dL 8.5-10.1 Serum or plasma total bilirubin measurement (mass/volu me) 0.9 mg/dL 0.1-1.0 Serum or plasma alkaline phosphatase veronica surement (enzymatic activity/volume) 103 U/L 40-136 Serum or plasma aspartate aminotransfera se measurement (enzymatic activity/volume) 12 U/L 5-34 Serum or plasma alanine aminotransferase measurement (enzymatic activity/volume) 22 U/L 0-55 Serum or plasma protein measurement (mass/volume) 6.9 g/dL 6.4-8.2 Serum or plasma albumin measurement (mass/volume) 4.0 g/dL 3.2-4.5 CALCIUM CORRECTED 8.9 mg/dL 8.5-10.1 Manual absolute plasma cell count - 08/20 14:15 Blood monocytes/100 leukocytes 7 % NRG Manual blood segmented neutrophils/100 leukocytes 66 % NRG Blood band neutrophils/100 leukocytes 1 % NRG Manual blood lymphocytes/100 leukocytes 22 % NRG Manual eosinophils/100 leukocytes in nose 4 % NRG Manual blood basophils/100 leukocytes 0 % NRG Blood erythrocyte morphology finding identification NORMAL NRG Serum or plasma lithium measurement (mol es/volume) - 08/30/19 14:15 BNP PT < 10.0 <100.0 THYROID STIMULATING HORMONE - 08/30/19 1 4:15 THYROID STIMULATING HORMONE 0.84 u[iU]/mL 0.35-4.94 Serum or plasma thyroxine (T4) free luiza urement (mass/volume) - 08/30/19 14:15 Serum or plasma thyroxine (T4) free measurement (mass/ volume) 1.10 ng/dL 0.70-1.48 Radiology Report from [facility] on 07/20/19 08:54:00 PATIENT NAME: JESSICA BARKER UNIT NO: [id number] EXAMS: CPT CODE: [id number] XR CHEST AP/PA LATERAL 18240 REASON FOR EXAM: 54 years old Male [...] [facility] NAME: JESSICA BARKER [address] HP: [phone] AGE: 54 S:M [place], [place] [address] : 1965 LOC: W.EDW PHYS: Renée Valdez MD PHONE #: [phone] EXAM DATE: 07/20/2019 STATUS: [facility] FAX #: [phone] A#: [id number] U#: [id number] PAGE 1 Signed Report *Final Page* Encounters ACCT No. Visit Date/Time Discharge Status Pt. Type Provider Facility Loc./Unit Complaint [id number] 08/13/2019 08:05:00 08/13/2019 08:05 :00 DIS Outpatient CAROLE TOBIN [id number] 01/29/2019 08:10:00 01/29/2019 08:10 :00 DIS Outpatient ANNY KULKARNI [id number] 06/08/2018 15:00:00 06/08/2018 23:59: 59 CLS Outpatient CHARLENE LEVI, [facility] [id number] 06/08/2018 15:00:00 Document Registration [id number] 05/18/2018 09:00:00 Document Registration [id number] 05/14/2018 11:20:00 Document Registration [id number] 08/25/2019 12:51:00 14:01:00 DIS Emergency DACIA CAMPOS APRN [facility] ER THROAT DISCOMFORT [id number] 08/19/2019 02:43:00 03:07:00 DIS Outpatient LORIE FLOWERS DO [facility] ER LOW O2 LEVELS [id number] 08/17/2019 10:58:00 11:56:00 DIS Outpatient ANNY TANNER a [facility] ER SOA [id number] 08/16/2019 18:10:00 020 19:01:00 DIS Outpatient DANY AN DO [facility] ER SOB [id number] 08/01/2018 22:22:00 23:02:00 DIS Emergency KEHINDE LEVI, DEMETRIA Bradford [facility] ER LEG SWELLING [id number] 07/16/2018 01:34:00 019 02:16:00 DIS Emergency LORIE FLOWERS DO [facility] ER PROBLEMS WITH GOUT [id number] 07/04/2018 20:55:00 019 22:22:00 DIS Emergency JORGE L MASON [facility] ER RT SHOULDER PAIN [id number] 06/11/2018 01:00:00 019 02:35:00 DIS Emergency NAHOMY ROBERTS MD [facility] ER GOUT FLARE UP [id number] 05/16/2018 20:34:00 019 22:19:00 DIS Emergency ISABELLAJORGE L [facility] ER PAIN IN LEFT FOOT [id number] 02/02/2018 21:35:00 018 22:15:00 DIS Emergency NEIL WHITE [facility] ER R FOOT PAIN [id number] 11/05/2017 00:10:00 018 00:45:00 DIS Emergency CHERELLE PADILLA MD [facility] ER GOUT R FOOT [id number] 09/17/2017 15:33:00 018 16:08:00 DIS Emergency DACIA CAMPOS APRN [facility] ER GOUT FLARE UP [id number] 06/30/2017 23:12:00 018 00:45:00 DIS Outpatient NAHOMY ROBERTS MD [facility] ER GOUT, RT FOOT [id number] 03/11/2017 17:50:00 018 18:16:00 DIS Emergency DACIA CAMPOS APRN [facility] ER COUGH,LIGHT HEADED WHEN COUGHING,FEVER [id number] 07/18/2016 05:24:00 017 05:58:00 DIS Emergency MICHEL CANO MD [facility] ER GOUT [id number] 01/09/2016 21:53:00 016 23:08:00 DIS Emergency NAHOMY ROBERTS MD [facility] ER L FOOT INJ [id number] 07/26/2015 17:31:00 016 18:04:00 DIS Emergency DACIA CAMPOS APRN [facility] ER RT LOWER BACK PAIN [id number] 05/26/2015 22:47:00 016 00:38:00 DIS Emergency NAHOMY ROBERTS MD [facility] ER PAIN FROM GOUT [id number] 03/03/2015 17:02:00 016 17:34:00 DIS Emergency KIRSTIN CESPEDES DO [facility] ER [id number] 11/27/2014 07:57:00 015 09:20:00 DIS Emergency NAHOMY ROBERTS MD [facility] ER GOUT ATTACK R K NEE [id number] 10/30/2014 14:07:00 14:13:00 DIS Outpatient VENUS BELLO DO [facility] SLEEP OBS APNEAS, SNORING, AR RHYTHMIAS, HTN, EDS, CHOKIN [id number] 10/18/2014 00:37:00 015 01:01:00 DIS Emergency NAHOMY ROBERTS MD [facility] ER GOUT-LEFT FOOT [id number] 08/23/2014 17:14:00 015 17:59:00 DIS Emergency DACIA CAMPOS APRN [facility] ER LEFT RING FINGER INJURY [id number] 01/30/2014 07:41:00 014 23:59:59 CLS Outpatient THIAGO DRISCOLL DO [facility] LAB HTN [id number] 01/28/2014 05:44:00 014 06:28:00 DIS Emergency KIRSTIN CESPEDES DO [facility] ER SOB [id number] 03/04/2013 23:03:00 014 23:57:00 DIS Emergency DEMETRIA BUSBY MD [facility] ER RT ANKLE GOUT [id number] 02/09/2013 08:18:00 013 09:56:00 DIS Emergency LORIE FLOWERS DO [facility] ER FALL, KNEE PAIN [id number] 01/12/2013 20:17:00 013 21:02:00 DIS Emergency DACIA CAMPOS APRN [facility] ER CALF PAIN [id number] 11/10/2012 13:40:00 14:27:00 DIS Emergency NEIL WHITE [facility] ER GOUT [id number] 10/31/2012 16:12:00 17:36:00 DIS Emergency JEANCARLOS TAFOYA DO [facility] ER BACK PAIN [id number] 07/20/2012 11:04:00 23:59:59 CLS Outpatient [id number] 07/07/2012 09:13:00 11:05:00 DIS Emergency LORIE FLOWERS DO [facility] ER CHEST PAIN [id number] 06/30/2012 08:59:00 09:58:00 DIS Emergency NAHOMY ROBERTS MD [facility] ER GOUT FLARE UP I N RIGHT ANKLE [id number] 08/30/2019 13:47:[address] Emergency DACIA CAMPOS APRN [facility] ER BILAT LEG EDEMA [id number] 05/10/2012 21:29:00 Document Registration [id number] 04/14/2012 20:06:00 Document Registration [id number] 01/06/2012 07:03:00 Document Registration [id number] 01/05/2012 13:01:00 Document Registration [id number] 12/26/2011 05:04:00 Document Registration [id number] 10/15/2011 09:48:00 Document Registration [id number] 08/06/2011 18:04:00 Document Registration [id number] 06/19/2011 13:28:00 Document Registration [id number] 03/08/2011 12:50:00 Document Registration [id number] 02/09/2011 22:40:00 Document Registration [id number] 10/23/2010 07:08:00 Document Registration [id number] 09/26/2010 14:08:00 Document Registration [id number] 08/03/2010 22:10:00 Document Registration [id number] 07/03/2010 20:53:00 Document Registration [id number] 09/27/2009 03:22:00 Document Registration [id number] 04/22/2016 09:14:00 Document Registration [id number] 07/31/2012 08:06:00 Document Registration [id number] 07/20/2019 04:52:00 08:40:00 DIS Emergency Kaiden LEVI, [facility] W.EDW [id number] 07/16/2019 00:12:00 00:55:00 DIS Emergency Dee LEVI, [facility].EDW [id number] 07/14/2019 23:23:00 00:30:00 DIS Emergency Maryann LEVI, [facility] [place].EDW [id number] 07/14/2019 01:07:00 04:47:00 DIS Emergency Tong PHILIP, [facility] W.YOCASTA [id number] 06/25/2019 11:04:00 13:59:00 DIS Emergency Maryann LEVI, [facility] [place].EDS
== END 2019-08-30 15:36 | disposition home or self-care (01) ==
LOC: EDUNIT# 13:45 → ER 13:47
DX: R60.0 Localized edema (principal); T46.1X5A Adverse effect of calcium-channel blockers, initial encounter; J44.9 Chronic obstructive pulmonary disease, unspecified; I25.2 Old myocardial infarction; I10 Essential (primary) hypertension; M10.9 Gout, unspecified; F41.9 Anxiety disorder, unspecified
CPT/HCPCS: 36415; 80053; 83880; 84439; 84443; 85007; 85027

== ENCOUNTER 2020-06-07 19:22 | Emergency (ER) | payer SELFPAY ==
[~2020-06-07] VITALS: Ht 172.7 cm; Wt 103.0 kg
[~2020-06-07 19:22] MED LIST changes: +ALPR.25T PO; -ALPR0.254 PO
--- NOTE | 2020-06-07 19:39 | ED General ---
General Chief Complaint: Cardiac/General Problems Stated Complaint: HIGH BP History of Present Illness Date Seen by Provider: Jun 07, 2020 Time Seen by Provider: 19:30 Initial Comments 55-year-old gentleman presents to the emergency department by private vehicle this evening with a chief complaint of elevated blood pressure. Patient states his blood pressure cuff at home stopped working so he went to [facility] to get his blood pressure checked. He noticed that his blood pressure was quite elevated. Patient denies any symptoms of headache, blurry vision, chest pain or shortness of breath. No urinary complaints. No abdominal pain, nausea or vomiting. No recent illnesses. Patient does have concern for a small lymph node noted at the submental area more to the right under his chin. No recent illnesses such as fevers, chills, cough or congestion. Patient simply wanted his blood pressure checked today. All other review of systems reviewed and negative except as stated above. Timing/Duration: 1/2 Hour, 1 Day Associated Systoms: Denies Symptoms Allergies and Home Medications Allergies Coded Allergies: No Known Drug Allergies (Unverified , 05/26/15) Home Medications ALPRAZolam 0.25 Mg Tablet, 0.25 MG PO QID, (Reported) Colchicine 0.6 Mg Capsule, 0.6 MG PO ONCE Prescribed by: DACIA CAMPOS on 09/17/17 1610 Doxycycline Hyclate 100 Mg Tablet, 100 MG PO BID Prescribed by: DANY AN on 08/16/191900 Lisinopril 10 Mg Tablet, 10 MG PO DAILY, (Reported) Prednisone 20 Mg Tab, 40 MG PO DAILY Prescribed by: DANY AN on 08/16/191900 Patient Home Medication List Home Medication List Reviewed: Yes Review of Systems Review of Systems Constitutional: see HPI EENTM: no symptoms reported Respiratory: no symptoms reported Cardiovascular: no symptoms reported Gastrointestinal: no symptoms reported Musculoskeletal: no symptoms reported Skin: no symptoms reported Hematologic/Lymphatic: Swollen Glands Past Stmgmfw-Tgkuaa-Wogbnk Hx Patient Social History Type Used: Smokeless Tobacco Former Smoker, Quit: Feb 20, 1986 2nd Hand Smoke Exposure: No Recent Hopitalizations: No Immunizations Up To Date Tetanus Booster (TDap): Less than 5yrs PED Vaccines UTD: Yes Seasonal Allergies Seasonal Allergies: No Past Medical History Surgeries: Yes (CARDIAC CATH--NO INTERVENTION) Cardiac Respiratory: Yes Sleep Apnea, COPD Currently Using CPAP: No Cardiac: Yes ( CARDIAC CATH--NO INTERVENTION) Coronary Artery Disease, Heart Attack, High Cholesterol, Hypertension Neurological: No Reproductive Disorders: No Sexually Transmitted Disease: No HIV/AIDS: No Genitourinary: No Gastrointestinal: Yes Gastroesophageal Reflux Musculoskeletal: Yes Chronic Back Pain, Fractures, Gout Endocrine: No HEENT: Yes Cataract Cancer: No Psychosocial: Yes Anxiety Integumentary: No Blood Disorders: No Adverse Reaction/Blood Tranf: No Family Medical History Patient reports no known family medical history. No Pertinent Family Hx, Hypertension Physical Exam Vital Signs Capillary Refill : Height, Weight, BMI Height: 6'0" Weight: 306lbs. 0oz. 138.440359dm; 45.00 BMI Method:Stated General Appearance: No Apparent Distress, WD/WN Eyes: Bilateral Eye Normal Inspection, Bilateral Eye PERRL, Bilateral Eye EOMI Neck: Normal Inspection, Non Tender, Supple Respiratory: Lungs Clear, Normal Breath Sounds, No Accessory Muscle Use, No Respiratory Distress Cardiovascular: Regular Rate, Rhythm, No Edema Extremity: Normal Capillary Refill, Normal Inspection, Normal Range of Motion Neurologic/Psychiatric: Alert, Oriented x3, No Motor/Sensory Deficits, Normal Mood/Affect Skin: Normal Color, Warm/Dry Lymphatic: Other (Small submental lymph node is palpated to the right of midline under the chin. This is nontender.) Progress/Results/Core Measures Suspected Sepsis SIRS Temperature: Pulse: Respiratory Rate: Blood Pressure / Mean: Results/Orders Vital Signs/I&O Capillary Refill : Departure Impression Primary Impression: Essential hypertension Disposition: 01 HOME, SELF-CARE Condition: Stable Departure-Patient Inst. Decision time for Depature: 19:38 Referrals: ADIN CHANG MD (PCP/Family) Primary Care Physician Patient Instructions: High Blood Pressure in Adults Add. Discharge Instructions: Continue to take your daily blood pressure medications as prescribed. Watch your salt intake as this can elevate your blood pressure. Return to the emergency room if you have any symptoms of chest pain, shortness of breath severe headache with vision changes or any other emergent concerning symptoms associated with high blood pressure. ROSCOE LIMA MD Jun 07, 2020 19:39
[2020-06-07 19:45] VITALS: BP 162/96
== END 2020-06-07 19:45 | disposition home or self-care (01) ==
LOC: EDUNIT# 19:22 → ER 19:25
DX: I10 Essential (primary) hypertension (principal); I25.10 Atherosclerotic heart disease of native coronary artery without angina pectoris; I25.2 Old myocardial infarction; F41.9 Anxiety disorder, unspecified; M10.9 Gout, unspecified; J44.9 Chronic obstructive pulmonary disease, unspecified; Z87.891 Personal history of nicotine dependence; Z95.9 Presence of cardiac and vascular implant and graft, unspecified; Z79.52 Long term (current) use of systemic steroids
CPT/HCPCS: 99283

== ENCOUNTER 2020-09-08 14:05 | Emergency (ER) | payer SELFPAY ==
[~2020-09-08] VITALS: Ht 182 cm; Wt 121.0 kg
--- NOTE | 2020-09-08 16:49 | Diagnostic Imaging Report ---
INDICATION: Right leg pain. Right leg venous Doppler study was performed in the routine fashion with color flow Doppler and waveform analysis. FINDINGS: The right common femoral vein, superficial femoral vein, popliteal vein and visualized portion of the tibial veins show normal compressibility and venous flow patterns. There is normal augmentation. IMPRESSION: No evidence of deep vein thrombosis of the major veins of the right leg. Dictated by: Dictated on workstation # [id number]
--- NOTE | 2020-09-08 16:56 | Diagnostic Imaging Report ---
INDICATION: Right leg pain AP and lateral views the right tibia and fibula are obtained. No fracture or acute bony abnormality is seen. IMPRESSION: Negative right tibia and fibula. Dictated by: Dictated on workstation # [id number]
[2020-09-08 17:03] LABS: BASOPHILS % (AUTO) 0 % (0-10); EOSINOPHILS # (AUTO) 0.2 10^3/uL (0.0-0.3); EOSINOPHILS % (AUTO) 2 % (0-10); HEMATOCRIT 49 % (40-54); HEMOGLOBIN 16.5 g/dL (13.3-17.7); LYMPHOCYTES # (AUTO) 3.2 10^3/uL (1.0-4.0); LYMPHOCYTES % (AUTO) 26 % (12-44); MEAN CORPUSCULAR HEMOGLOBIN 28 pg (25-34); MEAN CORPUSCULAR HGB CONC 34 g/dL (32-36); MEAN CORPUSCULAR VOLUME 85 fL (80-99); MEAN PLATELET VOLUME 10.4 fL (9.0-12.2); MONOCYTES % (AUTO) 8 % (0-12); NEUTROPHILS # (AUTO) 7.7 10^3/uL (1.8-7.8); NEUTROPHILS % (AUTO) 63 % (42-75); PLATELET COUNT 391 10^3/uL (130-400); WHITE BLOOD COUNT 12.2 10^3/uL (4.3-11.0)
[2020-09-08] MEDS: KETOROLAC 30 MG/ML VIAL IVP STA ×2 (17:07→17:09)
[2020-09-08 17:25] LABS: ALBUMIN 4.4 GM/DL (3.2-4.5); CHLORIDE 104 MMOL/L (98-107); POTASSIUM 4.2 MMOL/L (3.6-5.0); SODIUM 138 MMOL/L (135-145)
[2020-09-08 17:26] LABS: CALCIUM 9.2 MG/DL (8.5-10.1)
[2020-09-08 17:27] LABS: ERYTHROCYTE SEDIMENTATION RATE 1 MM/HR (0-30); GLUCOSE 88 MG/DL (70-105); TOTAL PROTEIN 7.6 GM/DL (6.4-8.2)
[2020-09-08 17:28] LABS: CARBON DIOXIDE 21 MMOL/L (21-32)
[2020-09-08 17:29] LABS: BILIRUBIN,TOTAL 0.5 MG/DL (0.1-1.0)
[2020-09-08 17:31] LABS: ALKALINE PHOSPHATASE 102 U/L (40-136); CREATININE SERUM 0.87 MG/DL (0.60-1.30); GFR ESTIMATED > 60
[2020-09-08 17:32] LABS: BUN/CREATININE RATIO 18
[2020-09-08 17:34] LABS: ALANINE AMINOTRANSFERASE 18 U/L (0-55)
--- NOTE | 2020-09-08 17:42 | ED Lower Extremity ---
General Chief Complaint: Lower Extremity Stated Complaint: R LEG PAIN Nursing Triage Note: AMB TO ED C/O R LOWER LEG PAIN ONSET MONDAY. WAS SEEN AT [facility] WAS NOT GIVEN ANY THING FOR IT. Allergies and Home Medications Allergies Coded Allergies: No Known Drug Allergies (Unverified , 05/26/15) Home Medications ALPRAZolam 0.25 Mg Tablet, 0.25 MG PO QID, (Reported) Colchicine 0.6 Mg Capsule, 0.6 MG PO ONCE Prescribed by: DACIA CAMPOS on 09/17/17 1610 Doxycycline Hyclate 100 Mg Tablet, 100 MG PO BID Prescribed by: DAYN AN on 08/16/191900 Lisinopril 10 Mg Tablet, 10 MG PO DAILY, (Reported) Prednisone 20 Mg Tab, 40 MG PO DAILY Prescribed by: DANY AN on 08/16/191900 Past Yxajjer-Kqomoe-Cdhcdb Hx Patient Social History Tobacco Use?: No Substance use?: No Pt feels they are or have been: No Immunizations Up To Date Tetanus Booster (TDap): Less than 5yrs PED Vaccines UTD: Yes Influenza Vaccine Up-to-Date: No; Not Current First/Initial COVID19 Vaccinat: APRIL Second COVID19 Vaccination Alphonse: MAY Seasonal Allergies Seasonal Allergies: No Past Medical History Surgeries: Yes (CARDIAC CATH--NO INTERVENTION) Cardiac Respiratory: Yes Sleep Apnea, COPD Currently Using CPAP: No Cardiac: Yes ( CARDIAC CATH--NO INTERVENTION) Coronary Artery Disease, Heart Attack, High Cholesterol, Hypertension Neurological: No Reproductive Disorders: No Sexually Transmitted Disease: No HIV/AIDS: No Genitourinary: No Gastrointestinal: Yes Gastroesophageal Reflux Musculoskeletal: Yes Chronic Back Pain, Fractures, Gout Endocrine: No HEENT: Yes Cataract Cancer: No Psychosocial: Yes Anxiety Integumentary: No Blood Disorders: No Adverse Reaction/Blood Tranf: No Family Medical History Patient reports no known family medical history. No Pertinent Family Hx, Hypertension Physical Exam Vital Signs Vital Signs - First Documented 09/08/20 15:16 Temp 37.0 Pulse 73 Resp 18 B/P (MAP) 151/101 (118) Capillary Refill : Less Than 3 Seconds Height, Weight, BMI Height: 6'0" Weight: 306lbs. 0oz. [id number]; 36.00 BMI Method:Stated Progress/Results/Core Measures Results/Orders Lab Results Laboratory Tests Test 09/08/20 16:57 Range/Units White Blood Count 12.2 H 4.3-11.0 10^3/uL Red Blood Count 5.81 H 4.30-5.52 10^6/uL Hemoglobin 16.5 13.3-17.7 g/dL Hematocrit 49 40-54 % Mean Corpuscular Volume 85 80-99 fL Mean Corpuscular Hemoglobin 28 25-34 pg Mean Corpuscular Hemoglobin Concent 34 32-36 g/dL Red Cell Distribution Width 15.3 H 10.0-14.5 % Platelet Count 391 130-400 10^3/uL Mean Platelet Volume 10.4 9.0-12.2 fL Immature Granulocyte % (Auto) 0 % Neutrophils (%) (Auto) 63 42-75 % Lymphocytes (%) (Auto) 26 12-44 % Monocytes (%) (Auto) 8 0-12 % Eosinophils (%) (Auto) 2 0-10 % Basophils (%) (Auto) 0 0-10 % Neutrophils # (Auto) 7.7 1.8-7.8 10^3/uL Lymphocytes # (Auto) 3.2 1.0-4.0 10^3/uL Monocytes # (Auto) 1.0 0.0-1.0 10^3/uL Eosinophils # (Auto) 0.2 0.0-0.3 10^3/uL Basophils # (Auto) 0.0 0.0-0.1 10^3/uL Immature Granulocyte # (Auto) 0.1 0.0-0.1 10^3/uL Erythrocyte Sedimentation Rate 1 0-30 MM/HR Sodium Level 138 135-145 MMOL/L Potassium Level 4.2 3.6-5.0 MMOL/L Chloride Level 104 98-107 MMOL/L Carbon Dioxide Level 21 21-32 MMOL/L Anion Gap 13 5-14 MMOL/L Blood Urea Nitrogen 16 7-18 MG/DL Creatinine 0.87 0.60-1.30 MG/DL Estimat Glomerular Filtration Rate > 60 BUN/Creatinine Ratio 18 Glucose Level 88 70-105 MG/DL Uric Acid 7.0 2.6-7.2 MG/DL Calcium Level 9.2 8.5-10.1 MG/DL Corrected Calcium 8.9 8.5-10.1 MG/DL Total Bilirubin 0.5 0.1-1.0 MG/DL Aspartate Amino Transf (AST/SGOT) 15 5-34 U/L Alanine Aminotransferase (ALT/SGPT) 18 0-55 U/L Alkaline Phosphatase 102 40-136 U/L C-Reactive Protein High Sensitivity 2.63 H 0.00-0.50 MG/DL Total Protein 7.6 6.4-8.2 GM/DL Albumin 4.4 3.2-4.5 GM/DL My Orders Orders - LORIE FLOWERS DO Ed Iv/Invasive Line Start (09/08/20 15:58) Tibia/Fibula, Right, 2 Views (09/08/20 15:58) Cbc With Automated Diff (09/08/20 15:58) Comprehensive Metabolic Panel (09/08/20 15:58) Hs C Reactive Protein (09/08/20 15:58) Fibrin Degradation Products (09/08/20 15:58) Erythrocyte Sedimentation Rate (09/08/20 15:58) Uric Acid (09/08/20 15:58) Us Venous Lower Ext Rt (09/08/20 15:58) Ketorolac Injection (Toradol Injection) (09/08/20 15:58) Clindamycin 600 Mg Iv (1x Dose (09/08/20 17:45) Vital Signs/I&O 09/08/20 15:16 Temp 37.0 Pulse 73 Resp 18 B/P (MAP) 151/101 (118) Blood Pressure Mean: 118 Departure Impression Primary Impression: Cellulitis of right anterior lower leg Disposition: HOME, SELF-CARE Condition: Stable Departure-Patient Inst. Referrals: ADIN CHANG MD (PCP/Family) Primary Care Physician Patient Instructions: Cellulitis (Skin Infection), Adult ED Add. Discharge Instructions: TYLENOL 1 GRAM / MOTRIN 800 MG 4 TIMES A DAY NEEDED FOR PAIN ELEVATE FOOT MUCH POSSIBLE FOLLOW UP WITH YOUR DR IN 2-3 DAYS FOR FURTHER CARE All discharge instructions reviewed with patient and/or family. Voiced understanding. Scripts Clindamycin HCl (Clindamycin HCl) 300 Mg Capsule 300 MG PO QID for 10 Days, #40 CAP Prov: LORIE FLOWERS DO 09/08/20 LORIE FLOWERS DO Sep 08, 2020 17:42
[2020-09-08] MEDS ORDERED: CLIN300C12 PO (17:45)
[2020-09-08] MEDS ORDERED: CLINDAMYCIN 600 MG/50 ML IVPB 50 ML IV ONE (17:45)
[2020-09-08 18:28] VITALS: BP 150/90
== END 2020-09-08 18:37 | disposition home or self-care (01) ==
LOC: EDUNIT# 14:05 → ER 14:06
DX: L03.115 Cellulitis of right lower limb (principal); J44.9 Chronic obstructive pulmonary disease, unspecified; I25.2 Old myocardial infarction; I10 Essential (primary) hypertension; G47.30 Sleep apnea, unspecified; F41.9 Anxiety disorder, unspecified; Z79.52 Long term (current) use of systemic steroids; Z79.899 Other long term (current) drug therapy
CPT/HCPCS: 36415; 73590; 80053; 84550; 85025; 85379; 85652; 86141